=== PATIENT | female | born 1995 | race Caucasian/White ===

== ENCOUNTER 2023-08-12 00:57 | Observation (INO) | payer MEDICAID, SELFPAY ==
--- NOTE | 2023-08-12 01:08 | PC.NURSE ---
Pt arrives to [facility] with c/o leaking of fluid. Pt given gown and urine specimen cup.
[2023-08-12 01:16] VITALS: BP 105/55; PULSE 62
[2023-08-12 01:37] LABS: Bilirubin Urine NEGATIVE (NEGATIVE); Blood Urine NEGATIVE (NEGATIVE); Clarity Urine CLEAR (CLEAR); Color Urine LT. YELLOW (YELLOW); Glucose Urine UA NEGATIVE (NEGATIVE); Ketones Urine NEGATIVE (NEGATIVE); Leukocyte Esterase Urine NEGATIVE (NEGATIVE); Nitrite Urine NEGATIVE (NEGATIVE); Protein Urine NEGATIVE (NEG/TRACE); Specific Gravity Urine >=1.030 (1.005-1.025); Urobilinogen Urine 0.2 EU/dL (0.2-1.0)
[2023-08-12 01:39] LABS: Urine Microscopic Indicated NO
[2023-08-12 01:46] LABS: Amnisure NEGATIVE (NEGATIVE)
--- NOTE | 2023-08-12 02:28 | PC.NURSE ---
0108- Pt returns from restroom at this time. Pt begins to state her chief complaint at this time. Pt states she received an US at [facility] in [place] 08/11/23 in the AM and was told her placenta and umbilical cord of fetus was hanging . Pt denies being told if she had a placenta previa, short cervix, or low lying placenta. Pt states she had to go to [facility] due to not having any insurance and living in domestic retirement since the 30 of July. Pt states she had some care in [place]. Pt states she had a sneak peak US done to verify due to no insurance and knew fetus HR and gender. Pt states her past pregnancies were all with and has not been able to see him because of insurance purposes at this time but plans to call his office when insurance is established next week. The pt states she has felt leaking of fluid since 9pm 08/11/2023; pt states it is clear and mucous like with no urine smell. Pt reports recurrent UTI in past. Pt denies sexual intercourse. Pt denies labor/delivery with other pregnancies. Pt denies complications with this and past pregnancies. All past pregnancies pt delivered vaginally. Pt denies vaginal bleeding. Pt denies cramping or cxt's. Pt states she hasn't felt the baby move since this morning. [id number] attempting to obtain heart tones at this time.
== END 2023-08-12 03:30 | disposition home or self-care (01) ==
PROVIDERS: Admitting Provider Obstetrics & Gynecology; Visit Provider Obstetrics & Gynecology
DX: Z03.71 Encounter for suspected problem with amniotic cavity and membrane ruled out (principal); Z3A.00 Weeks of gestation of pregnancy not specified
CPT/HCPCS: 81003; 84112; G0378; G0379

== ENCOUNTER 2023-10-19 00:07 | Observation (INO) | payer MEDICAID, SELFPAY ==
--- OUTSIDE RECORDS SUMMARY | 2023-10-19 00:17 | XMS_ITS | CCD ---
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 By: #### U DUSTIN SANABRIACG #### [facility] [address] [place] [address] Hotel [employer]obby Concierge: Travis Eduardo DO #### UAX #### [address] [address] Hotel [employer]obby Concierge: Philip Schulte MD PH,Ur 5.0 Normal 5.0-8.0 [facility] Comment on above: Performed By: #### U EARLINE SANABRIAG #### [facility] [place] [address] Hotel Lobby Concierge: Travis Eduardo DO #### UAX #### [address] [address] Hotel Lobby Concierge: Philip Schulte MD Protein Ql (U) TRACE Abnormal NEG [facility] Comment on above: Performed By: #### U KAYLAO UHCG #### [facility] [address] [place] [address] Hotel Lobby Concierge: Travis Eduardo DO #### UAX #### [address] [address] Hotel Lobby Concierge: Philip Schulte MD Spec. [place],Ur 1.022 Normal 1.000-1.030 [facility] Comment on above: Performed By: #### U DUSTIN SANABRIACG #### [facility] [address] [place] [address] Hotel Lobby Concierge: Travis Eduardo DO #### UAX #### [address] [address] Hotel [employer]obby Concierge: Philip Schulte MD Urobilinogen,Ur Normal Normal NORM [facility] Comment on above: Performed By: #### EARLINE MCMANUSG #### [facility] [address] [place] [address] Hotel [employer]obby Concierge: Travis Eduardo DO #### UAX #### [address] [address] Hotel Lobby Concierge: Philip Schulte MD Urinalysis,Microon 3 Bacteria None Normal NONE [facility] Comment on above: Performed By: #### MIKEL MCMANUS #### [facility] [address] [place] [address] Hotel [employer]obby Concierge: Travis Eduardo DO #### UAX #### [address] [address] Hotel [employer]obby Concierge: Philip Schulte MD Casts 0 TO 2 Normal [facility] Comment on above: Performed By: #### MIKEL MCMANUS #### [facility] [address] [place] [address] Hotel [employer]obby Concierge: Travis Eduardo DO #### UAX #### [address] [address] Hotel Lobby Concierge: Philip Schulte MD Epithelial cells LM Ql (Urine sed) 0 TO 2 Normal [facility] Comment on above: Performed By: #### MIKEL MCMANUS #### [facility] [address] [place] [address] Hotel [employer]obby Concierge: Travis Eduardo DO #### UAX #### [address] [place] [address] Hotel Lobby Concierge: Philip Schulte MD Urine RBC's 21 TO 50 Normal [facility] Comment on above: Performed By: #### U MICAO UHCG #### [facility] [address] [place] [address] Hotel [employer]obby Concierge: Travis Eduardo DO #### UAX #### [address] [address] Hotel Lobby Concierge: Philip Schulte MD Urine WBC's 6 TO 9 Normal [facility] Comment on above: Performed By: #### U MICAO UHCG #### [facility] [address] [place] [address] Hotel [employer]obby Concierge: Travis Eduardo DO #### UAX #### [address] [address] Hotel Lobby Concierge: Philip Schulte MD Vaginitis DNA Probeon 2022 Renetta Negative Normal NEG [facility] Comment on above: Result Comment: for Renetta sp. Method of testing is a DNA probe intended for detection and identification of Renetta species, Gardnerella vaginalis, and Trichomonas vaginalis nucleic acid in vaginal fluid specimens from patients with symptoms of vaginitis/vaginosis. Performed By: #### V AGP #### [facility] [address] [place] [address] Hotel [employer]obby Concierge: Travis Eduardo DO Gardnerella Negative Normal NEG [facility] Comment on above: Result Comment: for Gardnerella vaginalis Performed By: #### V AGP #### [facility] [address] [facility] [place] [address] Hotel Lobby Concierge: Travis Eduardo DO Trichomonas Negative Normal NEG [facility] Comment on above: Result Comment: for Trichomonas Vaginalis Performed By: #### V AGP #### [facility] [address] [place] [address] Hotel [employer]obby Concierge: Travis Eduardo DO Source .VAGINAL SWAB Normal [facility] Comment on above: Performed By: #### V AGP #### [facility] [address] [place] [address] Hotel Lobby Concierge: Travis Eduardo DO Pap IG,rfx Aptima HPV all pt hon 02-03-2022 . . Normal [facility] Comment on above: Performed By: #### P [id number] #### [facility] [address] [address] [address] Mack Marcial DIAGNOSIS: Comment Abnormal [facility] Comment on above: Result Comment: EPIT HELIAL CELL ABNORMALITY. LOW GRADE SQUAMOUS INTRAEPITHELIAL LESION (LSIL). PREDOMINANCE OF COCCOBACILLI CONSISTENT WITH SHIFT IN VAGINAL DAHLIA IS PRESENT. Performed By: #### P APH11A #### [facility] [address] [address] [address] Mack Marcial Electronically signed by: Comment Normal [facility] Comment on above: Result Comment: Terrell Mendoza MD, Pathologist Performed By: #### P APH11A #### [facility] [address] [address] [address] Mack Marcial HPV Aptima Positive Abnormal Negative [facility] Comment on above: Result Comment: This nucleic acid amplification test detects fourteen high-risk HPV types (16,18,31,33,35,39,45,51,52,56,58,59,66,68) without differentiation. Performed By: #### P APH11A #### [facility] [address] [address] [address] Mack Marcail Methodology: Comment Normal [facility] Comment on above: Result Comment: This liquid based ThinPrep(R) pap test was screened with the use of an image guided system. Performed By: #### P APH11A #### [facility] [address] [place] [address] Dr. Mack Marcial Note: Comment Normal [facility] Comment on above: Result Comment: The Pap smear is a screening test designed to aid in the detection of premalignant and malignant conditions of the uterine cervix. It is not a diagnostic procedure and should not be used as the sole means of detecting cervical cancer. Both false-positive and false-negative reports do occur. . Performed By: #### P APH11A #### [facility] [address] [address] [address] Mack Marcial Pathologist Provided ICD10 Comment Normal [facility] Comment on above: Result Comment: R87. [id number], R87.5 Performed By: #### P APH11A #### [facility] [address] [place] [address] Dr. Mack Marcial Performed by: Comment Normal [facility] Comment on above: Result Comment: Juhi Albrecht [employer] Harvest Worker (ASCP) Performed By: #### P APH11A #### [facility] [address] [place] [address] Dr. Mack Marcial Reflex Criteria: Comment Normal [facility] Comment on above: Result Comment: See below for HPV testing results. . Performed By: #### P APH11A #### [facility] [address] [place] [address] Dr. Mack Marcial Specimen adequacy: Comment Normal [facility] Comment on above: Result Comment: Sati sfactory for evaluation. Endocervical and/or squamous metaplastic cells (endocervical component) are present. Performed By: #### P APH11A #### [facility] [address] [place] [address] Dr. Mack Marcial CBC AUTO DIFFon 09-06-2021 BASO # 0.0 103/ul Normal 0.0-0.1 [facility] Comment on above: Performed By: #### H IV12 #### [facility] [address] [place] [address] Dr. Mack Marcial Basophils/100 WBC (Bld) 0.2 % Normal 0.2-2.0 [facility] Comment on above: Performed By: #### H IV12 #### [facility] [address] [address] [address] Mack Marcial EO # 0.1 103/ul Normal 0.0-0.7 [facility] Comment on above: Performed By: #### H IV12 #### [facility] [address] [place] [address] Dr. Mack Marcial Eosinophils/100 WBC (Bld) 0.5 % Critically low 0.9-7.0 [facility] Comment on above: Performed By: #### H IV12 #### [facility] [address] [place] [address] Dr. Mack Marcial Erythrocyte distribution width (RBC) [Ratio] 16.2 % Critically high 11.0-15.0 [facility] Comment on above: Performed By: #### H IV12 #### [facility] [address] [place] [address] Dr. Mack Marcial Hematocrit (Bld) [Volume fraction] 25.6 % Critically low 36.0-48.0 [facility] Comment on above: Performed By: #### H IV12 #### [facility] [address] [place] [address] Dr. Mack Marcial Hemoglobin (Bld) [Mass/Vol] 7.9 g/dL Critically low 12.0-16.0 [facility] Comment on above: Result Comment: post Performed By: #### H IV12 #### [facility] [address] [place] [address] Dr. Mack Marcial IG # 0.07 10e3/ul Critically high 0.00-0.03 [facility] Comment on above: Performed By: #### H IV12 #### [facility] [address] [place] [address] Dr. Mack Marcial IG % 0.5 % Normal 0.0-0.5 [facility] Comment on above: Performed By: #### H IV12 #### [facility] [address] [place] [address] Dr. Mack Marcial LYMPH # 2.2 103/ul Normal 1.2-3.8 [facility] Comment on above: Performed By: #### H IV12 #### [facility] [address] [address] [address] Mack Marcial Lymphocytes/100 WBC (Bld) 16.9 % Critically low 20.5-60.0 [facility] Comment on above: Performed By: #### H IV12 #### [facility] [address] [address] [address] Mack Marcial MANUAL DIFF REQ NO Normal [facility] Comment on above: Performed By: #### H IV12 #### [facility] [address] [place] [address] Dr. Mack Marcial MCH (RBC) [Entitic mass] 24.8 pg Critically low 26.7-34.0 [facility] Comment on above: Performed By: #### H IV12 #### [facility] [address] [place] [address] Dr. Mack Marcial MCHC (RBC) [Mass/Vol] 30.9 g/dL Normal 29.9-35.2 [facility] Comment on above: Performed By: #### H IV12 #### [facility] [address] [place] [address] Dr. Mack Marcial MCV (RBC) [Entitic vol] 80.5 fL Critically low 81.0-99.0 [facility] Comment on above: Performed By: #### H IV12 #### [facility] [address] [place] [address] Dr. Mack Marcial MONO # 1.2 103/ul Critically high 0.3-0.8 [facility] Comment on above: Performed By: #### H IV12 #### [facility] [address] [place] [address] Dr. Mack Marcial Monocytes/100 WBC (Bld) 9.2 % Normal 1.7-12.0 [facility] Comment on above: Performed By: #### H IV12 #### [facility] [address] [place] [address] Dr. Mack Marcial NEUT # 9.4 103/ul Critically high 1.4-6.5 [facility] Comment on above: Performed By: #### H IV12 #### [facility] [address] [place] [address] Dr. Mack Marcial Neutrophils/100 WBC (Bld) 72.7 % Normal 43.0-75.0 [facility] Comment on above: Performed By: #### H IV12 #### [facility] [address] [place] [address] Dr. Mack Marcial Platelet mean volume (Bld) [Entitic vol] 10.1 fL Normal 9.5-13.5 [facility] Comment on above: Performed By: #### H IV12 #### [facility] [address] [place] [address] Dr. Mack Marcial PLT 159 103/ul Normal 150-450 [facility] Comment on above: Performed By: #### H IV12 #### [facility] [address] [place] [address] Dr. Mack Marcial RBC 3.18 106/ul Critically low 4.20-5.40 [facility] Comment on above: Performed By: #### H IV12 #### [facility] [address] [place] [address] Dr. Mack Marcial WBC 13.0 103/ul Critically high 4.0-11.0 [facility] Comment on above: Performed By: #### H IV12 #### [facility] [address] [place] [address] Dr. Mack Marcial CBC AUTO DIFFon 09-05-2021 BASO # 0.0 103/ul Normal 0.0-0.1 [facility] Comment on above: Performed By: #### 4 [id number] #### [facility] [address] [place] [address] Dr. Mack Marcial Basophils/100 WBC (Bld) 0.3 % Normal 0.2-2.0 [facility] Comment on above: Performed By: #### [id number] #### [facility] [address] [place] [address] Dr. Mack Marcial EO # 0.1 103/ul Normal 0.0-0.7 [facility] Comment on above: Performed By: #### 4 [id number] #### [facility] [address] [place] [address] Dr. Mack Marcial Eosinophils/100 WBC (Bld) 1.0 % Normal 0.9-7.0 [facility] Comment on above: Performed By: #### 4 [id number] #### [facility] [address] [place] [address] Dr. Mack Marcial Erythrocyte distribution width (RBC) [Ratio] 16.4 % Critically high 11.0-15.0 [facility] Comment on above: Performed By: #### 4 [id number] #### [facility] [address] [place] [address] Dr. Mack Marcial Hematocrit (Bld) [Volume fraction] 33.4 % Critically low 36.0-48.0 [facility] Comment on above: Performed By: #### 4 [id number] #### [facility] [address] [place] [address] Dr. Mack Marcial Hemoglobin (Bld) [Mass/Vol] 10.4 g/dL Critically low 12.0-16.0 [facility] Comment on above: Performed By: #### 4 [id number] #### [facility] [address] [place] [address] Dr. Mack Marcial IG # 0.06 10e3/ul Critically high 0.00-0.03 [facility] Comment on above: Performed By: #### 4 [id number] #### [facility] [address] [place] [address] Dr. Mack Marcial IG % 0.6 % Critically high 0.0-0.5 [facility] Comment on above: Performed By: #### 4 [id number] #### [facility] [address] [place] [address] Dr. Mack Marcial LYMPH # 2.4 103/ul Normal 1.2-3.8 [facility] Comment on above: Performed By: #### 4 [id number] #### [facility] [address] [place] [address] Dr. Mack Marcial Lymphocytes/100 WBC (Bld) 25.2 % Normal 20.5-60.0 [facility] Comment on above: Performed By: #### 4 [id number] #### [facility] [address] [place] [address] Dr. Mack Marcial MANUAL DIFF REQ NO Normal [facility] Comment on above: Performed By: #### 4 [id number] #### [facility] [address] [place] [address] Dr. Mack Marcial MCH (RBC) [Entitic mass] 24.4 pg Critically low 26.7-34.0 [facility] Comment on above: Performed By: #### 4 [id number] #### [facility] [address] [place] [address] Dr. Mack Marcial MCHC (RBC) [Mass/Vol] 31.1 g/dL Normal 29.9-35.2 [facility] Comment on above: Performed By: #### 4 [id number] #### [facility] [address] [place] [address] Dr. Mack Marcial MCV (RBC) [Entitic vol] 78.2 fL Critically low 81.0-99.0 [facility] Comment on above: Performed By: #### 4 [id number] #### [facility] [address] [place] [address] Dr. Mack Marcial MONO # 0.8 103/ul Normal 0.3-0.8 [facility] Comment on above: Performed By: #### 4 [id number] #### [facility] [address] [place] [address] Dr. Mack Marcial Monocytes/100 WBC (Bld) 8.8 % Normal 1.7-12.0 [facility] Comment on above: Performed By: #### 4 [id number] #### [facility] [address] [place] [address] Dr. Mack Marcial NEUT # 6.1 103/ul Normal 1.4-6.5 [facility] Comment on above: Performed By: #### 4 [id number] #### [facility] [address] [place] [address] Dr. Mack Marcial Neutrophils/100 WBC (Bld) 64.1 % Normal 43.0-75.0 [facility] Comment on above: Performed By: #### 4 [id number] #### [facility] [address] [place] [address] Dr. Mack Marcial Platelet mean volume (Bld) [Entitic vol] 10.4 fL Normal 9.5-13.5 [facility] Comment on above: Performed By: #### 4 [id number] #### [facility] [address] [place] [address] Dr. Mack Marcial PLT 191 103/ul Normal 150-450 [facility] Comment on above: Performed By: #### 4 [id number] #### [facility] [address] [place] [address] Dr. Mack Marcial RBC 4.27 106/ul Normal 4.20-5.40 [facility] Comment on above: Performed By: #### 4 [id number] #### [facility] [address] [place] [address] Dr. Mack Marcial WBC 9.6 103/ul Normal 4.0-11.0 [facility] Comment on above: Performed By: #### 4 [id number] #### [facility] [address] [place] [address] Dr. Mack Marcial Covid-19 PCR ([facility])on 08-25 SARS-CoV-2 (COVID-19) RNA CHUCK+probe Ql (Unsp spec) Not detected Normal NOT DETECTED [facility] Comment on above: Result Comment: When diagnostic testing is negative, the possibility of a false negative should be considered in the context of a patient's recent exposures and the presence of clinical signs and symptoms consistent with SARS-CoV-2. This test is not yet approved or cleared by the [place] FDA. When there are no FDA-approved or cleared tests available, and other criteria are met, FDA can make tests available under an emergency access mechanism called an Emergency Use Authorization (EUA). The EUA for this test is supported by the Le[employer] Driver of Health and Human Service's declaration that circumstances exist to justify the emergency use of in vitro diagnostics for the detection and/or diagnosis of the virus that causes COVID-19. This EUA will remain in effect for the duration of the COVID-19 declaration justifying emergency of IVDs, unless it is terminated or revoked by the FDA (after which the test may no longer be used). Performed By: #### 4 [id number] #### [facility] [address] [place] [address] Dr. Mack Marcial DRUG SCREEN RAPID (URINE)on 09-05-2021 AMP Negative Normal NEGATIVE [facility] Comment on above: Performed By: #### H IV12 #### [facility] [address] [place] [address] Dr. Mack Marcial BAR Negative Normal NEGATIVE [facility] Comment on above: Performed By: #### H IV12 #### [facility] [address] [place] [address] Dr. Mack Marcial BUP Negative Normal NEGATIVE [facility] Comment on above: Performed By: #### H IV12 #### [facility] [address] [place] [address] Dr. Mack Marcial BZO Negative Normal NEGATIVE [facility] Comment on above: Performed By: #### H IV12 #### [facility] [address] [place] [address] Dr. Mack Marcial ANDREA Negative Normal NEGATIVE [facility] Comment on above: Performed By: #### H IV12 #### [facility] [address] [place] [address] Dr. Mack Marcial CUT-OFFS SEE BELOW Normal [facility] Comment on above: Result Comment: AMP (Amphetamine): 500ng/mL, BAR (Barbituates): 200 ng/mL, BZO (Benzodiazepines): 150 ng/mL, BUP (Buprenorphine): 10 ng/mL, ANRDEA (Cocaine): 150 ng/mL, mAMP (Methamphetamine): 500 ng/mL, MTD (Methadone): 200 ng/mL, OPI (Opiates): 100 ng/mL, OXY (Oxycodone): 100 ng/mL, PCP (Phencyclidine): 25 ng/mL, PPX (Propoxyphene): 300 ng/mL, THC (Cannabinoids): 50 ng/mL, TCA (Trycyclic Antidepressants): 300 ng/mL Performed By: #### H IV12 #### [facility] [address] [place] [address] Dr. Mack Marcial DRUG CUT HEADER DRUG CLASS TEST SYSTEM CUT-OFF CONCENTRATIONS ARE FOLLOWS: Normal [facility] Comment on above: Performed By: #### H IV12 #### [facility] [address] [place] [address] Dr. Mack Marcial mAMP Negative Normal NEGATIVE [facility] Comment on above: Performed By: #### H IV12 #### [facility] [address] [place] [address] Dr. Mack Marcial MTD Negative Normal NEGATIVE [facility] Comment on above: Performed By: #### H IV12 #### [facility] [address] [place] [address] Dr. Mack Marcial OPI Negative Normal NEGATIVE [facility] Comment on above: Performed By: #### H IV12 #### [facility] [address] [place] [address] Dr. Mack Marcial OXY Negative Normal NEGATIVE [facility] Comment on above: Performed By: #### H IV12 #### [facility] [address] [place] [address] Dr. Mack Marcial PCP Negative Normal NEGATIVE [facility] Comment on above: Performed By: #### H IV12 #### [facility] [address] [place] [address] Dr. Mack Marcial PPX Negative Normal NEGATIVE [facility] Comment on above: Performed By: #### H IV12 #### [facility] [address] [place] [address] Dr. Mack Marcial TCA Negative Normal NEGATIVE [facility] Comment on above: Performed By: #### H IV12 #### [facility] [address] [place] [address] Dr. Mack Marcial THC Negative Normal NEGATIVE [facility] Comment on above: Performed By: #### H IV12 #### [facility] [address] [place] [address] Dr. Mack Marcial TYPE AND SCREENon 09-05-2021 TYPE AND SCREEN Negative Normal [facility] Comment on above: Performed By: #### H IV12 #### [facility] [address] [address] [address] Mack Marcial US PREG GROWTHon 08-27-2021 US PREG GROWTH EXAMINATION: US PREG GROWTH HISTORY: Large for gestation age fetus COMPARISON: No relevant comparison available. FINDINGS: Heart Rate: 155 Amniotic Fluid Volume: 8.4 cm Number: 1.0 Maximum Vertical Pocket: 2.0 cm cm 2.3 cm cm 4.1 cm cm BIOMETRY: BPD: 9.2 cm cm; 37 weeks 1 days; HC: 32.8 cmcm; 37 weeks 2 days AC: 36.4 cm cm; 40 weeks 2 days FL: 7.5 cm cm; 38 weeks 0 days; EFW: 8 lbs. 2 oz., 3680 g. 84% by ultrasound, 88% by expected EDC FL/AC: 0.254854 FL/BPD: 0.850780 HC/AC: 0.823691, slightly low normal 0.9-1.05 GESTATIONAL AGE: Age by EDC: 37 weeks 6 days JORI by EDC: 09/11/2021 Age by US: 38 weeks 1 day JORI by US: 09/09/2021 IMPRESSION: Slightly low head circumference to abdominal circumference ratio Otherwise normal interval growth with estimated weight 88% by expected EDC Electronically authenticated by: FADUMO AMARAL Date: 2021-08-27 17:10 Normal [facility] GROUP B STREP CULTUREon 07-28 S. agalactiae Ag Ql (Unsp spec) Culture Observations: NEGATIVE FOR GROUP B STREPTOCOCCUS. Normal [facility] Comment on above: Performed By: #### G BSCX #### [facility] [address] [address] [address] Mack Marcial HEP B SURFACE ANTIGEN SCREEN on 07-08-2021 HBsAg Screen Negative Normal Negative [facility] Comment on above: Performed By: #### H BSANS #### [facility] [address] [place] [address] Dr. Mack Marcial HEPATITIS C VIRUS AB W/ REFL EX QUANTon 07-08-2021 HCV AB <0.1 Normal 0.0-0.9 [facility] Comment on above: Performed By: #### H IV12 #### [facility] [address] [place] [address] Dr. Mack Marcial Interpretation: Comment Normal [facility] Comment on above: Result Comment: Nega tive Not infected with HCV, unless recent infection is suspected or other evidence exists to indicate HCV infection. Performed By: #### H IV12 #### [facility] [address] [place] [address] Dr. Mack Marcial HIV 1 AND 2 WITH REFLEXon HIV Screen 4th Generation wRfx Non-Reactive Normal Non Reactive [facility] Comment on above: Result Comment: HIV Negative HIV-1/HIV-2 antibodies and HIV-1 p24 antigen were NOT detected. There is no laboratory evidence of HIV infection. Performed By: #### H IV12 #### [facility] [address] [place] [address] Dr. Mack Marcial RPR QUANTon 07-08-2021 Rapid Plasma Reagin, Quant Non-Reactive Normal NonRea<1:1 [facility] Comment on above: Performed By: #### R PRQ #### [facility] [address] [place] [address] Dr. Mack Marcial RUBELLA AB IGGon 07-08-2021 Rubella Antibodies, IgG 1.38 index Normal Immune >0.99 [facility] Comment on above: Result Comment: Non- immune <0.90 Equivocal 0.90 - 0.99 Immune >0.99 Performed By: #### R UBIGG #### [facility] [address] [place] [address] Dr. Mack Marcial VARICELLA IGG ABon Varicella Zoster IgG 1197 index Normal Immune >165 [facility] Comment on above: Result Comment: Nega tive <135 Equivocal 135 - 165 Positive >165 A positive result generally indicates exposure to the pathogen or administration of specific immunoglobulins, but it is not indication of active infection or stage of disease. Performed By: #### [id number] #### [facility] [address] [place] [address] Dr. Mack Marcial CBC AUTO DIFFon 07-07-2021 BASO # 0.0 103/ul Normal 0.0-0.1 [facility] Comment on above: Performed By: #### H IV12 #### [facility] [address] [address] [address] Mack Marcial Basophils/100 WBC (Bld) 0.3 % Normal 0.2-2.0 [facility] Comment on above: Performed By: #### H IV12 #### [facility] [address] [address] [address] Mack Marcial EO # 0.1 103/ul Normal 0.0-0.7 [facility] Comment on above: Performed By: #### H IV12 #### [facility] [address] [address] [address] Mack Marcial Eosinophils/100 WBC (Bld) 1.1 % Normal 0.9-7.0 [facility] Comment on above: Performed By: #### H IV12 #### [facility] [address] [address] [address] Mack Marcial Erythrocyte distribution width (RBC) [Ratio] 14.0 % Normal 11.0-15.0 [facility] Comment on above: Performed By: #### H IV12 #### [facility] [address] [address] [address] Mack Marcial Hematocrit (Bld) [Volume fraction] 31.9 % Critically low 36.0-48.0 [facility] Comment on above: Performed By: #### H IV12 #### [facility] [address] [address] [address] Mack Marcial Hemoglobin (Bld) [Mass/Vol] 10.3 g/dL Critically low 12.0-16.0 [facility] Comment on above: Performed By: #### H IV12 #### [facility] [address] [address] [address] Mack Marcial IG # 0.05 10e3/ul Critically high 0.00-0.03 [facility] Comment on above: Performed By: #### H IV12 #### [facility] [address] [place] [address] Dr. Mack Marcial IG % 0.6 % Critically high 0.0-0.5 [facility] Comment on above: Performed By: #### H IV12 #### [facility] [address] [address] [address] Mack Marcial LYMPH # 1.7 103/ul Normal 1.2-3.8 [facility] Comment on above: Performed By: #### H IV12 #### [facility] [address] [place] [address] Dr. Mack Marcial Lymphocytes/100 WBC (Bld) 21.4 % Normal 20.5-60.0 [facility] Comment on above: Performed By: #### H IV12 #### [facility] [address] [place] [address] Dr. Mack Marcial MANUAL DIFF REQ NO Normal [facility] Comment on above: Performed By: #### H IV12 #### [facility] [address] [place] [address] Dr. Mack Marcial MCH (RBC) [Entitic mass] 27.0 pg Normal 26.7-34.0 [facility] Comment on above: Performed By: #### H IV12 #### [facility] [address] [place] [address] Dr. Mack Marcial MCHC (RBC) [Mass/Vol] 32.3 g/dL Normal 29.9-35.2 [facility] Comment on above: Performed By: #### H IV12 #### [facility] [address] [place] [address] Dr. Mack Marcial MCV (RBC) [Entitic vol] 83.5 fL Normal 81.0-99.0 [facility] Comment on above: Performed By: #### H IV12 #### [facility] [address] [place] [address] Dr. Mack Marcial MONO # 0.5 103/ul Normal 0.3-0.8 [facility] Comment on above: Performed By: #### H IV12 #### [facility] [address] [address] [address] Mack Marcial Monocytes/100 WBC (Bld) 6.2 % Normal 1.7-12.0 [facility] Comment on above: Performed By: #### H IV12 #### [facility] [address] [address] [address] Mack Marcial NEUT # 5.5 103/ul Normal 1.4-6.5 [facility] Comment on above: Performed By: #### H IV12 #### [facility] [address] [place] [address] Dr. Mack Marcial Neutrophils/100 WBC (Bld) 70.4 % Normal 43.0-75.0 [facility] Comment on above: Performed By: #### H IV12 #### [facility] [address]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 pressure 103 mm[Hg] Aria Chowdary MD Work Phone: [facility] [employer] 01-20-2021 22:05-0400 Body height 160 cm Henry Heller MD [facility] Work Phone: 01-20-2021 22:05-0400 Body mass index (BMI) [Ratio] 30.11 kg/m2 Henry Heller MD [facility] Work Phone: 01-20-2021 22:05-0400 Body temperature 98.1 [degF] Henry Heller MD [facility] Work Phone: 01-20-2021 22:05-0400 Body weight 77.11 kg Henry Heller MD [facility] Work Phone: 01-20-2021 22:05-0400 Diastolic blood pressure 82 mm[Hg] Henry Heller MD [facility] Work Phone: 01-20-2021 22:05-0400 Heart rate 98 /min Henry Heller MD [employer] Phone: 01-20-2021 22:05-0400 Respiratory rate 16 /min Henry Heller MD [employer] Phone: 01-20-2021 22:05-0400 SaO2% (BldA) [Mass fraction] 100 % Henry Helelr MD [employer] Phone: 01-20-2021 22:05-0400 Systolic blood pressure 138 mm[Hg] Henry Heller MD [employer] Phone: 08-19-2019 13:39-0500 BMI (Body Mass Index) 26.57 kg/m2 [facility], [place] 08-19-2019 13:39-0500 Body Temperature 98.1 [degF] [facility], [place] 08-19-2019 13:39-0500 Body weight 68.04 kg [facility] 08-19-2019 13:39-0500 BP Diastolic 76 mm[Hg] [facility] 08-19-2019 13:39-0500 BP Systolic 123 mm[Hg] [facility] 08-19-2019 13:39-0500 Height 160 cm [facility] 08-19-2019 13:39-0500 Pulse (Heart Rate) 87 /min [facility], [place] 08-19-2019 13:39-0500 Pulse Oximetry 98 % [facility], [place] 08-19-2019 13:39-0500 Respiratory Rate 16 /min [facility], [place] 08-05-2019 14:22-0500 BMI (Body Mass Index) 26.57 kg/m2 Vini Ritchie [facility] Phone: 08-05-2019 14:22-0500 Body Temperature 98.71 [degF] [employer] Phone: 08-05-2019 14:22-0500 Body weight 68.04 kg [employer] Phone: 08-05-2019 14:22-0500 BP Diastolic 62 mm[Hg] [employer] Phone: 08-05-2019 14:22-0500 BP Systolic 117 mm[Hg] [employer] Phone: 08-05-2019 14:22-0500 Height 160 cm [employer] Phone: 08-05-2019 14:22-0500 Pulse (Heart Rate) 59 /min [employer] Phone: 08-05-2019 14:22-0500 Pulse Oximetry 99 % [employer] Phone: 08-05-2019 14:22-0500 Respiratory Rate 16 /min [employer] Phone: 2019 10:44-0500 Body height 160 cm [employer]ini [employer] Phone: [employer] Phone: 2019 10:44-0500 Body mass index (BMI) [Ratio] 26.57 kg/m2 [employer] Phone: [employer] Phone: 2019 10:44-0500 Body temperature 98.29 [degF] [employer] Work Phone: [employer] Phone: 2019 10:44-0500 Body weight 68.04 kg [employer] Work Phone: [employer] Phone: 2019 10:44-0500 Diastolic blood pressure 58 mm[Hg] Vini [employer] Work Phone: [employer] Work Phone: 2019 10:44-0500 Heart rate 70 /min Vini [employer] Work Phone: [employer] Work Phone: 2019 10:44-0500 Respiratory rate 15 /min [employer] Work Phone: [employer] Work Phone: 2019 10:44-0500 SaO2% (BldA) [Mass fraction] 99 % [employer] Work Phone: [employer] Work Phone: 2019 10:44-0500 Systolic blood pressure 106 mm[Hg] [employer] Work Phone: [employer] Work Phone: 07-07-2019 14:30-0500 Body height 160 cm Marshall Rodriguez MD Work Phone: [employer] Work Phone: 07-07-2019 14:30-0500 Body mass index (BMI) [Ratio] 26.57 kg/m2 Marshall Rodriguez MD Work Phone: [employer] Work Phone: 07-07-2019 14:30-0500 Body temperature 98.2 [degF] Marshall Rodriguez MD Work Phone: [employer] Work Phone: 07-07-2019 14:30-0500 Body weight 68.04 kg Marshall Rodriguez MD Work Phone: [employer] Work Phone: 07-07-2019 14:30-0500 Diastolic blood pressure 78 mm[Hg] Marshall Rodriguez MD Work Phone: [employer] Work Phone: 07-07-2019 14:30-0500 Heart rate 99 /min Marshall Rodriguez MD Work Phone: [employer] Work Phone: 07-07-2019 14:30-0500 Respiratory rate 18 /min Marshall Rodriguez MD Work Phone: [facility] Work Phone: 07-07-2019 14:30-0500 SaO2% (BldA) [Mass fraction] 100 % Marshall Rodriguez MD Work Phone: [employer] Work Phone: 07-07-2019 14:30-0500 Systolic blood pressure 128 mm[Hg] Marshall Rodriguez MD Work Phone: [employer] Work Phone: 04-03-2019 17:20-0400 BMI (Body Mass Index) 27.28 kg/m2 [facility], [place] 04-03-2019 17:20-0400 Body Temperature 98.4 [degF] [facility] 04-03-2019 17:20-0400 Body weight 69.85 kg [facility], [place] 04-03-2019 17:20-0400 BP Diastolic 46 mm[Hg] [facility], [place] 04-03-2019 17:20-0400 BP Systolic 120 mm[Hg] [facility] 04-03-2019 17:20-0400 Height 160 cm [facility] 04-03-2019 17:20-0400 Pulse (Heart Rate) 69 /min [facility], [place] 04-03-2019 17:20-0400 Pulse Oximetry 98 % [facility], [place] 04-03-2019 17:20-0400 Respiratory Rate 18 /min [facility], [place] 03-15-2019 17:35-0400 BMI (Body Mass Index) 27.28 kg/m2 Drake Corcoran [facility], [place] 03-15-2019 17:35-0400 Body Temperature 98.4 [degF] Drake Leahy [facility], [place] 03-15-2019 17:35-0400 Body weight 69.85 kg Drake Corcoran [facility] , [place] 03-15-2019 17:35-0400 BP Diastolic 57 mm[Hg] Drake Corcoran [facility] , [place] 03-15-2019 17:35-0400 BP Systolic 114 mm[Hg] Drake Corcoran [facility] , [place] 03-15-2019 17:35-0400 Height 160 cm Drake Corcoran [facility] , [place] 03-15-2019 17:35-0400 Pulse (Heart Rate) 66 /min Drake Corcoran [facility], [place] 03-15-2019 17:35-0400 Pulse Oximetry 99 % Drake Corcoran [facility] , [place] 03-15-2019 17:35-0400 Respiratory Rate 16 /min Drake Corcoran [facility], [place] 02-15-2019 11:22-0400 BMI (Body Mass Index) 28.34 kg/m2 Елена Olivera [facility], [place] 02-15-2019 11:22-0400 Body Temperature 98.01 [degF] Елена Olivera [facility], [place] 02-15-2019 11:22-0400 Body weight 72.58 kg Елена Olivera [facility] , [place] 02-15-2019 11:22-0400 BP Diastolic 67 mm[Hg] [facility] [place] 02-15-2019 11:22-0400 BP Systolic 111 mm[Hg] Елена [facility] , [place] 02-15-2019 11:22-0400 Height 160 cm Елена [facility] , [place] 02-15-2019 11:22-0400 Pulse (Heart Rate) 69 /min Елена Olivera [facility], [place] 02-15-2019 11:22-0400 Pulse Oximetry 98 % [facility] [place] 02-15-2019 11:22-0400 Respiratory Rate 14 /min [facility] [place] Encounters Encounter Date Encounter Type Care Provider Facility Start: 08-04-2023 End: 08-05-2023 ambulatory [facility] Start: 08-04-2023 End: 08-04-2023 Subsequent hospital visit by physician Leonel Delgado CNP Work Phone: [facility] [place] [facility] Draw Comment on above: High-risk in second trimester Start: 07-30-2023 End: 07-31-2023 ambulatory [facility] Start: 07-30-2023 End: 07-31-2023 Subsequent hospital visit by physician Aria Chowdary MD Work Phone: [id number] Labor & Delivery Start: 07-30-2023 End: 07-30-2023 Emergency department patient visit [facility] Start: 12-31-2022 End: 12-31-2022 Emergency department patient visit [facility] Start: 01-31-2022 Encounter for cervic al smear to confirm findings of recent normal smear following initial abnormal smear DR KARINE ARZATE [facility] Start: 01-28-2022 End: 01-28-[address] KARINE ARZATE Facility:[facility] Start: 01-28-2022 End: 01-28-2022 Encounter for cervical smear to confirm findings of recent normal smear following initial abnormal smear DR KARINE ARZATE Facility:[facility] Start: 12-02-[address] ZARA CONNELL Facsilverio lity:[facility] Start: 09-05-2021 End: 09-07-2021 Evaluation and management of inpatient DR ZARA CONNELL Facility:[facility] Start: 08-27-2021 End: 08-28-[address] ZARA CONNELL Facility:[facility] Start: 08-11-2021 End: 08-11-[address] ZARA CONNELL Facility:[facility] Start: 07-07-2021 End: 07-08-[address] ZARA CONNELL Facility:[facility] Start: 07-07-2021 End: 07-08-[address] ZARA CONNELL Facility:H1 Start: 03-31-2021 End: 03-31-2021 ambulatory LOBO TIWARI Facility:H1 Start: 02-16-2021 End: 02-17-2021 ambulatory LOBO TIWARI Facility:H1 Start: 01-20-2021 End: 01-21-2021 Emergency department patient visit Henry Heller MD [facility] ED Comment on above: Urinary tract infect ion in mother during first trimester of (Primary Dx); Non-intractable vomiting with nausea, unspecified vomiting type Start: 08-19-2019 End: 08-19-2019 Emergency department patient visit Calvin Kent Work Phone: [facility] ED Comment on above: BV (bacterial vagino sis) (Primary Dx); Rash Start: 08-05-2019 End: 08-05-2019 Emergency department patient visit Vini Ritchie Work Phone: [facility] ED Comment on above: Acute cystitis witho ut hematuria (Primary Dx) Start: 2019 End: 2019 Emergency department patient visit Vini Ritchie DO Work Phone: [facility] ED Comment on above: Visit for suture rem oval (Primary Dx) Start: 07-07-2019 End: 07-07-2019 Emergency department patient visit Marshall Rodriguez MD Work Phone: [facility] ED Comment on above: Facial laceration, i nitial encounter (Primary Dx); Injury of head, initial encounter Start: 04-03-2019 End: 04-03-2019 Emergency department patient visit Jean Claude Fisher Work Phone: [facility] ED Comment on above: Acute cystitis with hematuria (Primary Dx) Start: 03-15-2019 End: 03-15-2019 Emergency department patient visit Drake Corcoran [facility] ED Comment on above: Urinary tract infect ion without hematuria, site unspecified (Primary Dx) Start: 02-15-2019 End: 02-15-2019 Emergency department patient visit Елена Olivera Work Phone: [facility] ED Comment on above: Dysuria (Primary Dx) ; Vaginal discharge Procedures Date Procedure Procedure Detail Performing Clinician Start: 08-04-2023 Iadna renetta specie s direct probe tq Karis R Juan A POWELL Work Phone: Start: 07-30-2023 Urnls dip stick/tabl et rgnt auto w/o microscopy 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 MD Work Phone: Start: 07-30-2023 End: 07-30-2023 Blood typing serologic abo Quincy rodriguez MD Work Phone: Start: 09-05-2021 Delivery of Products of Conception, External Approach DR ZARA CONNELL Start: 09-05-2021 Drainage of Amniotic Fluid, Therapeutic from Products of Conception, Via Natural or Artificial Opening DR ZARA CONNELL Start: 09-05-2021 Introduction of Othe r Hormone into Peripheral Vein, Percutaneous Approach DR ZARA CONNELL Start: 01-21-2021 Urnls dip stick/tabl et reagent auto microscopy Henry Heller MD Start: 08-19-2019 Iadna renetta specie s direct probe tq Ranjana Del Rosario Work Phone: Start: 08-19-2019 Urinalysis microscop ic only Ranjana Adam Lowhnana Work Phone: Start: 08-19-2019 Urine test visual color cmprsn meths Ranjana Adam Carin Work Phone: Start: 08-19-2019 Urnls dip stick/tabl et rgnt auto w/o microscopy Ranjana Del Rosario Work Phone: Start: 08-05-2019 End: 08-05-2019 Urine test visual color cmprsn meths Ludmila Heller Carmen Work Phone: Start: 08-05-2019 Urinalysis microscop ic only Ludmila Heller [employer] Work Phone: Start: 08-05-2019 Urnls dip stick/tabl et rgnt auto w/o microscopy Ludmila Heller [employer] Work Phone: Start: 07-07-2019 Ct head/brain w/o co ntrast material Marshall Rodriguez MD Work Phone: Start: 04-03-2019 Urine test visual color cmprsn meths Ranjana Del Rosario Work Phone: Start: 04-03-2019 Urnls dip stick/tabl et rgnt auto w/o microscopy Ranjana Del Rosario Work Phone: Start: 03-15-2019 Urinalysis microscop ic only Drake R Nilo Start: 03-15-2019 Urine test visual color cmprsn meths Drake R Nilo Start: 03-15-2019 Urnls dip stick/tabl et rgnt auto w/o microscopy Drake R Nilo Start: 02-15-2019 Iadna renetta specie s direct probe tq Ranjana Del Rosario Work Phone: Start: 02-15-2019 Urinalysis microscop ic only Ranjana Del Rosario Work Phone: Start: 02-15-2019 Urine test visual color cmprsn meths Ranjana Del Rosario Work Phone: Start: 02-15-2019 Urnls dip stick/tabl et rgnt auto w/o microscopy Ranjana Del Rosario Work Phone: Plan of Treatment Date Care Activity Detail Author Start: 2047 Shingles Vaccine (1 of 2) Shingles Vaccine (1 of 2) [employer] Phone: Start: 07-07-2029 DTaP/Tdap/Td vaccine (5 - Td or Tdap) DTaP/Tdap/Td vaccine (5 - Td or Tdap) [facility] [email or web address] Start: 07-07-2029 DTaP/Tdap/Td vaccine (9 - Td or Tdap) DTaP/Tdap/Td vaccine (9 - Td or Tdap) [facility] Start: 07-07-2029 DTaP/Tdap/Td vaccine (9 - Td) DTaP/Tdap/Td vaccine (9 - Td) [employer] Phone: Start: 09-02-2023 End: 09-02-2023 Patient encounter procedure 09/02/2023 8:15 AM EST Routine [facility] [employer] [place] [address] [place] [id number] Sharla Barvo MD [facility] [employer], [address] [facility] [address] [place], [place] [id number] GAYATRI [facility] [employer] [place] Comment on above: GAYATRI Start: 08-11-2023 End: 08-11-2023 Patient encounter procedure 08/11/2023 9:00 AM EST Routine [facility] [address] [place] [address] [address] [facility] Comment on above: ANATOMY Start: 08-04-2023 End: 08-04-2023 Patient encounter procedure 08/04/2023 1:00 PM EST Office Visit [facility] [employer] [place] [address] [facility] [address] [place] [id number] Karis Palma DO [address] [place], [place] [id number] Pt will come at 1430 [facility] [employer] [place] Comment on above: Pt will come at 1430 Start: 01-25-2023 Influenza vaccination Flu vaccine (# 1) [facility] [employer] Start: 02-25-2021 Influenza vaccination Flu vaccine (# 1) [facility] Start: 08-19-2020 Screening for Chlamy toy trachomatis [facility]lamydia screen [facility] Phone: Start: 02-16-2020 Chlamydia screen Chlamydia screen [facility] Medical Referral Source Phone: Start: 02-25-2019 Influenza vaccination Flu vaccine (# 1) [facility] [place] Start: 2018 Cervical cancer screen Cervical canc er screen [facility] Phone: Start: 2018 Screening for malign ant neoplasm of cervix [facility] [employer] Start: 2012 HIV screen HIV screen Tosin thornton Work Phone: Start: 2012 HIV screening HIV screen Tosin Neil lt Work Phone: Start: 2009 COVID-19 Vaccine (1) COVID-19 Vaccin e (1) [facility] Work Phone: Start: 2009 Depression Screen Depression Screen [facility] [employer] Start: 01-18-1998 COVID-19 Vaccine (#1) COVID-19 Vacci ne (#1) [facility] [employer] Start: 1997 Hepatitis B vaccine (2 of 3 - 3-dose series) Hepatitis B vaccine (2 of 3 - 3-dose series) [facility] [employer] Start: 1997 Hepatitis C screening Hepatitis C sc reen [facility] Work Phone: End: 08-19-2019 C.trachomatis N.gonorrhoeae DNA C.trachomatis N.gonorrhoeae DNA Microbiology Routine One Time for 1 Occurrences starting 08/19/2019 until 08/19/2019 [place], [place] Comment on above: One Time for 1 Occur rences starting 08/19/2019 until 08/19/2019 C.trachomatis N.gonorrhoeae DNA [place] End: 02-15-2019 C.trachomatis N.gonorrhoeae DNA C.trachomatis N.gonorrhoeae DNA Microbiology Routine One Time for 1 Occurrences starting 02/15/2019 until 02/15/2019 [place] Comment on above: One Time for 1 Occur rences starting 02/15/2019 until 02/15/2019 C.trachomatis N.gonorrhoeae DNA C.trachomatis N.gonorrhoeae DNA Microbiology Routine High-risk in second trimester 08/04/2023 7:20 AM EST [facility] [employer] End: 08-19-2019 Culture, HSV Culture, HSV Microbiology Routine Once for 1 Occurrences starting 08/19/2019 until 08/19/2019 [place] Comment on above: Once for 1 Occurrenc es starting 08/19/2019 until 08/19/2019 Culture, HSV Culture, HSV Microbiology Routine 08/19/2019 2:20 PM EST [place] End: 08-19-2019 Culture, Urine Culture, Urine Microbiology Routine Once for 1 Occurrences starting 08/19/2019 until 08/19/2019 [place] Comment on above: Once for 1 Occurrenc es starting 08/19/2019 until 08/19/2019 Culture, Urine [place] End: 01-20-2021 Culture, Urine Culture, Urine Microbiology STAT One Time for 1 Occurrences starting 01/20/2021 until 01/20/2021 [employer] Work Phone: Comment on above: One Time for 1 Occur rences starting 01/20/2021 until 01/20/2021 End: 07-30-2023 Culture, Urine [facility] [employer] Comment on above: One Time for 1 Occur rences starting 07/30/2023 until 07/30/2023 End: 08-19-2019 Culture, Wound Culture, Wound Microbiology Routine One Time for 1 Occurrences starting 08/19/2019 until 08/19/2019 [place] Comment on above: One Time for 1 Occur rences starting 08/19/2019 until 08/19/2019 End: 08-04-2023 GENERAL MANAGER Cytology GENERAL MANAGER Cytology Lab Routine Once for 1 Occurrences starting 08/04/2023 until 08/04/2023 [facility] [employer] Comment on above: Once for 1 Occurrenc es starting 08/04/2023 until 08/04/2023 End: 04-03-2019 Microscopic urinalysis Microscopic Urinalysis Lab Routine Once for 1 Occurrences starting 04/03/2019 until 04/03/2019 [place] Comment on above: Once for 1 Occurrenc es starting 04/03/2019 until 04/03/2019 Microscopic urinalysis Microscop ic Urinalysis Lab Routine 04/03/2019 5:28 PM EDT [place], [place] Nonrebreather mask oxygen Nonrebreather mask oxygen Respiratory Care Routine As Needed until discontinued starting 07/30/2023 [facility] [employer] Comment on above: As Needed until disc ontinued starting 07/30/2023 End: 02-15-2019 Urine culture clean catch Urine culture clean catch Microbiology Routine Once for 1 Occurrences starting 02/15/2019 until 02/15/2019 [place] Comment on above: Once for 1 Occurrenc es starting 02/15/2019 until 02/15/2019 Urine culture clean catch [facility] [place] End: 08-05-2019 Urine culture clean catch Urine culture clean catch Microbiology Routine Once for 1 Occurrences starting 08/05/2019 until 08/05/2019 [employer] Work Phone: Comment on above: Once for 1 Occurrenc es starting 08/05/2019 until 08/05/2019 End: 03-15-2019 Urine culture clean catch Urine culture clean catch Microbiology Routine Once for 1 Occurrences starting 03/15/2019 until 03/15/2019 [facility] Comment on above: Once for 1 Occurrenc es starting 03/15/2019 until 03/15/2019 Immunizations Immunization Date Immunization Notes Care Provider Fa [facility] 07-07-2019 diphtheria, tetanus toxoids and acellular pertussis vaccine, unspecified formulation Marshall Rodriguez MD Work Phone: [employer] Work Phone: 07-07-2019 tetanus toxoid, redu pat diphtheria toxoid, and acellular pertussis vaccine, adsorbed Marshall Rodriguez MD Work Phone: [facility] [employer] 03-05-2019 tetanus toxoid, redu pat diphtheria toxoid, and acellular pertussis vaccine, adsorbed Aria Chowadry MD Work Phone: [facility] [employer] 04-22-2015 influenza virus vacc ine, unspecified formulation Aria Chowdary MD Work Phone: [facility] [employer] 04-11-2014 influenza virus vacc ine, unspecified formulation Aria Chowdary MD Work Phone: [facility] [employer] 10-15-2013 hepatitis A vaccine, pediatric/adolescent dosage, 2 dose schedule Aria Chowdary MD Work Phone: [facility] [employer] 10-15-2013 meningococcal polysaccharide (groups A, C, Y and W-135) diphtheria toxoid conjugate vaccine (MCV4P) Aria Chowdary MD Work Phone: [facility] [employer] 04-25-2013 influenza, injectabl e, quadrivalent, preservative free Aria Chowdary MD Work Phone: [facility] 05-11-2012 influenza virus vacc ine, unspecified formulation Aria Chowdary MD Work Phone: [facility] 03-22-2011 influenza virus vacc ine, unspecified formulation Aria Chowdary MD Work Phone: [facility] 04-20-2010 influenza virus vacc ine, unspecified formulation Aria Chowdary MD Work Phone: [facility] 06-03-2009 influenza virus vacc ine, unspecified formulation Aria Chowdary MD Work Phone: [facility] 01-23-2009 human papilloma viru s vaccine, quadrivalent Aria Chowdary MD Work Phone: [facility] 09-20-2008 hepatitis A vaccine, pediatric/adolescent dosage, 2 dose schedule Aria Chowdary MD Work Phone: [facility] 09-20-2008 human papilloma viru s vaccine, quadrivalent Aria Chowdary MD Work Phone: [facility] 07-26-2008 human papilloma viru s vaccine, quadrivalent Aria Chowdary MD Work Phone: [facility] 07-26-2008 meningococcal polysaccharide (groups A, C, Y and W-135) diphtheria toxoid conjugate vaccine (MCV4P) Aria Chowdary MD Work Phone: [facility] 07-26-2008 tetanus toxoid, redu pat diphtheria toxoid, and acellular pertussis vaccine, adsorbed Aria Chowdary MD Work Phone: [facility] 07-26-2008 varicella virus vaccine Gilma Chowdary MD Work Phone: [facility] 04-26-2008 influenza virus vacc ine, unspecified formulation Aria Chowdary MD Work Phone: [facility] 04-18-2007 influenza virus vacc ine, unspecified formulation Aria Chowdary MD Work Phone: [facility] 10-01-2002 diphtheria, tetanus toxoids and acellular pertussis vaccine, unspecified formulation Aria Chowdary MD Work Phone: [facility] 07-28-2001 measles, mumps and rubella virus vaccine Aria Chowdary MD Work Phone: [facility] 07-28-2001 poliovirus vaccine, inactivated Aria Chowdary MD Work Phone: [facility] 10-22-1998 varicella virus vaccine Gilma Chowdary MD Work Phone: [facility] 08-01-1998 diphtheria, tetanus toxoids and acellular pertussis vaccine, unspecified formulation Aria Chowdary MD Work Phone: [facility] 08-01-1998 haemophilus influenz ae type b vaccine, conjugate unspecified formulation Aria Chowdary MD Work Phone: [facility] 08-01-1998 measles, mumps and rubella virus vaccine Aria Chowdary MD Work Phone: [facility] 01-29-1998 diphtheria, tetanus toxoids and acellular pertussis vaccine, unspecified formulation Aria Chowdary MD Work Phone: [facility] 01-29-1998 haemophilus influenz ae type b vaccine, conjugate unspecified formulation Aria Chowdary MD Work Phone: [facility] 01-29-1998 hepatitis B vaccine, pediatric or pediatric/adolescent dosage Aira Chowdary MD Work Phone: [facility] 01-29-1998 poliovirus vaccine, unspecified formulation Aria Chowdary MD Work Phone: [facility] 1997 diphtheria, tetanus toxoids and acellular pertussis vaccine, unspecified formulation Aria Chowdary MD Work Phone: [facility] 1997 haemophilus influenz ae type b vaccine, conjugate unspecified formulation Aria Chowdary MD Work Phone: [facility] 1997 poliovirus vaccine, unspecified formulation Aria Chowdary MD Work Phone: [facility] 1997 diphtheria, tetanus toxoids and acellular pertussis vaccine, unspecified formulation Aria Chowdary MD Work Phone: [facility] 1997 haemophilus influenz ae type b vaccine, conjugate unspecified formulation Aria Chowdary MD Work Phone: [facility] 1997 poliovirus vaccine, unspecified formulation Aria Chowdary MD Work Phone: [facility] 1997 hepatitis B vaccine, pediatric or pediatric/adolescent dosage Aria Chowdary MD Work Phone: [facility] 1997 hepatitis B vaccine, pediatric or pediatric/adolescent dosage Aria Chowdary MD Work Phone: [facility] Payers Date Payer Category Payer Unknown [facility] xxxxxxxxxxxx 2017-Present [phone] [address] [place] [address] xxxxxxxxxxxx [id number] 2014 Medicaid [id number] 1997 Unknown [id number] 1997 Unknown [id number] 1997 Unknown [id number] 1997 Unknown [id number] 1997 Unknown [id number] 1997 Unknown [id number] 1997 Unknown [id number] 1997 Unknown [id number] 1997 Unknown [id number] 1997 Unknown [id number] 1997 Unknown [id number] 1997 Unknown [id number] 1959 Unknown [id number] Social History Date Type Detail Facility Start: 04-03-2019 End: 08-04-2023 Tobacco smoking status [facility] Never smoker [employer] Start: 04-03-2019 End: 08-04-2023 Alcohol intake No [employer] Start: 1995 Sex Assigned At Not on file [place], [place] Start: 08-19-2019 End: 08-04-2023 Alcohol intake Current non-drinker of alcohol (finding) [employer] Work Phone: Start: 01-20-2021 End: 08-04-2023 Tobacco use and exposure Never used [employer] Start: 07-30-2023 End: 08-04-2023 History of Social function [employer] How often to you hav e a drink containing alcohol? Never [employer] How many standard dr inks containing alcohol do you have on a typical day? Patient does not drink [facility] Start: 03-11-2023 [facility] Discharge instructions 07-31-2023 Discharge Instructions Note Date & Type Note Facility 07-31-2023 Hospital Discharg e instructions Ericka Vogt RN - 07/31/2023 10:37 AM EST Notify physician if you experience: Dizziness or severe headache Spots before eyes or blurred vision Chills and or fever Vaginal pressure Epigastric pain Uterine contractions are regular and 5 minutes apart if 1st baby or 10 minutes apart if not 1st baby Bag or kirkpatrick leaking or gush of fluid from vagina Any vaginal bleeding that is heavier than a menstrual period Intermittent low backache Vomiting or diarrhea for several hours Decrease or absence of baby movement movement card instructions given Right sided abdominal pain Increase or change in vaginal discharge Abdominal or menstrual like cramping that is constant or heavier, comes and goes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
[2023-10-19 00:29] VITALS: TEMP 35.8
[2023-10-19 00:31] VITALS: BP 111/56; PULSE 83
[2023-10-19 00:50] LABS: Bilirubin Urine NEGATIVE (NEGATIVE); Blood Urine NEGATIVE (NEGATIVE); Clarity Urine CLEAR (CLEAR); Color Urine LT. YELLOW (YELLOW); Glucose Urine UA NEGATIVE (NEGATIVE); Ketones Urine NEGATIVE (NEGATIVE); Leukocyte Esterase Urine TRACE (NEGATIVE); Nitrite Urine NEGATIVE (NEGATIVE); Protein Urine NEGATIVE (NEG/TRACE); Specific Gravity Urine >=1.030 (1.005-1.025); Urobilinogen Urine 0.2 EU/dL (0.2-1.0)
[2023-10-19 00:55] LABS: Urine Microscopic Indicated YES
[2023-10-19 00:57] LABS: Bacteria Urine SMALL #/HPF (NONE SEEN); RBC Urine NONE SEEN #/HPF (0-2)
[2023-10-19 00:58] LABS: Amorphous Sediment Urine RARE; Cast Seen? NONE SEEN #/LPF (NONE SEEN); Crystals Seen? None Seen #/HPF (None Seen); Mucus Urine TRACE (NONE SEEN); Squamous Epithelial Cell Urine MANY #/LPF (NONE/RARE); Urine Culture Indicated YES
--- NOTE | 2023-10-19 01:10 | US_ITS ---
[address] [address] Patient Name: JESSICA SMALLS MRN: [id number] date: 1995 Sex: F Assigned Patient Location: [facility] Current Patient Location: [facility] Accession/Order Number: [id number] Exam Date: 10/19/2023 01:59 Report Date: 10/19/2023 04:13 At the request of: RICHAR MARAVILLA Procedure: US OB placenta EXAM: US OB growth, US OB cervical length, US OB placenta, US OB BPP w non-stress HISTORY: , abdominal and back pain x5 days. COMPARISON: Ultrasound 08/27/2021. TECHNIQUE: Transabdominal sonographic images of the pelvis included grayscale and M-mode Doppler evaluation. FINDINGS: There is a single intrauterine gestation in the cephalic presentation, longitudinal lie. M-mode Doppler demonstrates a heart rate of 129 bpm. Placenta is located anteriorly with the tip of the placenta 10.4 cm from the internal os. Multiple small hypoechoic areas within the placenta, grade 2. Cervical length: 4.3 cm. Os is closed. JUVENTINO: 13.9 cm, between the 5th and 95th percentile. anatomy scan was not performed on this emergent study. measurements: Biparietal diameter: 8.3 cm, 33 week 4 day (53rd percentile) Head circumference: 31.2 cm, 34 week 6 day (54th percentile) Abdominal circumference: 28.7 cm, 32 week 5 day (35th percentile) Femur length: 6.2 cm, 32 week 1 day (13 percentile) Estimated weight: 2063 g +/- 3 109 g (29th percentile) HC/AC: 1.08 (0.96-1.11) Biophysical profile: Movement: 2/2. Tone: 2/2. Breathin/2. Fluid: 2/2. Total score: 02/01. US/US OB placenta IMPRESSION: 1. Single living intrauterine gestation in the cephalic presentation. 2. Estimated gestational age: 33 week 2 day, estimated date of delivery 12/05/2023. This is concordant with dating by last menstrual period. 3. Biophysical profile: 02/01. 4. Cervical length: 4.3 cm. 5. Placenta is anteriorly located without signs of placenta previa. Electronically authenticated by: FRAN LEUNG Date: 10/19/2023 04:13
--- NOTE | 2023-10-19 01:10 | US_ITS ---
[address] [address] Patient Name: JESSICA SMALLS MRN: [id number] date: 1995 Sex: F Assigned Patient Location: [facility] Current Patient Location: [facility] Accession/Order Number: [id number] Exam Date: 10/19/2023 01:59 Report Date: 10/19/2023 04:13 At the request of: RICHAR MARAVILLA Procedure: US OB cervical length EXAM: US OB growth, US OB cervical length, US OB placenta, US OB BPP w non-stress HISTORY: , abdominal and back pain x5 days. COMPARISON: Ultrasound 08/27/2021. TECHNIQUE: Transabdominal sonographic images of the pelvis included grayscale and M-mode Doppler evaluation. FINDINGS: There is a single intrauterine gestation in the cephalic presentation, longitudinal lie. M-mode Doppler demonstrates a heart rate of 129 bpm. Placenta is located anteriorly with the tip of the placenta 10.4 cm from the internal os. Multiple small hypoechoic areas within the placenta, grade 2. Cervical length: 4.3 cm. Os is closed. JUVENTINO: 13.9 cm, between the 5th and 95th percentile. anatomy scan was not performed on this emergent study. measurements: Biparietal diameter: 8.3 cm, 33 week 4 day (53rd percentile) Head circumference: 31.2 cm, 34 week 6 day (54th percentile) Abdominal circumference: 28.7 cm, 32 week 5 day (35th percentile) Femur length: 6.2 cm, 32 week 1 day (13 percentile) Estimated weight: 2063 g +/- 3 109 g (29th percentile) HC/AC: 1.08 (0.96-1.11) Biophysical profile: Movement: 2/2. Tone: 2/2. Breathin/2. Fluid: 2/2. Total score: 02/01. US/US OB cervical length IMPRESSION: 1. Single living intrauterine gestation in the cephalic presentation. 2. Estimated gestational age: 33 week 2 day, estimated date of delivery 12/05/2023. This is concordant with dating by last menstrual period. 3. Biophysical profile: 02/01. 4. Cervical length: 4.3 cm. 5. Placenta is anteriorly located without signs of placenta previa. Electronically authenticated by: FRAN LEUNG Date: 10/19/2023 04:13
--- NOTE | 2023-10-19 01:16 | US_ITS ---
[address] [address] Patient Name: JESSICA SMALLS MRN: [id number] date: 1995 Sex: F Assigned Patient Location: [facility] Current Patient Location: [facility] Accession/Order Number: [id number] Exam Date: 10/19/2023 01:59 Report Date: 10/19/2023 04:13 At the request of: RICHAR MARAVILLA Procedure: US OB growth EXAM: US OB growth, US OB cervical length, US OB placenta, US OB BPP w non-stress HISTORY: , abdominal and back pain x5 days. COMPARISON: Ultrasound 08/27/2021. TECHNIQUE: Transabdominal sonographic images of the pelvis included grayscale and M-mode Doppler evaluation. FINDINGS: There is a single intrauterine gestation in the cephalic presentation, longitudinal lie. M-mode Doppler demonstrates a heart rate of 129 bpm. Placenta is located anteriorly with the tip of the placenta 10.4 cm from the internal os. Multiple small hypoechoic areas within the placenta, grade 2. Cervical length: 4.3 cm. Os is closed. JUVENTINO: 13.9 cm, between the 5th and 95th percentile. anatomy scan was not performed on this emergent study. measurements: Biparietal diameter: 8.3 cm, 33 week 4 day (53rd percentile) Head circumference: 31.2 cm, 34 week 6 day (54th percentile) Abdominal circumference: 28.7 cm, 32 week 5 day (35th percentile) Femur length: 6.2 cm, 32 week 1 day (13 percentile) Estimated weight: 2063 g +/- 3 109 g (29th percentile) HC/AC: 1.08 (0.96-1.11) Biophysical profile: Movement: 2/2. Tone: 2/2. Breathin/2. Fluid: 2/2. Total score: 02/01. US/US OB growth IMPRESSION: 1. Single living intrauterine gestation in the cephalic presentation. 2. Estimated gestational age: 33 week 2 day, estimated date of delivery 12/05/2023. This is concordant with dating by last menstrual period. 3. Biophysical profile: 02/01. 4. Cervical length: 4.3 cm. 5. Placenta is anteriorly located without signs of placenta previa. Electronically authenticated by: FRAN LEUNG Date: 10/19/2023 04:13
--- NOTE | 2023-10-19 01:21 | US_ITS ---
[address] [address] Patient Name: JESSICA SMALLS MRN: [id number] date: 1995 Sex: F Assigned Patient Location: [facility] Current Patient Location: [facility] Accession/Order Number: [id number] Exam Date: 10/19/2023 01:59 Report Date: 10/19/2023 04:13 At the request of: RICHAR MARAVILLA Procedure: US OB BPP w non-stress EXAM: US OB growth, US OB cervical length, US OB placenta, US OB BPP w non-stress HISTORY: , abdominal and back pain x5 days. COMPARISON: Ultrasound 08/27/2021. TECHNIQUE: Transabdominal sonographic images of the pelvis included grayscale and M-mode Doppler evaluation. FINDINGS: There is a single intrauterine gestation in the cephalic presentation, longitudinal lie. M-mode Doppler demonstrates a heart rate of 129 bpm. Placenta is located anteriorly with the tip of the placenta 10.4 cm from the internal os. Multiple small hypoechoic areas within the placenta, grade 2. Cervical length: 4.3 cm. Os is closed. JUVENTINO: 13.9 cm, between the 5th and 95th percentile. anatomy scan was not performed on this emergent study. measurements: Biparietal diameter: 8.3 cm, 33 week 4 day (53rd percentile) Head circumference: 31.2 cm, 34 week 6 day (54th percentile) Abdominal circumference: 28.7 cm, 32 week 5 day (35th percentile) Femur length: 6.2 cm, 32 week 1 day (13 percentile) Estimated weight: 2063 g +/- 3 109 g (29th percentile) HC/AC: 1.08 (0.96-1.11) Biophysical profile: Movement: 2/2. Tone: 2/2. Breathin/2. Fluid: 2/2. Total score: 02/01. US/US OB BPP w non-stress IMPRESSION: 1. Single living intrauterine gestation in the cephalic presentation. 2. Estimated gestational age: 33 week 2 day, estimated date of delivery 12/05/2023. This is concordant with dating by last menstrual period. 3. Biophysical profile: 02/01. 4. Cervical length: 4.3 cm. 5. Placenta is anteriorly located without signs of placenta previa. Electronically authenticated by: FRAN LEUNG Date: 10/19/2023 04:13
--- NOTE | 2023-10-19 01:32 | PC.NURSE ---
pt updated on plan of care, verbalized understanding. denies any questions or concerns, pt getting labs drawn per lab.
[2023-10-19 01:41] LABS: Basophils Percent Auto 0.3 % (0.2-2.0); Eosinophils Absolute Auto 0.1 10^3/uL (0.0-0.7); Eosinophils Percent Auto 1.6 % (0.9-7.0); Hematocrit 33.1 % (36.0-48.0); Hemoglobin 10.8 g/dL (12.0-16.0); Immature Granulocytes Abs Auto 0.04 10^3/uL (0.00-0.03); Immature Granulocytes Pct Auto 0.5 % (0.0-0.5); Lymphocytes Absolute Auto 1.8 10^3/uL (1.2-3.8); Lymphocytes Percent Auto 22.9 % (20.5-60.0); Mean Corpuscular HGB Conc 32.6 g/dL (29.9-35.2); Mean Corpuscular Volume 88.7 fL (81.0-99.0); Monocytes Absolute Auto 0.6 10^3/uL (0.3-0.8); Monocytes Percent Auto 7.7 % (1.7-12.0); Neutrophils Absolute Auto 5.3 10^3/uL (1.4-6.5); Platelet Count 191 10^3/uL (150-450); Red Blood Count 3.73 10^6/uL (4.20-5.40); Red Cell Distribution Width 13.3 % (11.0-15.0); White Blood Count 7.9 10^3/uL (4.0-11.0)
[2023-10-19 01:52] LABS: Amphetamine Screen Urine NEGATIVE (NEGATIVE); Barbiturates Screen Urine NEGATIVE (NEGATIVE); Benzodiazepines Screen Urine NEGATIVE (NEGATIVE); Buprenorphine Screen Urine NEGATIVE (NEGATIVE); Cannabinoid Screen Urine NEGATIVE (NEGATIVE); Cocaine Screen Urine NEGATIVE (NEGATIVE); Methadone Screen Urine NEGATIVE (NEGATIVE); Methamphetamines Screen Urine NEGATIVE (NEGATIVE); Opiate Screen Urine NEGATIVE (NEGATIVE); Oxycodone Screen Urine NEGATIVE (NEGATIVE); Phencyclidine Screen Urine NEGATIVE (NEGATIVE); Tricyclic Antidepressant Urine NEGATIVE (NEGATIVE)
[2023-10-19 01:54] LABS: Estimated Average Glucose 94 mg/dL; Glycohemoglobin A1C 4.9 % (4.5-6.2)
[2023-10-19] MEDS: ACETAMINOPHEN 500 MG TABLET 1000 MG PO (01:59)
[2023-10-19 02:05] LABS: Thyroid Stimulating Hormone 1.026 uIU/mL (0.358-3.740)
--- NOTE | 2023-10-19 04:52 | PC.NURSE ---
pt updated on plan of care, verbalizes understanding.
--- NOTE | 2023-10-19 08:03 | P.OBPN_ITS ---
OB - PN: Subj Subjective Narrative: 28 y/o at 33 2/7wks abdominal tightening, denies lof,vb, states think m aybe cris, poor care, poor historian denies urinary symptoms Exam Constitutional Vital Signs, click to edit/add: Last Vital Signs Temp 96.4 F L 10/19/23 00:29 Pulse 83 10/19/23 00:31 BP 111/56 10/19/23 00:31 Documenting provider has reviewed patient's vital signs: yes Common normals: no apparent distress Respiratory Common normals: clear to auscultation bilaterally Cardio Common normals: regular rate and regular rhythm GI Common normals: Normal to inspection, nondistended, normoactive bowel sounds present Extremity Common normals: no clubbing, cyanosis or edema and no calf tenderness Results Labs Labs: Short CBC 10/19/23 Range/Units 01:33 WBC 7.9 (4.0-11.0) 10^3/uL Hgb 10.8 L (12.0-16.0) g/dL Hct 33.1 L (36.0-48.0) % Plt Count 191 (150-450) 10^3/uL Urine 10/19/23 Range/Units 00:20 Urine Color Lt. yellow (YELLOW) Urine Clarity Clear (CLEAR) Urine pH 6.0 (5.0-9.0) Ur Specific [place] >=1.030 A (1.005-1.025) Urine Protein Negative (NEG/TRACE) mg/dL Urine Glucose (UA) Negative (NEGATIVE) mg/dL OB - PN: A/P Assessment and Plan (1) Intrauterine : Plan states greatly improved, would like to go home, states would like to fu with me in the office, will schedule appt, precautions given Time Spent with Patient Time: Total time spent is greater than 50% in coordination of care (as documented) at patient's floor/unit and/or counseling patient: Total time spent with greater than 50% in coordination of care (as documented) at patient's floor/unit and/or counseling patient: less than 15 minutes
[2023-10-20 06:09] LABS: HBsAg Screen Negative (Negative); HCV Ab Non Reactive (Non Reactive); HIV Ab/p24 Ag Screen Non Reactive (Non Reactive)
[2023-10-20 12:09] LABS: Rapid Plasma Reagin, Quant Non Reactive titer (NonRea<1:1); Rubella Antibodies, IgG 0.96 index (Immune >0.99)
== END 2023-10-19 08:17 | disposition home or self-care (01) ==
PROVIDERS: Midwife; Admitting Provider Obstetrics & Gynecology; Visit Provider Obstetrics & Gynecology
DX: O26.893 Other specified pregnancy related conditions, third trimester (principal); R10.9 Unspecified abdominal pain; M54.50 Low back pain, unspecified; Z3A.33 33 weeks gestation of pregnancy; O09.33 Supervision of pregnancy with insufficient antenatal care, third trimester
CPT/HCPCS: 36415; 59025; 76815; 76816; 76817; 76818; 80307; 81001; 83036; 84443; 85025; 86592; 86762; 86803; 86850; 86900; 86901; 87086; 87340; 87389; G0378; G0379

== ENCOUNTER 2023-10-21 11:48 | Outpatient (OUT) | payer MEDICAID, SELFPAY ==
--- NOTE | 2023-10-21 11:53 | US_ITS ---
[address] [address] Patient Name: JESSICA SMALLS MRN: [id number] date: 1995 Sex: F Assigned Patient Location: US Current Patient Location: US Accession/Order Number: [id number] Exam Date: 10/21/2023 12:00 Report Date: 10/21/2023 12:54 At the request of: KARINE ARZATE Procedure: US OB anatomy EXAMINATION: US OB cervical length, US OB anatomy HISTORY: screening, , for anatomic survey Z36.89 COMPARISON: 10/19/2023 TECHNIQUE: Transabdominal sonographic examination was performed for obstetrical and evaluation. FINDINGS: Number: 1 Heart Rate: 140.8 bpm H.B. /min Amniotic Fluid Volume: Subjectively normal position: Cephalic presentation, longitudinal lie Placental Location: Anterior fundal, grade 2. Placental edge is 12.1 cm from the internal os Cervix Length: 4.5 cm , closed Normal anatomy: Lateral ventricles, cerebellum, posterior fossa, nose, lips, orbits, four-chamber heart, RVOT, LVOT, diaphragm, stomach, kidneys, bladder, umbilical arteries, three-vessel cord, spine, extremities Nonvisualization: Abdominal cord insertion BIOMETRY: BPD: 8.0 cm 32 weeks 1 days , 9% HC: 30.4 cm 33 weeks 5 days, 16% AC: 29.9 cm 33 weeks 6 days, 59% FL: 6.4 cm 32 weeks 6 days , 20% EFW:2194.7 grams; 4 lbs. 13 oz., 34% FL/AC: 21.3 FL/BPD: 79.7 HC/AC: 1.0 GESTATIONAL AGE: Age by EDC: 33 weeks 5 days Age by current US: 33 weeks 1 days JORI by current US: 12/08/2023 JORI by EDC: 12/04/2023 US/US OB anatomy IMPRESSION: Nonvisualization of the abdominal cord insertion, otherwise normal anatomy scan Closed cervix measuring 4.5 cm in length. *Reference: [facility] Practice Guideline for the performance of Obstetric Ultrasound Examinations, March 27, 2007. Electronically authenticated by: FADUMO AMARAL Date: 10/21/2023 12:54
--- NOTE | 2023-10-21 11:54 | US_ITS ---
[address] [address] Patient Name: JESSICA SMALLS MRN: [id number] date: 1995 Sex: F Assigned Patient Location: US Current Patient Location: US Accession/Order Number: [id number] Exam Date: 10/21/2023 12:00 Report Date: 10/21/2023 12:54 At the request of: KARINE ARZATE Procedure: US OB cervical length EXAMINATION: US OB cervical length, US OB anatomy HISTORY: screening, , for anatomic survey Z36.89 COMPARISON: 10/19/2023 TECHNIQUE: Transabdominal sonographic examination was performed for obstetrical and evaluation. FINDINGS: Number: 1 Heart Rate: 140.8 bpm H.B. /min Amniotic Fluid Volume: Subjectively normal position: Cephalic presentation, longitudinal lie Placental Location: Anterior fundal, grade 2. Placental edge is 12.1 cm from the internal os Cervix Length: 4.5 cm , closed Normal anatomy: Lateral ventricles, cerebellum, posterior fossa, nose, lips, orbits, four-chamber heart, RVOT, LVOT, diaphragm, stomach, kidneys, bladder, umbilical arteries, three-vessel cord, spine, extremities Nonvisualization: Abdominal cord insertion BIOMETRY: BPD: 8.0 cm 32 weeks 1 days , 9% HC: 30.4 cm 33 weeks 5 days, 16% AC: 29.9 cm 33 weeks 6 days, 59% FL: 6.4 cm 32 weeks 6 days , 20% EFW:2194.7 grams; 4 lbs. 13 oz., 34% FL/AC: 21.3 FL/BPD: 79.7 HC/AC: 1.0 GESTATIONAL AGE: Age by EDC: 33 weeks 5 days Age by current US: 33 weeks 1 days JORI by current US: 12/08/2023 JORI by EDC: 12/04/2023 US/US OB cervical length IMPRESSION: Nonvisualization of the abdominal cord insertion, otherwise normal anatomy scan Closed cervix measuring 4.5 cm in length. *Reference: [facility] Practice Guideline for the performance of Obstetric Ultrasound Examinations, March 27, 2007. Electronically authenticated by: FADUMO AMARAL Date: 10/21/2023 12:54
== END 2023-10-21 11:49 | disposition home or self-care (01) ==
LOC: US 11:49
PROVIDERS: Visit Provider Obstetrics & Gynecology
DX: Z36.89 Encounter for other specified antenatal screening (principal); Z3A.33 33 weeks gestation of pregnancy
CPT/HCPCS: 76805; 76817

== ENCOUNTER 2023-11-07 13:15 | Outpatient (OUT) | payer OTHER, SELFPAY ==
--- NOTE | 2023-11-07 13:25 | US_ITS ---
[address] [address] Patient Name: JESSICA SMALLS MRN: [id number] date: 1995 Sex: F Assigned Patient Location: [facility] Current Patient Location: [facility] Accession/Order Number: [id number] Exam Date: 11/07/2023 13:25 Report Date: 11/07/2023 13:56 At the request of: KARINE ARZATE Procedure: US OB incomplete anatomy EXAM: US OB incomplete anatomy HISTORY: INCOMPLETE ANATOMY COMPARISON: 10/21/2023 TECHNIQUE: Transabdominal images FINDINGS: position: Cephalic presentation, longitudinal lie Heart rate: 1 40 bpm Anatomy: Abdominal cord insertion is grossly normal, limited secondary to acoustic shadowing from the femur US/US OB incomplete anatomy IMPRESSION: Grossly normal abdominal cord insertion Electronically authenticated by: FADUMO AMARAL Date: 11/07/2023 13:56
== END 2023-11-07 13:16 | disposition home or self-care (01) ==
LOC: NOMS 13:23
PROVIDERS: Visit Provider Obstetrics & Gynecology
DX: Z36.2 Encounter for other antenatal screening follow-up (principal)
CPT/HCPCS: 76815

== ENCOUNTER 2023-11-07 19:41 | Outpatient (REF) | payer OTHER, SELFPAY | END 2023-11-07 19:42 | disposition home or self-care (01) | LOC: LAB 19:41 | PROVIDERS: Visit Provider Obstetrics & Gynecology | DX: Z34.93 Encounter for supervision of normal pregnancy, unspecified, third trimester (principal) | CPT/HCPCS: 87081 ==

== ENCOUNTER 2023-11-07 23:20 | Observation (INO) | payer OTHER, SELFPAY ==
--- OUTSIDE RECORDS SUMMARY | 2023-11-07 23:27 | XMS_ITS | CCD ---
Author Organization [facility] Care Team Providers Care Electrical Appliance Repairer Name Role Phone Unavailable Primary Care Provider Unavailabl e Angie, Leonel Primary Care Provider Anglim ONCOLOGY PHARMACIST - REINSURANCE ACCOUNTANT, Leonel Primary Care Provider Unavailable Primary Care [...] Attending Unavailable TE, LOBO Primary Care Unavailable PREMIUM, DR FADUMO Jiang Consulting Unavailable LOBO TIWARI [...] Attending Unavailable REQUEST, NONE LISTED [facility] Primary Care Unavailable FAUSTINO DOWD Attending Unavailable [facility] ONCOLOGY PHARMACIST - Leonel ARGUELLO Primary Care Provider [facility], LEONEL Primary Care Unavailable ARIA CHOWDARY Admitting Unavailable ARIA CHOWDARY Attending Unavailable VAN FARRIS Consulting Unavailable [facility] LEONEL Primary Care Unavailable ZARA PEREZ Attending Unavailable [facility], LEONEL Primary Care Unavailable KARIS PALMA Referring Unavailable KARINE ARZATE Attending Unavailable Medications Current Medications Medication Drug Class(es) [...] Local Anesthetic Start: 07-30-2023 lidocaine 4 % parts manager al patch 1 patch Start: 07-07-2019 End: [...] Chlamydia/GC,DNA Ampon 08-08 Chlamydia Probe Negative Normal [facility] Comment on above: Result Comment: CHLA MYDIA [...] target. Performed By: #### C DP #### [facility] [address] [place] [address] [id number] Body Painter: Philip Schulte MD Gonorrhea Probe Negative Normal [facility] Comment on above: Result Comment: NEIS [...] target. Performed By: #### C DP #### [facility] [address] [id number] Body Painter: Philip Schulte MD Vaginitis DNA Probeon 2023 Renetta Negative Normal [facility] Comment on above: Result Comment: for Renetta sp. Method of testing is a DNA probe intended for detection and identification of Renetta species, Gardnerella vaginalis, and Trichomonas vaginalis nucleic acid in vaginal fluid specimens from patients with symptoms of vaginitis/vaginosis. Performed By: #### C DP #### [facility] [address] [id number] Body Painter: Philip Schulte MD Gardnerella Negative Normal [facility] Comment on above: Result Comment: for Gardnerella vaginalis Performed By: #### C DP #### [facility] [place], [place] [id number] Body Painter: Philip Schulte MD Trichomonas Negative Normal NEG [facility] Comment on above: Result Comment: for Trichomonas Vaginalis Performed By: #### C DP #### [address] [id number] Body Painter: Philip Schulte MD Renetta species Negative NEGATIVE [facility] Comment on above: for Renetta sp. Method of testing is a DNA probe intended for detection and identification of Renetta species, Gardnerella vaginalis, and Trichomonas vaginalis nucleic acid in vaginal fluid specimens from patients with symptoms of vaginitis/vaginosis. GARDNERELLA VAGINALIS Negative NEGATIVE [facility] Comment on above: for Gardnerella vagi nalis Source .VAGINAL SWAB [facility] Trichomonas Negative NEGATIVE [facility] Comment on above: for Trichomonas Vagi nalis [facility] Source .VAGINAL SWAB Normal [facility] Comment on above: Performed By: #### C DP #### [address] [phone] Body Painter: Philip Schulte MD Cytology Reporton 08-04-2023 Cytology report Cyto stain.thin prep Doc (Cvx/Vag) (NOTE) Path Number: [id number] DIAGNOSIS Imaged ThinPrep Pap - Cervical (1 monolayer slide): Specimen Adequacy: Satisfactory for evaluation. - Endocervical/transfo rmation zone component present. Descriptive Diagnosis: Negative for intraepithelial lesion or malignancy. Comments: Specimen was screened at [facility], [address] [place] [id number] [employer] Screener: CS Electronically Signed Out GUSTAVO Mendoza(ASCP) cs/08/14/2023 Source of Specimen: A: Imaged ThinPrep Pap - Cervical (1 monolayer slide) HPV Reflex?............. .........HPV if ASCUS Clinical History Z12.4 Encounter for screening for malignant neoplasm of cervix LMP: 02/28/2023 Processing Lab: [address] [id number] Interpretation performed at [facility], [address] [place] [address] This Pap Test has been evaluated with [...] GYNECOLOGIC CYTOLOGY REPORT Patient Name: JESSICA GASTELUM [facility] Rec: [id number] [facility] ANATOMIC [facility]OLOG[facility] [address] [place], [place] [address] Normal [facility] Cult,Urineon 07-31-2023 Cult,Urine Specimen Description .CLEAN CATCH URINE Culture NO SIGNIFICANT GROWTH Report Status FINAL 07/31/2023 Normal [facility] Comment on above: Performed By: #### U RC #### [address] [id number] Body Painter: Philip Schulte MD CBC with Diffon 07-30-2023 Abs. Basophil 0.03 k/uL Normal 0.00-0.20 [facility] Comment on above: Performed By: #### C DP #### [address] [id number] Body Painter: Philip Schulte MD Abs.Imm.Granulocyte 0.04 k/uL Normal 0.00-0.30 [facility] Comment on above: Performed By: #### C DP #### [address] [phone] Body Painter: Philip Schulte MD Abs.Neutrophil (Seg) 7.38 k/uL Normal 1.50-8.10 [facility] Comment on above: Performed By: #### C DP #### [address] [address] Body Painter: Philip Schulte MD Basophils/100 WBC (Bld) 0 % Normal 0-2 [facility] Comment on above: Performed By: #### C DP #### [address] [address] Body Painter: Philip Schulte MD Eosinophils (Bld) [#/Vol] 0.05 10*3/uL Normal 0.00-0.44 [facility] Comment on above: Performed By: #### C DP #### [address] [address] Body Painter: Philip Schulte MD Eosinophils/100 WBC (Bld) 1 % Normal 1-4 [facility] Comment on above: Performed By: #### C DP #### [address] [address] Body Painter: Philip Schulte MD Erythrocyte distribution width (RBC) [Ratio] 13.3 % Normal 11.8-14.4 [facility] Comment on above: Performed By: #### C DP #### [address] [address] Body Painter: Philip Schulte MD Hematocrit (Bld) [Volume fraction] 39.3 % Normal 36.3-47.1 [facility] Comment on above: Performed By: #### C DP #### [address] [address] Body Painter: Philip Schulte MD Hemoglobin (Bld) [Mass/Vol] 13.3 g/dL Normal 11.9-15.1 [facility] Comment on above: Performed By: #### C DP #### [address] [address] Body Painter: Philip Schulte MD Immature granulocytes/100 WBC (Bld) 0 % Normal 0 [facility] Comment on above: Performed By: #### C DP #### [place] [address] Body Painter: Philip Schulte MD Lymphocytes (Bld) [#/Vol] 1.57 10*3/uL Normal 1.10-3.70 [facility] Comment on above: Performed By: #### C DP #### [place] [address] Body Painter: Philip Schulte MD Lymphocytes/100 WBC (Bld) 16 % Low 24-43 [facility] Comment on above: Performed By: #### C DP #### [place] [address] Body Painter: Philip Schulte MD MCH (RBC) [Entitic mass] 31.3 pg Normal 25.2-33.5 [facility] Comment on above: Performed By: #### C DP #### [place] [address] Body Painter: Philip Schulte MD MCHC (RBC) [Mass/Vol] 33.8 g/dL Normal 28.4-34.8 [facility] Comment on above: Performed By: #### C DP #### [place] [address] Body Painter: Philip Schulte MD MCV (RBC) [Entitic vol] 92.5 fL Normal 82.6-102.9 [facility] Comment on above: Performed By: #### C DP #### [place] [address] Body Painter: Philip Schulte MD Monocytes (Bld) [#/Vol] 0.69 10*3/uL Normal 0.10-1.20 [facility] Comment on above: Performed By: #### C DP #### [address] [address] Body Painter: Philip Schulte MD Monocytes/100 WBC (Bld) 7 % Normal 3-12 [facility] Comment on above: Performed By: #### C DP #### [address] [address] Body Painter: Philip Schulte MD Neutrophil (Seg) 76 % High 36-65 [facility] Comment on above: Performed By: #### C DP #### [address] [address] Body Painter: Philip Schulte MD NRBC Automated 0.0 per 100 WBC Normal 0.0 [facility] Comment on above: Performed By: #### C DP #### [address] [address] Body Painter: Philip Schulte MD Platelet mean volume (Bld) [Entitic vol] 10.7 fL Normal 8.1-13.5 [facility] Comment on above: Performed By: #### C DP #### [address] [address] Body Painter: Philip Schulte MD Platelets (Bld) [#/Vol] 194 10*3/uL Normal 138-453 [facility] Comment on above: Performed By: #### C DP #### [address] [address] Body Painter: Philip Schulte MD RBC (Bld) [#/Vol] 4.25 10*6/uL Normal 3.95-5.11 [facility] Comment on above: Performed By: #### C DP #### [address] [address] Body Painter: Philip Schulte MD WBC (Bld) [#/Vol] 9.8 10*3/uL Normal 3.5-11.3 [facility] Comment on above: Performed By: #### C DP #### [place] [address] [place] [address] Body Painter: Philip Schulte MD CT CERVICAL SPINE WO [...] Fadumo Vergara MD 07/30/23 Final result Normal [facility] CT HEAD WO CONTRASTon 2023 CT [...] Fadumo Vergara MD 07/30/23 Final result Normal [facility] CTA HEAD NECK W CONTRASTon 0 [...] Phillip Belcher MD 07/30/23 Final result Normal [facility] -Maternal Hemoron 07-30 -Maternal Hemor Bleed Volume UP TO 15 % Bleed NO CELLS SEEN Doses of Rhogam PATIENT IS RH POSITIVE Normal [facility] Comment on above: Performed By: #### C DP #### [facility] [address] [place] [address] [phone] Body Painter: Philip Schulte MD HIV Ag/Abon 07-30-2023 HIV Ag/Ab Non-Reactive Normal NR [facility] Comment on above: Result Comment: No l aboratory evidence of HIV infection. If acute HIV infection is suspected, consider testing for HIV-1 RNA. Performed By: #### H IVCRUBEN GEORGECV, PRENAT #### [facility] [address] [place] [address] [phone] Body Painter: Philip Schulte MD HIV Screenon 07-30-2023 HIV 1+2 Ab+HIV1 p24 Ag IA Ql Non-Reactive NONREACTIVE [facility] Comment on above: No laboratory eviden ce of HIV infection. If acute HIV infection is suspected, consider testing for HIV-1 RNA. Hep C Abon 07-30-2023 Hep C Ab Non-Reactive Normal NR [facility] Comment on above: Result Comment: The [...] By: #### H IVCMB, AHCV, PRENAT #### [facility] [address] [place] [address] [phone] Body Painter: Philip Schulte MD Hepatitis C Antibodyon 07-30 HCV Ab IA Ql Non-Reactive NONREACTIVE [facility] Comment on above: The hepatitis C procedure [...] recommended by ordering HCV RNA by PCR. [facility] No Panel Informationon 07-30 [facility] PROFILE Ion 024 Basophils (Bld) [#/Vol] [facility] Basophils/100 WBC (Bld) 0 % 0 - 2 % [facility] Eosinophils (Bld) [#/Vol] 0.13 10*3/uL [facility] Eosinophils/100 WBC (Bld) 2 % 1 - 4 % [facility] Erythrocyte distribution width (RBC) [Ratio] 13.5 % 11.8 - 14.4 % [facility] HBV surface Ag IA Ql Non-Reactive NONREACTIVE B ON [facility] Hematocrit (Bld) [Volume fraction] 36.4 % 36.3 - 47.1 % [facility] Hemoglobin (Bld) [Mass/Vol] 11.9 g/dL 11.9 - 15.1 g/dL [facility] Immature granulocytes (Bld) [#/Vol] [facility] Immature granulocytes/100 WBC (Bld) 0 % 0 [facility] Interpretation and review of laboratory results Abnormal [facility] Lymphocytes/100 WBC (Bld) 23 % Low 24 - 43 % [facility] Lymphocytes/100 WBC (Bld) 1.74 % [facility] MCH (RBC) [Entitic mass] 31.2 pg 25.2 - 33.5 pg [facility] MCHC (RBC) [Mass/Vol] 32.7 g/dL 28.4 - 34.8 g/dL [facility] MCV (RBC) [Entitic vol] 95.5 fL 82.6 - 102.9 fL [facility] Monocytes/100 WBC (Bld) 7 % 3 - 12 % [facility] Monocytes/100 WBC (Bld) 0.54 % [facility] Neutrophils/100 WBC (Bld) 68 % High 36 - 65 % [facility] Nucleated RBC/100 WBC (Bld) [Ratio] 0.0 % 0.0 per 100 WBC [facility] Platelet mean volume (Bld) [Entitic vol] 10.2 fL 8.1 - 13.5 fL [facility] Platelets (Bld) [#/Vol] 155 10*3/uL [facility] RBC (Bld) [#/Vol] 3.81 10*6/uL Low 3.95 - 5.1 1 m/uL [facility] Rubella virus IgG IA Ql 118.2 IU/mL [facility] Comment on above: REFERENCE RANGE: <5.0 NON-REACTIVE (non-immune) 5.0 TO 9.9 EQUIVOCAL >=10.0 REACTIVE (immune) Segmented neutrophils/100 WBC (Bld) 5.11 % [facility] T. pallidum Ab IA Ql (S) Non-Reactive NONREACTIVE [facility] Comment on above: T. pallidum antibodies are not detected. There is no serological evidence of infection with T. pallidum (early primary syphilis cannot be excluded). Retest in 2-4 weeks if syphilis is clinically suspect. WBC other (Bld) [#/Vol] 7.6 [facility] Profileon 4 T.pallidum Ab Screen Non-Reactive Normal NR [facility] Comment on above: Result Comment: T. pallidum antibodies are not detected. There is no serological evidence of infection with T. pallidum (early primary syphilis cannot be excluded). Retest in 2-4 weeks if syphilis is clinically suspect. Performed By: #### H IVCMB, AHCV, PRENAT #### [place] [address] [id number] Body Painter: Philip Schulte MD Hep B Surf Ag Non-Reactive Normal NR [facility] Comment on above: Performed By: #### H IVCMB, AHCV, PRENAT #### [place] [address] [place], [place] [phone] Body Painter: Philip Schulte MD Rubella Ab, IgG 118.2 IU/mL Normal [facility] Comment on above: Result Comment: REFERENCE RANGE: <5.0 NON-REACTIVE (non-immune) 5.0 TO 9.9 EQUIVOCAL >=10.0 REACTIVE (immune) Performed By: #### H IVCMB, AHCV, PRENAT #### [place] [address] Body Painter: Philip Schulte MD Abs. Basophil <0.03 Normal 0.00-0.20 [facility] Comment on above: Performed By: #### H IVCMB, AHCV, PRENAT #### [facility] [address] [place] [address] Body Painter: Philip Schulte MD Abs.Imm.Granulocyte <0.03 Normal 0.00-0.30 [facility] Comment on above: Performed By: #### H IVCMB, AHCV, PRENAT #### [place] [address] Body Painter: Philip Schulte MD Abs.Neutrophil (Seg) 5.11 k/uL Normal 1.50-8.10 [facility] Comment on above: Performed By: #### H IVCMB, AHCV, PRENAT #### [place] [address] Body Painter: Philip Schulte MD Basophils/100 WBC (Bld) 0 % Normal 0-2 [facility] Comment on above: Performed By: #### H IVCMB, AHCV, PRENAT #### [facility] [address] [place] [address] Body Painter: Philip Schulte MD Eosinophils (Bld) [#/Vol] 0.13 10*3/uL Normal 0.00-0.44 [facility] Comment on above: Performed By: #### H IVCMB, AHCV, PRENAT #### [place] [address] Body Painter: Philip Schulte MD Eosinophils/100 WBC (Bld) 2 % Normal 1-4 [facility] Comment on above: Performed By: #### H IVCMB, AHCV, PRENAT #### [facility] [address] [place] [address] Body Painter: Philip Schulte MD Erythrocyte distribution width (RBC) [Ratio] 13.5 % Normal 11.8-14.4 [facility] Comment on above: Performed By: #### H IVCMB, AHCV, PRENAT #### [facility] [address] [place] [address] Body Painter: Philip Schulte MD Hematocrit (Bld) [Volume fraction] 36.4 % Normal 36.3-47.1 [facility] Comment on above: Performed By: #### H IVCMB, AHCV, PRENAT #### [facility] [address] [place] [address] Body Painter: Philip Schulte MD Hemoglobin (Bld) [Mass/Vol] 11.9 g/dL Normal 11.9-15.1 [facility] Comment on above: Performed By: #### H IVCMB, AHCV, PRENAT #### [facility] [address] [place] [address] Body Painter: Philip Schulte MD Immature granulocytes/100 WBC (Bld) 0 % Normal 0 [facility] Comment on above: Performed By: #### H IVCMB, AHCV, PRENAT #### [facility] [address] [place] [address] Body Painter: Philip Schulte MD Lymphocytes (Bld) [#/Vol] 1.74 10*3/uL Normal 1.10-3.70 [facility] Comment on above: Performed By: #### H IVCMB, AHCV, PRENAT #### [facility] [address] [place] [address] Body Painter: Philip Schulte MD Lymphocytes/100 WBC (Bld) 23 % Low 24-43 [facility] Comment on above: Performed By: #### H IVCMB, AHCV, PRENAT #### [facility] [address] [place] [address] Body Painter: Philip Schulte MD MCH (RBC) [Entitic mass] 31.2 pg Normal 25.2-33.5 [facility] Comment on above: Performed By: #### H IVCMB, AHCV, PRENAT #### [facility] [address] [place] [address] Body Painter: Philip Schulte MD MCHC (RBC) [Mass/Vol] 32.7 g/dL Normal 28.4-34.8 [facility] Comment on above: Performed By: #### H IVCMB, AHCV, PRENAT #### [address] [address] Body Painter: Philip Schulte MD MCV (RBC) [Entitic vol] 95.5 fL Normal 82.6-102.9 [facility] Comment on above: Performed By: #### H IVCMB, AHCV, PRENAT #### [facility] [address] [place] [address] Body Painter: Philip Schulte MD Monocytes (Bld) [#/Vol] 0.54 10*3/uL Normal 0.10-1.20 [facility] Comment on above: Performed By: #### H IVCMB, AHCV, PRENAT #### [facility] [address] [place] [address] Body Painter: Philip Schulte MD Monocytes/100 WBC (Bld) 7 % Normal 3-12 [facility] Comment on above: Performed By: #### H IVCMB, AHCV, PRENAT #### [facility] [address] [place] [address] Body Painter: Philip Schulte MD Neutrophil (Seg) 68 % High 36-65 [facility] Comment on above: Performed By: #### H IVCMB, AHCV, PRENAT #### [facility] [address] [place] [address] Body Painter: Philip Schulte MD NRBC Automated 0.0 per 100 WBC Normal 0.0 [facility] Comment on above: Performed By: #### H IVCMB, AHCV, PRENAT #### [facility] [address] [place] [address] Body Painter: Philip Schulte MD Platelet mean volume (Bld) [Entitic vol] 10.2 fL Normal 8.1-13.5 [facility] Comment on above: Performed By: #### H IVCMB, AHCV, PRENAT #### [facility] [address] [place] [address] Body Painter: Philip Schulte MD Platelets (Bld) [#/Vol] 155 10*3/uL Normal 138-453 [facility] Comment on above: Performed By: #### H IVCMB, AHCV, PRENAT #### [facility] [address] [place] [address] Body Painter: Philip Schulte MD RBC (Bld) [#/Vol] 3.81 10*6/uL Low 3.95-5.11 [facility] Comment on above: Performed By: #### H IVCMB, AHCV, PRENAT #### [facility] [address] [place] [address] Body Painter: Philip Schulte MD WBC (Bld) [#/Vol] 7.6 10*3/uL Normal 3.5-11.3 [facility] Comment on above: Performed By: #### H IVCMB, AHCV, PRENAT #### [facility] [address] [place] [address] Body Painter: Philip Schulte MD TYPE AND SCREENon 02-03-2024 ABO and Rh group Nom (Bld) Blood group A Rh(D) positive [facility] Arm Band Number BE [id number] [facility] Blood Bank Sample Expiration 08/02/2023,2359 [facility] Blood group antibodies identified Nom Negative [facility] Type + Screenon 07-30-2023 Type + Screen Sample Expiration 08/02/2023,2359 Arm Band Number BE [id number] ABO/Rh(D) A POSITIVE Antibody Screen NEGATIVE Normal [facility] Comment on above: Performed By: #### T YS #### [address] [address] Body Painter: Philip Schulte MD Type + Screen Sample Expiration 07/29/2023,2359 Arm Band Number BE [id number] ABO/Rh(D) A POSITIVE Antibody Screen NEGATIVE Blood Bank Comment Band removed Normal [facility] Comment on above: Performed By: #### T YS #### [address] [address] Body Painter: Philip Schulte MD UA w/Reflex Cultureon 2023 Bilirubin, SemiQt,Ur Negative Normal NEG [facility] Comment on above: Performed By: #### U AX #### [address] [address] Body Painter: Philip Schulte MD Blood, Urine Negative Normal NEG [facility] Comment on above: Performed By: #### U AX #### [address] [address] Body Painter: Philip Schulte MD Clarity (U) Clear Normal CLEAR [facility] Comment on above: Performed By: #### U AX #### [address] [address] Body Painter: Philip Schulte MD Color (U) Dark Yellow Abnormal YEL [facility] Comment on above: Performed By: #### U AX #### [address] [address] Body Painter: Philip Schulte MD Comment Microscopic exam not performed based on chemical results unless requested in Normal [facility] Comment on above: Result Comment: orig inal order. Performed By: #### U AX #### [address] [address] Body Painter: Philip Schulte MD Glucose Ql (U) Negative Normal NEG [facility] Comment on above: Performed By: #### U AX #### [address] [address] Body Painter: Philip Schulte MD Ketones Ql (U) Negative Normal NEG [facility] Comment on above: Performed By: #### U AX #### [address] [address] Body Painter: Philip Schulte MD Leukocyte esterase Test strip Ql (U) Negative Normal NEG [facility] Comment on above: Performed By: #### U AX #### [address] [address] Body Painter: Philip Schulte MD Nitrite,Ur Negative Normal NEG [facility] Comment on above: Performed By: #### U AX #### [address] [address] Body Painter: Philip Schulte MD PH,Ur 5.5 Normal 5.0-8.0 [facility] Comment on above: Performed By: #### U AX #### [address] [address] Body Painter: Philip Schulte MD Protein Ql (U) Negative Normal NEG [facility] Comment on above: Performed By: #### U AX #### [address] [place] [address] Body Painter: Philip Schulte MD Spec. [place],Ur 1.037 High 1.005-1.030 [facility] Comment on above: Performed By: #### U AX #### [facility] [address] [place] [address] Body Painter: Philip Schulte MD Urobilinogen,Ur Normal Normal 0.0-1.0 [facility] Comment on above: Performed By: #### U AX #### [facility] [address] [place] [address] Body Painter: Philip Schulte MD US OB 14 PLUS [...] Fadumo Vergara MD 07/30/23 Final result Normal [facility] Urinalysis with Reflex to Cu ltureon 07-30-2023 Bilirubin Ql (U) Negative NEGATIVE [facility] Clarity (U) Clear Clear [facility] Color (U) Dark Yellow Abnormal Yellow [facility] Comment Microscopic exam not performed based on chemical results unless requested in original order. [facility] Glucose Test strip (U) [Mass/Vol] Negative NEGATIVE mg/dL [facility] Hemoglobin Auto test strip Ql (U) Negative NEGATIVE [facility] Interpretation and review of laboratory results Abnormal [facility] Ketones (U) [Mass/Vol] Negative NEGATIVE mg/d L [facility] Leukocyte esterase Test strip Ql (U) Negative NEGATIVE [facility] Nitrite Ql (U) Negative NEGATIVE [facility] pH (U) 5.5 [pH] 5.0 - 8.0 [facility] Protein (U) [Mass/Vol] Negative NEGATIVE mg/d L [facility] Specific gravity (U) [Rel density] 1.037 High 1.005 - 1.030 [facility] Urobilinogen Qn (U) Normal 0.0 - 1.0 EU/dL [facility] XR SHOULDER LEFT (MIN 2 VIEW [...] Fadumo Vergara MD 07/30/23 Final result Normal [facility] Chlamydia/GC,DNA Ampon 01-03 Chlamydia Probe POSITIVE: CHLAMYDIA TRACHOMATIS DNA detected by nucleic acid amplification. Abnormal NEG [facility] Comment on above: Result Comment: This test [...] Department Performed By: #### S WCGP #### [address] [id number] Body Painter: Philip Schulte MD Gonorrhea Probe Negative [facility] Comment on above: Result Comment: NEIS [...] target. Performed By: #### S WCGP #### [address] [address] Body Painter: Philip Schulte MD Cult,Urineon 01-01-2023 Cult,Urine Specimen Description .CLEAN CATCH URINE Culture NO SIGNIFICANT GROWTH Report Status FINAL 01/01/2023 [facility] Comment on above: Performed By: #### U #### [facility] [address] [place], [place] [id number] Body Painter: Travis Eduardo DO [facility] [address] [place], [place] [id number] Body Painter: Philip Schulte MD HCG, ,Urineon 12-31 Beta HCG ( test) Ql (U) Negative Normal [facility] Comment on above: Result Comment: Spec imens with hCG levels near the threshold of the test (25 mIU/mL) may give a negative or indeterminate result. In such cases, another test should be performed with a new specimen in 48-72 hours. If early is suspected clinically in this setting, correlation with quantitative serum b-hCG level is suggested. Performed By: #### EARLINE MCMANUSG #### [facility] [place] [address] Body Painter: Travis Eduardo DO #### UAX #### [address] [address] Body Painter: Philip Schulte MD Hgb/Hcton 4819 Hematocrit (Bld) [Volume fraction] 40.9 % Normal 36-46 [facility] Comment on above: Performed By: #### H H #### [facility] [address] [place] [address] Body Painter: Travis Eduardo DO Hemoglobin (Bld) [Mass/Vol] 14.1 g/dL Normal 12.0-16.0 [facility] Comment on above: Performed By: #### H H #### [facility] [address] [place] [address] Body Painter: Travis Eduardo DO UA w/Reflex Cultureon 9 Bilirubin, SemiQt,Ur Negative Normal NEG [facility] Comment on above: Performed By: #### MIKEL MCMANUS #### [facility] [address] [place] [address] Body Painter: Travis Eduardo DO #### UAX #### [address] [address] Body Painter: Philip Schulte MD Blood, Urine LARGE Abnormal NEG [facility] Comment on above: Performed By: #### DUSTIN MCMANUSCG #### [facility] [place] [address] Body Painter: Travis Eduardo DO #### UAX #### [facility] [address] [place] [address] Body Painter: Philip Schulte MD Clarity (U) Clear Normal CLEAR [facility] Comment on above: Performed By: #### U DUSTIN SANABRIACG #### [facility] [address] [place] [address] Body Painter: Travis Eduardo DO #### UAX #### [address] [address] Body Painter: Philip Schulte MD Color (U) Yellow Normal YEL [facility] Comment on above: Performed By: #### U EARLINE SANABRIAG #### [facility] [address] [place] [address] Body Painter: Travis Eduardo DO #### UAX #### [address] [address] Body Painter: Philip Schulte MD Glucose Ql (U) Negative Normal NEG [facility] Comment on above: Performed By: #### MIKEL MCMANUS #### [facility] [address] [place] [address] Body Painter: Travis Eduardo DO #### UAX #### [address] [address] Body Painter: Philip Schulte MD Ketones Ql (U) Negative Normal NEG [facility] Comment on above: Performed By: #### U EARLINE SANABRIAG #### [facility] [address] [place] [address] Body Painter: Travis Eduardo DO #### UAX #### [address] [address] Body Painter: Philip Schulte MD Leukocyte esterase Test strip Ql (U) TRACE Abnormal NEG [facility] Comment on above: Performed By: #### U DUSTIN SANABRIACG #### [facility] [address] [place] [address] Body Painter: Travis Eduardo DO #### UAX #### [address] [address] Body Painter: Philip Schulte MD Nitrite,Ur Negative Normal NEG [facility] Comment on above: Performed By: #### U DUSTIN SANABRIACG #### [facility] [place] [address] Body Painter: Travis Eduardo DO #### UAX #### [address] [address] Body Painter: Philip Schulte MD PH,Ur 5.0 Normal 5.0-8.0 [facility] Comment on above: Performed By: #### U DANIELE CG #### [facility] [address] [place] [address] Body Painter: Travis Eduardo DO #### UAX #### [address] [address] Body Painter: Philip Schulte MD Protein Ql (U) TRACE Abnormal NEG [facility] Comment on above: Performed By: #### U DANIELE UHCG #### [facility] [address] [place] [address] Body Painter: Travis Eduardo DO #### UAX #### [address] [address] Body Painter: Philip Schulte MD Spec. Paradise,Ur 1.022 Normal 1.000-1.030 [facility] Comment on above: Performed By: #### U MICAO, UHCG #### [facility] [address] [place] [address] Body Painter: Travis Eduardo DO #### UAX #### [address] [address] Body Painter: Philip Schulte MD Urobilinogen,Ur Normal Normal NORM [facility] Comment on above: Performed By: #### EARLINE MCMANUSG #### [facility] [address] [place] [address] Body Painter: Travis Eduardo DO #### UAX #### [address] [address] Body Painter: Philip Schulte MD Urinalysis,Microon 3 Bacteria None Normal NONE [facility] Comment on above: Performed By: #### MIKEL MCMANUS #### [facility] [place] [address] Body Painter: Travis Eduardo DO #### UAX #### [address] [address] Body Painter: Philip Schulte MD Casts 0 TO 2 Normal [facility] Comment on above: Performed By: #### MIKEL MCMANUS #### [facility] [place] [address] Body Painter: Travis Eduardo DO #### UAX #### [address] [address] Body Painter: Philip Schulte MD Epithelial cells LM Ql (Urine sed) 0 TO 2 Normal [facility] Comment on above: Performed By: #### MIKEL MCMANUS #### [facility] [address] [place] [address] Body Painter: Travis Eduardo DO #### UAX #### [address] [address] Body Painter: Philip Schulte MD Urine RBC's 21 TO 50 Normal [facility] Comment on above: Performed By: #### U DUSTIN SANABRIACG #### [facility] [address] [place] [address] Body Painter: Travis Eduardo DO #### UAX #### [address] [address] Body Painter: Philip Schulte MD Urine WBC's 6 TO 9 Normal [facility] Comment on above: Performed By: #### DUSTIN MCMANUSCG #### [facility] [address] [place] [address] Body Painter: Travis Eduardo DO #### UAX #### [address] [address] Body Painter: Phiilp Schulte MD Vaginitis DNA Probeon 2022 Renetta Negative Normal NEG [facility] Comment on above: Result Comment: for Renetta sp. Method of testing is a DNA probe intended for detection and identification of Renetta species, Gardnerella vaginalis, and Trichomonas vaginalis nucleic acid in vaginal fluid specimens from patients with symptoms of vaginitis/vaginosis. Performed By: #### V AGP #### [facility] [place] [address] Body Painter: Travis Eduardo DO Gardnerella Negative Normal NEG [facility] Comment on above: Result Comment: for Gardnerella vaginalis Performed By: #### V AGP #### [facility] [place] [address] Body Painter: Travis Eduardo DO Trichomonas Negative Normal NEG [facility] Comment on above: Result Comment: for Trichomonas Vaginalis Performed By: #### V AGP #### [facility] [address] [place] [address] Body Painter: Travis Eduardo DO Source .VAGINAL SWAB Normal [facility] Comment on above: Performed By: #### V AGP #### [facility] [address] [facility] [place] [address] Body Painter: Travis Eduardo DO Pap IG,rfx Aptima HPV all pt hon 02-03-2022 . . Normal [facility] Comment on above: Performed By: #### P [id number] #### [facility] [address] [place] [address] Dr. Mack Marcial DIAGNOSIS: Comment Abnormal [facility] Comment on above: Result Comment: EPIT HELIAL CELL ABNORMALITY. LOW GRADE SQUAMOUS INTRAEPITHELIAL LESION (LSIL). PREDOMINANCE OF COCCOBACILLI CONSISTENT WITH SHIFT IN VAGINAL DAHLIA IS PRESENT. Performed By: #### P APH11A #### [facility] [address] [address] [address] Mack Marcial Electronically signed by: Comment Normal [facility] Comment on above: Result Comment: Terrell Mendoza MD, Pathologist Performed By: #### P APH11A #### [facility] [address] [address] [address] Mack Marcial HPV Aptima Positive Abnormal Negative [facility] Comment on above: Result Comment: This nucleic acid amplification test detects fourteen high-risk HPV types (16,18,31,33,35,39,45,51,52,56,58,59,66,68) without differentiation. Performed By: #### P APH11A #### [facility] [address] [place] [address] Dr. Mack Marcial Methodology: Comment Normal [facility] Comment on above: Result Comment: This liquid based ThinPrep(R) pap test was screened with the use of an image guided system. Performed By: #### P APH11A #### [facility] [address] [place] [address] Dr. Mack Marcial Note: Comment Normal [facility] Comment on above: Result Comment: The Pap smear is a screening test designed to aid in the detection of premalignant and malignant conditions of the uterine cervix. It is not a diagnostic procedure and should not be used as the sole means of detecting cervical cancer. Both false-positive and false-negative reports do occur. . Performed By: #### P APH11A #### [facility] [address] [place] [address] Dr. Mack Marcial Pathologist Provided ICD10 Comment Normal [facility] Comment on above: Result Comment: R87. 612, R87.5 Performed By: #### P APH11A #### [facility] [address] [place] [address] Dr. Mack Marcial Performed by: Comment Normal [facility] Comment on above: Result Comment: Juhi Albrecht Recreational Assistant (ASCP) Performed By: #### P APH11A #### [facility] [address] [place] [address] Dr. Mack Marcial Reflex Criteria: Comment Normal [facility] Comment on above: Result Comment: See below for HPV testing results. . Performed By: #### P APH11A #### [facility] [address] [place] [address] Dr. Mack Marcial Specimen adequacy: Comment Normal [facility] Comment on above: Result Comment: Sati sfactory for evaluation. Endocervical and/or squamous metaplastic cells (endocervical component) are present. Performed By: #### P APH11A #### [facility] [address] [place] [address] Dr. Mack Marcial CBC AUTO DIFFon 09-06-2021 BASO # 0.0 103/ul Normal 0.0-0.1 [facility] Comment on above: Performed By: #### H IV12 #### [facility] [address] [place] [address] Dr. Mack Marcial Basophils/100 WBC (Bld) 0.2 % Normal 0.2-2.0 [facility] Comment on above: Performed By: #### H IV12 #### [facility] [address] [place] [address] Dr. Mack Marcial EO # 0.1 103/ul Normal 0.0-0.7 [facility] Comment on above: Performed By: #### H IV12 #### [facility] [address] [place] [address] Dr. Mack Marcial Eosinophils/100 WBC (Bld) 0.5 % Critically low 0.9-7.0 [facility] Comment on above: Performed By: #### H IV12 #### [facility] [address] [place] [address] Dr. Mack Marcial Erythrocyte distribution width (RBC) [Ratio] 16.2 % Critically high 11.0-15.0 [facility] Comment on above: Performed By: #### H IV12 #### [facility] [address] [place] [address] Dr. Mack Marcial Hematocrit (Bld) [Volume fraction] 25.6 % Critically low 36.0-48.0 [facility] Comment on above: Performed By: #### H IV12 #### [facility] [address] [place] [address] Dr. Mack Marcial Hemoglobin (Bld) [Mass/Vol] 7.9 g/dL Critically low 12.0-16.0 [facility] Comment on above: Result Comment: post Performed By: #### H IV12 #### [facility] [address] [place] [address] Dr. Mack Marcial IG # 0.07 10e3/ul Critically high 0.00-0.03 [facility] Comment on above: Performed By: #### H IV12 #### [facility] [address] [place] [address] Dr. Mack Marcial IG % 0.5 % Normal 0.0-0.5 [facility] Comment on above: Performed By: #### H IV12 #### [facility] [address] [place] [address] Dr. Mack Marcial LYMPH # 2.2 103/ul Normal 1.2-3.8 [facility] Comment on above: Performed By: #### H IV12 #### [facility] [address] [place] [address] Dr. Mack Marcial Lymphocytes/100 WBC (Bld) 16.9 % Critically low 20.5-60.0 [facility] Comment on above: Performed By: #### H IV12 #### [facility] [address] [place] [address] Dr. Mack Marcial MANUAL DIFF REQ NO Normal [facility] Comment on above: Performed By: #### H IV12 #### [facility] [address] [place] [address] Dr. Mack Marcial MCH (RBC) [Entitic mass] 24.8 pg Critically low 26.7-34.0 [facility] Comment on above: Performed By: #### H IV12 #### [facility] [address] [place] [address] Dr. Mack Marcial MCHC (RBC) [Mass/Vol] 30.9 g/dL Normal 29.9-35.2 [facility] Comment on above: Performed By: #### H IV12 #### [facility] [address] [place] [address] Dr. Mack Marcial MCV (RBC) [Entitic vol] 80.5 fL Critically low 81.0-99.0 [facility] Comment on above: Performed By: #### H IV12 #### [facility] [address] [place] [address] Dr. Mack Marcial MONO # 1.2 103/ul Critically high 0.3-0.8 [facility] Comment on above: Performed By: #### H IV12 #### [facility] [address] [place] [address] Dr. Mack Marcial Monocytes/100 WBC (Bld) 9.2 % Normal 1.7-12.0 [facility] Comment on above: Performed By: #### H IV12 #### [facility] [address] [place] [address] Dr. Mack Marcial NEUT # 9.4 103/ul Critically high 1.4-6.5 [facility] Comment on above: Performed By: #### H IV12 #### [facility] [address] [place] [address] Dr. Mack Marcial Neutrophils/100 WBC (Bld) 72.7 % Normal 43.0-75.0 [facility] Comment on above: Performed By: #### H IV12 #### [facility] [address] [place] [address] Dr. Mack Marcial Platelet mean volume (Bld) [Entitic vol] 10.1 fL Normal 9.5-13.5 [facility] Comment on above: Performed By: #### H IV12 #### [facility] [address] [place] [address] Dr. Mack Marcial PLT 159 103/ul Normal 150-450 [facility] Comment on above: Performed By: #### H IV12 #### [facility] [address] [place] [address] Dr. Mack Marcial RBC 3.18 106/ul Critically low 4.20-5.40 [facility] Comment on above: Performed By: #### H IV12 #### [facility] [address] [place] [address] Dr. Mack Marcial WBC 13.0 103/ul Critically high 4.0-11.0 [facility] Comment on above: Performed By: #### H IV12 #### [facility] [address] [place] [address] Dr. Mack Marcial CBC AUTO DIFFon 09-05-2021 BASO # 0.0 103/ul Normal 0.0-0.1 [facility] Comment on above: Performed By: #### [id number] #### [facility] [address] [place] [address] Dr. Mack Marcial Basophils/100 WBC (Bld) 0.3 % Normal 0.2-2.0 [facility] Comment on above: Performed By: #### 4 [id number] #### [facility] [address] [place] [address] Dr. Mack Marcial EO # 0.1 103/ul Normal 0.0-0.7 [facility] Comment on above: Performed By: #### 4 [id number] #### [facility] [address] [place] [address] Dr. Mack Marcial Eosinophils/100 WBC (Bld) 1.0 % Normal 0.9-7.0 [facility] Comment on above: Performed By: #### 4 [id number] #### [facility] [address] [place] [address] Dr. Mack Marcial Erythrocyte distribution width (RBC) [Ratio] 16.4 % Critically high 11.0-15.0 [facility] Comment on above: Performed By: #### 4 [id number] #### [facility] [address] [place] [address] Dr. Mack Marcial Hematocrit (Bld) [Volume fraction] 33.4 % Critically low 36.0-48.0 [facility] Comment on above: Performed By: #### 4 [id number] #### [facility] [address] [place] [address] Dr. Mack Marcial Hemoglobin (Bld) [Mass/Vol] 10.4 g/dL Critically low 12.0-16.0 [facility] Comment on above: Performed By: #### 4 [id number] #### [facility] [address] [place] [address] Dr. Mack Marcial IG # 0.06 10e3/ul Critically high 0.00-0.03 [facility] Comment on above: Performed By: #### 4 [id number] #### [facility] [address] [place] [address] Dr. Mack Marcial IG % 0.6 % Critically high 0.0-0.5 [facility] Comment on above: Performed By: #### 4 [id number] #### [facility] [address] [place] [address] Dr. Mack Marcial LYMPH # 2.4 103/ul Normal 1.2-3.8 [facility] Comment on above: Performed By: #### 4 [id number] #### [facility] [address] [place] [address] Dr. Mack Marcial Lymphocytes/100 WBC (Bld) 25.2 % Normal 20.5-60.0 [facility] Comment on above: Performed By: #### 4 [id number] #### [facility] [address] [place] [address] Dr. Mack Marcial MANUAL DIFF REQ NO Normal [facility] Comment on above: Performed By: #### 4 [id number] #### [facility] [address] [place] [address] Dr. Mack Marcial MCH (RBC) [Entitic mass] 24.4 pg Critically low 26.7-34.0 [facility] Comment on above: Performed By: #### 4 [id number] #### [facility] [address] [place] [address] Dr. Mack Marcial MCHC (RBC) [Mass/Vol] 31.1 g/dL Normal 29.9-35.2 [facility] Comment on above: Performed By: #### 4 [id number] #### [facility] [address] [place] [address] Dr. Mack Marcial MCV (RBC) [Entitic vol] 78.2 fL Critically low 81.0-99.0 [facility] Comment on above: Performed By: #### 4 [id number] #### [facility] [address] [place] [address] Dr. Mack Marcial MONO # 0.8 103/ul Normal 0.3-0.8 [facility] Comment on above: Performed By: #### 4 [id number] #### [facility] [address] [place] [address] Dr. Mack Marcial Monocytes/100 WBC (Bld) 8.8 % Normal 1.7-12.0 [facility] Comment on above: Performed By: #### 4 [id number] #### [facility] [address] [place] [address] Dr. Mack Marcial NEUT # 6.1 103/ul Normal 1.4-6.5 [facility] Comment on above: Performed By: #### 4 [id number] #### [facility] [address] [place] [address] Dr. Mack Marcial Neutrophils/100 WBC (Bld) 64.1 % Normal 43.0-75.0 [facility] Comment on above: Performed By: #### 4 [id number] #### [facility] [address] [place] [address] Dr. Mack Marcial Platelet mean volume (Bld) [Entitic vol] 10.4 fL Normal 9.5-13.5 [facility] Comment on above: Performed By: #### 4 [id number] #### [facility] [address] [place] [address] Dr. Mack Marcial PLT 191 103/ul Normal 150-450 [facility] Comment on above: Performed By: #### 4 [id number] #### [facility] [address] [place] [address] Dr. Mack Marcial RBC 4.27 106/ul Normal 4.20-5.40 [facility] Comment on above: Performed By: #### 4 [id number] #### [facility] [address] [place] [address] Dr. Mack Marcial WBC 9.6 103/ul Normal 4.0-11.0 [facility] Comment on above: Performed By: #### 4 [id number] #### [facility] [address] [place] [address] Dr. Mack Marcial [facility] SARS-CoV-2 (COVID-19) RNA CHUCK+probe Ql (Unsp spec) Not detected Normal NOT DETECTED [facility] Comment on above: Result Comment: When [...] for this test is supported by the Bag Making Machine Operator of Health and Human Service's declaration that [...] longer be used). Performed By: #### 4 [id number] #### [facility] [address] [place] [address] Dr. Mack Marcial DRUG SCREEN RAPID (URINE)on 09-05-2021 AMP Negative Normal NEGATIVE [facility] Comment on above: Performed By: #### H IV12 #### [facility] [address] [place] [address] Dr. Mack Marcial BAR Negative Normal NEGATIVE [facility] Comment on above: Performed By: #### H IV12 #### [facility] [address] [place] [address] Dr. Mack Marcial BUP Negative Normal NEGATIVE [facility] Comment on above: Performed By: #### H IV12 #### [facility] [address] [place] [address] Dr. Mack Marcial BZO Negative Normal NEGATIVE [facility] Comment on above: Performed By: #### H IV12 #### [facility] [address] [place] [address] Dr. Mack Marcial ANDREA Negative Normal NEGATIVE [facility] Comment on above: Performed By: #### H IV12 #### [facility] [address] [place] [address] Dr. Mack Marcial CUT-OFFS SEE BELOW Normal [facility] Comment on above: Result Comment: AMP (Amphetamine): 500ng/mL, BAR (Barbituates): 200 ng/mL, BZO (Benzodiazepines): 150 ng/mL, BUP (Buprenorphine): 10 ng/mL, ANDREA (Cocaine): 150 ng/mL, mAMP (Methamphetamine): 500 ng/mL, MTD (Methadone): 200 ng/mL, OPI (Opiates): 100 ng/mL, OXY (Oxycodone): 100 ng/mL, PCP (Phencyclidine): 25 ng/mL, PPX (Propoxyphene): 300 ng/mL, THC (Cannabinoids): 50 ng/mL, TCA (Trycyclic Antidepressants): 300 ng/mL Performed By: #### H IV12 #### [facility] [address] [place] [address] Dr. Mack Marcial DRUG CUT HEADER DRUG CLASS TEST SYSTEM CUT-OFF CONCENTRATIONS ARE FOLLOWS: Normal [facility] Comment on above: Performed By: #### H IV12 #### [facility] [address] [address] [address] Mack Marcial mAMP Negative Normal NEGATIVE [facility] Comment on above: Performed By: #### H IV12 #### [facility] [address] [place] [address] Dr. Mack Marcial MTD Negative Normal NEGATIVE [facility] Comment on above: Performed By: #### H IV12 #### [facility] [address] [place] [address] Dr. Mack Marcial OPI Negative Normal NEGATIVE [facility] Comment on above: Performed By: #### H IV12 #### [facility] [address] [place] [address] Dr. Mack Marcial OXY Negative Normal NEGATIVE [facility] Comment on above: Performed By: #### H IV12 #### [facility] [address] [place] [address] Dr. Mack Marcial PCP Negative Normal NEGATIVE [facility] Comment on above: Performed By: #### H IV12 #### [facility] [address] [place] [address] Dr. Mack Marcial PPX Negative Normal NEGATIVE [facility] Comment on above: Performed By: #### H IV12 #### [facility] [address] [place] [address] Dr. Mack Marcial TCA Negative Normal NEGATIVE [facility] Comment on above: Performed By: #### H IV12 #### [facility] [address] [place] [address] Dr. Mack Marcial THC Negative Normal NEGATIVE [facility] Comment on above: Performed By: #### H IV12 #### [facility] [address] [place] [address] Dr. Mack Marcial TYPE AND SCREENon 09-05-2021 TYPE AND SCREEN Negative Normal [facility] Comment on above: Performed By: #### H IV12 #### [facility] [address] [place] [address] Dr. Mack Marcial US PREG GROWTHon 08-27-2021 [...] by ultrasound, 88% by expected EDC FL/AC: 0.327912 FL/BPD: 0.235813 HC/AC: 0.160530, slightly low normal 0.9-1.05 GESTATIONAL AGE: Age by EDC: 37 weeks 6 days JORI by EDC: 09/11/2021 Age by US: 38 weeks 1 day JORI by US: 09/09/2021 IMPRESSION: Slightly low head circumference to abdominal circumference ratio Otherwise normal interval growth with estimated weight 88% by expected EDC Electronically authenticated by: FADUMO AMARAL Date: 2021-08-27 17:10 Normal [facility] GROUP B STREP CULTUREon 07-28 S. agalactiae Ag Ql (Unsp spec) Culture Observations: NEGATIVE FOR GROUP B STREPTOCOCCUS. Normal [facility] Comment on above: Performed By: #### G BSCX #### [facility] [address] [place] [address] Dr. Mack Marcial HEP B SURFACE ANTIGEN SCREEN on 07-08-2021 HBsAg Screen Negative Normal Negative [facility] Comment on above: Performed By: #### H BSANS #### [facility] [address] [place] [address] Dr. Mack Marcial HEPATITIS C VIRUS AB W/ REFL EX QUANTon 07-08-2021 HCV AB <0.1 Normal 0.0-0.9 [facility] Comment on above: Performed By: #### H IV12 #### [facility] [address] [place] [address] Dr. Mack Marcial Interpretation: Comment Normal [facility] Comment on above: Result Comment: Nega tive Not infected with HCV, unless recent infection is suspected or other evidence exists to indicate HCV infection. Performed By: #### H IV12 #### [facility] [address] [place] [address] Dr. Mack Marcial HIV 1 AND 2 WITH REFLEXon HIV Screen 4th Generation wRfx Non-Reactive Normal Non Reactive [facility] Comment on above: Result Comment: HIV Negative HIV-1/HIV-2 antibodies and HIV-1 p24 antigen were NOT detected. There is no laboratory evidence of HIV infection. Performed By: #### H IV12 #### [facility] [address] [place] [address] Dr. Mack Marcial RPR QUANTon 07-08-2021 Rapid Plasma Reagin, Quant Non-Reactive Normal NonRea<1:1 [facility] Comment on above: Performed By: #### R PRQ #### [facility] [address] [place] [address] Dr. Mack Marcial RUBELLA AB IGGon 07-08-2021 Rubella Antibodies, IgG 1.38 index Normal Immune >0.99 [facility] Comment on above: Result Comment: Non- immune <0.90 Equivocal 0.90 - 0.99 Immune >0.99 Performed By: #### R UBIGG #### [facility] [address] [place] [address] Dr. Mack Marcial VARICELLA IGG ABon Varicella Zoster IgG 1197 index Normal Immune >165 [facility] Comment on above: Result Comment: Nega tive <135 Equivocal 135 - 165 Positive >165 A positive result generally indicates exposure to the pathogen or administration of specific immunoglobulins, but it is not indication of active infection or stage of disease. Performed By: #### [id number] #### [facility] [address] [address] [address] Mack Marcial CBC AUTO DIFFon 07-07-2021 BASO # 0.0 103/ul Normal 0.0-0.1 [facility] Comment on above: Performed By: #### H IV12 #### [facility] [address] [address] [address] Mack Marcial Basophils/100 WBC (Bld) 0.3 % Normal 0.2-2.0 [facility] Comment on above: Performed By: #### H IV12 #### [facility] [address] [place] [address] Dr. Mack Marcial EO # 0.1 103/ul Normal 0.0-0.7 [facility] Comment on above: Performed By: #### H IV12 #### [facility] [address] [place] [address] Dr. Mack Marcial Eosinophils/100 WBC (Bld) 1.1 % Normal 0.9-7.0 [facility] Comment on above: Performed By: #### H IV12 #### [facility] [address] [place] [address] Dr. Mack Marcial Erythrocyte distribution width (RBC) [Ratio] 14.0 % Normal 11.0-15.0 [facility] Comment on above: Performed By: #### H IV12 #### [facility] [address] [place] [address] Dr. Mack Marcial Hematocrit (Bld) [Volume fraction] 31.9 % Critically low 36.0-48.0 [facility] Comment on above: Performed By: #### H IV12 #### [facility] [address] [place] [address] Dr. Mack Marcial Hemoglobin (Bld) [Mass/Vol] 10.3 g/dL Critically low 12.0-16.0 [facility] Comment on above: Performed By: #### H IV12 #### [facility] [address] [place] [address] Dr. Mack Marcial IG # 0.05 10e3/ul Critically high 0.00-0.03 [facility] Comment on above: Performed By: #### H IV12 #### [facility] [address] [address] [address] Mack Marcial IG % 0.6 % Critically high 0.0-0.5 [facility] Comment on above: Performed By: #### H IV12 #### [facility] [address] [address] [address] Mack Marcial LYMPH # 1.7 103/ul Normal 1.2-3.8 [facility] Comment on above: Performed By: #### H IV12 #### [facility] [address] [place] [address] Dr. Mack Marcial Lymphocytes/100 WBC (Bld) 21.4 % Normal 20.5-60.0 [facility] Comment on above: Performed By: #### H IV12 #### [facility] [address] [place] [address] Dr. Mack Marcial MANUAL DIFF REQ NO Normal [facility] Comment on above: Performed By: #### H IV12 #### [facility] [address] [place] [address] Dr. Mack Marcial MCH (RBC) [Entitic mass] 27.0 pg Normal 26.7-34.0 [facility] Comment on above: Performed By: #### H IV12 #### [facility] [address] [place] [address] Dr. Mack Marcial MCHC (RBC) [Mass/Vol] 32.3 g/dL Normal 29.9-35.2 [facility] Comment on above: Performed By: #### H IV12 #### [facility] [address] [place] [address] Dr. Mack Marcial MCV (RBC) [Entitic vol] 83.5 fL Normal 81.0-99.0 [facility] Comment on above: Performed By: #### H IV12 #### [facility] [address] [place] [address] Dr. Mack Marcial MONO # 0.5 103/ul Normal 0.3-0.8 [facility] Comment on above: Performed By: #### H IV12 #### [facility] [address] [address] [address] Mack Marcial Monocytes/100 WBC (Bld) 6.2 % Normal 1.7-12.0 [facility] Comment on above: Performed By: #### H IV12 #### [facility] [address] [address] [address] Mack Marcial NEUT # 5.5 103/ul Normal 1.4-6.5 [facility] Comment on above: Performed By: #### H IV12 #### [facility] [address] [address] [address] Mack Marcial Neutrophils/100 WBC (Bld) 70.4 % Normal 43.0-75.0 [facility] Comment on above: Performed By: #### H IV12 #### [facility] [address] [place] [address] Dr. Mack Marcial Platelet mean volume (Bld) [Entitic vol] 10.4 fL Normal 9.5-13.5 [facility] Comment on above: Performed By: #### H IV12 #### [facility] [address] [place] [address] Dr. Mack Marcial PLT 185 103/ul Normal 150-450 [facility] Comment on above: Performed By: #### H IV12 #### [facility] [address] [place] [address] Dr. Mack Marcial RBC 3.82 106/ul Critically low 4.20-5.40 [facility] Comment on above: Performed By: #### H IV12 #### [facility] [address] [place] [address] Dr. Mack Marcial WBC 7.9 103/ul Normal 4.0-11.0 [facility] Comment on above: Performed By: #### H IV12 #### [facility] [address] [place] [address] Dr. Mack Marcial GLUCOSE - 1HRon 07-07-2021 Glucose [Mass/Vol] 121 mg/dL Critically high 74-[address] [facility] Comment on above: Performed By: #### G LU1HR #### [facility] [address] [address] [address] Mack Marcial GLYCOHEMOGLOBIN A1Con 2021 ADA RECOMMENDATION ADA THERAPEUTIC TARGET 6.0 - 7.0 ACTION SUGGESTED > 7.0 Normal [facility] Comment on above: Performed By: #### A 1C #### [facility] [address] [address] [address] Mack Marcial Glucose [Mass/Vol] 105 mg/dL Normal [facility] Comment on above: Performed By: #### A 1C #### [facility] [address] [address] [address] Mack Marcial HbA1c (Bld) [Mass fraction] 5.3 % Normal <=6.0 [facility] Comment on above: Performed By: #### A 1C #### [facility] [address] [address] [address] Mack Marcial TYPE AND SCREENon 07-07-2021 TYPE AND SCREEN Negative Normal [facility] Comment on above: Performed By: #### T NS #### [facility] [address] [address] [address] Mack Marcial US PREG ANATOMY SINGLEon [...] by: LUDMILA EGAN Date: 2021-07-07 16:55 Normal [facility] PAP ACOG PANEL 3: 21 to 29on 04-02-2021 . . Normal [facility] Comment on above: Result Comment: Perf ormed at: WB Performed By: #### [id number] #### [facility] [address] [address] [address] Mack Marcial Age Gdln ACOG Testing Normal [facility] Comment on above: Performed By: #### [id number] #### [facility] [address] [address] [address] Mack Marcial Chlamydia, Nuc. Acid Amp Negative Normal Negative [facility] Comment on above: Result Comment: Perf ormed at: =G Performed By: #### [id number] #### [facility] [address] [address] [address] Mack Marcial DIAGNOSIS: Comment Abnormal [facility] Comment on above: Result Comment: EPIT HELIAL CELL ABNORMALITY. LOW GRADE SQUAMOUS INTRAEPITHELIAL LESION (LSIL). Performed at: WB Performed By: #### [id number] #### [facility] [address] [address] [address] Mack Marcial Electronically signed by: Comment Normal [facility] Comment on above: Result Comment: Terrell Mendoza MD, Pathologist Performed at: WB Performed By: #### [id number] #### [facility] [address] [address] [address] Mack Marcial Gonococcus, Nuc. Acid Amp Negative Normal Negative [facility] Comment on above: Result Comment: Perf ormed at: =G Performed By: #### [id number] #### [facility] [address] [place] [address] Dr. Mack Marcial Methodology: Comment Normal [facility] Comment on above: Result Comment: This liquid based ThinPrep(R) pap test was screened with the use of an image guided system. Performed at: WB Performed By: #### [id number] #### [facility] [address] [place] [address] Dr. Mack Marcial Note: Comment Normal [facility] Comment on above: Result Comment: The Pap smear is a screening test designed to aid in the detection of premalignant and malignant conditions of the uterine cervix. It is not a diagnostic procedure and should not be used as the sole means of detecting cervical cancer. Both false-positive and false-negative reports do occur. . Performed at: WB Performed By: #### [id number] #### [facility] [address] [place] [address] Dr. Mack Marcial Pathologist Provided ICD10 Comment Normal [facility] Comment on above: Result Comment: [id number]. [id number] Performed at: WB Performed By: #### [id number] #### [facility] [address] [place] [address] Dr. Mack Marcial Performed by: Comment Normal [facility] Comment on above: Result Comment: Eyal Winslow Recreational Assistant (ASCP) Performed at: WB Performed By: #### [id number] #### [facility] [address] [place] [address] Dr. Mack Marcial Reflex Criteria: Comment Normal [facility] Comment on above: Result Comment: The HPV DNA reflex criteria were not met with this specimen result therefore, no HPV testing was performed. . Performed at: WB Performed By: #### [id number] #### [facility] [address] [place] [address] Dr. Mack Marcial Specimen adequacy: Comment Normal [facility] Comment on above: Result Comment: Sati sfactory for evaluation. No endocervical component is identified. Performed at: WB Performed By: #### [id number] #### [facility] [address] [place] [address] Dr. Mack Marcial CULTURE URINEon 03-30-2021 CULTURE URINE Culture Observations: HEAVY GROWTH OF MIXED GENITAL DAHLIA. NO POTENTIAL PATHOGENS SEEN. Normal [facility] Comment on above: Performed By: #### H IV12 #### [facility] [address] [place] [address] Dr. Mack Marcial UA RANDOM W/MICROSCOPICon BACTERIA MODERATE Abnormal NONE SEEN [facility] Comment on above: Performed By: #### H IV12 #### [facility] [address] [place] [address] Dr. Mack Marcial Bilirubin Ql (U) Negative Normal NEGATIVE [facility] Comment on above: Performed By: #### H IV12 #### [facility] [address] [place] [address] Dr. Mack Marcial CAST NONE SEEN Normal NONE SEEN [facility] Comment on above: Performed By: #### H IV12 #### [facility] [address] [place] [address] Dr. Mack Marcial Clarity (U) SL CLOUDY Abnormal CLEAR [facility] Comment on above: Performed By: #### H IV12 #### [facility] [address] [place] [address] Dr. Mack Marcial Color (U) LT. YELLOW Normal YELLOW [facility] Comment on above: Performed By: #### H IV12 #### [facility] [address] [place] [address] Dr. Mack Marcial Crystals LM Nom (Urine sed) NONE SEEN Normal NONE SEEN [facility] Comment on above: Performed By: #### H IV12 #### [facility] [address] [place] [address] Dr. Mack Marcial Epithelial cells LM Ql (Urine sed) MODERATE Abnormal NONE SEEN /RARE [facility] Comment on above: Performed By: #### H IV12 #### [facility] [address] [place] [address] Dr. Mack Marcial Glucose Ql (U) Negative Normal NEGATIVE [facility] Comment on above: Performed By: #### H IV12 #### [facility] [address] [address] [address] Mack Marcial Hemoglobin Ql (U) TRACE-INTACT Abnormal NEGATIVE [facility] Comment on above: Performed By: #### H IV12 #### [facility] [address] [address] [address] Mack Marcial Ketones Ql (U) Negative Normal NEGATIVE [facility] Comment on above: Performed By: #### H IV12 #### [facility] [address] [address] [address] Mack Marcial LEUKOCYTES MODERATE Abnormal NEGATIVE [facility] Comment on above: Performed By: #### H IV12 #### [facility] [address] [place] [address] Dr. Mack Marcial MUCOUS NONE SEEN Normal NONE SEEN [facility] Comment on above: Performed By: #### H IV12 #### [facility] [address] [address] [address] Mack Marcial Nitrite Ql (U) Negative Normal NEGATIVE [facility] Comment on above: Performed By: #### H IV12 #### [facility] [address] [place] [address] Dr. Mack Marcial pH (U) 5.5 [pH] Normal 5-9 [facility] Comment on above: Performed By: #### H IV12 #### [facility] [address] [place] [address] Dr. Mack Marcial RBC 2-5 Abnormal 0-2 [facility] Comment on above: Performed By: #### H IV12 #### [facility] [address] [place] [address] Dr. Mack Marcial SPEC GRAVITY >=1.030 Abnormal 1.005-<=1.025 [facility] Comment on above: Performed By: #### H IV12 #### [facility] [address] [place] [address] Dr. Mack Marcial UA PROTEIN Negative Normal NEGATIVE/ TRACE [facility] Comment on above: Performed By: #### H IV12 #### [facility] [address] [address] [address] Mack Marcial Urobilinogen Qn (U) 0.2 {Saul'U}/dL Normal 0.2 - 1. 0 [facility] Comment on above: Performed By: #### H IV12 #### [facility] [address] [address] [address] Mack Marcial WBC 75-100 Abnormal NONE SEEN [facility] Comment on above: Performed By: #### H IV12 #### [facility] [address] [address] [address] Mack Marcial US PREG TVon 02-17-2021 [...] measuring 10 weeks 3 days Normal [facility] URINALYSIS WITH MICROSCOPICO rdered By: Henry Heller on 01-21-2021 - [employer] Work Phone: Amorphous, UA NOT REPORTED None [employer] Work Phone: Bacteria, UA FEW Abnormal None [employer] Phone: Bilirubin Urine Negative NEGATIVE [employer] Work Phone: Casts UA 5 TO 10 HYALINE Reference range defined for non-centrifuged specimen. [employer] Work Phone: Color, UA DARK YELLOW Abnormal YELLOW [facility] Work Phone: Crystals, UA NOT REPORTED None /HPF [facility] [employer] Work Phone: Epithelial Cells UA 5 TO 10 [facility] Work Phone: Glucose, Ur Negative NEGATIVE [facility] Work Phone: Interpretation and review of laboratory results Abnormal [facility] Work Phone: Ketones Ql (U) Negative NEGATIVE [facility] [employer] Work Phone: Leukocyte esterase Test strip Ql (U) Negative NEGATIVE [facility] Work Phone: Mucus, UA NOT REPORTED None [facility] [employer] Phone: Nitrite, Urine Negative NEGATIVE [facility] [employer] Work Phone: Other Observations UA NOT REPORTED NOT REQ. M [facility] [employer] Work Phone: pH, UA 5.0 [facility] Work Phone: Protein, UA Negative NEGATIVE [facility] [employer] Phone: RBC, UA 5 TO 10 [facility] Work Phone: Comment on above: Reference range defi sofía for non-centrifuged specimen. Renal Epithelial, UA NOT REPORTED 0 /HPF [facility] Work Phone: Specific [place], UA 1.037 [facility] Work Phone: Trichomonas, UA NOT REPORTED None [facility] Work Phone: Turbidity UA CLEAR CLEAR [facility] Work Phone: Urine Hgb Negative NEGATIVE [facility] [employer] Phone: Urobilinogen, Urine Normal Normal [facility] Work Phone: WBC, UA 5 TO 10 [facility] Work Phone: Yeast, UA NOT REPORTED None [facility] Work Phone: [facility] Work Phone: HCG, ,Urineon 08-19 Beta HCG ( test) Ql (U) Negative NEGATIVE [place] Comment on above: Specimens with hCG l evels near the threshold of the test (25 mIU/mL) may give a negative or indeterminate result. In such cases, another test should be performed with a new specimen in 48-72 hours. If early is suspected clinically in this setting, correlation with quantitative serum b-hCG level is suggested. Microscopic Urinalysison Amorphous, UA NOT REPORTED None [place] Bacteria, UA FEW Abnormal None [place] Casts UA NOT REPORTED /LPF [place] Crystals UA NOT REPORTED None /HPF [place] Epithelial Cells UA 5 TO 10 /HPF [place] Interpretation and review of laboratory results Abnormal [place] Mucus, UA NOT REPORTED None [place] Other Observations UA NOT REPORTED NOT REQ. M [place] RBC (U) [#/Vol] 0 TO 2 /HPF [place] Renal Epithelial, Urine NOT REPORTED 0 /HPF [place] Trichomonas, UA NOT REPORTED None [place] WBC, UA 2 TO 5 /HPF [place] Yeast, UA NOT REPORTED None [place] Otheron 08-19-2019 Direct Exam Negative [place] Urinalysis Reflex to Culture on 08-19-2019 Bilirubin Urine Negative NEGATIVE [place] Color, UA YELLOW YELLOW [place] Glucose, Ur Negative NEGATIVE [place] Interpretation and review of laboratory results Abnormal [place] Ketones Ql (U) Negative NEGATIVE [place] Leukocyte esterase Test strip Ql (U) MOD Abnormal NEGATIVE [place] Nitrite, Urine Negative NEGATIVE [place] pH, UA 5.0 [place] Protein (U) [Mass/Vol] Negative NEGATIVE [place] Specific [place], UA 1.027 [place] Turbidity UA CLOUDY Abnormal CLEAR [place] Urinalysis Comments NOT REPORTED [place] Urine Hgb Negative NEGATIVE [place] Urobilinogen, Urine Normal Normal [place] Vaginitis DNA Probeon 2019 Direct Exam Positive Abnormal [place] Direct Exam Method of testing is a DNA probe intended for detection and identification of Renetta species, Gardnerella vaginalis, and Trichomonas vaginalis nucleic acid in vaginal fluid specimens from patients with symptoms of vaginitis/vaginosis. [place] Interpretation and review of laboratory results Abnormal [place] Special Requests NOT REPORTED [place] Specimen Description .VAGINA [place] Microscopic Urinalysison Amorphous, UA 1+ Abnormal None [employer] Work Phone: Bacteria, UA FEW Abnormal None [facility] Work Phone: Casts UA NOT REPORTED /LPF [facility] Work Phone: Crystals UA NOT REPORTED None /HPF [facility] Work Phone: Epithelial Cells UA 2 TO 5 /HPF [facility] Work Phone: Interpretation and review of laboratory results Abnormal [facility] [employer] Phone: Mucus, UA NOT REPORTED None [facility] Work Phone: Other Observations UA NOT REPORTED NOT REQ. M [facility] Work Phone: RBC (U) [#/Vol] 2 TO 5 /HPF [facility] [facility] Work Phone: Renal Epithelial, Urine NOT REPORTED 0 /HPF [facility] Work Phone: Trichomonas, UA NOT REPORTED None [facility] Work Phone: WBC, UA 5 TO 10 /HPF [facility] Work Phone: Yeast, UA NOT REPORTED None [facility] Work Phone: - [facility] Work Phone: POCT HCG, Prenancy, Uron Beta HCG ( test) Ql (U) Negative NEGATIVE [facility] Phone: Comment on above: HCG screen is sensitive to 25 mIU/mL. However this test may steel pickler lower levels of HCG. If further evaluation is needed please request quantitative HCG. - NOT REPORTED [facility] Work Phone: POCT urine pregnancyon 08-05 Interpretation and review of laboratory results Normal [facility] Work Phone: Preg Test, Ur Negative [facility] Work Phone: QC OK? yes [facility] Work Phone: Urinalysis Reflex to Culture on 08-05-2019 Bilirubin Urine Negative NEGATIVE [facility] Work Phone: Color, UA YELLOW YELLOW [facility] Work Phone: Glucose, Ur Negative NEGATIVE [facility] Work Phone: Interpretation and review of laboratory results Abnormal [facility] Phone: Ketones Ql (U) Negative NEGATIVE [facility] Work Phone: Leukocyte esterase Test strip Ql (U) MOD Abnormal NEGATIVE [facility] Phone: Nitrite, Urine Negative NEGATIVE [facility] Work Phone: pH, UA 6.0 [facility] Work Phone: Protein (U) [Mass/Vol] Negative NEGATIVE [facility] Work Phone: Specific [place], UA 1.025 [facility] Work Phone: Turbidity UA CLOUDY Abnormal CLEAR [facility] Phone: Urinalysis Comments NOT REPORTED [facility] Work Phone: Urine Hgb Negative NEGATIVE [facility] Work Phone: Urobilinogen, Urine Normal Normal [facility] Phone: CT Head WO ContrastOrdered B y: Marshall Rodriguez on 07-07-2019 No acute intracranial abnormality. [facility] Phone: EXAMINATION: CT OF THE HEAD WITHOUT [...] of the visualized skull or soft tissues. [facility] Phone: Moisés, pn Incoming Radiant Results From [employer] - 07/07/2019 3:30 PM EST EXAMINATION: CT [...] soft tissues. IMPRESSION: No acute intracranial abnormality. [facility] Work Phone: HCG, ,Urineon 04-03 Beta HCG ( test) Ql (U) Negative NEGATIVE [place] Comment on above: Specimens with hCG [...] Culture on 04-03-2019 Bilirubin Urine Negative NEGATIVE [place] Color, UA YELLOW YELLOW [place] Glucose, Ur Negative NEGATIVE [place] Interpretation and review of laboratory results Abnormal [place] Ketones Ql (U) Negative NEGATIVE [place] Leukocyte esterase Test strip Ql (U) LARGE Abnormal NEGATIVE [place] Nitrite, Urine Negative NEGATIVE [place] pH, UA 7.5 [place] Protein (U) [Mass/Vol] 1+ Abnormal NEGATIVE [place] Specific [place], UA 1.014 [place] Turbidity UA CLOUDY Abnormal CLEAR [place] Urinalysis Comments NOT REPORTED [place] Urine Hgb LARGE Abnormal NEGATIVE [place] Urobilinogen, Urine Normal Normal [place] HCG, ,Urineon 03-15 Beta HCG ( test) Ql (U) Negative NEGATIVE [place] Comment on above: Specimens with hCG l evels near the threshold of the test (25 mIU/mL) may give a negative or indeterminate result. In such cases, another test should be performed with a new specimen in 48-72 hours. If early is suspected clinically in this setting, correlation with quantitative serum b-hCG level is suggested. Microscopic Urinalysison Amorphous, UA NOT REPORTED None [place] Bacteria, UA MODERATE Abnormal None [place] Casts UA NOT REPORTED /LPF [place] Crystals UA NOT REPORTED None /HPF [place] Epithelial Cells UA 0 TO 2 /HPF [place] Interpretation and review of laboratory results Abnormal [place] Mucus, UA 2+ Abnormal None [place] Other Observations UA NOT REPORTED NOT REQ. [place] RBC (U) [#/Vol] 0 TO 2 /HPF [place] Renal Epithelial, Urine NOT REPORTED 0 /HPF [place] Trichomonas, UA NOT REPORTED None [place] WBC, UA 20 TO 50 /HPF [place] Yeast, UA NOT REPORTED None [place] Urinalysis Reflex to Culture on 03-15-2019 Bilirubin Urine Negative NEGATIVE [place] Color, UA YELLOW YELLOW [place] Glucose, Ur Negative NEGATIVE [place] Interpretation and review of laboratory results Abnormal [place] Ketones Ql (U) Negative NEGATIVE [place] Leukocyte esterase Test strip Ql (U) MOD Abnormal NEGATIVE [place] Nitrite, Urine Negative NEGATIVE [place] pH, UA 7.5 [place] Protein (U) [Mass/Vol] 1+ Abnormal NEGATIVE [place] Specific [place], UA 1.019 [place] Turbidity UA TURBID Abnormal CLEAR [place] Urinalysis Comments NOT REPORTED [place] Urine Hgb TRACE Abnormal NEGATIVE [place] Urobilinogen, Urine Normal Normal [place] HCG, ,Urineon 02-15 Beta HCG ( test) Ql (U) Negative NEGATIVE [place] Comment on above: Specimens with hCG l evels near the threshold of the test (25 mIU/mL) may give a negative or indeterminate result. In such cases, another test should be performed with a new specimen in 48-72 hours. If early is suspected clinically in this setting, correlation with quantitative serum b-hCG level is suggested. Microscopic Urinalysison Amorphous, UA NOT REPORTED None [place] Bacteria, UA FEW Abnormal None [place] Casts UA NOT REPORTED /LPF [place] Crystals UA NOT REPORTED None /HPF [place] Epithelial Cells UA 10 TO 20 /HPF [place] Interpretation and review of laboratory results Abnormal [place] Mucus, UA 1+ Abnormal None [place] Other Observations UA NOT REPORTED NOT REQ. [place] RBC (U) [#/Vol] 0 TO 2 /HPF [place] Renal Epithelial, Urine NOT REPORTED 0 /HPF [place] Trichomonas, UA NOT REPORTED None [place] WBC, UA 5 TO 10 /HPF [place] Yeast, UA NOT REPORTED None [place] Otheron 02-15-2019 Direct Exam Negative [place] Urinalysis Reflex to Culture on 02-15-2019 Bilirubin Urine Presumptive positive. Unable to confirm due to unavailability of reagent. Abnormal NEGATIVE [place] Color, UA DARK YELLOW Abnormal YELLOW [place] Glucose, Ur Negative NEGATIVE [place] Interpretation and review of laboratory results Abnormal [place] Ketones Ql (U) Negative NEGATIVE [place] Leukocyte esterase Test strip Ql (U) SMALL Abnormal NEGATIVE [place] Nitrite, Urine Negative NEGATIVE [place] pH, UA 5.0 [place] Protein (U) [Mass/Vol] TRACE Abnormal NEGATIVE [place] Specific [place], UA 1.036 [place] Turbidity UA CLOUDY Abnormal CLEAR [place] Urinalysis Comments NOT [place]PORTED [place] Urine Hgb Negative NEGATIVE [place] Urobilinogen, Urine Normal Normal [place] Vaginitis DNA Probeon 2018 Direct Exam Method of testing is a DNA probe intended for detection and identification of Renetta species, Gardnerella vaginalis, and Trichomonas vaginalis nucleic acid in vaginal fluid specimens from patients with symptoms of vaginitis/vaginosis. [place] Special Requests NOT REPORTED [place] Specimen Description .VAGINA [facility], [place] Vital Signs Date Time Vital Sign Value Performing Clinician Faci lity 07-31-2023 08:49-0500 Body temperature 98.29 [degF] Aria Chowdary MD Work Phone: [facility] [place] 07-31-2023 08:49-0500 Diastolic blood pressure 42 mm[Hg] Aria Chowdary MD Work Phone: [facility] [place] 07-31-2023 08:49-0500 Heart rate 66 /min Aria Chowdary MD Work Phone: [facility] [place] 07-31-2023 08:49-0500 Respiratory rate 18 /min Aria Chowdary MD Work Phone: [facility] [place] 07-31-2023 08:49-0500 SaO2% (BldA) [Mass fraction] 99 % Aria Chowdary MD Work Phone: [facility] [place] 07-31-2023 08:49-0500 Systolic blood pressure 103 mm[Hg] Aria Chowdary MD Work Phone: [facility] [place] 01-20-2021 22:05-0400 Body height 160 cm [facility] Work Phone: 01-20-2021 22:05-0400 Body mass index (BMI) [Ratio] 30.11 kg/m2 Henry [facility] Work Phone: 01-20-2021 22:05-0400 Body temperature 98.1 [degF] Henry Heller MD [employer] Work Phone: 01-20-2021 22:05-0400 Body weight 77.11 kg Henry [facility] MD [facility] Work Phone: 01-20-2021 22:05-0400 Diastolic blood pressure 82 mm[Hg] Henry [facility] MD [facility] Work Phone: 01-20-2021 22:05-0400 Heart rate 98 /min Henry Heller MD [facility] Phone: 01-20-2021 22:05-0400 Respiratory rate 16 /min Henry Heller MD [facility] Phone: 01-20-2021 22:05-0400 SaO2% (BldA) [Mass fraction] 100 % Henry Heller MD [facility] Phone: 01-20-2021 22:05-0400 Systolic blood pressure 138 mm[Hg] Henry Heller MD [facility] Phone: 08-19-2019 13:39-0500 BMI (Body Mass Index) 26.57 kg/m2 [facility] 08-19-2019 13:39-0500 Body Temperature 98.1 [degF] [facility] 08-19-2019 13:39-0500 Body weight 68.[address] [facility] 08-19-2019 13:39-0500 BP Diastolic 76 mm[Hg] [facility] 08-19-2019 13:39-0500 BP Systolic 123 mm[Hg] [facility] 08-19-2019 13:39-[address] [facility] 08-19-2019 13:39-0500 Pulse (Heart Rate) 87 /min [facility], [place] 08-19-2019 13:39-0500 Pulse Oximetry 98 % [facility] 08-19-2019 13:39-0500 Respiratory Rate 16 /min [facility] 08-05-2019 14:22-0500 BMI (Body Mass Index) 26.57 kg/m2 Vini Ritchie [facility] Phone: 08-05-2019 14:22-0500 Body Temperature 98.71 [degF] [employer] Phone: 08-05-2019 14:22-0500 Body weight 68.04 kg Vini [employer] Phone: 08-05-2019 14:22-0500 BP Diastolic 62 mm[Hg] [employer] Phone: 08-05-2019 14:22-0500 BP Systolic 117 mm[Hg] [employer] Phone: 08-05-2019 14:22-0500 Height 160 cm [employer] Phone: 08-05-2019 14:22-0500 Pulse (Heart Rate) 59 /min [employer] Phone: 08-05-2019 14:22-0500 Pulse Oximetry 99 % [employer] Phone: 08-05-2019 14:22-0500 Respiratory Rate 16 /min [employer] Phone: 2019 10:44-0500 Body height 160 cm Viin [employer] Phone: [facility] Phone: 2019 10:44-0500 Body mass index (BMI) [Ratio] 26.57 kg/m2 Vini [employer] Phone: [facility] Phone: 2019 10:44-0500 Body temperature 98.29 [degF] Vini [employer] Phone: [facility] Phone: 2019 10:44-0500 Body weight 68.04 kg Vini [employer] Phone: [facility] Phone: 2019 10:44-0500 Diastolic blood pressure 58 mm[Hg] Vini [employer] Work Phone: [employer] Work Phone: 2019 10:44-0500 Heart rate 70 /min [employer]ini [employer] Work Phone: [employer] Work Phone: 2019 10:44-0500 Respiratory rate 15 /min [employer] Work Phone: [employer] Work Phone: 2019 10:44-0500 SaO2% (BldA) [Mass fraction] 99 % Vini [employer] Work Phone: [employer] Work Phone: 2019 10:44-0500 Systolic blood pressure 106 mm[Hg] Vini [employer] Work Phone: [employer] Work Phone: 07-07-2019 14:30-0500 Body height 160 cm Marshall Rodriguez MD Work Phone: [employer] Work Phone: 07-07-2019 14:30-0500 Body mass index (BMI) [Ratio] 26.57 kg/m2 Marshall Rodriguez MD Work Phone: [employer] Work Phone: 07-07-2019 14:30-0500 Body temperature 98.2 [degF] Marshall Rodriguez MD Work Phone: [employer] Work Phone: 07-07-2019 14:30-0500 Body weight 68.04 kg Marshall Rodriguez MD Work Phone: [employer] Work Phone: 07-07-2019 14:30-0500 Diastolic blood pressure 78 mm[Hg] Marshall Rodriguez MD Work Phone: [employer] Work Phone: 07-07-2019 14:30-0500 Heart rate 99 /min Marshall Rodriguez MD Work Phone: [employer] Work Phone: 07-07-2019 14:30-0500 Respiratory rate 18 /min Marshall Rodriguez MD Work Phone: [employer] Work Phone: 07-07-2019 14:30-0500 SaO2% (BldA) [Mass fraction] 100 % Marshall Rodriguez MD Work Phone: [employer] Work Phone: 07-07-2019 14:30-0500 Systolic blood pressure 128 mm[Hg] Marshall Rodriguez MD Work Phone: [employer] Work Phone: 04-03-2019 17:20-0400 BMI (Body Mass Index) 27.28 kg/m2 [facility], [place] 04-03-2019 17:20-0400 Body Temperature 98.4 [degF] [facility] 04-03-2019 17:20-0400 Body weight 69.85 kg [place] 04-03-2019 17:20-0400 BP Diastolic 46 mm[Hg] [facility] 04-03-2019 17:20-0400 BP Systolic 120 mm[Hg] [facility] 04-03-2019 17:20-0400 Height 160 cm [place] 04-03-2019 17:20-0400 Pulse (Heart Rate) 69 /min [facility], [place] 04-03-2019 17:20-0400 Pulse Oximetry 98 % [place] 04-03-2019 17:20-0400 Respiratory Rate 18 /min [place] 03-15-2019 17:35-0400 BMI (Body Mass Index) 27.28 kg/m2 Drake Corcor[address] [facility], [place] 03-15-2019 17:35-0400 Body Temperature 98.4 [degF] Drake Corcoran [facility], [place] 03-15-2019 17:35-0400 Body weight 69.[address] [facility] , [place] 03-15-2019 17:35-0400 BP Diastolic 57 mm[Hg] Drake Corcor[address] [facility] , [place] 03-15-2019 17:35-0400 BP Systolic 114 mm[Hg] Drake Corcor[facility] [place] 03-15-2019 17:35-0400 Height [address] [facility] , [place] 03-15-2019 17:35-0400 Pulse (Heart Rate) 66 /min [facility]cor[facility] 03-15-2019 17:35-0400 Pulse Oximetry 99 % Drake Corcor[facility] , [place] 03-15-2019 17:35-0400 Respiratory Rate 16 /min Drake Corcoran [facility], [place] 02-15-2019 11:22-0400 BMI (Body Mass Index) 28.34 kg/m2 Елена Olivera [facility], [place] 02-15-2019 11:22-0400 Body Temperature 98.01 [degF] [facility] [place] 02-15-2019 11:22-0400 Body weight 72.58 kg [facility] [place] 02-15-2019 11:22-0400 BP Diastolic 67 mm[facility]Hg] [facility] [place] 02-15-2019 11:22-0400 BP Systolic 111 mm[Hg] [facility] [place] 02-15-2019 11:22-0400 Height 160 cm Елена [facility] , [place] 02-15-2019 11:22-0400 Pulse (Heart Rate) 69 /min [facility] [place] 02-15-2019 11:22-0400 Pulse Oximetry 98 % Елена [facility] , [place] 02-15-2019 11:22-0400 Respiratory Rate 14 /min Елена [facility] [place] Encounters Encounter Date Encounter Type Care Provider Facility Start: 10-24-2023 End: 10-24-2023 ambulatory KARINE ARZATE Not Available Start: 08-04-2023 End: 08-05-2023 ambulatory [facility] Start: 08-04-2023 End: 08-04-2023 Subsequent hospital visit by physician Leonel Delgado CNP Work Phone: [facility] [place] [facility] Care Lab Draw Comment on above: High-risk in second trimester Start: 07-30-2023 End: 07-31-2023 ambulatory [facility] Start: 07-30-2023 End: 07-31-2023 Subsequent hospital visit by physician Aria Chowdary MD Work Phone: [facility] Labor & Delivery Start: 07-30-2023 End: 07-30-2023 Emergency department patient visit VAN Lord [facility] Start: 12-31-2022 End: 12-31-2022 Emergency department patient visit [facility] Start: 01-31-2022 Encounter for cervic al smear to confirm findings of recent normal smear following initial abnormal smear DR KARINE ARZATE [facility] Start: 01-28-2022 End: 01-28-[address] [...] Facility:H1 Start: 03-31-2021 End: 03-31-2021 ambulatory LOBO TE Facility:H1 Start: 02-16-2021 End: 02-17-2021 ambulatory LOBO TIWARI Facility:H1 Start: 01-20-2021 End: 01-21-2021 Emergency department patient visit Henry Heller MD [facility] ED Comment on above: Urinary tract infect ion in mother during first trimester of (Primary Dx); Non-intractable vomiting with nausea, unspecified vomiting type Start: 08-19-2019 End: 08-19-2019 Emergency department patient visit Calvin Kent Work Phone: [facility] ED Comment on above: BV (bacterial vagino sis) (Primary Dx); Rash Start: 08-05-2019 End: 08-05-2019 Emergency department patient visit Vini Ritchie Work Phone: [facility] ED Comment on above: Acute cystitis witho ut hematuria (Primary Dx) Start: 2019 End: 2019 Emergency department patient visit Vini Ritchie DO Work Phone: [facility] ED Comment on above: Visit for suture rem oval (Primary Dx) Start: 07-07-2019 End: 07-07-2019 Emergency department patient visit Marshall Rodriguez MD Work Phone: [facility] ED Comment on above: Facial laceration, i nitial encounter (Primary Dx); Injury of head, initial encounter Start: 04-03-2019 End: 04-03-2019 Emergency department patient visit Jean Claude Fisher Work Phone: [facility] ED Comment on above: Acute cystitis with hematuria (Primary Dx) Start: 03-15-2019 End: 03-15-2019 Emergency department patient visit Drake Corcoran [facility] ED Comment on above: Urinary tract infect ion without hematuria, site unspecified (Primary Dx) Start: 02-15-2019 End: 02-15-2019 Emergency department patient visit Елена Olivera Work Phone: [facility] Comment on above: Dysuria (Primary Dx) ; Vaginal discharge Procedures Date Procedure Procedure Detail Performing Clinician Start: 08-04-2023 Iadna renetta specie s direct probe tq Karis Den Palma DO Work Phone: Start: 07-30-2023 Urnls dip stick/tabl [...] Start: 08-19-2019 Urinalysis microscop ic only Ranjana Del Rosario Work Phone: Start: 08-19-2019 Urine test visual color cmprsn meths Ranjana Del Rosario Work Phone: Start: 08-19-2019 Urnls dip stick/tabl et rgnt auto w/o microscopy Ranjana Del Rosario Work Phone: Start: 08-05-2019 End: 08-05-2019 Urine test visual color cmprsn meths Ludmila Heller [employer] Work Phone: Start: 08-05-2019 Urinalysis microscop ic only Ludmila Heller [employer] Work Phone: Start: 08-05-2019 Urnls dip stick/tabl et rgnt auto w/o microscopy Ludmila Heller [employer] Work Phone: Start: 07-07-2019 Ct head/brain w/o [...] of 2) Shingles Vaccine (1 of 2) [employer] Work Phone: Start: 07-07-2029 DTaP/Tdap/Td vaccine (5 - Td or Tdap) DTaP/Tdap/Td vaccine (5 - Td or Tdap) [facility] [employer] Start: 07-07-2029 DTaP/Tdap/Td vaccine (9 - Td or Tdap) DTaP/Tdap/Td vaccine (9 - Td or Tdap) [facility] Start: 07-07-2029 DTaP/Tdap/Td vaccine (9 - Td) DTaP/Tdap/Td vaccine (9 - Td) [employer] Work Phone: Start: 09-02-2023 End: 09-02-2023 Patient encounter procedure 09/02/2023 8:15 AM EST Routine [facility] [employer] [place] [address] [place] [id number] Sharla Bravo MD [facility] [employer], [address] [place], [place] [id number] GAYATRI [facility] [employer] [address] Comment on above: GAYATRI Start: 08-11-2023 End: 08-11-2023 Patient encounter procedure 08/11/2023 9:00 AM EST Routine [facility] [address] [place] [id number] [facility] Comment on above: ANATOMY Start: 08-04-2023 End: 08-04-2023 Patient encounter procedure 08/04/2023 1:00 PM EST Office Visit [facility] [address] [place] [phone] Karis Palma, [address] [facility] [place], [place] [id number] Pt will come at 1430 [facility] [address] Comment on above: Pt will come at 1430 Start: 01-25-2023 Influenza vaccination Flu vaccine (# 1) [facility] Start: 02-25-2021 Influenza vaccination Flu vaccine (# 1) [facility] Phone: Start: 08-19-2020 Screening for Chlamy toy trachomatis Chlamydia screen [facility] Phone: Start: 02-16-2020 Chlamydia screen Chlamydia screen [facility] [employer] Phone: Start: 02-25-2019 Influenza vaccination Flu vaccine (# 1) [facility] [place] Start: 2018 Cervical cancer screen Cervical canc er screen [facility] Phone: Start: 2018 Screening for malign ant neoplasm of cervix [facility] [employer] Start: 2012 HIV screen HIV screen Tosin Fuentes Work Phone: Start: 2012 HIV screening HIV screen Tosin Neil [facility] Work Phone: Start: 2009 COVID-19 Vaccine (1) COVID-19 Vaccin e (1) [facility] Work Phone: Start: 2009 Depression Screen Depression Screen [facility] [employer] Start: 01-18-1998 COVID-19 Vaccine (#1) COVID-19 Vacci ne (#1) [facility] Start: 1997 Hepatitis B vaccine (2 of 3 - 3-dose series) Hepatitis B vaccine (2 of 3 - 3-dose series) [facility] Start: 1997 Hepatitis C screening Hepatitis C sc reen [facility] Work Phone: End: 08-19-2019 C.trachomatis N.gonorrhoeae DNA C.trachomatis N.gonorrhoeae DNA Microbiology Routine One Time for 1 Occurrences starting 08/19/2019 until 08/19/2019 [place] Comment on above: One Time for 1 Occur rences starting 08/19/2019 until 08/19/2019 C.trachomatis N.gonorrhoeae DNA [place] End: 02-15-2019 C.trachomatis N.gonorrhoeae DNA C.trachomatis N.gonorrhoeae DNA Microbiology Routine One Time for 1 Occurrences starting 02/15/2019 until 02/15/2019 [place] Comment on above: One Time for 1 Occur rences starting 02/15/2019 until 02/15/2019 C.trachomatis N.gonorrhoeae DNA C.trachomatis N.gonorrhoeae DNA Microbiology Routine High-risk in second trimester 08/04/2023 7:20 AM EST [facility] End: 08-19-2019 Culture, HSV Culture, HSV Microbiology Routine Once for 1 Occurrences starting 08/19/2019 until 08/19/2019 [place] Comment on above: Once for 1 Occurrenc es starting 08/19/2019 until 08/19/2019 Culture, HSV Culture, HSV Microbiology Routine 08/19/2019 2:20 PM EST [place] End: 08-19-2019 Culture, Urine Culture, Urine Microbiology Routine Once for 1 Occurrences starting 08/19/2019 until 08/19/2019 [place] Comment on above: Once for 1 Occurrenc es starting 08/19/2019 until 08/19/2019 Culture, Urine [place] End: 01-20-2021 Culture, Urine Culture, Urine Microbiology STAT One Time for 1 Occurrences starting 01/20/2021 until 01/20/2021 [employer] Work Phone: Comment on above: One Time for 1 Occur rences starting 01/20/2021 until 01/20/2021 End: 07-30-2023 Culture, Urine [facility] [place] Comment on above: One Time for 1 Occur rences starting 07/30/2023 until 07/30/2023 End: 08-19-2019 Culture, Wound Culture, Wound Microbiology Routine One Time for 1 Occurrences starting 08/19/2019 until 08/19/2019 [place] Comment on above: One Time for 1 Occur rences starting 08/19/2019 until 08/19/2019 End: 08-04-2023 [facility] Cytology [facility] Cytology Lab Routine Once for 1 Occurrences starting 08/04/2023 until 08/04/2023 [facility] [place] Comment on above: Once for 1 Occurrenc es starting 08/04/2023 until 08/04/2023 End: 04-03-2019 Microscopic urinalysis Microscopic Urinalysis Lab Routine Once for 1 Occurrences starting 04/03/2019 until 04/03/2019 [place] Comment on above: Once for 1 Occurrenc es starting 04/03/2019 until 04/03/2019 Microscopic urinalysis Microscop ic Urinalysis Lab Routine 04/03/2019 5:28 PM EDT [place], [place] Nonrebreather mask oxygen Nonrebreather mask oxygen Respiratory Care Routine As Needed until discontinued starting 07/30/2023 [facility] [place] Comment on above: As Needed until disc ontinued starting 07/30/2023 End: 02-15-2019 Urine culture clean catch Urine culture clean catch Microbiology Routine Once for 1 Occurrences starting 02/15/2019 until 02/15/2019 [place], [place] Comment on above: Once for 1 Occurrenc es starting 02/15/2019 until 02/15/2019 Urine culture clean catch [place], [place] End: 08-05-2019 Urine culture clean catch Urine culture clean catch Microbiology Routine Once for 1 Occurrences starting 08/05/2019 until 08/05/2019 [facility] Work Phone: Comment on above: Once for 1 Occurrenc es starting 08/05/2019 until 08/05/2019 End: 03-15-2019 Urine culture clean catch Urine culture clean catch Microbiology Routine Once for 1 Occurrences starting 03/15/2019 until 03/15/2019 [place], [place] Comment on above: Once for 1 Occurrenc es starting 03/15/2019 until 03/15/2019 Immunizations Immunization Date Immunization Notes Care Provider [facility] 07-07-2019 diphtheria, tetanus toxoids and acellular pertussis vaccine, unspecified formulation Marshall Rodriguez MD Work Phone: [facility] Work Phone: 07-07-2019 tetanus toxoid, redu pat diphtheria toxoid, and acellular pertussis vaccine, adsorbed Marshall Rodriguez MD Work Phone: [facility] 03-05-2019 tetanus toxoid, redu pat diphtheria toxoid, and acellular pertussis vaccine, adsorbed Aria Chowdary MD Work Phone: [facility] 04-22-2015 influenza virus vacc ine, unspecified formulation Aria Chowdary MD Work Phone: [facility] 04-11-2014 influenza virus vacc ine, unspecified formulation Aria Chowdary MD Work Phone: [facility] 10-15-2013 hepatitis A vaccine, pediatric/adolescent dosage, 2 dose schedule Aria Chowdary MD Work Phone: [facility] 10-15-2013 meningococcal polysaccharide (groups A, C, Y and W-135) diphtheria toxoid conjugate vaccine (MCV4P) Aria Chowdary MD Work Phone: [facility] 04-25-2013 influenza, injectabl e, quadrivalent, preservative free Aria Chowdary MD Work Phone: [facility] 05-11-2012 influenza virus vacc ine, unspecified formulation Aria Chowdary MD Work Phone: [facility] 03-22-2011 influenza virus vacc ine, unspecified formulation Aria Chowdary MD Work Phone: [facility] 04-20-2010 influenza virus vacc ine, unspecified formulation Aria Chowdary MD Work Phone: [facility] 06-03-2009 influenza virus vacc ine, unspecified formulation Aria Chowdary MD Work Phone: [facility] 01-23-2009 human papilloma viru s vaccine, quadrivalent Aria Chowdary MD Work Phone: [facility] 09-20-2008 hepatitis A vaccine, pediatric/adolescent dosage, 2 dose schedule Aria Chowdary MD Work Phone: [facility] 09-20-2008 human papilloma viru s vaccine, quadrivalent Aria Chowdary MD Work Phone: [facility] 07-26-2008 human papilloma viru s vaccine, quadrivalent Aria Chowdary MD Work Phone: [facility] 07-26-2008 meningococcal polysaccharide (groups A, C, Y and W-135) diphtheria toxoid conjugate vaccine (MCV4P) Aria Chowdary MD Work Phone: [facility] 07-26-2008 tetanus toxoid, redu pat diphtheria toxoid, and acellular pertussis vaccine, adsorbed Aria Chowdary MD Work Phone: [facility] 07-26-2008 varicella virus vaccine Gilma Chowdary MD Work Phone: [facility] 04-26-2008 influenza virus vacc ine, unspecified formulation Aria Chowdary MD Work Phone: [facility] 04-18-2007 influenza virus vacc ine, unspecified formulation Aria Chowdary MD Work Phone: [facility] 10-01-2002 diphtheria, tetanus toxoids and acellular pertussis vaccine, unspecified formulation Aria Chowdary MD Work Phone: [facility] 07-28-2001 measles, mumps and rubella virus vaccine Aria Chowdary MD Work Phone: [facility] 07-28-2001 poliovirus vaccine, inactivated Aria Chowdary MD Work Phone: [facility] 10-22-1998 varicella virus vaccine Gilma Chowdary MD Work Phone: [facility] 08-01-1998 diphtheria, tetanus toxoids and acellular pertussis vaccine, unspecified formulation Aria Chowdary MD Work Phone: [facility] 08-01-1998 haemophilus influenz ae type b vaccine, conjugate unspecified formulation Aria Chowdary MD Work Phone: [facility] 08-01-1998 measles, mumps and rubella virus vaccine Aria Chowdary MD Work Phone: [facility] 01-29-1998 diphtheria, tetanus toxoids and acellular pertussis vaccine, unspecified formulation Aria Chowdary MD Work Phone: [facility] 01-29-1998 haemophilus influenz ae type b vaccine, conjugate unspecified formulation Aria Chowdary MD Work Phone: [facility] 01-29-1998 hepatitis B vaccine, pediatric or pediatric/adolescent dosage Aria Chowdary MD Work Phone: [facility] 01-29-1998 poliovirus vaccine, unspecified formulation Aria Chowdary MD Work Phone: [facility] 1997 diphtheria, tetanus toxoids and acellular pertussis vaccine, unspecified formulation Aria Chowdary MD Work Phone: [facility] 1997 haemophilus influenz ae type b vaccine, conjugate unspecified formulation Aria Chowdary MD Work Phone: [facility] 1997 poliovirus vaccine, unspecified formulation Aria Chowdary MD Work Phone: [facility] 1997 diphtheria, tetanus toxoids and acellular pertussis vaccine, unspecified formulation Aria Chowdary MD Work Phone: [facility] 1997 haemophilus influenz ae type b vaccine, conjugate unspecified formulation Aria Chowdary MD Work Phone: [facility] 1997 poliovirus vaccine, unspecified formulation Aria Chowdary MD Work Phone: [facility] 1997 hepatitis B vaccine, pediatric or pediatric/adolescent dosage Aria Chowdary MD Work Phone: [facility] 1997 hepatitis B vaccine, pediatric or pediatric/adolescent dosage Aria Chowdary MD Work Phone: [facility] Payers Date Payer Category Payer Unknown [facility] xxxxxxxxxxxx 2017-Present [phone] [place] [id number] xxxxxxxxxxxx [id number] 2014 Medicaid [id number] 1997 Unknown [id number] 1997 Unknown [id number] 1997 Unknown [id number] 1997 Unknown [id number] 1997 Unknown [id number] 1997 Unknown [id number] 1997 Unknown [id number] 1997 Unknown [id number] 1997 Unknown [id number] [id number] 1997 Unknown [id number] 1997 Unknown [id number] 1997 Unknown [id number] [id number] 1997 Unknown [id number] 9 1959 Unknown [id number] Social History Date Type Detail Facility Start: 04-03-2019 End: 08-04-2023 Tobacco smoking status [facility] Never smoker [facility] [place] Start: 04-03-2019 End: 08-04-2023 Alcohol intake No [facility] [place] Start: 1995 Sex Assigned At Not on file [place], [place] Start: 08-19-2019 End: 08-04-2023 Alcohol intake Current non-drinker of alcohol (finding) [employer] Work Phone: Start: 01-20-2021 End: 08-04-2023 Tobacco use and exposure Never used [employer] Start: 07-30-2023 End: 08-04-2023 History of Social function [facility] How often to you hav e a drink containing alcohol? Never [facility] How many standard dr inks containing alcohol do you have on a typical day? Patient does not drink [facility] Start: 03-11-2023 [facility] Discharge instructions 07-31-2023 Discharge Instructions [...] on left side. documented in this encounter [facility] History of Present illness Narrative 07-31-2023 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 MD - 07/31/2023 6:43 AM EST Note Date & Type Note Facility 07-31-2023 History of Present illness Narrative [employer]ULT [employer]OL [employer] PROGRESS NOTE Jessica Gastelum is a 28 [...] admission and completed - Message sent to [facility] to coordinate care and schedule initial appointment Patient Active Problem List Diagnosis Date Noted 21 weeks gestation of 07/30/[address] Farris. 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 07/31/2023, 6:43 AM documented in this encounter [facility] Evaluation note Note Date & Type Note Facility Evaluation note Diagnosis Urinary tract infection in mother during first trimester of - Primary Non-intractable vomiting with nausea, unspecified vomiting type documented in this encounter [employer] Phone: Evaluation note Note Date & Type Note Facility Evaluation note Diagnosis Facial laceration, initial encounter- Primary Injury of head, initial encounter documented in this encounter [facility] Phone: Evaluation note Note Date & Type Note Facility Evaluation note Diagnosis Visit for suture removal- Primary Encounter for removal of sutures documented in this encounter [employer] Phone: Evaluation note Note Date & Type Note Facility Evaluation note Diagnosis 21 weeks gestation of - Primary state, incidental Abdominal trauma in Other injury of abdomen 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 THANK YOU!!! From [facility] Emergency Department On behalf of the Emergency Department staff at [facility]'s Emergency Department, I would like to thank you for giving [facility] the opportunity to address your health care needs and concerns. We hope that during your visit, our service was delivered in a professional and caring manner. Please keep [facility] in mind as we walk with you [...] or chest pain. documented in this encounter [facility] Phone: Hospital Discharge instructions Attachments Note Date & Type Note Facility Hospital Discharge instructions The following attachments cannot be sent through Care Everywhere.Head Injury: Closed: General Info (U[place]ayan)Facial Laceration: Stitches (Uruguayan)documented in this encounter [facility] Phone: Hospital Discharge instructions Attachments Note Date & Type Note Facility Hospital Discharge instructions The following attachments cannot be sent through Care Everywhere.Stitches and Oakes Removal: General Info (Uruguayan)documented in this encounter [facility] Phone: Discharge Instructions * Attachments The following attachments cannot be sent through Care Everywhere. * UTI (Urinary Tract Infection): Female ([place]) documented in this encounter* Attachments The following attachments cannot be sent through Care Everywhere. * Rash ([place]ruguayan) * Bacterial Vaginosis ([place]ayan) documented in this encounter* Instructions* Ranjana Del Rosario PA-C - 02/15/[address] Pediatric Primary Care/ Adult Primary Care / OB//[facility]ER [facility]/Specialty Clinics Mon Fri 8a 4:30p [facility] [address] Assistance with applying for chronic custodial meds (high BP, Diabetes, etc), offered thru programsmade available by various pharmaceutical companies Mon Tue Call to make appointment [facility] [address] [facility] Mon Fri 9a 7p [facility] [address] Adult Medicine, Pediatrics, ADULT HIGH SCHOOL INSTRUCTOR Mon Fri 8:30a 5p D.O. Surgery [address] [phone] Wed AM each week [address] [address] Adult Internal Medicine Tue, , , Tue 8a 4p Wed 1p 4P ADULT [employer]CHOOL IN[employer]CTOR Clinic Tue, , , Tue 10a 4p Wed 1p 4p (closed from 12p noon 1p Pediatrics Clinic Tue, , , Tue 8:30 a 4:15p Wed 12:30p 4:15p Podiatry Clinic Mon, Tue, Fri 1:00p to 5:00p [facility] [address] Pediatric Primary Care Mon Wed & Fri Adult Primary Care Mon Fri 8a 12p noon OB/ Th 8a 4:45p [facility] [address] Mon Fri 8:30a 5p ADULT [employer]IGH [employer]CHOOL INSTRUCTOR Adult Internal Med Pediatrics Neuro/Headache [facility] [address] [place] [address] [facility] Mon Fri 9a 5p [facility] [address] Adult Medicine, Eye Clinic, Dental Patient must be certified homeless Days and hours vary Call for appointment [facility] [address] [facility] OB Mon, Tues, Wed, Fri 9a 5p Thurs 9a 6p Wed (OB only) [facility] [address] [place] [facility] Mon, Tues, Th, Fri 9a 5p (closed 12p 1p) Wed 1p 5 [facility] Specialty Clinics Burn/Plastic, ENT, GI, Orthopedics, (Orthopedics D.O.), Surgical, TRAUMA, Urology, Vascular Call for appointment [facility] [address] Various Clinics 8a 5:30 [facility] [address] [place], [place] [id number] OB/ Tues 8a 4:45p [facility] Mon Wed & Fri 8a 4:45p [facility] [address] [facility] Mon Tue 8a 4:30p [facility] [address] [place], [place] Mon Fri 8a 4:30p [address] [place] [address] Mon Fri 8a-4:30p Thurs 8a 8p OutPatient Clinics [facility] [address] Mon Fri 9a 5P Diabetic Education Services Call for appointment Heart Failure Clinic [facility] [address] Mon Fri 8:30a 4p Dental Services [facility] and [address] Accepts medicaid, medicaid HMOs, and most private insurances. Uninsured children are seen for $25.00 while uninsured adults are seen at a reduced fixed rate or visit [email or web address] [address] * Pt must have source of income & must * Pt must be homeless; call for eligibility guidelines bring 2 recent check stubs to appt * Under age 18 not accepted * By appointment only * Doors open at 8:30a day of week varies * Attachments The following attachments cannot be sent through Care Everywhere. * Dysuria (Uruguayan) * STI (Uruguayan) documented in this encounter* Attachments The following attachments cannot be sent through Care Everywhere. * UTI (Urinary Tract Infection): Female ([place]ayan) documented in this encounter* Instructions* Jone Hair, - 03/15/2019 You were seen today for [...] Everywhere. * UTI (Urinary Tract Infection): Female ([place]ayan) documented in this encounter Assessments Diagnosis Acute [...] FoundDocuments on File Type Date Recorded Patient Gold Beater Expl anation Advance Directives and Living Will Power of Rn Cardiac Rehab Latest Code Status on File Code Status Date Activated Date Inactivated Comments Full Code 07/29/2016 12:51 AM 07/29/2016 4:38 AM Documents on File Type Date Recorded Patient Gold Beater Expl anation ACP-Advance Directive ACP-Power of Rn Cardiac Rehab Latest Code Status on File Code Status [...] 1 dose 2340 (Given - Provider: Steven Tracey, RN) Scheduled Medication Order 07/29/2023 07/30/2023 07/31/2023 lidocaine 4 % external patch 1 patch 1 patch, TransDERmal, Administer over 12 Hours, DAILY, First dose on 07/30/23 at 1230, Apply patch to affected area. Patch may remain in place for up to 12 hours in any 24 hour period. 1338 (Patch Applied - Provider: Arminda Andrea RN) 0142 (Patch Removed - Provider: Laura Garner, JAYDEN)0902 (Patch Applied - Provider: Ericka Vogt, RN)210 (Due: Patch Removed - Provider: Ericka Vogt, JAYDEN) vitamin plus iron 29-1 MG tablet 1 tablet 1 tablet (1 each), Oral, DAILY, First dose on 07/30/23 at 1130, Until Discontinued 1338 (Given - Provider: Arminda Andrea RN) 0902 (Given - Provider: Ericka Vogt, [...] IntraVENous, EVERY 6 HOURS PRN, Starting on Sat 24 at 1049, Until Discontinued, Nausea, Vomiting, Administer if oral route cannot be used. ondansetron (ZOFRAN-ODT) disintegrating tablet 4 mg(Linked Group 1) 4 mg, Oral, EVERY 8 HOURS PRN, Starting on Sat 24 at 1049, Until Discontinued, Nausea, Vomiting Linked Groups Order Group 1: ondansetron (ZOFRAN-ODT) disintegrating tablet 4 mgJump to med 4 mg, Oral, EVERY 8 HOURS PRN, Starting on Sat 24 at 1049, Until Discontinued, Nausea, Vomiting Or ondansetron (ZOFRAN) injection 4 mgJump to med 4 mg, IntraVENous, EVERY 6 HOURS PRN, Starting on 07/30/23 at 1049, Until Discontinued, Nausea, Vomiting
Administer if oral route cannot be used.
INFORMATION SOURCE (unrecogn ized section and content) DATE CREATED AUTHOR 02/03/2022 [facility] DATE CREATED AUTHOR AUTHOR'S ORGANIZ ATION 01/03/2023 [facility] DATE CREATED AUTHOR AUTHOR'S ORGANIZ ATION 09/24/2023 [facility] DATE CREATED AUTHOR AUTHOR'S ORGANIZ ATION 10/25/[address] [facility] dical Specialists EPIC Care Teams (unrecognized sec tion and content) Electrical Appliance Repairer Relationship Specialty Start Date End Date Leonel Adams APRN - REINSURANCE ACCOUNTANT [address] [place] [address] PCP - General Certified Nurse Practitioner 08/05/19 Electrical Appliance Repairer Relationship Specialty Start Date End Date Leonel Adams APRN - REINSURANCE ACCOUNTANT [address] [place] [address] PCP - General Certified Nurse Practitioner 08/05/19 [...] BE BASED ON THE PRIMARY CLINICAL RECORDS. [employer] provides no warranty or guarantee of the accuracy or completeness of information in this document.
[2023-11-07 23:39] VITALS: BP 122/66; PULSE 86
== END 2023-11-08 02:37 | disposition home or self-care (01) ==
PROVIDERS: Admitting Provider Obstetrics & Gynecology; Visit Provider Obstetrics & Gynecology
DX: Z34.93 Encounter for supervision of normal pregnancy, unspecified, third trimester (principal); O26.899 Other specified pregnancy related conditions, unspecified trimester; M54.9 Dorsalgia, unspecified; Z36.2 Encounter for other antenatal screening follow-up
CPT/HCPCS: 59025; 76815; 87081

== ENCOUNTER 2023-11-23 16:15 | Outpatient (REF) | payer OTHER, SELFPAY | END 2023-11-23 16:16 | disposition home or self-care (01) | LOC: LAB 16:15 | PROVIDERS: Visit Provider Obstetrics & Gynecology | DX: L91.8 Other hypertrophic disorders of the skin (principal) | CPT/HCPCS: 88305 ==

== ENCOUNTER 2023-11-27 05:43 | Inpatient (IN) | payer OTHER, SELFPAY ==
[2023-11-27] VITALS (23 sets, daily range): BP systolic 84–132; BP diastolic 40–81; PULSE 71–88; TEMP 35.8–36.4
--- OUTSIDE RECORDS SUMMARY | 2023-11-27 05:47 | XMS_ITS | CCD ---
Author Organization [facility] Care Team Providers Care Supervisor Edging Name Role Phone Unavailable Primary Care Provider Unavailabl Leonel Morrison Primary Care Provider Angmaximilian ORAL AND MAXILLOFACIAL SURGEON - RUBBER GRINDERLeonel Primary Care Provider Unavailable Primary Care Provider Unavailtrevon CONNELL, DR ZUÑIGA Admitting Unavailable KARASIK, DR ZUÑIGA Attending Unavailable LOBO TIWARI Primary Care Unavailable KARASIK, DR ZUÑIGA Consulting Unavailable KARASIK, DR ZUÑIGA Admitting Unavailable KARASIK, DR ZUÑIGA Attending Unavailable TE LOBO Primary Care Unavailable KARASIK, DR ZUÑIGA Consulting Unavailable WEST, DR FADUMO Jiang Consulting Unavailable CARITO, DR MILTON Admitting Unavailable CARITO, DR MILTON Attending Unavailable REQUEST, DR LORENZO LISTED Primary Care Unavaila ble CARITO, DR MILTON Consulting Unavailable KARASIK, DR ZUÑIGA Admitting Unavailable KARASIK, DR ZUÑIGA Attending Unavailable TE LOBO Primary Care Unavailable KARASIK, DR ZUÑIGA Consulting Unavailable AGUBOSIMDAVID Consulting Unavailable KARASIK, DR ZUÑIGA Procedure Practitioner Unava ilLOBO Dotson Admitting Unavailable LOBO TIWARI Attending Unavailable LOBO TIWARI Primary Care Unavailable CRISTIN, DR FADUMO Jiang Consulting Unavailable LOBO TIWARI Consulting Unavailable LOBO TIWARI Admitting Unavailable LOBO TIWARI Attending Unavailable LOBO TIWARI Primary Care Unavailable LOBO TIWARI Consulting Unavailable KARASIK, DR ZUÑIGA Admitting Unavailable KARASIK, DR ZUÑIGA Attending Unavailable LOBO TIWARI Primary Care Unavailable KARASIK, DR ZUÑIGA Admitting Unavailable KARASIK, DR ZUÑIGA Attending Unavailable TE LOBO Primary Care Unavailable KARASIK, DR ZUÑIGA Consulting Unavailable ZIEBER, DR LUDMILA Crenshaw Consulting Unavailable KARASIK, DR ZUÑIGA Admitting Unavailable KARASIK, DR ZUÑIGA Attending Unavailable REQUEST, DR NONE LISTED [facility]ONEL Primary Care Unavailable FAUSTINO DOWD Attending Unavailable [facility] Leonel WADE CNP Primary Care Provider [facility]ON[facility] Primary Care Unavailable ARIA CHOWDARY Admitting Unavailable ARIA CHOWDARY Attending Unavailable VAN FARRIS Consulting Unavailable [facility], LEONEL Primary Care Unavailable ZARA PEREZ Attending Unavailable [facility] LEONEL Primary Care Unavailable KARIS PALMA Referring Unavailable KARINE ARZATE Attending Unavailable KARINE ARZATE Attending Unavailable KARINE ARZATE Attending Unavailable KARINE ARZATE Attending Unavailable KARINE ARZATE Attending Unavailable Medications Current [...] Local Anesthetic Start: 07-30-2023 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 Performed By: #### C DP #### [place] [id number] [place]: Philip Schulte MD Gonorrhea Probe Negative Normal NEG [facility] Comment on above: Result Comment: NEIS [...] target. Performed By: #### C DP #### [email or web address] [address] [place] [address] [phone] [place]: Philip Schulte MD Vaginitis DNA Probeon 2023 Renetta Negative Normal NEG [facility] Comment on above: Result Comment: for Renetta sp. Method of testing is a DNA probe intended for detection and identification of Renetta species, Gardnerella vaginalis, and Trichomonas vaginalis nucleic acid in vaginal fluid specimens from patients with symptoms of vaginitis/vaginosis. Performed By: #### C DP #### [email or web address] [address] [place] [address] [phone] [place]: Philip Schulte MD Gardnerella Negative Normal NEG [facility] Comment on above: Result Comment: for Gardnerella vaginalis Performed By: #### C DP #### [place] [address] [place] [address] [place]: Philip Schulte MD Trichomonas Negative Normal NEG [facility] Comment on above: Result Comment: for Trichomonas Vaginalis Performed By: #### C DP #### [place] [address] [place], [place] [phone] [place]: Philip Schulte MD Renetta species Negative NEGATIVE [facility] Comment on above: for Renetta sp. Method of testing is a DNA probe intended for detection and identification of Renetta species, Gardnerella vaginalis, and Trichomonas vaginalis nucleic acid in vaginal fluid specimens from patients with symptoms of vaginitis/vaginosis. GARDNERELLA VAGINALIS Negative NEGATIVE [facility] Comment on above: for Gardnerella vagi nalis Source .VAGINAL SWAB [facility] Trichomonas Negative NEGATIVE [facility] Comment on above: for Trichomonas Vagi nalis [facility] Source .VAGINAL SWAB Normal [facility] Comment on above: Performed By: #### C DP #### [address] [address] [place]: Philip Schulte MD Cytology Reporton 08-04-2023 Cytology report Cyto stain.thin prep Doc (Cvx/Vag) (NOTE) Path Number: [id number] DIAGNOSIS Imaged ThinPrep Pap - Cervical (1 monolayer slide): Specimen Adequacy: Satisfactory for evaluation. - Endocervical/transfo rmation zone component present. Descriptive Diagnosis: Negative for intraepithelial lesion or malignancy. Comments: Specimen was screened at [facility], [address] [place] [id number] [employer] Screener: CS Electronically Signed Out GUSTAVO Mendoza(ASCP) dawn/08/14/2023 Source of Specimen: A: Imaged ThinPrep Pap - Cervical (1 monolayer slide) HPV Reflex?............. .........HPV if ASCUS Clinical History Z12.4 Encounter for screening for malignant neoplasm of cervix LMP: 02/28/2023 Processing Lab: [address] [phone] Interpretation performed at [facility], [facility] [place] [address] This Pap Test has been evaluated with the assistance of the [employer] Pap Test Imaging System. The Pap smear is a screening test primarily for squamous epithelial lesions, which is subject to both false negative and false positive results. Your patient should be reminded to consult you immediately if she experiences any suspicious signs or symptoms, regardless of her Pap smear result. GYNECOLOGIC CYTOLOGY REPORT Patient Name: JESSICA GASTELUM [facility] Rec: [id number] [facility] ANATOMIC PATHOLOGY [address] [place] [address]. [place], [place] [address] Normal [facility] Cult,Urineon 07-31-2023 Cult,Urine Specimen Description .CLEAN CATCH URINE Culture NO SIGNIFICANT GROWTH Report Status FINAL 07/31/2023 Normal [facility] Comment on above: Performed By: #### U RC #### [address] [id number] [place]: Philip Schulte MD CBC with Diffon 07-30-2023 Abs. Basophil 0.03 k/uL Normal 0.00-0.20 [facility] Comment on above: Performed By: #### C DP #### [address] [phone] [place]: Philip Schulte MD Abs.Imm.Granulocyte 0.04 k/uL Normal 0.00-0.30 [facility] Comment on above: Performed By: #### C DP #### [address] [phone] [place]: Philip Schulte MD Abs.Neutrophil (Seg) 7.38 k/uL Normal 1.50-8.10 [facility] Comment on above: Performed By: #### C DP #### [address] [address] [place]: Philip Schulte MD Basophils/100 WBC (Bld) 0 % Normal 0-2 [facility] Comment on above: Performed By: #### C DP #### [place] [address] [place]: Philip Schulte MD Eosinophils (Bld) [#/Vol] 0.05 10*3/uL Normal 0.00-0.44 [facility] Comment on above: Performed By: #### C DP #### [place] [address] [place]: Philip Schulte MD Eosinophils/100 WBC (Bld) 1 % Normal 1-4 [facility] Comment on above: Performed By: #### C DP #### [address] [address] [place]: Philip Schulte MD Erythrocyte distribution width (RBC) [Ratio] 13.3 % Normal 11.8-14.4 [facility] Comment on above: Performed By: #### C DP #### [place] [address] [place]: Philip Schulte MD Hematocrit (Bld) [Volume fraction] 39.3 % Normal 36.3-47.1 [facility] Comment on above: Performed By: #### C DP #### [place] [address] [place]: Philip Schulte MD Hemoglobin (Bld) [Mass/Vol] 13.3 g/dL Normal 11.9-15.1 [facility] Comment on above: Performed By: #### C DP #### [address] [address] [place]: Philip Schulte MD Immature granulocytes/100 WBC (Bld) 0 % Normal 0 [facility] Comment on above: Performed By: #### C DP #### [address] [address] [place]: Philip cShulte MD Lymphocytes (Bld) [#/Vol] 1.57 10*3/uL Normal 1.10-3.70 [facility] Comment on above: Performed By: #### C DP #### [address] [address] [place]: Philip Schulte MD Lymphocytes/100 WBC (Bld) 16 % Low 24-43 [facility] Comment on above: Performed By: #### C DP #### [address] [address] [place]: Philip Schulte MD MCH (RBC) [Entitic mass] 31.3 pg Normal 25.2-33.5 [facility] Comment on above: Performed By: #### C DP #### [address] [address] [place]: Philip Schulte MD MCHC (RBC) [Mass/Vol] 33.8 g/dL Normal 28.4-34.8 [facility] Comment on above: Performed By: #### C DP #### [address] [address] [place]: Philip Schulte MD MCV (RBC) [Entitic vol] 92.5 fL Normal 82.6-102.9 [facility] Comment on above: Performed By: #### C DP #### [address] [address] [place]: Philip Schulte MD Monocytes (Bld) [#/Vol] 0.69 10*3/uL Normal 0.10-1.20 [facility] Comment on above: Performed By: #### C DP #### [address] [address] [place]: Philip Schulte MD Monocytes/100 WBC (Bld) 7 % Normal 3-12 [facility] Comment on above: Performed By: #### C DP #### [address] [address] [place]: Philip Schulte MD Neutrophil (Seg) 76 % High 36-65 [facility] Comment on above: Performed By: #### C DP #### [address] [address] [place]: Philip Schulte MD NRBC Automated 0.0 per 100 WBC Normal 0.0 [facility] Comment on above: Performed By: #### C DP #### [address] [address] [place]: Philip Schulte MD Platelet mean volume (Bld) [Entitic vol] 10.7 fL Normal 8.1-13.5 [facility] Comment on above: Performed By: #### C DP #### [address] [address] [place]: Philip Schulte MD Platelets (Bld) [#/Vol] 194 10*3/uL Normal 138-453 [facility] Comment on above: Performed By: #### C DP #### [address] [address] [place]: Philip Schulte MD RBC (Bld) [#/Vol] 4.25 10*6/uL Normal 3.95-5.11 [facility] Comment on above: Performed By: #### C DP #### [address] [place] [address] [place]: Philip Schulte MD WBC (Bld) [#/Vol] 9.8 10*3/uL Normal 3.5-11.3 [facility] Comment on above: Performed By: #### C DP #### [facility] My 1% [address] [place] [address] [place]: Philip Schulte MD CT CERVICAL SPINE WO [...] Fadumo Vergara MD 07/30/23 Final result Normal [facility] CT HEAD WO CONTRASTon 2023 CT [...] Fadumo Vergara MD 07/30/23 Final result Normal [facility] CTA HEAD NECK W CONTRASTon 0 [...] Phillip Belcher MD 07/30/23 Final result Normal [facility] -Maternal Hemoron 07-30 -Maternal Hemor Bleed Volume UP TO 15 % Bleed NO CELLS SEEN Doses of Rhogam PATIENT IS RH POSITIVE Normal [facility] Comment on above: Performed By: #### C DP #### [email or web address] [address] [place] [address] [phone] [place]: Philip Schulte MD HIV Ag/Abon 07-30-2023 HIV Ag/Ab Non-Reactive Normal NR [facility] Comment on above: Result Comment: No l aboratory evidence of HIV infection. If acute HIV infection is suspected, consider testing for HIV-1 RNA. Performed By: #### H HARITHA RAGLAND, PRENAT #### [facility] [address] [place] [address] [phone] [place]: Philip Schulte MD HIV Screenon 07-30-2023 HIV 1+2 Ab+HIV1 p24 Ag IA Ql Non-Reactive NONREACTIVE [facility] Comment on above: No laboratory eviden ce of HIV infection. If acute HIV infection is suspected, consider testing for HIV-1 RNA. Hep C Abon 07-30-2023 Hep C Ab Non-Reactive Normal NR [facility] Comment on above: Result Comment: The [...] RNA by PCR. Performed By: #### H ELLYN AHCV, PRENAT #### [email or web address] [address] [place], [place] [phone] [place]: Philip Schulte MD Hepatitis C Antibodyon 07-30 HCV Ab IA Ql Non-Reactive NONREACTIVE [facility] [employer] [facility] Comment on above: The hepatitis C procedure [...] recommended by ordering HCV RNA by PCR. [facility] No Panel Informationon 07-30 [facility] PROFILE Ion 024 Basophils (Bld) [#/Vol] [facility] Basophils/100 WBC (Bld) 0 % 0 - 2 % [facility] Eosinophils (Bld) [#/Vol] 0.13 10*3/uL [facility] Eosinophils/100 WBC (Bld) 2 % 1 - 4 % [facility] Erythrocyte distribution width (RBC) [Ratio] 13.5 % 11.8 - 14.4 % [facility] HBV surface Ag IA Ql Non-Reactive NONREACTIVE [facility] Hematocrit (Bld) [Volume fraction] 36.4 % 36.3 - 47.1 % [facility] Hemoglobin (Bld) [Mass/Vol] 11.9 g/dL 11.9 - 15.1 g/dL [facility] Immature granulocytes (Bld) [#/Vol] [facility] Immature granulocytes/100 WBC (Bld) 0 % 0 [facility] Interpretation and review of laboratory results Abnormal [facility] Lymphocytes/100 WBC (Bld) 23 % Low 24 - 43 % [facility] Lymphocytes/100 WBC (Bld) 1.74 % [facility] MCH (RBC) [Entitic mass] 31.2 pg 25.2 - 33.5 pg [facility] MCHC (RBC) [Mass/Vol] 32.7 g/dL 28.4 - 34.8 g/dL [facility] MCV (RBC) [Entitic vol] 95.5 fL 82.6 - 102.9 fL [facility] Monocytes/100 WBC (Bld) 7 % 3 - 12 % [facility] Monocytes/100 WBC (Bld) 0.54 % [facility] Neutrophils/100 WBC (Bld) 68 % High 36 - 65 % [facility] Nucleated RBC/100 WBC (Bld) [Ratio] 0.0 % 0.0 per 100 WBC [facility] Platelet mean volume (Bld) [Entitic vol] 10.2 fL 8.1 - 13.5 fL [facility] Platelets (Bld) [#/Vol] 155 10*3/uL [facility] RBC (Bld) [#/Vol] 3.81 10*6/uL Low 3.95 - 5.1 1 m/uL [facility] Rubella virus IgG IA Ql 118.2 IU/mL [facility] Comment on above: REFERENCE RANGE: <5.0 NON-REACTIVE (non-immune) 5.0 TO 9.9 EQUIVOCAL >=10.0 REACTIVE (immune) Segmented neutrophils/100 WBC (Bld) 5.11 % [facility] T. pallidum Ab IA Ql (S) Non-Reactive NONREACTIVE [facility] Comment on above: T. pallidum antibodies are not detected. There is no serological evidence of infection with T. pallidum (early primary syphilis cannot be excluded). Retest in 2-4 weeks if syphilis is clinically suspect. WBC other (Bld) [#/Vol] 7.6 [facility] Profileon 4 T.pallidum Ab Screen Non-Reactive Normal NR [facility] Comment on above: Result Comment: T. pallidum antibodies are not detected. There is no serological evidence of infection with T. pallidum (early primary syphilis cannot be excluded). Retest in 2-4 weeks if syphilis is clinically suspect. Performed By: #### H IVCMB, AHCV, PRENAT #### [email or web address] [address] [place] [address] [place]: Philip Schulte MD Hep B Surf Ag Non-Reactive Normal NR [facility] Comment on above: Performed By: #### H IVCMB, AHCV, PRENAT #### [email or web address] [address] [place] [address] [place]: Philip Schulte MD Rubella Ab, IgG 118.2 IU/mL Normal [facility] Comment on above: Result Comment: REFERENCE RANGE: <5.0 NON-REACTIVE (non-immune) 5.0 TO 9.9 EQUIVOCAL >=10.0 REACTIVE (immune) Performed By: #### H IVCMB, AHCV, PRENAT #### [facility] [address] [place] [address] [place]: Philip Schulte MD Abs. Basophil <0.03 Normal 0.00-0.20 [facility] Comment on above: Performed By: #### H IVCMB, AHCV, PRENAT #### [facility] My 1% [address] [place] [address] [place]: Philip Schulte MD Abs.Imm.Granulocyte <0.03 Normal 0.00-0.30 [facility] Comment on above: Performed By: #### H IVCMB, AHCV, PRENAT #### [facility] [address] [place] [address] [place]: Philip Schulte MD Abs.Neutrophil (Seg) 5.11 k/uL Normal 1.50-8.10 [facility] Comment on above: Performed By: #### H IVCMB, AHCV, PRENAT #### [facility] My [facility]% [address] [place] [address] [place]: Philip Schulte MD Basophils/100 WBC (Bld) 0 % Normal 0-2 [facility] Comment on above: Performed By: #### H IVCMB, AHCV, PRENAT #### [facility]% [address] [place] [address] [place]: Philip Schulte MD Eosinophils (Bld) [#/Vol] 0.13 10*3/uL Normal 0.00-0.44 [facility] Comment on above: Performed By: #### H IVCMB, AHCV, PRENAT #### [facility] [address] [place] [address] [place]: Philip Schulte MD Eosinophils/100 WBC (Bld) 2 % Normal 1-4 [facility] Comment on above: Performed By: #### H IVCMB, AHCV, PRENAT #### [facility] My 1% [address] [place] [address] [place]: Philip Schulte MD Erythrocyte distribution width (RBC) [Ratio] 13.5 % Normal 11.8-14.4 [facility] Comment on above: Performed By: #### H IVCMB, AHCV, PRENAT #### [facility] My 1% [address] [place] [address] [place]: Philip Schulte MD Hematocrit (Bld) [Volume fraction] 36.4 % Normal 36.3-47.1 [facility] Comment on above: Performed By: #### H IVCMB, AHCV, PRENAT #### [facility] 1% [address] [place] [address] [place]: Philip Schulte MD Hemoglobin (Bld) [Mass/Vol] 11.9 g/dL Normal 11.9-15.1 [facility] Comment on above: Performed By: #### H IVCMB, AHCV, PRENAT #### [facility] 1% [address] [place] [address] [place]: Philip Schulte MD Immature granulocytes/100 WBC (Bld) 0 % Normal 0 [facility] Comment on above: Performed By: #### H IVCMB, AHCV, PRENAT #### [facility] My 1% [address] [place] [address] [place]: Philip Schulte MD Lymphocytes (Bld) [#/Vol] 1.74 10*3/uL Normal 1.10-3.70 [facility] Comment on above: Performed By: #### H IVCMB, AHCV, PRENAT #### [facility] [address] [place] [address] [place]: Philip Schulte MD Lymphocytes/100 WBC (Bld) 23 % Low 24-43 [facility] Comment on above: Performed By: #### H IVCMB, AHCV, PRENAT #### [address] [address] [place]: Philip Schulte MD MCH (RBC) [Entitic mass] 31.2 pg Normal 25.2-33.5 [facility] Comment on above: Performed By: #### H IVCMB, AHCV, PRENAT #### [address] [address] [place]: Philip Schulte MD MCHC (RBC) [Mass/Vol] 32.7 g/dL Normal 28.4-34.8 [facility] Comment on above: Performed By: #### H IVCMB, AHCV, PRENAT #### [address] [address] [place]: Philip Schulte MD MCV (RBC) [Entitic vol] 95.5 fL Normal 82.6-102.9 [facility] Comment on above: Performed By: #### H IVCMB, AHCV, PRENAT #### [address] [address] [place]: Philip Schulte MD Monocytes (Bld) [#/Vol] 0.54 10*3/uL Normal 0.10-1.20 [facility] Comment on above: Performed By: #### H IVCMB, AHCV, PRENAT #### [address] [address] [place]: Philip Schulte MD Monocytes/100 WBC (Bld) 7 % Normal 3-12 [facility] Comment on above: Performed By: #### H IVCMB, AHCV, PRENAT #### [address] [address] [place]: Philip Schulte MD Neutrophil (Seg) 68 % High 36-65 [facility] Comment on above: Performed By: #### H IVCMB, AHCV, PRENAT #### [facility] My 1% [address] [place] [address] [place]: Philip Schulte MD NRBC Automated 0.0 per 100 WBC Normal 0.0 [facility] Comment on above: Performed By: #### H IVCMB, AHCV, PRENAT #### [facility] My 1% [address] [place] [address] [place]: Philip Schulte MD Platelet mean volume (Bld) [Entitic vol] 10.2 fL Normal 8.1-13.5 [facility] Comment on above: Performed By: #### H IVCMB, AHCV, PRENAT #### [facility] My 1% [address] [place] [address] [place]: Philip Schulte MD Platelets (Bld) [#/Vol] 155 10*3/uL Normal 138-453 [facility] Comment on above: Performed By: #### H IVCMB, AHCV, PRENAT #### [facility] My 1% [address] [place] [address] [place]: Philip Schulte MD RBC (Bld) [#/Vol] 3.81 10*6/uL Low 3.95-5.11 [facility] Comment on above: Performed By: #### H IVCMB, AHCV, PRENAT #### [facility] My 1% [address] [place] [address] [place]: Philip Schulte MD WBC (Bld) [#/Vol] 7.6 10*3/uL Normal 3.5-11.3 [facility] Comment on above: Performed By: #### H IVCMB, AHCV, PRENAT #### [facility] My 1% [address] [place] [address] [place]: Philip Schulte MD TYPE AND SCREENon 07-30-2023 ABO and Rh group Nom (Bld) Blood group A Rh(D) positive [facility] Arm Band Number BE [id number] [facility] Blood Bank Sample Expiration 08/02/2023,2359 [facility] Blood group antibodies identified Nom Negative [facility] Type + Screenon 07-30-2023 Type + Screen Sample Expiration 08/02/2023,2359 Arm Band Number BE [id number] ABO/Rh(D) A POSITIVE Antibody Screen NEGATIVE Normal [facility] Comment on above: Performed By: #### T YS #### [address] [address] [place]: Philip Schulte MD Type + Screen Sample Expiration 07/29/2023,2359 Arm Band Number BE [id number] ABO/Rh(D) A POSITIVE Antibody Screen NEGATIVE Blood Bank Comment Band removed Normal [facility] Comment on above: Performed By: #### T YS #### [address] [address] [place]: Philip Schulte MD UA w/Reflex Cultureon 2023 Bilirubin, SemiQt,Ur Negative Normal NEG [facility] Comment on above: Performed By: #### U AX #### [facility] My 1% [address] [place] [address] [place]: Philip Schulte MD Blood, Urine Negative Normal NEG [facility] Comment on above: Performed By: #### U AX #### [facility] My 1% [address] [place] [address] [place]: Philip Schulte MD Clarity (U) Clear Normal CLEAR [facility] Comment on above: Performed By: #### U AX #### [address] [address] [place]: Philip Schulte MD Color (U) Dark Yellow Abnormal YEL [facility] Comment on above: Performed By: #### U AX #### [address] [address] [place]: Philip Schulte MD Comment Microscopic exam not performed based on chemical results unless requested in Normal [facility] Comment on above: Result Comment: orig inal order. Performed By: #### U AX #### [address] [address] [place]: Philip Schulte MD Glucose Ql (U) Negative Normal NEG [facility] Comment on above: Performed By: #### U AX #### [address] [address] [place]: Philip Schulte MD Ketones Ql (U) Negative Normal NEG [facility] Comment on above: Performed By: #### U AX #### [address] [address] [place]: Philip Schulte MD Leukocyte esterase Test strip Ql (U) Negative Normal NEG [facility] Comment on above: Performed By: #### U AX #### [address] [address] [place]: Philip Schulte MD Nitrite,Ur Negative Normal NEG [facility] Comment on above: Performed By: #### U AX #### [address] [address] [place]: Philip Schulte MD PH,Ur 5.5 Normal 5.0-8.0 [facility] Comment on above: Performed By: #### U AX #### [address] [address] [place]: Philip Schulte MD Protein Ql (U) Negative Normal NEG [facility] Comment on above: Performed By: #### U AX #### [address] [place] [address] [place]: Philip Schulte MD Spec. [place],Ur 1.037 High 1.005-1.030 [facility] Comment on above: Performed By: #### U AX #### [facility] My 1% [address] [place] [address] [place]: Philip Schulte MD Urobilinogen,Ur Normal Normal 0.0-1.0 [facility] Comment on above: Performed By: #### U AX #### [address] [address] [place]: Philip Schulte MD US OB 14 PLUS [...] Fadumo Vergara MD 07/30/23 Final result Normal [facility] Urinalysis with Reflex to Cu ltureon 07-30-2023 Bilirubin Ql (U) Negative NEGATIVE [facility] Clarity (U) Clear Clear [facility] Color (U) Dark Yellow Abnormal Yellow [facility] Comment Microscopic exam not performed based on chemical results unless requested in original order. [facility] Glucose Test strip (U) [Mass/Vol] Negative NEGATIVE mg/dL [facility] Hemoglobin Auto test strip Ql (U) Negative NEGATIVE [facility] Interpretation and review of laboratory results Abnormal [facility] Ketones (U) [Mass/Vol] Negative NEGATIVE mg/d L [facility] Leukocyte esterase Test strip Ql (U) Negative NEGATIVE [facility] Nitrite Ql (U) Negative NEGATIVE [facility] pH (U) 5.5 [pH] 5.0 - 8.0 [facility] Protein (U) [Mass/Vol] Negative NEGATIVE mg/d L [facility] Specific gravity (U) [Rel density] 1.037 High 1.005 - 1.030 [facility] Urobilinogen Qn (U) Normal 0.0 - 1.0 EU/dL [facility] XR SHOULDER LEFT (MIN 2 VIEW S)on [...] Fadumo Vergara MD 07/30/23 Final result Normal [facility] Chlamydia/GC,DNA Ampon 01-03 Chlamydia Probe POSITIVE: CHLAMYDIA TRACHOMATIS DNA detected by nucleic acid amplification. Abnormal NEG [facility] Comment on above: Result Comment: This [...] Department Performed By: #### S WCGP #### [address] [id number] [place]: Philip Schulte MD Gonorrhea Probe Negative Normal [facility] Comment on above: Result Comment: NEIS [...] target. Performed By: #### S WCGP #### [address] [id number] [place]: Philip Schulte MD Cult,Urineon 01-01-2023 Cult,Urine Specimen Description .CLEAN CATCH URINE Culture NO SIGNIFICANT GROWTH Report Status FINAL 01/01/2023 Normal [facility] Comment on above: Performed By: #### U RC #### [facility] [address] [place], [place] [id number] [place]: Travis Eduardo DO [address] [phone] [place]: Philip Schulte MD HCG, ,Urineon 12-31 Beta HCG ( test) Ql (U) Negative Normal NEG [facility] Comment on above: Result Comment: Spec imens with hCG levels near the threshold of the test (25 mIU/mL) may give a negative or indeterminate result. In such cases, another test should be performed with a new specimen in 48-72 hours. If early is suspected clinically in this setting, correlation with quantitative serum b-hCG level is suggested. Performed By: #### MIKEL MCMANUS #### [facility] [place] [place] [address] [place]: Travis Eduardo DO #### UAX #### [address] [address] [place]: Philip Schulte MD Hgb/Hcton 4661 Hematocrit (Bld) [Volume fraction] 40.9 % Normal 36-46 [facility] Comment on above: Performed By: #### H H #### [facility] [address] [place] [address] [place]: Travis Eduardo DO Hemoglobin (Bld) [Mass/Vol] 14.1 g/dL Normal 12.0-16.0 [facility] Comment on above: Performed By: #### H H #### [facility] [address] [place] [address] [place]: Travis Eduardo DO UA w/Reflex Cultureon 2 Bilirubin, SemiQt,Ur Negative Normal NEG [facility] Comment on above: Performed By: #### MIKEL MCMANUS #### [facility] [place] [place] [address] [place]: Travis Eduardo DO #### UAX #### [address] [address] [place]: Philip Schulte MD Blood, Urine LARGE Abnormal NEG [facility] Comment on above: Performed By: #### MIKEL MCMANUS #### [facility] [address] [place] [address] [place]: Travis Eduardo DO #### UAX #### [address] [address] [place]: Philip Schulte MD Clarity (U) Clear Normal CLEAR [facility] Comment on above: Performed By: #### U DUSTIN SANABRIACG #### [facility] [place] [place] [address] [place]: Travis Eduardo DO #### UAX #### [address] [address] [place]: Philip Schulte MD Color (U) Yellow Normal YEL [facility] Comment on above: Performed By: #### U DUSTIN SANABRIACG #### [facility] [address] [place] [address] [place]: Travis Eduardo DO #### UAX #### [address] [address] [place]: Philip Schulte MD Glucose Ql (U) Negative Normal NEG [facility] Comment on above: Performed By: #### U DUSTIN SANABRIACG #### [facility] [address] [place] [address] [place]: Travis Eduardo DO #### UAX #### [address] [address] [place]: Philip Schulte MD Ketones Ql (U) Negative Normal NEG [facility] Comment on above: Performed By: #### U MICAODUSTINCG #### [facility] [address] [place] [address] [place]: Travis Eduardo DO #### UAX #### [address] [address] [place]: Philip Schulte MD Leukocyte esterase Test strip Ql (U) TRACE Abnormal NEG [facility] Comment on above: Performed By: #### U EARLINE SANABRIAG #### [facility] [address] [place] [address] [place]: Travis Eduardo DO #### UAX #### [address] [address] [place]: Philip Schulte MD Nitrite,Ur Negative Normal NEG [facility] Comment on above: Performed By: #### MIKEL MCMANUS #### [facility] [address] [place] [address] [place]: Travis Eduardo DO #### UAX #### [address] [address] [place]: Philip Schulte MD PH,Ur 5.0 Normal 5.0-8.0 [facility] Comment on above: Performed By: #### MIKEL MCMANUS #### [facility] [place] [place] [address] [place]: Travis Eduardo DO #### UAX #### [address] [address] [place]: Philip Schulte MD Protein Ql (U) TRACE Abnormal NEG [facility] Comment on above: Performed By: #### EARLINE MCMANUSG #### [facility] [address] [place] [address] [place]: Travis Eduardo DO #### UAX #### [address] [address] [place]: Philip Schulte MD Spec. [place],Ur 1.022 Normal 1.000-1.030 [facility] Comment on above: Performed By: #### EARLINE MCMANUSG #### [facility] [address] [place] [address] [place]: Travis Eduardo DO #### UAX #### [address] [address] [place]: Philip Schulte MD Urobilinogen,Ur Normal Normal NORM [facility] Comment on above: Performed By: #### MIKEL MCMANUS #### [facility] [address] [place] [address] [place]: Travis Eduardo DO #### UAX #### [address] [address] [place]: Philip Schulte MD Urinalysis,Microon 3 Bacteria None Normal NONE [facility] Comment on above: Performed By: #### MIKEL MCMANUS #### [facility] [address] [place] [address] [place]: Travis Eduardo DO #### UAX #### [address] [address] [place]: Philip Schulte MD Casts 0 TO 2 Normal [facility] Comment on above: Performed By: #### MIKEL MCMANUS #### [facility] [address] [place] [address] [place]: Travis Eduardo DO #### UAX #### [address] [address] [place]: Philip Schulte MD Epithelial cells LM Ql (Urine sed) 0 TO 2 Normal [facility] Comment on above: Performed By: #### U MICAO, UHCG #### [facility] [address] [place] [address] [place]: Travis Eduardo DO #### UAX #### [address] [address] [place]: Philip Schulte MD Urine RBC's 21 TO 50 Normal [facility] Comment on above: Performed By: #### U MICAO, UHCG #### [facility] [address] [place] [address] [place]: Travis Eduardo DO #### UAX #### [address] [address] [place]: Philip Schulte MD Urine WBC's 6 TO 9 Normal [facility] Comment on above: Performed By: #### U MICAO, UHCG #### [facility] [address] [place] [address] [place]: Travis Eduardo DO #### UAX #### [address] [address] [place]: Philip Schulte MD Vaginitis DNA Probeon 2022 Renetta Negative Normal NEG [facility] Comment on above: Result Comment: for Renetta sp. Method of testing is a DNA probe intended for detection and identification of Renetta species, Gardnerella vaginalis, and Trichomonas vaginalis nucleic acid in vaginal fluid specimens from patients with symptoms of vaginitis/vaginosis. Performed By: #### V AGP #### [facility] [address] [place] [address] [place]: Travis Eduardo DO Gardnerella Negative Normal NEG [facility] Comment on above: Result Comment: for Gardnerella vaginalis Performed By: #### V AGP #### [facility] [address] [facility] [place] [address] [place]: Travis Eduardo DO Trichomonas Negative Normal NEG [facility] Comment on above: Result Comment: for Trichomonas Vaginalis Performed By: #### V AGP #### [facility] [address] [facility] [place] [address] [place]: Travis Eduardo DO Source .VAGINAL SWAB Normal [facility] Comment on above: Performed By: #### V AGP #### [facility] [address] [facility] [place] [address] [place]: Travis Eduardo DO Pap IG,rfx Aptima HPV all pt hon 02-03-2022 . . Normal [facility] Comment on above: Performed By: #### P APH11A #### [facility] [address] [address] [address] Mack Marcial DIAGNOSIS: Comment Abnormal [facility] Comment on above: Result Comment: EPIT HELIAL CELL ABNORMALITY. LOW GRADE SQUAMOUS INTRAEPITHELIAL LESION (LSIL). PREDOMINANCE OF COCCOBACILLI CONSISTENT WITH SHIFT IN VAGINAL DAHLIA IS PRESENT. Performed By: #### P APH11A #### [facility] [address] [address] [address] Mack Marcial Electronically signed by: Comment Normal [facility] Comment on above: Result Comment: Terrell Mendoza MD, Pathologist Performed By: #### P APH11A #### [facility] [address] [address] [address] Mack Marcial HPV Aptima Positive Abnormal Negative [facility] Comment on above: Result Comment: This nucleic acid amplification test detects fourteen high-risk HPV types (16,18,31,33,35,39,45,51,52,56,58,59,66,68) without differentiation. Performed By: #### P APH11A #### [facility] [address] [address] [address] Mack Marcial Methodology: Comment Normal [facility] Comment on above: Result Comment: This liquid based ThinPrep(R) pap test was screened with the use of an image guided system. Performed By: #### P APH11A #### [facility] [address] [place] [address] Dr. Mack Marcial Note: Comment Normal [facility] Comment on above: Result Comment: The Pap smear is a screening test designed to aid in the detection of premalignant and malignant conditions of the uterine cervix. It is not a diagnostic procedure and should not be used as the sole means of detecting cervical cancer. Both false-positive and false-negative reports do occur. . Performed By: #### P APH11A #### [facility] [address] [place] [address] Dr. Mack Marcial Pathologist Provided ICD10 Comment Normal [facility] Comment on above: Result Comment: R87. 612, R87.5 Performed By: #### P APH11A #### [facility] [address] [place] [address] Dr. Mack Marcial Performed by: Comment Normal [facility] Comment on above: Result Comment: Juhi Albrecht Torch Cutter (ASCP) Performed By: #### P APH11A #### [facility] [address] [place] [address] Dr. Mack Marcial Reflex Criteria: Comment Normal [facility] Comment on above: Result Comment: See below for HPV testing results. . Performed By: #### P APH11A #### [facility] [address] [place] [address] Dr. Mack Marcial Specimen adequacy: Comment Normal [facility] Comment on above: Result Comment: Sati sfactory for evaluation. Endocervical and/or squamous metaplastic cells (endocervical component) are present. Performed By: #### P APH11A #### [facility] [address] [place] [address] Dr. Mack Marcial CBC AUTO DIFFon 09-06-2021 BASO # 0.0 103/ul Normal 0.0-0.1 [facility] Comment on above: Performed By: #### H IV12 #### [facility] [address] [place] [address] Dr. Mack aMrcial Basophils/100 WBC (Bld) 0.2 % Normal 0.2-2.0 [facility] Comment on above: Performed By: #### H IV12 #### [facility] [address] [place] [address] Dr. Mack Marcial EO # 0.1 103/ul Normal 0.0-0.7 [facility] Comment on above: Performed By: #### H IV12 #### [facility] [address] [place] [address] Dr. Mack Marcial Eosinophils/100 WBC (Bld) 0.5 % Critically low 0.9-7.0 [facility] Comment on above: Performed By: #### H IV12 #### [facility] [address] [place] [address] Dr. Mack Marcial Erythrocyte distribution width (RBC) [Ratio] 16.2 % Critically high 11.0-15.0 [facility] Comment on above: Performed By: #### H IV12 #### [facility] [address] [place] [address] Dr. Mack Marcial Hematocrit (Bld) [Volume fraction] 25.6 % Critically low 36.0-48.0 [facility] Comment on above: Performed By: #### H IV12 #### [facility] [address] [place] [address] Dr. Mack Marcial Hemoglobin (Bld) [Mass/Vol] 7.9 g/dL Critically low 12.0-16.0 [facility] Comment on above: Result Comment: post Performed By: #### H IV12 #### [facility] [address] [place] [address] Dr. Mack Marcial IG # 0.07 10e3/ul Critically high 0.00-0.03 [facility] Comment on above: Performed By: #### H IV12 #### [facility] [address] [place] [address] Dr. Mack Marcial IG % 0.5 % Normal 0.0-0.5 [facility] Comment on above: Performed By: #### H IV12 #### [facility] [address] [address] [address] Mack Marcial LYMPH # 2.2 103/ul Normal 1.2-3.8 [facility] Comment on above: Performed By: #### H IV12 #### [facility] [address] [address] [address] Mack Marcial Lymphocytes/100 WBC (Bld) 16.9 % Critically low 20.5-60.0 [facility] Comment on above: Performed By: #### H IV12 #### [facility] [address] [address] [address] Mack Marcial MANUAL DIFF REQ NO Normal [facility] Comment on above: Performed By: #### H IV12 #### [facility] [address] [place] [address] Dr. Mack Marcial MCH (RBC) [Entitic mass] 24.8 pg Critically low 26.7-34.0 [facility] Comment on above: Performed By: #### H IV12 #### [facility] [address] [address] [address] Mack Marcial MCHC (RBC) [Mass/Vol] 30.9 g/dL Normal 29.9-35.2 [facility] Comment on above: Performed By: #### H IV12 #### [facility] [address] [address] [address] Mack Marcial MCV (RBC) [Entitic vol] 80.5 fL Critically low 81.0-99.0 [facility] Comment on above: Performed By: #### H IV12 #### [facility] [address] [address] [address] Mack Marcial MONO # 1.2 103/ul Critically high 0.3-0.8 [facility] Comment on above: Performed By: #### H IV12 #### [facility] [address] [address] [address] Mack Marcial Monocytes/100 WBC (Bld) 9.2 % Normal 1.7-12.0 [facility] Comment on above: Performed By: #### H IV12 #### [facility] [address] [address] [address] Mack Marcial NEUT # 9.4 103/ul Critically high 1.4-6.5 [facility] Comment on above: Performed By: #### H IV12 #### [facility] [address] [address] [address] Mack Marcial Neutrophils/100 WBC (Bld) 72.7 % Normal 43.0-75.0 [facility] Comment on above: Performed By: #### H IV12 #### [facility] [address] [address] [address] Mack Marcial Platelet mean volume (Bld) [Entitic vol] 10.1 fL Normal 9.5-13.5 [facility] Comment on above: Performed By: #### H IV12 #### [facility] [address] [address] [address] Mack Marcial PLT 159 103/ul Normal 150-[address] [facility] Comment on above: Performed By: #### H IV12 #### [facility] [address] [address] [address] Mack Marcial RBC 3.18 106/ul Critically low 4.20-5.40 [facility] Comment on above: Performed By: #### H IV12 #### [facility] [address] [address] [address] Mack Marcial WBC 13.0 103/ul Critically high 4.0-11.0 [facility] Comment on above: Performed By: #### H IV12 #### [facility] [address] [address] [address] Mack Marcial CBC AUTO DIFFon 09-05-2021 BASO # 0.0 103/ul Normal 0.0-0.1 [facility] Comment on above: Performed By: #### 4 [id number] #### [facility] [address] [address] [address] Mack Marcial Basophils/100 WBC (Bld) 0.3 % Normal 0.2-2.0 [facility] Comment on above: Performed By: #### 4 [id number] #### [facility] [address] [place] [address] Dr. Mack Marcial EO # 0.1 103/ul Normal 0.0-0.7 [facility] Comment on above: Performed By: #### 4 [id number] #### [facility] [address] [place] [address] Dr. Mack Marcial Eosinophils/100 WBC (Bld) 1.0 % Normal 0.9-7.0 [facility] Comment on above: Performed By: #### 4 [id number] #### [facility] [address] [place] [address] Dr. Mack Marcial Erythrocyte distribution width (RBC) [Ratio] 16.4 % Critically high 11.0-15.0 [facility] Comment on above: Performed By: #### 4 [id number] #### [facility] [address] [place] [address] Dr. Mack Marcial Hematocrit (Bld) [Volume fraction] 33.4 % Critically low 36.0-48.0 [facility] Comment on above: Performed By: #### 4 [id number] #### [facility] [address] [place] [address] Dr. Mack Marcial Hemoglobin (Bld) [Mass/Vol] 10.4 g/dL Critically low 12.0-16.0 [facility] Comment on above: Performed By: #### 4 [id number] #### [facility] [address] [place] [address] Dr. Mack Marcial IG # 0.06 10e3/ul Critically high 0.00-0.03 [facility] Comment on above: Performed By: #### 4 [id number] #### [facility] [address] [place] [address] Dr. Mack Marcial IG % 0.6 % Critically high 0.0-0.5 [facility] Comment on above: Performed By: #### 4 [id number] #### [facility] [address] [place] [address] Dr. Mack Marcial LYMPH # 2.4 103/ul Normal 1.2-3.8 [facility] Comment on above: Performed By: #### 4 [id number] #### [facility] [address] [place] [address] Dr. Mack Marcial Lymphocytes/100 WBC (Bld) 25.2 % Normal 20.5-60.0 [facility] Comment on above: Performed By: #### 4 [id number] #### [facility] [address] [place] [address] Dr. Mack Marcial MANUAL DIFF REQ NO Normal [facility] Comment on above: Performed By: #### 4 [id number] #### [facility] [address] [place] [address] Dr. Mack Marcial MCH (RBC) [Entitic mass] 24.4 pg Critically low 26.7-34.0 [facility] Comment on above: Performed By: #### 4 [id number] #### [facility] [address] [place] [address] Dr. Mack Marcial MCHC (RBC) [Mass/Vol] 31.1 g/dL Normal 29.9-35.2 [facility] Comment on above: Performed By: #### 4 [id number] #### [facility] [address] [place] [address] Dr. Mack Marcial MCV (RBC) [Entitic vol] 78.2 fL Critically low 81.0-99.0 [facility] Comment on above: Performed By: #### 4 [id number] #### [facility] [address] [place] [address] Dr. Mack Marcial MONO # 0.8 103/ul Normal 0.3-0.8 [facility] Comment on above: Performed By: #### 4 [id number] #### [facility] [address] [place] [address] Dr. Mack Marcial Monocytes/100 WBC (Bld) 8.8 % Normal 1.7-12.0 [facility] Comment on above: Performed By: #### 4 [id number] #### [facility] [address] [place] [address] Dr. Mack Marcial NEUT # 6.1 103/ul Normal 1.4-6.5 [facility] Comment on above: Performed By: #### 4 [id number] #### [facility] [address] [place] [address] Dr. Mack Marcial Neutrophils/100 WBC (Bld) 64.1 % Normal 43.0-75.0 [facility] Comment on above: Performed By: #### 4 [id number] #### [facility] [address] [place] [address] Dr. Mack Marcial Platelet mean volume (Bld) [Entitic vol] 10.4 fL Normal 9.5-13.5 [facility] Comment on above: Performed By: #### 4 [id number] #### [facility] [address] [place] [address] Dr. Mack Marcial PLT 191 103/ul Normal 150-450 [facility] Comment on above: Performed By: #### 4 [id number] #### [facility] [address] [place] [address] Dr. Mack Marcial RBC 4.27 106/ul Normal 4.20-5.[address] [facility] Comment on above: Performed By: #### 4 [id number] #### [facility] [address] [place] [address] Dr. Mack Marcial WBC 9.6 103/ul Normal 4.0-11.0 [facility] Comment on above: Performed By: #### [id number] #### [facility] [address] [place] [address] Dr. Mack Marcial Covid-19 PCR ([facility])on 08-25 SARS-CoV-2 (COVID-19) RNA CHUCK+probe Ql (Unsp spec) Not detected Normal NOT DETECTED [facility] Comment on above: Result Comment: When [...] for this test is supported by the [place] of Health and Human Service's declaration that [...] longer be used). Performed By: #### [id number] #### [facility] [address] [place] [address] Dr. Mack Marcial DRUG SCREEN RAPID (URINE)on 09-05-2021 AMP Negative Normal NEGATIVE [facility] Comment on above: Performed By: #### H IV12 #### [facility] [address] [place] [address] Dr. Mack Marcial BAR Negative Normal NEGATIVE [facility] Comment on above: Performed By: #### H IV12 #### [facility] [address] [place] [address] Dr. Mack Marcial BUP Negative Normal NEGATIVE [facility] Comment on above: Performed By: #### H IV12 #### [facility] [address] [place] [address] Dr. Mack Marcial BZO Negative Normal NEGATIVE [facility] Comment on above: Performed By: #### H IV12 #### [facility] [address] [place] [address] Dr. Mack Marcial ANDREA Negative Normal NEGATIVE [facility] Comment on above: Performed By: #### H IV12 #### [facility] [address] [place] [address] Dr. Mack Marcial CUT-OFFS SEE BELOW Normal [facility] Comment on above: Result Comment: AMP (Amphetamine): 500ng/mL, BAR (Barbituates): 200 ng/mL, BZO (Benzodiazepines): 150 ng/mL, BUP (Buprenorphine): 10 ng/mL, ANDREA (Cocaine): 150 ng/mL, mAMP (Methamphetamine): 500 ng/mL, MTD (Methadone): 200 ng/mL, OPI (Opiates): 100 ng/mL, OXY (Oxycodone): 100 ng/mL, PCP (Phencyclidine): 25 ng/mL, PPX (Propoxyphene): 300 ng/mL, THC (Cannabinoids): 50 ng/mL, TCA (Trycyclic Antidepressants): 300 ng/mL Performed By: #### H IV12 #### [facility] [address] [place] [address] Dr. Mack Marcial DRUG CUT HEADER DRUG CLASS TEST SYSTEM CUT-OFF CONCENTRATIONS ARE FOLLOWS: Normal [facility] Comment on above: Performed By: #### H IV12 #### [facility] [address] [place] [address] Dr. Mack Marcial mAMP Negative Normal NEGATIVE [facility] Comment on above: Performed By: #### H IV12 #### [facility] [address] [place] [address] Dr. Mack Marcial MTD Negative Normal NEGATIVE [facility] Comment on above: Performed By: #### H IV12 #### [facility] [address] [place] [address] Dr. Mack Marcial OPI Negative Normal NEGATIVE [facility] Comment on above: Performed By: #### H IV12 #### [facility] [address] [place] [address] Dr. Mack Marcial OXY Negative Normal NEGATIVE [facility] Comment on above: Performed By: #### H IV12 #### [facility] [address] [place] [address] Dr. Mack Marcial PCP Negative Normal NEGATIVE [facility] Comment on above: Performed By: #### H IV12 #### [facility] [address] [place] [address] Dr. Mack Marcial PPX Negative Normal NEGATIVE [facility] Comment on above: Performed By: #### H IV12 #### [facility] [address] [place] [address] Dr. Mack Marcial TCA Negative Normal NEGATIVE [facility] Comment on above: Performed By: #### H IV12 #### [facility] [address] [place] [address] Dr. Mack Marcial THC Negative Normal NEGATIVE [facility] Comment on above: Performed By: #### H IV12 #### [facility] [address] [place] [address] Dr. Mack Marcial TYPE AND SCREENon 09-05-2021 TYPE AND SCREEN Negative Normal [facility] Comment on above: Performed By: #### H IV12 #### [facility] [address] [place] [address] Dr. Mack Marcial US PREG GROWTHon 08-27-2021 [...] by ultrasound, 88% by expected EDC FL/AC: 0.227333 FL/BPD: 0.031654 HC/AC: 0.897794, slightly low normal 0.9-1.05 GESTATIONAL AGE: Age by EDC: 37 weeks 6 days JORI by EDC: 09/11/2021 Age by US: 38 weeks 1 day JORI by US: 09/09/2021 IMPRESSION: Slightly low head circumference to abdominal circumference ratio Otherwise normal interval growth with estimated weight 88% by expected EDC Electronically authenticated by: FADUMO AMARAL Date: 2021-08-27 17:[address] [facility] GROUP B STREP CULTUREon 07-28 S. agalactiae Ag Ql (Unsp spec) Culture Observations: NEGATIVE FOR GROUP B STREPTOCOCCUS. Normal [facility] Comment on above: Performed By: #### G BSCX #### [facility] [address] [place] [address] Dr. Mack Marcial HEP B SURFACE ANTIGEN SCREEN on 07-08-2021 HBsAg Screen Negative Normal Negative [facility] Comment on above: Performed By: #### H BSANS #### [facility] [address] [place] [address] Dr. Mack Marcial HEPATITIS C VIRUS AB W/ REFL EX QUANTon 07-08-2021 HCV AB <0.1 Normal 0.0-0.9 [facility] Comment on above: Performed By: #### H IV12 #### [facility] [address] [place] [address] Dr. Mack Marcial Interpretation: Comment Normal [facility] Comment on above: Result Comment: Nega tive Not infected with HCV, unless recent infection is suspected or other evidence exists to indicate HCV infection. Performed By: #### H IV12 #### [facility] [address] [place] [address] Dr. Mack Marcial HIV 1 AND 2 WITH REFLEXon HIV Screen 4th Generation wRfx Non-Reactive Normal Non Reactive [facility] Comment on above: Result Comment: HIV Negative HIV-1/HIV-2 antibodies and HIV-1 p24 antigen were NOT detected. There is no laboratory evidence of HIV infection. Performed By: #### H IV12 #### [facility] [address] [place] [address] Dr. Mack Marcial RPR QUANTon 07-08-2021 Rapid Plasma Reagin, Quant Non-Reactive Normal NonRea<1:1 [facility] Comment on above: Performed By: #### R PRQ #### [facility] [address] [place] [address] Dr. Mack Marcial RUBELLA AB IGGon 07-08-2021 Rubella Antibodies, IgG 1.38 index Normal Immune >0.99 [facility] Comment on above: Result Comment: Non- immune <0.90 Equivocal 0.90 - 0.99 Immune >0.99 Performed By: #### R UBIGG #### [facility] [address] [place] [address] Dr. Mack Marcial VARICELLA IGG ABon Varicella Zoster IgG 1197 index Normal Immune >165 [facility] Comment on above: Result Comment: Nega tive <135 Equivocal 135 - 165 Positive >165 A positive result generally indicates exposure to the pathogen or administration of specific immunoglobulins, but it is not indication of active infection or stage of disease. Performed By: #### [id number] #### [facility] [address] [place] [address] Dr. Mack Marcial CBC AUTO DIFFon 07-07-2021 BASO # 0.0 103/ul Normal 0.0-0.1 [facility] Comment on above: Performed By: #### H IV12 #### [facility] [address] [place] [address] Dr. Mack Marcial Basophils/100 WBC (Bld) 0.3 % Normal 0.2-2.0 [facility] Comment on above: Performed By: #### H IV12 #### [facility] [address] [place] [address] Dr. Mack Marcial EO # 0.1 103/ul Normal 0.0-0.7 [facility] Comment on above: Performed By: #### H IV12 #### [facility] [address] [place] [address] Dr. Mack Marcial Eosinophils/100 WBC (Bld) 1.1 % Normal 0.9-7.0 [facility] Comment on above: Performed By: #### H IV12 #### [facility] [address] [place] [address] Dr. Mack Marcial Erythrocyte distribution width (RBC) [Ratio] 14.0 % Normal 11.0-15.0 [facility] Comment on above: Performed By: #### H IV12 #### [facility] [address] [place] [address] Dr. Mack Marcial Hematocrit (Bld) [Volume fraction] 31.9 % Critically low 36.0-48.0 [facility] Comment on above: Performed By: #### H IV12 #### [facility] [address] [place] [address] Dr. Mack Marcial Hemoglobin (Bld) [Mass/Vol] 10.3 g/dL Critically low 12.0-16.0 [facility] Comment on above: Performed By: #### H IV12 #### [facility] [address] [address] [address] Mack Marcial IG # 0.05 10e3/ul Critically high 0.00-0.03 [facility] Comment on above: Performed By: #### H IV12 #### [facility] [address] [place] [address] Dr. Mack Marcial IG % 0.6 % Critically high 0.0-0.5 [facility] Comment on above: Performed By: #### H IV12 #### [facility] [address] [place] [address] Dr. Mack Marcial LYMPH # 1.7 103/ul Normal 1.2-3.8 [facility] Comment on above: Performed By: #### H IV12 #### [facility] [address] [place] [address] Dr. Mack Marcial Lymphocytes/100 WBC (Bld) 21.4 % Normal 20.5-60.0 [facility] Comment on above: Performed By: #### H IV12 #### [facility] [address] [place] [address] Dr. Mack Marcial MANUAL DIFF REQ NO Normal [facility] Comment on above: Performed By: #### H IV12 #### [facility] [address] [place] [address] Dr. Mack Marcial MCH (RBC) [Entitic mass] 27.0 pg Normal 26.7-34.0 [facility] Comment on above: Performed By: #### H IV12 #### [facility] [address] [place] [address] Dr. Mack Marcial MCHC (RBC) [Mass/Vol] 32.3 g/dL Normal 29.9-35.[address] [facility] Comment on above: Performed By: #### H IV12 #### [facility] [address] [place] [address] Dr. Mack Marcial MCV (RBC) [Entitic vol] 83.5 fL Normal 81.0-99.0 [facility] Comment on above: Performed By: #### H IV12 #### [facility] [address] [place] [address] Dr. Mack Marcial MONO # 0.5 103/ul Normal 0.3-0.8 [facility] Comment on above: Performed By: #### H IV12 #### [facility] [address] [address] [address] Mack Marcial Monocytes/100 WBC (Bld) 6.2 % Normal 1.7-12.0 [facility] Comment on above: Performed By: #### H IV12 #### [facility] [address] [address] [address] Mack Marcial NEUT # 5.5 103/ul Normal 1.4-6.5 [facility] Comment on above: Performed By: #### H IV12 #### [facility] [address] [place] [address] Dr. Mack Marcial Neutrophils/100 WBC (Bld) 70.4 % Normal 43.0-75.0 [facility] Comment on above: Performed By: #### H IV12 #### [facility] [address] [place] [address] Dr. Mack Marcial Platelet mean volume (Bld) [Entitic vol] 10.4 fL Normal 9.5-13.[address] [facility] Comment on above: Performed By: #### H IV12 #### [facility] [address] [place] [address] Dr. Mack Marcial PLT 185 103/ul Normal 150-[address] [facility] Comment on above: Performed By: #### H IV12 #### [facility] [address] [address] [address] Mack Marcial RBC 3.82 106/ul Critically low 4.20-5.40 [facility] Comment on above: Performed By: #### H IV12 #### [facility] [address] [place] [address] Dr. Mack Marcial WBC 7.9 103/ul Normal 4.0-11.[address] [facility] Comment on above: Performed By: #### H IV12 #### [facility] [address] [place] [address] Dr. Mack Marcial GLUCOSE - 1HRon 01-11-2022 Glucose [Mass/Vol] 121 mg/dL Critically high 74-[address] [facility] Comment on above: Performed By: #### G LU1HR #### [facility] [address] [address] [address] Mack Marcial GLYCOHEMOGLOBIN A1Con 2021 ADA RECOMMENDATION ADA THERAPEUTIC TARGET 6.0 - 7.0 ACTION SUGGESTED > 7.0 Normal [facility] Comment on above: Performed By: #### A 1C #### [facility] [address] [address] [address] Mack Marcial Glucose [Mass/Vol] 105 mg/dL Normal [facility] Comment on above: Performed By: #### A 1C #### [facility] [address] [address] [address] Mack Marcial HbA1c (Bld) [Mass fraction] 5.3 % Normal <=6.0 [facility] Comment on above: Performed By: #### A 1C #### [facility] [address] [address] [address] Mack Marcial TYPE AND SCREENon 07-07-2021 TYPE AND SCREEN Negative Normal [facility] Comment on above: Performed By: #### T NS #### [facility] [address] [place] [address] Dr. Mack Marcial US PREG ANATOMY SINGLEon [...] by: LUDMILA EGAN Date: 2021-07-07 16:55 Normal [facility] PAP ACOG PANEL 3: 21 to 29on 04-02-2021 . . Normal [facility] Comment on above: Result Comment: Perf ormed at: WB Performed By: #### [id number] #### [facility] [address] [address] [address] Mack Marcial Age Gdln ACOG Testing Normal [facility] Comment on above: Performed By: #### [id number] #### [facility] [address] [address] [address] Mack Marcial Chlamydia, Nuc. Acid Amp Negative Normal Negative [facility] Comment on above: Result Comment: Perf ormed at: =G Performed By: #### [id number] #### [facility] [address] [address] [address] Mack Marcial DIAGNOSIS: Comment Abnormal [facility] Comment on above: Result Comment: EPIT HELIAL CELL ABNORMALITY. LOW GRADE SQUAMOUS INTRAEPITHELIAL LESION (LSIL). Performed at: WB Performed By: #### [id number] #### [facility] [address] [address] [address] Mack Marcial Electronically signed by: Comment Normal [facility] Comment on above: Result Comment: Terrell Mendoza MD, Pathologist Performed at: WB Performed By: #### [id number] #### [facility] [address] [place] [address] Dr. Mack Marcial Gonococcus, Nuc. Acid Amp Negative Normal Negative [facility] Comment on above: Result Comment: Perf ormed at: =G Performed By: #### [id number] #### [facility] [address] [place] [address] Dr. Mack Marcial Methodology: Comment Normal [facility] Comment on above: Result Comment: This liquid based ThinPrep(R) pap test was screened with the use of an image guided system. Performed at: WB Performed By: #### [id number] #### [facility] [address] [place] [address] Dr. Mack Marcial Note: Comment Normal [facility] Comment on above: Result Comment: The Pap smear is a screening test designed to aid in the detection of premalignant and malignant conditions of the uterine cervix. It is not a diagnostic procedure and should not be used as the sole means of detecting cervical cancer. Both false-positive and false-negative reports do occur. . Performed at: WB Performed By: #### [id number] #### [facility] [address] [place] [address] Dr. Mack Marcial Pathologist Provided ICD10 Comment Normal [facility] Comment on above: Result Comment: [id number] Performed at: WB Performed By: #### [id number] #### [facility] [address] [place] [address] Dr. Mack Marcial Performed by: Comment Normal [facility] Comment on above: Result Comment: Eyal Winslow Torch Cutter (ASCP) Performed at: WB Performed By: #### [id number] #### [facility] [address] [place] [address] Dr. Mack Marcial Reflex Criteria: Comment Normal [facility] Comment on above: Result Comment: The HPV DNA reflex criteria were not met with this specimen result therefore, no HPV testing was performed. . Performed at: WB Performed By: #### [id number] #### [facility] [address] [place] [address] Dr. Mack Marcial Specimen adequacy: Comment Normal [facility] Comment on above: Result Comment: Sati sfactory for evaluation. No endocervical component is identified. Performed at: WB Performed By: #### [id number] #### [facility] [address] [place] [address] Dr. Mack Marcial CULTURE URINEon 03-30-2021 CULTURE URINE Culture Observations: HEAVY GROWTH OF MIXED GENITAL DAHLIA. NO POTENTIAL PATHOGENS SEEN. Normal [facility] Comment on above: Performed By: #### H IV12 #### [facility] [address] [place] [address] Dr. Mack Marcial UA RANDOM W/MICROSCOPICon BACTERIA MODERATE Abnormal NONE SEEN [facility] Comment on above: Performed By: #### H IV12 #### [facility] [address] [place] [address] Dr. Mack Marcial Bilirubin Ql (U) Negative Normal NEGATIVE [facility] Comment on above: Performed By: #### H IV12 #### [facility] [address] [place] [address] Dr. Mack Marcial CAST NONE SEEN Normal NONE SEEN [facility] Comment on above: Performed By: #### H IV12 #### [facility] [address] [place] [address] Dr. Mack Marcial Clarity (U) SL CLOUDY Abnormal CLEAR [facility] Comment on above: Performed By: #### H IV12 #### [facility] [address] [place] [address] Dr. Mack Marcial Color (U) LT. YELLOW Normal YELLOW [facility] Comment on above: Performed By: #### H IV12 #### [facility] [address] [place] [address] Dr. Mack Marcial Crystals LM Nom (Urine sed) NONE SEEN Normal NONE SEEN [facility] Comment on above: Performed By: #### H IV12 #### [facility] [address] [place] [address] Dr. Mack Marcial Epithelial cells LM Ql (Urine sed) MODERATE Abnormal NONE SEEN /RARE [facility] Comment on above: Performed By: #### H IV12 #### [facility] [address] [address] [address] Mack Marcial Glucose Ql (U) Negative Normal NEGATIVE [facility] Comment on above: Performed By: #### H IV12 #### [facility] [address] [place] [address] Dr. Mack Marcial Hemoglobin Ql (U) TRACE-INTACT Abnormal NEGATIVE [facility] Comment on above: Performed By: #### H IV12 #### [facility] [address] [place] [address] Dr. Mack Marcial Ketones Ql (U) Negative Normal NEGATIVE [facility] Comment on above: Performed By: #### H IV12 #### [facility] [address] [place] [address] Dr. Mack Marcial LEUKOCYTES MODERATE Abnormal NEGATIVE [facility] Comment on above: Performed By: #### H IV12 #### [facility] [address] [place] [address] Dr. Mack Marcial MUCOUS NONE SEEN Normal NONE SEEN [facility] Comment on above: Performed By: #### H IV12 #### [facility] [address] [place] [address] Dr. Mcak Marcial Nitrite Ql (U) Negative Normal NEGATIVE [facility] Comment on above: Performed By: #### H IV12 #### [facility] [address] [place] [address] Dr. Mack Marcial pH (U) 5.5 [pH] Normal 5-9 [facility] Comment on above: Performed By: #### H IV12 #### [facility] [address] [place] [address] Dr. Mack Marcial RBC 2-5 Abnormal 0-2 [facility] Comment on above: Performed By: #### H IV12 #### [facility] [address] [place] [address] Dr. Mack Marcial SPEC GRAVITY >=1.030 Abnormal 1.005-<=1.025 [facility] Comment on above: Performed By: #### H IV12 #### [facility] [address] [address] [address] Mack Marcial UA PROTEIN Negative Normal NEGATIVE/ TRACE [facility] Comment on above: Performed By: #### H IV12 #### [facility] [address] [address] [address] Mack Marcial Urobilinogen Qn (U) 0.2 {Saul'U}/dL Normal 0.2 - 1. [address] [facility] Comment on above: Performed By: #### H IV12 #### [facility] [address] [address] [address] Mack Marcial WBC 75-100 Abnormal NONE SEEN [facility] Comment on above: Performed By: #### H IV12 #### [facility] [address] [address] [address] Mack Marcial US PREG TVon 02-17-2021 [...] measuring 10 weeks [address] [facility] URINALYSIS WITH MICROSCOPICO rdered By: Henry Heller on 01-21-2021 - [email or web address] Work Phone: Amorphous, UA NOT REPORTED None [employer] Work Phone: Bacteria, UA FEW Abnormal None [employer] Phone: Bilirubin Urine Negative NEGATIVE [employer] Work Phone: Casts UA 5 TO 10 HYALINE Reference range defined for non-centrifuged specimen. [facility] [employer] Work Phone: Color, UA DARK YELLOW Abnormal YELLOW [facility] [address] Phone: Crystals, UA NOT REPORTED None /HPF [facility] Work Phone: Epithelial Cells UA 5 TO 10 [facility] Work Phone: Glucose, Ur Negative NEGATIVE [facility] Work Phone: Interpretation and review of laboratory results Abnormal [facility] Work Phone: Ketones Ql (U) Negative NEGATIVE [facility] Work Phone: Leukocyte esterase Test strip Ql (U) Negative NEGATIVE [facility] [address] Phone: Mucus, UA NOT REPORTED None [facility] [employer] Work Phone: Nitrite, Urine Negative NEGATIVE [facility] Work Phone: Other Observations UA NOT REPORTED NOT REQ. [facility] [employer] Work Phone: pH, UA 5.0 [facility] [employer] Phone: Protein, UA Negative NEGATIVE [facility] [employer] Phone: RBC, UA 5 TO 10 [facility] Work Phone: Comment on above: Reference range defi sofía for non-centrifuged specimen. Renal Epithelial, UA NOT REPORTED 0 /HPF [facility] [employer] Work Phone: Specific [place], UA 1.037 High [facility] [employer] Work Phone: Trichomonas, UA NOT REPORTED None [facility] [employer] Work Phone: Turbidity UA CLEAR CLEAR [facility] [employer] Phone: Urine Hgb Negative NEGATIVE [facility] [employer] Phone: Urobilinogen, Urine Normal Normal [facility] [employer] Work Phone: WBC, UA 5 TO 10 [facility] [employer] Work Phone: Yeast, UA NOT REPORTED None [facility] [employer] Work Phone: [employer] Work Phone: HCG, ,Urineon 08-19 Beta HCG ( test) Ql (U) Negative NEGATIVE [place] Comment on above: Specimens with hCG l evels near the threshold of the test (25 mIU/mL) may give a negative or indeterminate result. In such cases, another test should be performed with a new specimen in 48-72 hours. If early is suspected clinically in this setting, correlation with quantitative serum b-hCG level is suggested. Microscopic Urinalysison Amorphous, UA NOT REPORTED None [place] Bacteria, UA FEW Abnormal None [place] Casts UA NOT REPORTED /LPF [place] Crystals UA NOT REPORTED None /HPF [place] Epithelial Cells UA 5 TO 10 /HPF [place] Interpretation and review of laboratory results Abnormal [place] Mucus, UA NOT REPORTED None [place] Other Observations UA NOT REPORTED NOT REQ. [place] RBC (U) [#/Vol] 0 TO 2 /HPF [place] Renal Epithelial, Urine NOT REPORTED 0 /HPF [place] Trichomonas, UA NOT REPORTED None [place] WBC, UA 2 TO 5 /HPF [place] Yeast, UA NOT REPORTED None [place] Otheron 08-19-2019 Direct Exam Negative [place] Urinalysis Reflex to Culture on 08-19-2019 Bilirubin Urine Negative NEGATIVE [place] Color, UA YELLOW YELLOW [place] Glucose, Ur Negative NEGATIVE [place] Interpretation and review of laboratory results Abnormal [place] Ketones Ql (U) Negative NEGATIVE [place] Leukocyte esterase Test strip Ql (U) MOD Abnormal NEGAT[place] Nitrite, Urine Negative NEGATIVE [place] pH, UA 5.0 [place] Protein (U) [Mass/Vol] Negative NEGATIVE [place] Specific [place], UA 1.027 [place] Turbidity UA CLOUDY Abnormal CLEAR [place] Urinalysis Comments NOT REPORTED [place] Urine Hgb Negative NEGATIVE [place] Urobilinogen, Urine Normal Normal [place] Vaginitis DNA Probeon 2019 Direct Exam Positive Abnormal [place] Direct Exam Method of testing is a DNA probe intended for detection and identification of Renetta species, Gardnerella vaginalis, and Trichomonas vaginalis nucleic acid in vaginal fluid specimens from patients with symptoms of vaginitis/vaginosis. [place] Interpretation and review of laboratory results Abnormal [place] Special Requests NOT REPORTED [place] Specimen Description .VAG[place] Microscopic Urinalysison Amorphous, UA 1+ Abnormal None [facility] Work Phone: Bacteria, UA FEW Abnormal None [facility] Work Phone: Casts UA NOT REPORTED /LPF [facility] Work Phone: Crystals UA NOT REPORTED None /HPF [facility] Work Phone: Epithelial Cells UA 2 TO 5 /HPF [facility] Work Phone: Interpretation and review of laboratory results Abnormal [facility] Work Phone: Mucus, UA NOT REPORTED None [facility] Work Phone: Other Observations UA NOT REPORTED NOT REQ. [facility] [employer] Work Phone: RBC (U) [#/Vol] 2 TO 5 /HPF [facility] Work Phone: Renal Epithelial, Urine NOT REPORTED 0 /HPF [facility] Work Phone: Trichomonas, UA NOT REPORTED None [facility] [employer] Work Phone: WBC, UA 5 TO 10 /HPF [facility] Phone: Yeast, UA NOT REPORTED None [facility] Phone: - [employer] Phone: POCT HCG, Prenancy, Uron Beta HCG ( test) Ql (U) Negative NEGATIVE [facility] [employer] Phone: Comment on above: HCG screen is sensitive to 25 mIU/mL. 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 If further evaluation is needed please request quantitative HCG. - NOT REPORTED [facility] Phone: POCT urine pregnancyon 08-05 Interpretation and review of laboratory results Normal [facility] Phone: Preg Test, Ur Negative [facility] Work Phone: QC OK? yes [facility] Phone: Urinalysis Reflex to Culture on 08-05-2019 Bilirubin Urine Negative NEGATIVE [employer] [facility] Work Phone: Color, UA YELLOW YELLOW [facility] [employer] Phone: Glucose, Ur Negative NEGATIVE [facility] [employer] Phone: Interpretation and review of laboratory results Abnormal [facility] Phone: Ketones Ql (U) Negative NEGATIVE [facility] [employer] Work Phone: Leukocyte esterase Test strip Ql (U) MOD Abnormal NEGATIVE [facility] [employer] Work Phone: Nitrite, Urine Negative NEGATIVE [facility] [employer] Work Phone: pH, UA 6.0 [facility] [employer] Work Phone: Protein (U) [Mass/Vol] Negative NEGATIVE [facility] [employer] Work Phone: Specific [place], UA 1.025 [facility] [employer] Work Phone: Turbidity UA CLOUDY Abnormal CLEAR [facility] [employer] Work Phone: Urinalysis Comments NOT REPORTED [facility] [employer] Phone: Urine Hgb Negative NEGATIVE [facility] Phone: Urobilinogen, Urine Normal Normal [facility] Phone: CT Head WO ContrastOrdered B y: Marshall Rodriguez on 07-07-2019 No acute intracranial abnormality. [employer] Phone: EXAMINATION: CT OF THE HEAD WITHOUT [...] of the visualized skull or soft tissues. [employer] Phone: Moisés, pn Incoming Radiant Results From [employer] - 07/07/2019 3:30 PM EST EXAMINATION: CT [...] soft tissues. IMPRESSION: No acute intracranial abnormality. [facility] [employer] Work Phone: HCG, ,Urineon 04-03 Beta HCG ( test) Ql (U) Negative NEGATIVE [place] Comment on above: Specimens with hCG [...] Culture on 04-03-2019 Bilirubin Urine Negative NEGATIVE [place] Color, UA YELLOW YELLOW [place] Glucose, Ur Negative NEGATIVE [place] Interpretation and review of laboratory results Abnormal [place] Ketones Ql (U) Negative NEGATIVE [place] Leukocyte esterase Test strip Ql (U) LARGE Abnormal NEGATIVE [place] Nitrite, Urine Negative NEGATIVE [place] pH, UA 7.5 [place] Protein (U) [Mass/Vol] 1+ Abnormal NEGATIVE [place] Specific [place], UA 1.014 [place] Turbidity UA CLOUDY Abnormal CLEAR [place] Urinalysis Comments NOT REPORTED [place] Urine Hgb LARGE Abnormal NEGATIVE [place] Urobilinogen, Urine Normal Normal [place] HCG, ,Urineon 03-15 Beta HCG ( test) Ql (U) Negative NEGATIVE [place] Comment on above: Specimens with hCG l evels near the threshold of the test (25 mIU/mL) may give a negative or indeterminate result. In such cases, another test should be performed with a new specimen in 48-72 hours. If early is suspected clinically in this setting, correlation with quantitative serum b-hCG level is suggested. Microscopic Urinalysison Amorphous, UA NOT REPORTED None [place] Bacteria, UA MODERATE Abnormal None [place] Casts UA NOT REPORTED /LPF [place] Crystals UA NOT REPORTED None /HPF [place] Epithelial Cells UA 0 TO 2 /HPF [place] Interpretation and review of laboratory results Abnormal [place] Mucus, UA 2+ Abnormal None [place] Other Observations UA NOT REPORTED NOT REQ. [place] RBC (U) [#/Vol] 0 TO 2 /HPF [place] Renal Epithelial, Urine NOT REPORTED 0 /HPF [place] Trichomonas, UA NOT REPORTED None [place] WBC, UA 20 TO 50 /HPF [place] Yeast, UA NOT REPORTED None [place] Urinalysis Reflex to Culture on 03-15-2019 Bilirubin Urine Negative NEGATIVE [place] Color, UA YELLOW YELLOW [place] Glucose, Ur Negative NEGATIVE [place] Interpretation and review of laboratory results Abnormal [place] Ketones Ql (U) Negative NEGATIVE [place] Leukocyte esterase Test strip Ql (U) MOD Abnormal NEGATIVE [place] Nitrite, Urine Negative NEGATIVE [place] pH, UA 7.5 [place] Protein (U) [Mass/Vol] 1+ Abnormal NEGATIVE [place] Specific [place], UA 1.019 [place] Turbidity UA TURBID Abnormal [place] Urinalysis Comments NOT REPORTED [place] Urine Hgb TRACE Abnormal NEGATIVE [place] Urobilinogen, Urine Normal Normal [place] HCG, ,Urineon 02-15 Beta HCG ( test) Ql (U) Negative NEGATIVE [place] Comment on above: Specimens with hCG l evels near the threshold of the test (25 mIU/mL) may give a negative or indeterminate result. In such cases, another test should be performed with a new specimen in 48-72 hours. If early is suspected clinically in this setting, correlation with quantitative serum b-hCG level is suggested. Microscopic Urinalysison Amorphous, UA NOT REPORTED None [place] Bacteria, UA FEW Abnormal None [place] Casts UA NOT REPORTED /LPF [place] Crystals UA NOT REPORTED None /HPF [place] Epithelial Cells UA 10 TO 20 /HPF [place] Interpretation and review of laboratory results Abnormal [place] Mucus, UA 1+ Abnormal None [place] Other Observations UA NOT REPORTED NOT REQ. [place] RBC (U) [#/Vol] 0 TO 2 /HPF [place] Renal Epithelial, Urine NOT REPORTED 0 /HPF [place] Trichomonas, UA NOT REPORTED None [place] WBC, UA 5 TO 10 /HPF [place] Yeast, UA NOT REPORTED None [place] Otheron 02-15-2019 Direct Exam Negative [place] Urinalysis Reflex to Culture on 02-15-2019 Bilirubin Urine Presumptive positive. Unable to confirm due to unavailability of reagent. Abnormal NEGATIVE [place] Color, UA DARK YELLOW Abnormal YELLOW [place] Glucose, Ur Negative NEGATIVE [place] Interpretation and review of laboratory results Abnormal [place] Ketones Ql (U) Negative NEGATIVE [place] Leukocyte esterase Test strip Ql (U) SMALL Abnormal NEGATIVE [place] Nitrite, Urine Negative NEGATIVE [place] pH, UA 5.0 [place] Protein (U) [Mass/Vol] TRACE Abnormal NEGAT[place] Specific [place], UA 1.036 [place] Turbidity UA CLOUDY Abnormal [place] Urinalysis Comments NOT REPORTED [place] Urine Hgb Negative NEGATIVE [place] Urobilinogen, Urine Normal Normal [place] Vaginitis DNA Probeon 2018 Direct Exam Method of testing is a DNA probe intended for detection and identification of Renetta species, Gardnerella vaginalis, and Trichomonas vaginalis nucleic acid in vaginal fluid specimens from patients with symptoms of vaginitis/vaginosis. [place] Special Requests NOT REPORTED [place] Specimen Description .VAGINA [place] Vital Signs Date Time Vital Sign Value Performing Clinician Faci lity 07-31-2023 08:49-0500 Body temperature 98.29 [degF] Aria Chowdary MD Work Phone: [facility] [facility] [employer] 07-31-2023 08:49-0500 Diastolic blood pressure 42 mm[Hg] Aria Chowdary MD Work Phone: [facility] [facility] [employer] 07-31-2023 08:49-0500 Heart rate 66 /min Aria Chowdary MD Work Phone: [facility] [facility] [employer] 07-31-2023 08:49-0500 Respiratory rate 18 /min Aria Chowdary MD Work Phone: [facility] [facility] [employer] 07-31-2023 08:49-0500 SaO2% (BldA) [Mass fraction] 99 % Aria Chowdary MD Work Phone: [facility] [facility] [employer] 07-31-2023 08:49-0500 Systolic blood pressure 103 mm[Hg] Aria Chowdary MD Work Phone: [facility] [employer] 01-20-2021 22:05-0400 Body height 160 cm Henry Heller MD [facility] [employer] Work Phone: 01-20-2021 22:05-0400 Body mass index (BMI) [Ratio] 30.11 kg/m2 Henry Heller MD [facility] [employer] Work Phone: 01-20-2021 22:05-0400 Body temperature 98.1 [degF] Henry Heller MD [facility] [employer] Work Phone: 01-20-2021 22:05-0400 Body weight 77.11 kg Henry Heller MD [facility] [employer] Work Phone: 01-20-2021 22:05-0400 Diastolic blood pressure 82 mm[Hg] Henry Heller MD [employer] Phone: 01-20-2021 22:05-0400 Heart rate 98 /min Henry Heller MD [employer] Phone: 01-20-2021 22:05-0400 Respiratory rate 16 /min Henry Heller MD [employer] Phone: 01-20-2021 22:05-0400 SaO2% (BldA) [Mass fraction] 100 % Henry Heller MD [employer] Phone: 01-20-2021 22:05-0400 Systolic blood pressure 138 mm[Hg] Henry Heller MD [employer] Phone: 08-19-2019 13:39-0500 BMI (Body Mass Index) 26.57 kg/m2 [facility] 08-19-2019 13:39-0500 Body Temperature 98.1 [degF] [facility] 08-19-2019 13:39-0500 Body weight 68.04 kg [facility] 08-19-2019 13:39-0500 BP Diastolic 76 mm[Hg] [facility] 08-19-2019 13:39-0500 BP Systolic 123 mm[Hg] [facility] 08-19-2019 13:39-0500 Height 160 cm [facility] 08-19-2019 13:39-0500 Pulse (Heart Rate) 87 /min , [place] 08-19-2019 13:39-0500 Pulse Oximetry 98 % [facility] 08-19-2019 13:39-0500 Respiratory Rate 16 /min [facility] 08-05-2019 14:22-0500 BMI (Body Mass Index) 26.57 kg/m2 [employer] Phone: 08-05-2019 14:22-0500 Body Temperature 98.71 [degF] [employer] Phone: 08-05-2019 14:22-0500 Body weight 68.04 kg [employer] Phone: 08-05-2019 14:22-0500 BP Diastolic 62 mm[Hg] [employer] Phone: 08-05-2019 14:22-0500 BP Systolic 117 mm[Hg] [employer] Phone: 08-05-2019 14:22-0500 Height 160 cm [employer] Phone: 08-05-2019 14:22-0500 Pulse (Heart Rate) 59 /min [employer] Phone: 08-05-2019 14:22-0500 Pulse Oximetry 99 % [employer] Phone: 08-05-2019 14:22-0500 Respiratory Rate 16 /min [employer] Phone: 2019 10:44-0500 Body height 160 cm [employer] Work Phone: [employer] Phone: 2019 10:44-0500 Body mass index (BMI) [Ratio] 26.57 kg/m2 [employer] Work Phone: [employer] Phone: 2019 10:44-0500 Body temperature 98.29 [degF] [employer] Work Phone: [employer] Phone: 2019 10:44-0500 Body weight 68.04 kg [employer] Work Phone: [employer] Work Phone: 2019 10:44-0500 Diastolic blood pressure 58 mm[Hg] [employer]ini [employer] Work Phone: [employer] Work Phone: 2019 10:44-0500 Heart rate 70 /min [employer] Work Phone: [employer] Work Phone: 2019 10:44-0500 Respiratory rate 15 /min [employer] Work Phone: [employer] Work Phone: 2019 10:44-0500 SaO2% (BldA) [Mass fraction] 99 % [employer] Work Phone: [employer] Work Phone: 2019 10:44-0500 Systolic blood pressure 106 mm[Hg] [employer] Work Phone: [employer] Work Phone: 07-07-2019 14:30-0500 Body height 160 cm Marshall Rodriguez MD Work Phone: [employer] Work Phone: 07-07-2019 14:30-0500 Body mass index (BMI) [Ratio] 26.57 kg/m2 Marshall Rodriguez MD Work Phone: [employer] Work Phone: 07-07-2019 14:30-0500 Body temperature 98.2 [degF] Marshall Rodriguez MD Work Phone: [employer] Phone: 07-07-2019 14:30-0500 Body weight 68.04 kg Marshall Rodriguez MD Work Phone: [employer] Work Phone: 07-07-2019 14:30-0500 Diastolic blood pressure 78 mm[Hg] Marshall Rodriguez MD Work Phone: [employer] Work Phone: 07-07-2019 14:30-0500 Heart rate 99 /min Marshall Rodriguez MD Work Phone: [employer] Work Phone: 07-07-2019 14:30-0500 Respiratory rate 18 /min Marshall Rodriguez MD Work Phone: [employer] Work Phone: 07-07-2019 14:30-0500 SaO2% (BldA) [Mass fraction] 100 % Marshall Rodriguez MD Work Phone: [employer] Work Phone: 07-07-2019 14:30-0500 Systolic blood pressure 128 mm[Hg] Marshall Rodriguez MD Work Phone: [employer] Work Phone: 04-03-2019 17:20-0400 BMI (Body Mass Index) 27.28 kg/m2 [facility] 04-03-2019 17:20-0400 Body Temperature 98.4 [degF] [facility] 04-03-2019 17:20-0400 Body weight 69.85 kg [facility] 04-03-2019 17:20-0400 BP Diastolic 46 mm[Hg] [facility] 04-03-2019 17:20-0400 BP Systolic 120 mm[Hg] [facility] 04-03-2019 17:20-0400 Height 160 cm [facility], [place] 04-03-2019 17:20-0400 Pulse (Heart Rate) 69 /min [facility], [place] 04-03-2019 17:20-0400 Pulse Oximetry 98 % [facility] [place] 04-03-2019 17:20-0400 Respiratory Rate 18 /min Jean Claude Fisher [facility], [place] 03-15-2019 17:35-0400 BMI (Body Mass Index) 27.28 kg/m2 Drake Corcoran [facility], [place] 03-15-2019 17:35-0400 Body Temperature 98.4 [degF] Drake Corcoran [facility], [place] 03-15-2019 17:35-0400 Body weight 69.85 kg Drake Corcoran [facility] , [place] 03-15-2019 17:35-0400 BP Diastolic 57 mm[Hg[facility] [place] 03-15-2019 17:35-0400 BP Systolic 114 mm[Hg] Drake [facility] , [place] 03-15-2019 17:35-0400 Height 160 cm Drake [facility] , [place] 03-15-2019 17:35-0400 Pulse (Heart Rate) 66 /min Drake Corcoran [facility], [place] 03-15-2019 17:35-0400 Pulse Oximetry 99 % Drake Corcoran [facility] , [place] 03-15-2019 17:35-0400 Respiratory Rate 16 /min Drake Corcoran [facility], [place] 02-15-2019 11:22-0400 BMI (Body Mass Index) 28.34 kg/m2 Елена [facility], [place] 02-15-2019 11:22-0400 Body Temperature 98.01 [degF] Елена [facility], [place] 02-15-2019 11:22-0400 Body weight 72.58 kg Елена [facility] , [place] 02-15-2019 11:22-0400 BP Diastolic 67 mm[Hg] [facility] [place] 02-15-2019 11:22-0400 BP Systolic 111 mm[Hg] Елена [facility] , [place] 02-15-2019 11:22-0400 Height 160 cm Елена [facility] , [place] 02-15-2019 11:22-0400 Pulse (Heart Rate) 69 /min [facility], [place] 02-15-2019 11:0400 Pulse Oximetry 98 % Елена Olivera [facility] , [place] 02-15-2019 11:22-0400 Respiratory Rate 14 /min Елена Leahy [facility] H, [place] Encounters Encounter Date Encounter Type Care Provider Facility Start: 11-23-2023 End: 11-23-2023 ambulatory KARINE CARITO Not Available Start: 11-22-2023 End: 11-22-2023 ambulatory KARINE CARITO Not Available Start: 11-14-2023 End: 11-14-2023 ambulatory KARINE CARITO Not Available Start: 11-07-2023 End: 11-07-2023 ambulatory KARINE CARITO Not Available Start: 10-24-2023 End: 10-24-2023 ambulatory KARINE CARITO Not Available Start: 08-04-2023 End: 08-05-2023 ambulatory [facility] Start: 08-04-2023 End: 08-04-2023 Subsequent hospital visit by physician Leonel Delgado CNP Work Phone: [facility] [place] [facility] Care Lab Draw Comment on above: High-risk in second trimester Start: 07-30-2023 End: 07-31-2023 ambulatory [facility] Start: 07-30-2023 End: 07-31-2023 Subsequent hospital visit by physician Aria Chowdary MD Work Phone: [facility] Labor & Delivery Start: 07-30-2023 End: 07-30-2023 Emergency department patient visit VAN Lord BRENTON [facility] Start: 12-31-2022 End: 12-31-2022 Emergency department patient visit [facility] Start: 01-31-2022 Encounter for cervic al smear to confirm findings of recent normal smear following initial abnormal smear DR KARINE ARZATE [facility] Start: 01-28-2022 End: 01-28-[address] KARINE ARZATE Facility: Start: 01-28-2022 End: 01-28-2022 Encounter for cervical smear to confirm findings of recent normal smear following initial abnormal smear DR KARINE ARZATE Facility:H1 Start: 12-02-[address] ZARA CONNELL Faci lity:H1 Start: 09-05-2021 End: 09-07-2021 Evaluation and [...] Emergency department patient visit Henry Heller MD [facility] ED Comment on above: Urinary tract infect ion in mother during first trimester of (Primary Dx); Non-intractable vomiting with nausea, unspecified vomiting type Start: 08-19-2019 End: 08-19-2019 Emergency department patient visit Calvin Kent Work Phone: [facility] ED Comment on above: BV (bacterial vagino sis) (Primary Dx); Rash Start: 08-05-2019 End: 08-05-2019 Emergency department patient visit Vini Ritchie Work Phone: [facility] ED Comment on above: Acute cystitis witho ut hematuria (Primary Dx) Start: 2019 End: 2019 Emergency department patient visit Vini Ritchie DO Work Phone: [facility] ED Comment on above: Visit for suture rem oval (Primary Dx) Start: 07-07-2019 End: 07-07-2019 Emergency department patient visit Marshall Rodriguez MD Work Phone: [facility] ED Comment on above: Facial laceration, i nitial encounter (Primary Dx); Injury of head, initial encounter Start: 04-03-2019 End: 04-03-2019 Emergency department patient visit Jean Claude Fisher Work Phone: [facility] ED Comment on above: Acute cystitis with hematuria (Primary Dx) Start: 03-15-2019 End: 03-15-2019 Emergency department patient visit Drake Corcoran [facility] ED Comment on above: Urinary tract infect ion without hematuria, site unspecified (Primary Dx) Start: 02-15-2019 End: 02-15-2019 Emergency department patient visit Елена Olivera Work Phone: [facility] ED Comment on above: Dysuria (Primary [...] 08-05-2019 Urinalysis microscop ic only Ludmila Heller Carmen Work Phone: Start: 08-05-2019 Urnls dip stick/tabl et rgnt auto w/o microscopy Ludmila Heller Carmen Work Phone: Start: 07-07-2019 Ct head/brain w/o [...] of 2) Shingles Vaccine (1 of 2) [employer] Work Phone: Start: 07-07-2029 DTaP/Tdap/Td vaccine (5 - Td or Tdap) DTaP/Tdap/Td vaccine (5 - Td or Tdap) [facility] Start: 07-07-2029 DTaP/Tdap/Td vaccine (9 - Td or Tdap) DTaP/Tdap/Td vaccine (9 - Td or Tdap) [facility] Start: 07-07-2029 DTaP/Tdap/Td vaccine (9 - Td) DTaP/Tdap/Td vaccine (9 - Td) [facility] Work Phone: Start: 09-02-2023 End: 09-02-2023 Patient encounter procedure 09/02/2023 8:15 AM EST Routine [facility] [place] [address] [place] [address] Sharla Bravo MD [facility] [employer], [facility][note 3]3 [place] [address] GAYATRI [facility] [place] Comment on above: GAYATRI Start: 08-11-2023 End: 08-11-2023 Patient encounter procedure 08/11/2023 9:00 AM EST Routine [facility] [address] [id number] ANATOMY [facility] Comment on above: ANATOMY Start: 08-04-2023 End: 08-04-2023 Patient encounter procedure 08/04/2023 1:00 PM EST Office Visit [facility] [place] [address] [facility] [address] [place] [address] Karis Palma DO [address] [place] [address] Pt will come at 1430 [facility] [place] Comment on above: Pt will come at 1430 Start: 01-25-2023 Influenza vaccination Flu vaccine (# 1) [facility] Start: 02-25-2021 Influenza vaccination Flu vaccine (# 1) [facility] [address] Phone: Start: 08-19-2020 Screening for Chlamy toy trachomatis Chlamydia screen [facility] Work Phone: Start: 02-16-2020 Chlamydia screen Chlamydia screen [facility] Work Phone: Start: 02-25-2019 Influenza vaccination Flu vaccine (# 1) [place] Start: 2018 Cervical cancer screen Cervical canc er screen [facility] Work Phone: Start: 2018 Screening for malign ant neoplasm of cervix [facility] [employer] Start: 2012 HIV screen HIV screen [facility] Work Phone: Start: 2012 HIV screening HIV screen [facility] Work Phone: Start: 2009 COVID-19 Vaccine (1) COVID-19 Vaccin e (1) [facility] Work Phone: Start: 2009 Depression Screen Depression Screen [facility] [employer] Start: 01-18-1998 COVID-19 Vaccine (#1) COVID-19 Vacci ne (#1) [facility] Start: 1997 Hepatitis B vaccine (2 of 3 - 3-dose series) Hepatitis B vaccine (2 of 3 - 3-dose series) [facility] Start: 1997 Hepatitis C screening Hepatitis C sc reen [facility] Work Phone: End: 08-19-2019 C.trachomatis N.gonorrhoeae DNA C.trachomatis N.gonorrhoeae DNA Microbiology Routine One Time for 1 Occurrences starting 08/19/2019 until 08/19/2019 [place] Comment on above: One Time for 1 Occur rences starting 08/19/2019 until 08/19/2019 C.trachomatis N.gonorrhoeae DNA [place] End: 02-15-2019 C.trachomatis N.gonorrhoeae DNA C.trachomatis N.gonorrhoeae DNA Microbiology Routine One Time for 1 Occurrences starting 02/15/2019 until 02/15/2019 [facility] [place] Comment on above: One Time for 1 Occur rences starting 02/15/2019 until 02/15/2019 C.trachomatis N.gonorrhoeae DNA C.trachomatis N.gonorrhoeae DNA Microbiology Routine High-risk in second trimester 08/04/2023 7:20 AM EST [employer] End: 08-19-2019 Culture, HSV Culture, HSV Microbiology Routine Once for 1 Occurrences starting 08/19/2019 until 08/19/2019 [facility] [place] Comment on above: Once for 1 Occurrenc es starting 08/19/2019 until 08/19/2019 Culture, HSV Culture, HSV Microbiology Routine 08/19/2019 2:20 PM EST [place] [facility] End: 08-19-2019 Culture, Urine Culture, Urine Microbiology Routine Once for 1 Occurrences starting 08/19/2019 until 08/19/2019 [facility] Comment on above: Once for 1 Occurrenc es starting 08/19/2019 until 08/19/2019 Culture, Urine [facility] [place] End: 01-20-2021 Culture, Urine Culture, Urine Microbiology STAT One Time for 1 Occurrences starting 01/20/2021 until 01/20/2021 [employer] Work Phone: Comment on above: One Time for 1 Occur rences starting 01/20/2021 until 01/20/2021 End: 07-30-2023 Culture, Urine [facility] [employer] Comment on above: One Time for 1 Occur rences starting 07/30/2023 until 07/30/2023 End: 08-19-2019 Culture, Wound Culture, Wound Microbiology Routine One Time for 1 Occurrences starting 08/19/2019 until 08/19/2019 [facility] [place] Comment on above: One Time for 1 Occur rences starting 08/19/2019 until 08/19/2019 End: 08-04-2023 PRINCIPAL INVESTIGATOR Cytology PRINCIPAL INVESTIGATOR Cytology Lab Routine Once for 1 Occurrences starting 08/04/2023 until 08/04/2023 [facility] [employer] Comment on above: Once for 1 Occurrenc es starting 08/04/2023 until 08/04/2023 End: 04-03-2019 Microscopic urinalysis Microscopic Urinalysis Lab Routine Once for 1 Occurrences starting 04/03/2019 until 04/03/2019 [place], [place] Comment on above: Once for 1 Occurrenc es starting 04/03/2019 until 04/03/2019 Microscopic urinalysis Microscop ic Urinalysis Lab Routine 04/03/2019 5:28 PM EDT [place], [place] Nonrebreather mask oxygen Nonrebreather mask oxygen Respiratory Care Routine As Needed until discontinued starting 07/30/2023 [facility] Comment on above: As Needed until disc ontinued starting 07/30/2023 End: 02-15-2019 Urine culture clean catch Urine culture clean catch Microbiology Routine Once for 1 Occurrences starting 02/15/2019 until 02/15/2019 [place], [place] Comment on above: Once for 1 Occurrenc es starting 02/15/2019 until 02/15/2019 Urine culture clean catch [place], [place] End: 08-05-2019 Urine culture clean catch Urine culture clean catch Microbiology Routine Once for 1 Occurrences starting 08/05/2019 until 08/05/2019 [facility] Work Phone: Comment on above: Once for 1 Occurrenc es starting 08/05/2019 until 08/05/2019 End: 03-15-2019 Urine culture clean catch Urine culture clean catch Microbiology Routine Once for 1 Occurrences starting 03/15/2019 until 03/15/2019 [place], [place] Comment on above: Once for 1 Occurrenc es starting 03/15/2019 until 03/15/2019 Immunizations Immunization Date Immunization Notes Care Provider [facility] 07-07-2019 diphtheria, tetanus toxoids and acellular pertussis vaccine, unspecified formulation Marshall Rodriguez MD Work Phone: [facility] Work Phone: 07-07-2019 tetanus toxoid, redu pat diphtheria toxoid, and acellular pertussis vaccine, adsorbed Marshall Rodriguez MD Work Phone: [facility] 03-05-2019 tetanus toxoid, redu pat diphtheria toxoid, and acellular pertussis vaccine, adsorbed Aria Chowdary MD Work Phone: [facility] 04-22-2015 influenza virus vacc ine, unspecified formulation Aria Chowdary MD Work Phone: [facility] 04-11-2014 influenza virus vacc ine, unspecified formulation Aria Chowdary MD Work Phone: [facility] 10-15-2013 hepatitis A vaccine, pediatric/adolescent dosage, 2 dose schedule Aria Chowdary MD Work Phone: [facility] 10-15-2013 meningococcal polysaccharide (groups A, C, Y and W-135) diphtheria toxoid conjugate vaccine (MCV4P) Aria Chowdary MD Work Phone: [facility] 04-25-2013 influenza, injectabl e, quadrivalent, preservative free Aria Chowdary MD Work Phone: [facility] 05-11-2012 influenza virus vacc ine, unspecified formulation Aria Chowdary MD Work Phone: [facility] 03-22-2011 influenza virus vacc ine, unspecified formulation Aria Chowdary MD Work Phone: [facility] 04-20-2010 influenza virus vacc ine, unspecified formulation Aria Chowdary MD Work Phone: [facility] 06-03-2009 influenza virus vacc ine, unspecified formulation Aria Chowdary MD Work Phone: [facility] 01-23-2009 human papilloma viru s vaccine, quadrivalent Aria Chowdary MD Work Phone: [facility] 09-20-2008 hepatitis A vaccine, pediatric/adolescent dosage, 2 dose schedule Aria Chowdary MD Work Phone: [facility] 09-20-2008 human papilloma viru s vaccine, quadrivalent Aria Chowdary MD Work Phone: [facility] 07-26-2008 human papilloma viru s vaccine, quadrivalent Aria Chowdary MD Work Phone: [facility] 07-26-2008 meningococcal polysaccharide (groups A, C, Y and W-135) diphtheria toxoid conjugate vaccine (MCV4P) Aria Chowdary MD Work Phone: [facility] 07-26-2008 tetanus toxoid, redu pat diphtheria toxoid, and acellular pertussis vaccine, adsorbed Aria Chowdary MD Work Phone: [facility] 07-26-2008 varicella virus vaccine Gilma Chowdary MD Work Phone: [facility] 04-26-2008 influenza virus vacc ine, unspecified formulation Aria Chowdary MD Work Phone: [facility] 04-18-2007 influenza virus vacc ine, unspecified formulation Aria Chowdary MD Work Phone: [facility] 10-01-2002 diphtheria, tetanus toxoids and acellular pertussis vaccine, unspecified formulation Aria Chowdary MD Work Phone: [facility] 07-28-2001 measles, mumps and rubella virus vaccine Aria Chowdary MD Work Phone: [facility] 07-28-2001 poliovirus vaccine, inactivated Aria Chowdary MD Work Phone: [facility] 10-22-1998 varicella virus vaccine Gilma Chowdary MD Work Phone: [facility] 08-01-1998 diphtheria, tetanus toxoids and acellular pertussis vaccine, unspecified formulation Aria Chowdary MD Work Phone: [facility] 08-01-1998 haemophilus influenz ae type b vaccine, conjugate unspecified formulation Aria Chowdary MD Work Phone: [facility] 08-01-1998 measles, mumps and rubella virus vaccine Aria Chowdary MD Work Phone: [facility] 01-29-1998 diphtheria, tetanus toxoids and acellular pertussis vaccine, unspecified formulation Aria Chowdary MD Work Phone: [facility] 01-29-1998 haemophilus influenz ae type b vaccine, conjugate unspecified formulation Aria Chowdary MD Work Phone: [facility] 01-29-1998 hepatitis B vaccine, pediatric or pediatric/adolescent dosage Aria Chowdary MD Work Phone: [facility] 01-29-1998 poliovirus vaccine, unspecified formulation Aria Chowdary MD Work Phone: [facility] 1997 diphtheria, tetanus toxoids and acellular pertussis vaccine, unspecified formulation Aria Chowdary MD Work Phone: [facility] 1997 haemophilus influenz ae type b vaccine, conjugate unspecified formulation Aria Chowdary MD Work Phone: [facility] 1997 poliovirus vaccine, unspecified formulation Aria Chowdary MD Work Phone: [facility] 1997 diphtheria, tetanus toxoids and acellular pertussis vaccine, unspecified formulation Aria Chowdary MD Work Phone: [facility] 1997 haemophilus influenz ae type b vaccine, conjugate unspecified formulation Aria Chowdary MD Work Phone: [facility] 1997 poliovirus vaccine, unspecified formulation Aria Chowdary MD Work Phone: [facility] 1997 hepatitis B vaccine, pediatric or pediatric/adolescent dosage Aria Chowdary MD Work Phone: [facility] 1997 hepatitis B vaccine, pediatric or pediatric/adolescent dosage Aria Chowdary MD Work Phone: [facility] Payers Date Payer Category Payer Unknown [facility] xxxxxxxxxxxx 2017-Present [phone] [place] [id number] xxxxxxxxxxxx [id number] 2014 Medicaid [id number] 1997 Unknown [id number] 1997 Unknown [id number] 1997 Unknown [id number] 1997 Unknown [id number] 1997 Unknown [id number] [id number] 1997 Unknown [id number] [id number] 1997 Unknown [id number] [id number] 1997 Unknown [id number] [id number] 1997 Unknown [id number] [id number] 1997 Unknown [id number] [id number] 1997 Unknown [id number] [id number] 1997 Unknown [id number] [id number] 1997 Unknown [id number] 2.16.840.1.478314.3.579.2.125 9 1997 Unknown [id number] 2.16.840.1.596891.3.579.2.125 9 1997 Unknown [id number] 2.16.840.1.587978.3.579.2.125 9 1997 Unknown [id number] 2.16.840.1.284922.3.579.2.125 9 1997 Unknown [id number] [id number] 9 1959 Unknown [id number] Social History Date Type Detail Facility Start: 04-03-2019 End: 08-04-2023 Tobacco smoking status MTIS Never smoker [facility] Start: 04-03-2019 End: 08-04-2023 Alcohol intake No [facility] Start: 1995 Sex Assigned At Not on file [place], [place] Start: 08-19-2019 End: 08-04-2023 Alcohol intake Current non-drinker of alcohol (finding) [facility] Work Phone: Start: 01-20-2021 End: 08-04-2023 Tobacco use and exposure Never used [facility] Start: 07-30-2023 End: 08-04-2023 History of Social function [facility] How often to you hav e a drink containing alcohol? Never [facility] How many standard dr inks containing alcohol do you have on a typical day? Patient does not drink [facility] Start: 03-11-2023 [facility] Discharge instructions 07-31-2023 Discharge Instructions Note Date [...] on left side. 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 Farris. 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 MD Biological Engineer Resident 07/31/2023, 6:43 AM [facility] in this [facility] Evaluation note Note Date & Type Note Facility Evaluation note Diagnosis Urinary tract infection in mother during first trimester of - Primary Non-intractable vomiting with nausea, unspecified vomiting type documented in this encounter [employer] Phone: Evaluation note Note Date & Type Note Facility Evaluation note Diagnosis Facial laceration, initial encounter- Primary Injury of head, initial encounter documented in this encounter [employer] Phone: Evaluation note Note Date & Type Note Facility Evaluation note Diagnosis Visit for suture removal- Primary Encounter for removal of sutures documented in this encounter [employer] Phone: Evaluation note Note Date & Type Note Facility Evaluation note Diagnosis 21 weeks gestation of - Primary state, incidental Abdominal trauma in Other injury of abdomen 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 THANK YOU!!! From [facility] Emergency Department On behalf of the Emergency Department staff at [facility]'s Emergency Department, I would like to thank you for giving [facility] the opportunity to address your health care needs and concerns. We hope that during your visit, our service was delivered in a professional and caring manner. Please keep [facility] in mind as we walk with [...] or chest pain. documented in this encounter [facility] Phone: Hospital Discharge instructions Attachments Note Date & Type Note Facility Hospital Discharge instructions The following attachments cannot be sent through Care Everywhere.Head Injury: Closed: General Info ([place])Facial Laceration: Stitches ([place])documented in this encounter [facility] Phone: Hospital Discharge instructions Attachments Note Date & Type Note Facility Hospital Discharge instructions The following attachments cannot be sent through Care Everywhere.Stitches and Kavitha Removal: General Info ([place])documented in this encounter [employer] Phone: Discharge Instructions * Attachments The following attachments cannot be sent through Care Everywhere. * UTI (Urinary Tract Infection): Female ([place]) documented in this encounter* Attachments The following attachments cannot be sent through Care Everywhere. * Rash ([place]) * Bacterial Vaginosis ([place]) documented in this encounter* Instructions* Ranjana Del Rosario PA-C - 02/15/[address] [facility] [address] [place] [address] Pediatric Primary Care/ Adult Primary Care / OB//PRINCIPAL INVESTIGATOR/Specialty Clinics Mon Fri 8a 4:30p [address] Assistance with applying for chronic termite renewal inspector meds (high BP, Diabetes, etc), offered thru programsmade available by various [employer] companies Mon Fri Call to make appointment [place] [address] [address] [place] [facility] Mon Fri 9a 7p [address] Adult Medicine, Pediatrics, REAL ESTATE VALUER Mon Fri 8:30a 5p [facility] [address] [place], [place] [phone] Wed AM each week [facility] [address] [place], [place] [address] Adult Internal Medicine Tue, , , Tue 8a 4p Wed 1p 4P REAL ESTATE VALUER Clinic Tue, , , Tue 10a 4p Wed 1p 4p (closed from 12p noon 1p Pediatrics Clinic Tue, , , Tue 8:30 a 4:15p Wed 12:30p 4:15p Podiatry Clinic Mon, Tue, Fri 1:00p to 5:00p [place] [address] [address] [facility] Pediatric Primary [facility] Mon Wed & Fri Adult Primary Care Mon Fri 8a 12p noon OB/ Thurs 8a 4:45p [facility] [address] Mon Fri 8:30a 5p REAL ESTATE VALUER Adult Internal Med Pediatrics Neuro/Headache [facility] [address] [facility] Mon Fri 9a 5p [facility] [address] Adult Medicine, Eye Clinic, Dental Patient must be certified homeless Days and hours vary Call for appointment [facility] [address] [facility] OB Tue, , Tue, Fri 9a 5p Thurs 9a 6p Wed (OB only) [facility] [address] [place] [facility] Mon, , , Fri 9a 5p (closed 12p 1p) Wed [address]p [address] [facility] Specialty Clinics Burn/Plastic, ENT, GI, Orthopedics, (Orthopedics D.O.), Surgical, TRAUMA, Urology, Vascular Call for appointment [facility] [address] [place] Various Clinics 8a 5:[address] [address] OB/ Tues 8a 4:45p Family Practice Mon Wed & Fri 8a 4:45p [facility] [address] [facility] Family Practice Mon Fri 8a 4:30p [facility] Psychiatric [address] [place], [place] Mon Fri 8a 4:30p [address] [place], [place] [id number] Mon Fri 8a-4:30p Thurs 8a 8p OutPatient Clinics [facility] [address] Mon Fri 9a 5P Diabetic Education Services Call for appointment Heart Failure Clinic [facility] [address] Mon Fri 8:30a 4p Dental Services [facility] and [address] Accepts medicaid, medicaid HMOs, and most private insurances. Uninsured children are seen for $25.00 while uninsured adults are seen at a reduced fixed rate or visit [email or web address] [facility] [address] * Pt must have source of income & must * Pt must be homeless; call for eligibility guidelines bring 2 recent check stubs to appt * Under age 18 not accepted * By appointment only * Doors open at 8:30a day of week varies * Attachments The following attachments cannot be sent through Care Everywhere. * Dysuria ([place]) * STI ([place]) documented in this encounter* Attachments The following attachments cannot be sent through Care Everywhere. * UTI (Urinary Tract Infection): Female ([place]) documented in this encounter* Instructions* Jone Hair, [...] Everywhere. * UTI (Urinary Tract Infection): Female ([place]) documented in this encounter Assessments Diagnosis Acute [...] FoundDocuments on File Type Date Recorded Patient Food And Beverage Attendant Expl anation Advance Directives and Living Will Power of Educational Interpreter Latest Code Status on File Code Status Date Activated Date Inactivated Comments Full Code 07/29/2016 12:51 AM 07/29/2016 4:38 AM Documents on File Type Date Recorded Patient Food And Beverage Attendant Expl anation ACP-Advance Directive ACP-Power of Educational Interpreter Latest Code Status on File Code Status [...] dose 0213 (Given - Provid er: Steven Tracey RN) ondansetron (ZOFRAN-ODT) disintegrating tablet 4 mg [...] RN) 0142 (Patch Removed - Provider: Laura Garner RN)0902 (Patch Applied - Provider: Ericka Vogt RN)2101 (Due: Patch Removed - Provider: Ericka Vogt RN) vitamin plus iron 29-1 MG tablet 1 tablet 1 tablet (1 each), Oral, DAILY, First dose on Sat 224 at 1130, Until Discontinued 1338 (Given - Provider: Arminda Andrea RN) 0902 (Given - Provider: Ericka Vogt RN) PRN Medication Order 07/29/2023 07/30/2023 07/31/2023 [...] Muscle spasms 2000 (Given - Provider: Iris Garner RN) ondansetron (ZOFRAN) injection 4 mg(Linked Group 1) 4 mg, IntraVENous, EVERY 6 HOURS PRN, Starting on Sat 224 at 1049, Until Discontinued, Nausea, Vomiting, Administer if oral route cannot be used. ondansetron (ZOFRAN-ODT) disintegrating tablet 4 mg(Linked Group 1) 4 mg, Oral, EVERY 8 HOURS PRN, Starting on Sat 2/24 at 1049, Until Discontinued, Nausea, Vomiting Linked Groups Order Group 1: ondansetron (ZOFRAN-ODT) disintegrating tablet 4 mgJump to med 4 mg, Oral, EVERY 8 HOURS PRN, Starting on 2/3/24 at 1049, Until Discontinued, Nausea, Vomiting Or ondansetron (ZOFRAN) injection 4 mgJump to med 4 mg, IntraVENous, EVERY 6 HOURS PRN, Starting on Sat 2/324 at 1049, Until Discontinued, Nausea, Vomiting
Administer if oral route cannot be used.
INFORMATION SOURCE (unrecogn ized section and content) DATE CREATED AUTHOR 02/03/2022 [facility] DATE CREATED AUTHOR AUTHOR'S ORGANIZ ATION 01/03/2023 [facility] DATE CREATED AUTHOR AUTHOR'S ORGANIZ ATION 09/24/2023 [facility] DATE CREATED AUTHOR AUTHOR'S ORGANIZ ATION 11/24/2023 [facility] dical Specialists [facility] Care Teams (unrecognized sec tion and content) Supervisor Edging Relationship Specialty Start Date End Date Leonel Adams APRN - JOS [address] [address] PCP - General Certified Nurse Practitioner 08/05/19 Supervisor Edging Relationship Specialty Start Date End Date Leonel Adams APRN - CNP [address] [place] [address] PCP - General Certified Nurse Practitioner 08/05/19 [...] BE BASED ON THE PRIMARY CLINICAL RECORDS. [facility] [employer] [facility]. provides no warranty or guarantee of the accuracy or completeness of information in this document.
[2023-11-27 06:25] LABS: Hematocrit 33.9 % (36.0-48.0); Hemoglobin 10.6 g/dL (12.0-16.0); Mean Corpuscular HGB Conc 31.3 g/dL (29.9-35.2); Mean Corpuscular Volume 86.3 fL (81.0-99.0); Mean Platelet Volume 11.1 fL (9.5-13.5); Platelet Count 197 10^3/uL (150-450); Red Blood Count 3.93 10^6/uL (4.20-5.40); Red Cell Distribution Width 14.1 % (11.0-15.0); White Blood Count 8.8 10^3/uL (4.0-11.0)
[2023-11-27] MEDS: 0.9 % SODIUM CHLORIDE 1,000 ML 125 ML IV ×2 (06:30→12:54)
[2023-11-27] MEDS: OXYTOCIN/0.9 % SODIUM CHLORIDE 10 UNITS/500 ML PLAST..BAG 6 UNIT IV (06:34)
[2023-11-27 06:40] LABS: Amphetamine Screen Urine NEGATIVE (NEGATIVE); Barbiturates Screen Urine NEGATIVE (NEGATIVE); Benzodiazepines Screen Urine NEGATIVE (NEGATIVE); Buprenorphine Screen Urine NEGATIVE (NEGATIVE); Cannabinoid Screen Urine NEGATIVE (NEGATIVE); Cocaine Screen Urine NEGATIVE (NEGATIVE); Methadone Screen Urine NEGATIVE (NEGATIVE); Methamphetamines Screen Urine NEGATIVE (NEGATIVE); Opiate Screen Urine NEGATIVE (NEGATIVE); Oxycodone Screen Urine NEGATIVE (NEGATIVE); Phencyclidine Screen Urine NEGATIVE (NEGATIVE); Tricyclic Antidepressant Urine NEGATIVE (NEGATIVE)
[2023-11-27] MEDS: 0.9 % SODIUM CHLORIDE 1,000 ML 1000 ML IV (08:47)
[2023-11-27] MEDS: FENTANYL CITRATE/PF 100 MCG/2 ML VIAL EPIDURAL (08:59)
[2023-11-27] MEDS: ROPIVACAINE HCL/PF 400 MG/200 ML PREMIX 6 MG EPIDURAL (08:59)
[2023-11-27] MEDS: OXYTOCIN/0.9 % SODIUM CHLORIDE 20 UNITS/1,000 ML PLAST..BAG 125 UNIT IV (13:41)
--- NOTE | 2023-11-27 13:47 | PM.OBPRCVD ---
Procedure Intrapartal events: None Induction method: per pitocin protocol Delivery augmentation: rupture of membranes and pitocin Delivery monitor: external FHT and external uterine Route of delivery: Episiotomy Description: none L&D Laceration Description: none Estimated blood loss (mL): 300 Anesthesia type: Epidural Disposition: floor Delivery date: 11/27/23 Gender: male presentation: vertex Placental delivery description: Spontaneous cord description: 3 Vessels
[2023-11-27] MEDS: IBUPROFEN 600 MG TABLET PO ×2 (15:49→23:09)
[2023-11-27] MEDS: BENZOCAINE/MENTHOL 85 GRAM SPRAY BOTTLE 1 APPLIC TOPICAL (16:58)
[2023-11-28 06:21] LABS: Basophils Percent Auto 0.3 % (0.2-2.0); Eosinophils Absolute Auto 0.2 10^3/uL (0.0-0.7); Eosinophils Percent Auto 1.7 % (0.9-7.0); Hematocrit 29.9 % (36.0-48.0); Hemoglobin 9.5 g/dL (12.0-16.0); Immature Granulocytes Abs Auto 0.06 10^3/uL (0.00-0.03); Immature Granulocytes Pct Auto 0.6 % (0.0-0.5); Lymphocytes Absolute Auto 2.4 10^3/uL (1.2-3.8); Lymphocytes Percent Auto 25.8 % (20.5-60.0); Mean Corpuscular HGB Conc 31.8 g/dL (29.9-35.2); Mean Corpuscular Hemoglobin 27.4 pg (26.7-34.0); Mean Corpuscular Volume 86.2 fL (81.0-99.0); Mean Platelet Volume 10.8 fL (9.5-13.5); Monocytes Absolute Auto 0.8 10^3/uL (0.3-0.8); Monocytes Percent Auto 9.1 % (1.7-12.0); Neutrophils Absolute Auto 5.8 10^3/uL (1.4-6.5); Neutrophils Percent Auto 62.5 % (43.0-75.0); Platelet Count 151 10^3/uL (150-450); Red Blood Count 3.47 10^6/uL (4.20-5.40); Red Cell Distribution Width 14.3 % (11.0-15.0); White Blood Count 9.3 10^3/uL (4.0-11.0)
--- NOTE | 2023-11-28 07:53 | PM.OBPN ---
OB - PN: Subj Subjective Patient comments: no complaints and pain well controlled [place] status: doing well Exam Constitutional Vital Signs, click to edit/add: Last Vital Signs Temp 97.3 F L 11/27/23 23:10 Pulse 74 11/27/23 23:11 Resp 16 11/27/23 23:11 BP 95/50 11/27/23 23:11 O2 Del Method Room Air 11/27/23 23:12 Documenting provider has reviewed patient's vital signs: yes Common normals: no apparent distress Respiratory Common normals: normal respiratory effort and clear to auscultation bilaterally Cardio Common normals: regular rate and regular rhythm GI Common normals: Normal to inspection, nondistended, normoactive bowel sounds present Extremity Common normals: no clubbing, cyanosis or edema and no calf tenderness Results Labs Labs: Short CBC 11/28/23 Range/Units 06:05 WBC 9.3 (4.0-11.0) 10^3/uL Hgb 9.5 L (12.0-16.0) g/dL Hct 29.9 L (36.0-48.0) % Plt Count 151 (150-450) 10^3/uL OB - PN: A/P Plan - Vaginal Delivery day: 1 Plan: routine care and discharge home Time Spent with Patient Time: Total time spent is greater than 50% in coordination of care (as documented) at patient's floor/unit and/or counseling patient: Total time spent with greater than 50% in coordination of care (as documented) at patient's floor/unit and/or counseling patient: less than 15 minutes
[2023-11-28 08:33] VITALS: BP 96/57; PULSE 75; TEMP 36.2
[2023-11-28] MEDS: DOCUSATE SODIUM 100 MG CAPSULE PO ×2 (08:40→22:06)
[2023-11-28] MEDS: IBUPROFEN 600 MG TABLET PO ×2 (08:40→18:10)
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
[2023-11-28 18:06] VITALS: BP 105/59; PULSE 73; PULSE 85; TEMP 36.7
[2023-11-29 00:59] VITALS: BP 106/66; PULSE 67; TEMP 37.2
[2023-11-29] MEDS: IBUPROFEN 600 MG TABLET PO ×2 (01:01→09:30)
--- NOTE | 2023-11-29 06:54 | PM.OBPN ---
OB - PN: Subj Subjective Patient comments: no complaints and pain well controlled [place] status: doing well Exam Constitutional Vital Signs, click to edit/add: Last Vital Signs Temp 99.0 F 11/29/23 00:59 Pulse 67 11/29/23 00:59 Resp 18 11/28/23 18:06 BP 106/66 11/29/23 00:59 O2 Del Method Room Air 11/29/23 00:59 Documenting provider has reviewed patient's vital signs: yes Common normals: no apparent distress Respiratory Common normals: normal respiratory effort and clear to auscultation bilaterally Cardio Common normals: regular rate and regular rhythm GI Common normals: Normal to inspection, nondistended, normoactive bowel sounds present Extremity Common normals: no clubbing, cyanosis or edema and no calf tenderness OB - PN: A/P Plan - Vaginal Delivery day: 2 Plan: routine care, discharge home and follow up 6 weeks Time Spent with Patient Time: Total time spent is greater than 50% in coordination of care (as documented) at patient's floor/unit and/or counseling patient: Total time spent with greater than 50% in coordination of care (as documented) at patient's floor/unit and/or counseling patient: less than 15 minutes
[2023-11-29 09:30] VITALS: BP 93/48; PULSE 66; TEMP 37
[2023-11-29] MEDS: DOCUSATE SODIUM 100 MG CAPSULE PO (09:30)
[2023-11-29 09:35] VITALS: BP 93/48; PULSE 66
[2023-11-29] MEDS: MEASLES,MUMPS,RUBELLA VACC/PF 0.5 ML VIAL SQ (14:57)
== END 2023-11-29 15:05 | disposition home or self-care (01) | DRG 560 ==
PROVIDERS: Admitting Provider Obstetrics & Gynecology; Visit Provider Obstetrics & Gynecology
DX: O98.52 Other viral diseases complicating childbirth (principal); B00.9 Herpesviral infection, unspecified; Z3A.39 39 weeks gestation of pregnancy; Z37.0 Single live birth; Z63.9 Problem related to primary support group, unspecified
CPT/HCPCS: 36415; 51702; 59050; 59410; 80307; 85025; 85027; 86850; 86900; 86901; 90471; 90707; 96365; 96366; 96376

== ENCOUNTER 2024-07-04 19:19 | Outpatient (REF) | payer OTHER, SELFPAY ==
[2024-07-09 12:07] LABS: Age Gdln ACOG Testing Note (.); IGP, rfx Aptima HPV ASCU Note (.)
== END 2024-07-04 19:20 | disposition home or self-care (01) ==
LOC: LAB 19:19
PROVIDERS: Visit Provider Physician Assistant
DX: Z01.419 Encounter for gynecological examination (general) (routine) without abnormal findings (principal)
CPT/HCPCS: 88175

== ENCOUNTER 2025-02-28 09:33 | Emergency (ER) | payer OTHER, SELFPAY ==
--- OUTSIDE RECORDS SUMMARY | 2024-07-19 05:15 | XMS_ITS ---
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 * Medical History: Objective: * Vitals: Assessment: Plan: * Treatment: * Billing Information: * Visit Code: * Procedure Codes: * Electronic signature of Pallavi Silverio MD on 02/28/2025 at 09:42 AM EDT Sign off status: Pending * Provider: Jake Silverio MD Date: 0 07/19/2024 Generated for Debbyi ng/Faxing/eTransmitting on: 0 02/28/2025 09:42 AM EDT
--- OUTSIDE RECORDS SUMMARY | 2024-07-23 05:15 | XMS_ITS ---
Author Organization [facility] Address [address] [facility] [place] [id number] Care Team Providers Care X Ray Operator Name Role Phone Rohini Gorman Primary Care Provider Kathy Silverio Unavailable [phone] REASON FOR VISIT Wellness Social History Sex Assigned At : Social History Observation Description Sex Assigned At Female Encounters Encounter Location Date Provider Diagnosis [address] [address] 07/23/2024 Kathy Silverio Plan Of Treatment No Information Progress Notes * ORIANA Vicki SDOB:[birth year] (29 yo F)Acc No.[id number]:07/23/2024 Progress Notes Patient: Vicki NUNEZ Provider: Jake Silverio MD :1995 A ge:29 Y S ex:Female Date:07/23/2024 Address:[address] [place] [address] damian [facility] Pcp:Rohini Gorman Subjective: * Chief Complaints: * 1 . Wellness. * Medical History: Objective: * Vitals: Assessment: Plan: * Treatment: Care Plan: * Problems: * Billing Information: * Visit Code: * Procedure Codes: * Electronic signature of Pallavi Silverio MD on 02/28/2025 at 09:42 AM EDT Sign off status: Pending * Provider: Jake Silverio MD Date: 0 07/23/2024 Generated for Debbyi ng/Faxing/eTransmitting on: 0 02/28/2025 09:42 AM EDT
[2025-02-28 09:38] VITALS: BP 123/69; PULSE 78; TEMP 37.1; O2SAT 98; BMI 31.7
--- OUTSIDE RECORDS SUMMARY | 2025-02-28 09:42 | XMS_ITS | Encounter Summary ---
Author Organization [facility] Address [address] [place] [address] Care Team Providers Care Route Service Representative Name Role Phone Unavailable Primary Care Provider Unavailabl e Encounter Details Date Type Department Care Team (Late st Contact Info) Description 10/21/2023 Clinisync Result Encounter [facility] External Department Unsolicited Karine Torres DO [address] [place], [place] [id number] Social History Tobacco Use Types Packs/Day Years Used Date Smoking Tobacco: Never Assessed Comments Unknown Sex and Gender Information Value Date Recorded Sex Assigned at Not on file Legal Sex Female 11:47 PM EDT Gender Identity Not on file Sexual Orientation Not on file documented as of this encounter Miscellaneous Notes * Result Encounter Note - Juju Connolly LPN - 10/21/2023 12:59 PM EDT Detailed voicemail left for pt. Pt actually comes in today for appointment. documented in this encounter Plan of Treatment Upcoming Encounters Date Type Department Care Team (Late st Contact Info) Description 04/10/2025 1:30 PM EDT Office Visit [facility] [address] [place] [address] Olivia Blackwell PA [address] [place], [place] [id number] 07/09/2025 2:00 PM EST Office Visit [facility] [address] [place] [address] Karine Torres, DO [address] [facility] [place] [address] documented as of this encounter Procedures Procedure Name Priority Date/Time Associated Diagnosis Comments US OB ANATOMY 10/21/2023 12:54 PM EDT documented in this encounter Results * US OB ANATOMY (10/21/2023 12:54 PM EDT) Anatomical Region Laterality Modality Other 10/21/2023 12:5 4 PM EDT Narrative 10/21/2023 12:57 PM EDT [address] [address] Ultrasound Report Signed Patient: JESSICA GASTELUM MR#: [id number] : 1995 Acct:[id number] Age/Sex: 28 / F ADM Date: 10/21/23 Loc: US Attending Dr: Karine Torres D.O. Ordering Physician: Karine Torres D.O. Date of Service: 10/21/23 Procedure(s): US OB anatomy Accession Number(s): [id number] cc: Karine Torres D.O.; Physician,Non-Staff M.DKuldeep The [address] [address] Patient Name: JESSICA GASTELUM MRN: [id number] date: 1995 Sex: F Assigned Patient Location: US Current Patient Location: US Accession/Order Number: [id number] Exam Date: 10/21/2023 12:00 Report Date: 10/21/2023 12:54 At the request of: KARINE TORRES Procedure: US OB anatomy EXAMINATION: US OB cervical length, US OB anatomy HISTORY: screening, , for anatomic survey Z36.89 COMPARISON: 10/19/2023 TECHNIQUE: Transabdominal sonographic examination was performed for obstetrical and evaluation. FINDINGS: Number: 1 Heart Rate: 140.8 bpm H.B. /min Amniotic Fluid Volume: Subjectively normal position: Cephalic presentation, longitudinal lie Placental Location: Anterior fundal, grade 2. Placental edge is 12.1 cm from the internal os Cervix Length: 4.5 cm , closed Normal anatomy: Lateral ventricles, cerebellum, posterior fossa, nose, lips, orbits, four-chamber heart, RVOT, LVOT, diaphragm, stomach, kidneys, bladder, umbilical arteries, three-vessel cord, spine, extremities Nonvisualization: Abdominal cord insertion BIOMETRY: BPD: 8.0 cm 32 weeks 1 days , 9% HC: 30.4 cm 33 weeks 5 days, 16% AC: 29.9 cm 33 weeks 6 days, 59% FL: 6.4 cm 32 weeks 6 days , 20% EFW:2194.7 grams; 4 lbs. 13 oz., 34% FL/AC: 21.3 FL/BPD: 79.7 HC/AC: 1.0 GESTATIONAL AGE: Age by EDC: 33 weeks 5 days Age by current US: 33 weeks 1 days JORI by current US: 12/08/2023 JORI by EDC: 12/04/2023 US/US OB anatomy IMPRESSION: Nonvisualization of the abdominal cord insertion, otherwise normal anatomy scan Closed cervix measuring 4.5 cm in length. *Reference: [facility] Practice Guideline for the performance of Obstetric Ultrasound Examinations, March 27, 2007. Electronically authenticated by: FADUMO AMARAL Date: 10/21/2023 12:54 Dictated By: Fadumo Amaral M.D. Signed By: 10/21/23 1257 DD/ 1254 TD/TT: Ui Application Developer: Procedure Note Radiology, Radiologist, MD - 10/21/2023 [place] [address] Ultrasound Report Signed Patient: JESSICA GASTELUM [facility]#: [id number] : 1995Acct:[id number] Age/Sex: Date: 10/21/23 Loc: US Attending Dr: Karine Torres D.O. Ordering Physician: Karine Torres D.O. Date of Service: 10/21/23 Procedure(s): US OB anatomy Accession Number(s): [id number] cc: Karine Torres D.O.; Physician,Non-Staff Sven [address] [address] Patient Name: JESSICA GASTELUM MRN: [id number] date: 1995 Sex: F Assigned Patient Location: US Current Patient Location: US Accession/Order Number: [id number] Exam Date: 10/21/2023 12:00 Report Date: 10/21/2023 12:54 At the request of: KARINE TORRES Procedure: US OB anatomy EXAMINATION: US OB cervical length, US OB anatomy HISTORY: screening, , for anatomic survey Z36.89 COMPARISON: 10/19/2023 TECHNIQUE: Transabdominal sonographic examination was performed for obstetrical and evaluation. FINDINGS: Number: 1 Heart Rate: 140.8 bpm H.B. /min Amniotic Fluid Volume: Subjectively normal position: Cephalic presentation, longitudinal lie Placental Location: Anterior fundal, grade 2. Placental edge is 12.1 cmfrom the internal os Cervix Length: 4.5 cm , closed Normal anatomy: Lateral ventricles, cerebellum, posterior fossa, nose,lips, orbits, four-chamber heart, RVOT, LVOT, diaphragm, stomach, kidneys,bladder, umbilical arteries, three-vessel cord, spine, extremities Nonvisualization: Abdominal cord insertion BIOMETRY: BPD: 8.0 cm 32 weeks 1 days , 9% HC: 30.4 cm 33 weeks 5 days, 16% AC: 29.9 cm 33 weeks 6 days, 59% FL: 6.4 cm 32 weeks 6 days , 20% EFW:2194.7 grams; 4 lbs. 13 oz., 34% FL/AC: 21.3 FL/BPD: 79.7 HC/AC: 1.0 GESTATIONAL AGE: Age by EDC: 33 weeks 5 days Age by current US: 33 weeks 1 days JORI by current US: 12/08/2023 JORI by EDC: 12/04/2023 US/US OB anatomy IMPRESSION: Nonvisualization of the abdominal cord insertion, otherwise normal anatomy scan Closed cervix measuring 4.5 cm in length. *Reference: [facility] Practice Guideline for the performance of Obstetric Ultrasound Examinations, March 27, 2007. Electronically authenticated by: FADUMO AMARAL Date: 10/21/2023 12:54 Dictated By: Fadumo Amaral M.D. Signed By:10/21/23 1257 DD/ 1254 TD/TT: Ui Application Developer: us Karine Torres DO [facility] Final Result documented in this encounter Visit Diagnoses Not on filedocumented in this encounter
--- OUTSIDE RECORDS SUMMARY | 2025-02-28 09:42 | XMS_ITS | Encounter Summary ---
Author Organization [facility] Address [address] [place] [address] Care Team Providers Care General Freight Agent Name Role Phone Unavailable Primary Care Provider Unavailabl e Encounter Details Date Type Department Care Team (Late st Contact Info) Description 10/19/2023 Clinisync Result Encounter [facility] External Department Unsolicited Richar Cooney, CNJose [address] [place], [place] [id number] Social History Tobacco Use Types Packs/Day Years Used Date Smoking Tobacco: Never Assessed Comments Unknown Sex and Gender Information Value Date Recorded Sex Assigned at Not on file Legal Sex Female 11:47 PM EDT Gender Identity Not on file Sexual Orientation Not on file documented as of this encounter Plan of Treatment Upcoming Encounters Date Type Department Care Team (Late st Contact Info) Description 04/10/2025 1:30 PM EDT Office Visit [facility]ILO [facility]ENA [address] [place] [address] Olivia Blackwell PA [address] [facility] [address] [place], [facility] 07/09/2025 2:00 PM EST Office Visit CAMILO CADENA [address] [place] [address] Connor Torres DO [address] [facility] [address] [place], [facility] documented as of this encounter Procedures Procedure Name Priority Date/Time Associated Diagnosis Comments US OB BPP W NON-STRESS 10/19/2023 4:13 AM EDT documented in this encounter Results * US OB BPP W NON-STRESS (10/19/2023 4:13 AM EDT) Anatomical Region Laterality Modality Other 10/19/2023 4:13 AM EDT Narrative 10/19/2023 4:15 [place] [address] Ultrasound Report Signed Patient: JESSICA SMALLS MR#: [id number] : 1995 Acct:[id number] Age/Sex: 28 / F ADM Date: Loc: [facility] 250-[address]: Connor Torres D.O. Ordering Physician: RICHAR COONEY APRN, CNM Date of Service: 10/19/23 Procedure(s): US OB BPP w non-stress Accession Number(s): [id number] cc: RICHAR COONEY APRN, CNM; Physician,Non-Staff M.D. The [place] [id number] Patient Name: JESSICA SMALLS MRN: [id number] date: 1995 Sex: F Assigned Patient Location: [facility] Current Patient Location: [facility] Accession/Order Number: [id number] Exam Date: 10/19/2023 01:59 Report Date: 10/19/2023 04:13 At the request of: RICHAR COONEY Procedure: US OB BPP w non-stress EXAM: US OB growth, US OB cervical length, US OB placenta, US OB BPP w non-stress HISTORY: , abdominal and back pain x5 days. COMPARISON: Ultrasound 08/27/2021. TECHNIQUE: Transabdominal sonographic images of the pelvis included grayscale and M-mode Doppler evaluation. FINDINGS: There is a single intrauterine gestation in the cephalic presentation, longitudinal lie. M-mode Doppler demonstrates a heart rate of 129 bpm. Placenta is located anteriorly with the tip of the placenta 10.4 cm from the internal os. Multiple small hypoechoic areas within the placenta, grade 2. Cervical length: 4.3 cm. Os is closed. JUVENTINO: 13.9 cm, between the 5th and 95th percentile. anatomy scan was not performed on this emergent study. measurements: Biparietal diameter: 8.3 cm, 33 week 4 day (53rd percentile) Head circumference: 31.2 cm, 34 week 6 day (54th percentile) Abdominal circumference: 28.7 cm, 32 week 5 day (35th percentile) Femur length: 6.2 cm, 32 week 1 day (13 percentile) Estimated weight: 2063 g +/- 3 109 g (29th percentile) HC/AC: 1.08 (0.96-1.11) Biophysical profile: Movement: 2/2. Tone: 2/2. Breathin/2. Fluid: 2/2. Total score: 02/01. US/US OB BPP w non-stress IMPRESSION: 1. Single living intrauterine gestation in the cephalic presentation. 2. Estimated gestational age: 33 week 2 day, estimated date of delivery 12/05/2023. This is concordant with dating by last menstrual period. 3. Biophysical profile: 02/01. 4. Cervical length: 4.3 cm. 5. Placenta is anteriorly located without signs of placenta previa. Electronically authenticated by: MARSHALL LEUNG Date: 10/19/2023 04:13 Dictated By: Marshall Leung M.D. Signed By: 10/19/235 DD/ 2 TD/TT: Strip Mine Supervisor: Procedure Note Radiology, Radiologist, MD - 10/19/2023 [place] [address] Ultrasound Report Signed Patient: JESSICA SMALLS [facility]#: [id number] : 1995Acct:[id number] Age/Sex: Date: Loc: [facility] 250-[address]: Connor Torres D.O. Ordering Physician: RICHAR COONEY APRN, CNM Date of Service: 10/19/23 Procedure(s): US OB BPP w non-stress Accession Number(s): [id number] cc: RICHAR COONEY APRN, CNM; Physician,Non-Staff M.Massimo The [place] [address] Patient Name: JESSICA SMALLS MRN: [facility]:[id number] date: 1995 Sex: F Assigned Patient Location: [facility] Current Patient Location: [facility] Accession/Order Number: [id number] Exam Date: 10/19/2023 01:59 Report Date: 10/19/2023 04:13 At the request of: RICHAR COONEY Procedure: US OB BPP w non-stress EXAM: US OB growth, US OB cervical length, US OB placenta, US OB BPPw non-stress HISTORY: , abdominal and back pain x5 days. COMPARISON: Ultrasound 08/27/2021. TECHNIQUE: Transabdominal sonographic images of the pelvis includedgrayscale and M-mode Doppler evaluation. FINDINGS: There is a single intrauterine gestation in the cephalic presentation, longitudinal lie. M-mode Doppler demonstrates a heart rate of 129bpm. Placenta is located anteriorly with the tip of the placenta 10.4 cm fromthe internal os. Multiple small hypoechoic areas within the placenta, grade 2. Cervical length: 4.3 cm. Os is closed. JUVENTINO: 13.9 cm, between the 5th and 95th percentile. anatomy scan was not performed on this emergent study. measurements: Biparietal diameter: 8.3 cm, 33 week 4 day (53rd percentile) Head circumference: 31.2 cm, 34 week 6 day (54th percentile) Abdominal circumference: 28.7 cm, 32 week 5 day (35th percentile) Femur length: 6.2 cm, 32 week 1 day (13 percentile) Estimated weight: 2063 g +/- 3 109 g (29th percentile) HC/AC: 1.08 (0.96-1.11) Biophysical profile: Movement: 2/2. Tone: 2/2. Breathin/2. Fluid: 2/2. Total score: 02/01. US/US OB BPP w non-stress IMPRESSION: 1. Single living intrauterine gestation in the cephalic presentation. 2. Estimated gestational age: 33 week 2 day, estimated date of delivery 12/05/2023. This is concordant with dating by last menstrual period. 3. Biophysical profile: 02/01. 4. Cervical length: 4.3 cm. 5. Placenta is anteriorly located without signs of placenta previa. Electronically authenticated by: MARSHALL LEUNG Date: 10/19/2023 04:13 Dictated By: Marshall Leung M.D. Signed By:10/19/23 0415 DD/ 0413 TD/TT: Strip [place] Supervisor: us Richar Cooney CNM [facility] Final Resu lt documented in this encounter Visit Diagnoses Not on filedocumented in this encounter
--- OUTSIDE RECORDS SUMMARY | 2025-02-28 09:42 | XMS_ITS | Encounter Summary ---
Author Organization [facility] Address [address] [facility] 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 Operator Name Role Phone Unavailable Primary Care Provider Unavailabl e Encounter Details Date Type Department Care Team (Late st Contact Info) Description 11/07/2023 Clinisync Result Encounter [facility] External Department Unsolicited Karine Torres DO [address] [place], [place] [phone] Social History Tobacco Use Types Packs/Day Years Used Date Smoking Tobacco: Never Assessed Comments Yes Sex and Gender Information Value Date Recorded Sex Assigned at Not on file Legal Sex Female 11:47 PM EDT Gender Identity Not on file Sexual Orientation Not on file documented as of this encounter Plan of Treatment Upcoming Encounters Date Type Department Care Team (Late st Contact Info) Description 04/10/2025 1:30 PM EDT Office Visit CAMILO CADENA [address] [place] [address] [place] [address] Olivia Blackwell PA [address] [facility] [address] [place], [place] [address] 07/09/2025 2:00 PM EST Office Visit CAMILO CADENA [address] [place] [address] [place] [address] Karine Torres DO [address], [place] [id number] documented as of this encounter Procedures Procedure Name Priority Date/Time Associated Diagnosis Comments US OB INCOMPLETE ANATOMY 11/07/2023 1:56 PM EDT documented in this encounter Results * US OB INCOMPLETE ANATOMY (11/07/2023 1:56 PM EDT) Anatomical Region Laterality Modality Other 11/07/2023 1:56 PM EDT Narrative 11/07/2023 1:59 [place] [address] Ultrasound Report Signed Patient: JESSICA SMALLS MR#: [id number] : 1995 Acct:[id number] Age/Sex: 28 / F ADM Date: 11/07/23 Loc: N[facility] Attending Dr: Karine Torres D.O. Ordering Physician: Karine Torres D.O. Date of Service: 11/07/23 Procedure(s): US OB incomplete anatomy Accession Number(s): [id number] cc: Karine Torres D.O.; Physician,Non-Staff Sven The [place] [id number] Patient Name: JESSICA SMALLS MRN: [id number] date: 1995 Sex: F Assigned Patient Location: [facility] Current Patient Location: [facility] Accession/Order Number: [id number] Exam Date: 11/07/2023 13:25 Report Date: 11/07/2023 13:56 At the request of: KARINE TORRES Procedure: US OB incomplete anatomy EXAM: US OB incomplete anatomy HISTORY: INCOMPLETE ANATOMY COMPARISON: 10/21/2023 TECHNIQUE: Transabdominal images FINDINGS: position: Cephalic presentation, longitudinal lie Heart rate: 1 40 bpm Anatomy: Abdominal cord insertion is grossly normal, limited secondary to acoustic shadowing from the femur US/US OB incomplete anatomy IMPRESSION: Grossly normal abdominal cord insertion Electronically authenticated by: FADUMO AMARAL Date: 11/07/2023 13:56 Dictated By: Fadumo Amaral M.D. Signed By: 11/07/23 1359 DD/ 1356 TD/TT: Buyer Assistant: Procedure Note Radiology, Radiologist, MD - 11/07/[address] [address] Ultrasound Report Signed Patient: JESSICA SMALLS [facility]#: [id number] : 1995Acct:[id number] Age/Sex: FADM Date: 11/07/23 Loc: [facility] Attending Dr: Karine Torres D.O. Ordering Physician: Karine Torres D.O. Date of Service: 11/07/23 Procedure(s): US OB incomplete anatomy Accession Number(s): [id number] cc: Karine Torres D.O.; Physician,Non-Staff Sven The [place] [id number] Patient Name: JESSICA SMALLS MRN: [id number] date: 1995 Sex: F Assigned Patient Location: [facility] Current Patient Location: [facility] Accession/Order Number: [id number] Exam Date: 11/07/2023 13:25 Report Date: 11/07/2023 13:56 At the request of: KARINE TORRES Procedure: US OB incomplete anatomy EXAM: US OB incomplete anatomy HISTORY: INCOMPLETE ANATOMY COMPARISON: 10/21/2023 TECHNIQUE: Transabdominal images FINDINGS: position: Cephalic presentation, longitudinal lie Heart rate: 1 40 bpm Anatomy: Abdominal cord insertion is grossly normal, limited secondary to acoustic shadowing from the femur US/US OB incomplete anatomy IMPRESSION: Grossly normal abdominal cord insertion Electronically authenticated by: FADUMO AMARAL Date: 11/07/2023 13:56 Dictated By: Faduom Amaral M.D. Signed By:11/07/23 1359 DD/ 1356 TD/TT: Buyer Assistant: Karine Torres DO [facility] Final Result documented in this encounter Visit Diagnoses Not on filedocumented in this encounter
--- OUTSIDE RECORDS SUMMARY | 2025-02-28 09:42 | XMS_ITS | Encounter Summary ---
Author Organization [facility] Address [address] [facility] [place] [address] Care Team Providers Care Rag Collector Name Role Phone Unavailable Primary Care Provider Unavailabl e Encounter Details Date Type Department Care Team (Late st Contact Info) Description 11/29/2023 Abstract N[facility]ENA [address] [facility] [place] [address] Yessenia Chi LPN 102 [facility] Martha [place], [facility]11 Social History Tobacco Use Types Packs/Day Years [...] 1:30 PM EDT Office Visit CAMILO CADENA [address] [place] [address] [place] [address] Olivia Blackwell PA [address] [facility] [address] [place], [facility]11 07/09/2025 2:00 PM EST Office Visit CAMILO CADENA [address] [facility] [place] [address] Connor Torres DO [address] [facility] [address] [place], [place] [phone] documented as of this encounter Visit Diagnoses Not on filedocumented in this encounter
--- OUTSIDE RECORDS SUMMARY | 2025-02-28 09:42 | XMS_ITS | Patient Health Record ---
Author Organization [facility] vices Address [address] [place], [place] [id number] Care Team Providers Care Elastic Cutter Name Role Phone VitaRohini bhagat Primary Care Provider [phone] Kathy Silverio Unavailable [phone] Allergies No Known Allergies Reason For Referral No Information Medications Medication SIG (Take, Route, Fr equency, Duration) Notes Start Date End Date Status Phentermine HCl 37.5 MG 1 capsule Orally Once a day Active Immunizations Vaccine Route Administration Date Status Comme nts *Hep A, ped/adol, 2 dose-VFC IM Intramuscular 09/20/2013 Administered Status:Complete ,Reason:Given or N/A ,ND [id number] *Tdap (Adacel)-VFC IM Intramuscular 03/05/2019 Administere d Status:Complete ,Reason:Given or N/A Influenza (split), 3 yrs and above IM Intramuscular 04/20/2010 Administered Status:Complete ,Reason:Given or N/A Influenza (split), 3 yrs and above IM Intramuscular 05/11/2012 Administered Status:Complete ,Reason:Given or N/A ,Given at 4:25pm Influenza (split), 3 yrs and above IM Intramuscular 04/25/2013 Administered Status:Complete ,Reason:Given or N/A ,[facility]# [id number] Influenza (split), 3 yrs and above IM Intramuscular 04/11/2014 Administered Status:Complete ,Reason:Given or N/A Influenza, quadrivalent, split, preservative free, 3 years or older IM Intramuscular 04/22/2015 Administered Status:Complete ,Reason:Given or N/A Meningococcal MCV4P IM Intramuscular 09/20/2013 Administer ed Status:Complete ,Reason:Given or N/A ,NDC [id number] Social History Tobacco Use: Social History Observation Description Date Details (start date - stop date) Never Smoker NA - NA Sex Assigned At : Social History Observation Description Sex Assigned At Female Tobacco Use/Smoking Question Answer Notes Tobacco use: nonsmoker patient enter ed data CAGE-AID Questionnaire (2018 Edition) Question Answer Notes Have you ever felt that you ought to cut down on your drinking or drug use? No patient entered data Have people annoyed you by c riticizing your drinking or drug use? No patient entered data Have you ever felt bad or gu ilty about your drinking or drug use? No patient entered data Have you ever had a drink or used drugs first thing in the morning to steady your nerves or to get rid of a hangover? No patient entered data PRAPARE Question Answer Notes Date Completed/Updated: 12/19/2024 keith nt entered data What is your current housing situation? I have housing patient entered data Are you worried about losing your housing? No patient entered data What is the highest level of school that you have finished? 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 No patient entered arnulfo a How often do you see or talk to people that you care about and feel close to? (For example: talking to friends on the phone, visiting friends or family, going to episcopal or club meetings) 3 to 5 times a week patient entered data How stressed are you? Stress is when someone feels tense, nervous, anxious, or can't sleep at night because their mind is troubled Not at all patient entered data In the past year have you sp ent more than 2 nights in a row in a fpc, senior living, residential center, or juvenile correctional facility? No patient entered arnulfo a Do you feel physically and emotionally safe where you currently live? Yes patient entered data In the past year, have you b een afraid of your partner or ex-partner? No patient entered data Are you a refugee? No patient en tered data What country are you from? [place] darrell dyer entered data Problems Problem Type SNOMED Code ICD Code Onset Dates Problem Status W/U Status Risk Notes Problem Obesity (599118590) Obesity, Class I, BMI 30-34.9 (E66.9) Active confirmed Problem Dyspareunia (09580604) Dyspareunia (625.0) Active confirmed Comment:-Pt's abdominal pain has been going on for 2-3 months, bilateral lower quadrants, nonradiating, intermittent, no worsening factors, no dysuria/dysmeno rrhea, denies constipation, -Pt complaining of dyspareunia cannot recall duration. Did not use condoms with ex boyfriend -Discussed importance of practicing safe sex; explained there are alternatives to latex condoms if worried about allergy lubricants, Problem Candidal urethritis (093970661) Candidal cystitis and urethritis (B37.41) Active confirmed Comment:-Urine dip from today showed +3 leukocytes, no blood, no protein in the urine -Pt has white, thick vaginal disharge; also complaining of vaginal pruritis -Complete course of of bactrim DS, start on 14 day course of fluconazole to cover for possible candidal cystitis -F/u in 2 weeks; if symptoms not improved or worsen; refer pt to Dr. Lay or urology -If symptoms worsen or do not improve, RTO, PVU, Problem Perioral dermatitis (142578107) Perioral dermatitis (L71.0) Active confirmed Comment:Much improved. Finish minocycine course and then f/u as needed for recurrence. Re-emphasized to avoid steroids on the face., Problem Vaccination given (144141263) Encounter for immunization (Z23) Active confirmed Problem Viral pharyngitis (2085390) Viral pharyngitis (J02.9) Active confirmed Comment:-Rapid strep in ER negative; culture was taken, results unknown -Mother was supposed to call for results; instructed to call today; mother verified understanding -Pt is asymptomatic today; is afebrile, no lymphadenopathy , and no exudate or injection -Increase rest and fluids -Take tylenol or ibuprofen prn -F/u if symptoms worsen or do not improve, Problem Eruption of skin (316129368) Rash and nonspecific skin eruption (782.1) (782.1) Active confirmed Comment:14 year 9 month old female here for check of a rash on the face around the nose and on the chin on and off since the summer. Worse lately, has had mild cough few days and is on Robutussin. Strept throat in the past. Rapid Strept negative, Throat culture sent. Advised stop Robutussin and come back after 1 week if rash persiting. 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 Thomas; although no fever/chills; felt appropriate to tx as pyelonephritis for two weeks with her history of recurrent UTIs, hematuria, and flank pain -Start pt on Bactrim -Give pyridium to help with pain -Obtain culture, U/A with microscopy -Recommended ibuprofen/aceta minophen for pain -F/u in 1 week; if symptoms do not improve, worsen, or fever develops, RTO, PVU, Problem Depression screening (931199761) Screening for depression (Z13.31) Active confirmed Description:Dep ression screening Problem Spasm of back muscles (372235273) Back muscle spasm (M62.830) Active confirmed Comment:Spencer rosario has terrible posture and this is likel contributing to muscle pain in the upper and mid back. Advised on proper posture and stretching, also encouraged exercises (as tolerated ) that strenghten the back muscles such as rows. F/u if pain intensifies or changes., Problem Dyspepsia (681669630) Dyspepsia (K30) Active confirmed Comment:-Feel abdominal pain is possibly r/t to either GERD or peptic ulcer -Discussed lifestyle modifications that include avoiding tomato based foods, citrus foods, fatty/greasy foods, eating late at night, laying down after eating, and coffee -Encourage increase in water and fiber -Pepcid has not provided any relief -Start on trial of PPI for 1 month -If symptoms worsen, fever develops rto office, patient and mother verified understanding, Problem Needs influenza immunization (295415855) Flu Shot > 3 yrs old (V04.81) (59345) (V04.81) Active confirmed Problem Noninflammatory disorder of the vagina (18004756) Discharge from the vagina (N89.8) Active confirmed Description:Vag inal Discharge Problem Requires vaccination (601854771) Need for prophylactic vaccination against viral hepatitis (Z23) Active confirmed Description: HEP A Peds/Adolescent 01498 Problem Gastroenteritis (81329170) Gastroenteritis (K52.9) Active confirmed Comment:Melinda ng Advised on clear liquids today BRAT diet tomorrow Mom verbalized understanding, Problem MENACTRA - MENINGOCOCCAL VACCINE (V03.89) 54046 (V03.89) Active confirmed Problem Hypertrophy of vulva (13472056) Labia enlarged (624.3) (624.3) Active confirmed Comment:left side, causes pain, affects self esteem, gets caught in clothing,, Problem BMI (body mass index), pediatric, 5% to less than 85% for age (V85.52) (V85.52) Active confirmed Problem Abdominal pain (87734255) Abdominal pain (R10.9) Active confirmed Comment:in NAD no weight loss from last visit check urine, negative for and UTI. Suspect constipation, start Miralax IF worsening over next few days, will order abd x-ray RTO if not resolving in 5-7 days PVU, Problem Postoperative status (36161329) Post-operative state (V45.89) (V45.89) Active confirmed Comment:s/p left labiaplasty, healing well. Mild swelling pt to continue to keep area clean and dry, no tampon use. To avoid bikeriding for at least another 2 weeks, can walk etc., Problem Constipation (50475435) Constipation (K59.00) Active confirmed Comment:-Chroni c constipation; in NAD -C/w with miralax regularly; will add lactulose to regimen -Increase fluid consumption and fruits and vegetables -Decreased consumption of milk, cheeses, and other dairy -F/u in 3-4 weeks, Problem Pre-procedure evaluation check (043979307) Preoperative clearance (Z01.818) Active confirmed Comment:Low-ris k patient. Clearance is pending EKG, CXR, labs, and anethesia. UA in house today is negative for infection. Forms signed, see attached., Problem Pain in female pelvis (285116137) Pelvic pain in female (R10.2) Active confirmed Comment:std testng pelvic US, Problem Needs influenza immunization (897391308) Flu Shot > 3 yrs old (Non-Medicare) (V04.81) (00115) (V04.81) Active confirmed Problem Urinary tract infectious disease (51318910) UTI (urinary tract infection) (N39.0) Active confirmed Comment:-Is currenlty on macrobid for UTI -Urine was cultured at ER; mother is supposed to call for results; has not yet; -Encouraged to call [facility] lab today to confirm UTI or not and to make sure if has UTI that bacteria is susceptible; mother verified understanding -Complete macrobid -Has hx of recurrent, chronic UTI -Pt is currently asymptomatic and afebrile -F/u after calling [facility] lab and if still symptomatic, Problem Requires vaccination (238747896) Need for immunization against influenza (Z23) Active confirmed Description: Flu vaccine need Problem History and physical examination, pre-employment (395611698) Physical exam, pre-employment (Z02.1) Active confirmed Comment:-Overal l doing well -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 Rapid Strep was negative. 2)Reassured Mom that what she saw was in fact just normal tongue papillae. 3)If any problems to come back PRN. Mom verbalized understanding., Description:FU ER visit for SORE THROAT Problem Exposure to tuberculosis (4419061001827) TB TEST FOR EXPOSURE TO TUBERCULOSIS (V01.1) (V01.1) Active confirmed Problem Adult health examination (071366532) Well adult exam (Z00.00) Active confirmed Comment:patient in overall good health. some recent stress w/ relationship change, 2 young daughters. discussed stress mgmt, provided info on techiques. c/o neck pain, discussed exercises to try, heating pad encouraged to get 3-5 servings vegetables/day, 2-3 of fruit. whole grains. limit added sugars, soda, fast food, energy drinks. keep regular follow-up with dentist screenings: uptodate on PAP. physical form for work started, will hold until Tdap completed., Problem Urinary tract infectious disease (78268304) UTI (lower urinary tract infection) (599.0) (599.0) Active confirmed Comment:> 100 K E.coli on 4th uti, just received bactrim from ER. Pt to be on suppression, Problem Bacteriuria (71592127) ASB (asymptomatic bacteriuria) (R82.71) Active confirmed Description:Asy mptomatic bacteriuria Problem Tuberculosis screening (483782272) Screening examination for pulmonary tuberculosis (Z11.1) Active confirmed Description:SCR EENING FOR PULMONARY TB Problem AV (anaerobic vaginosis) (N76.0) Active confirmed Comment:pt has had recurrent bv infections, recently treated with metrogel in ER, here for follow up repeated swab to make sure it has cleared pt to start probiotics rephresh suppositories prn,Description :Bacterial vaginosis Problem Delayed hypersensitivity skin test for tuberculin purified protein derivative (655563163) Encounter for tuberculin skin test (Z11.1) Active confirmed Description:Tub erculin skin test encounter Problem Microscopic hematuria (130660197) Hematuria, microscopic (R31.29) Active confirmed Comment:urine dips in past and er with blood dip today neg, Problem Viral gastroenteritis (053155018) Viral gastroenteritis (A08.4) Active confirmed Comment:-Start loperamide; discussed not taking more than 8 tablets in one day -Discussed BRAT diet; avoid dairy products and high fat food items -Recommended small, frequent sips of water to avoid dehydration -Discussed signs of dehydration -F/u in 1 week if symptoms worsen or do not improve, Problem Well child visit (523785229) Routine infant or child health check (V20.2) (V20.2) 2007 Active confirmed Comment:Anticip atory guidance provided. Discussed healthy diet and exercise. Discussed needing 2nd Hep A. Dad refused this today, wants to talk this over with his and will schedule a NV if wanting to get this done. All questions answered. Patient and Dad verbalized understanding., Problem Sinusitis (88617491) Sinusitis (J32.9) Active confirmed Comment:-Comple deniz course of amoxicillin -Pt has been feeling a lot better -No current signs or symptoms -If symptoms worsen or return; RTO, PVU, Problem Lower abdominal pain (07538137) Lower abdominal pain (R10.30) Active confirmed Vital Signs Heart Rate 74 /min 12/19/2024 Hugoangie Carole 12/19/2024 08:51:38 AM EDT > Temperature 98.5 degrees Fahrenheit 12/19/2024 Hugo angie Carole 12/19/2024 08:51:38 AM EDT > Respiratory Rate 18 /min 12/19/2024 ShashirashaunAbel adams nessaabraham 12/19/2024 08:51:38 AM EDT > Height-cm 158.75 cm 12/19/2024 Hugoangie Carole 12/19/2024 08:51:38 AM EDT > Oximetry 96 % 12/19/2024 Hugoangie Carole 12/19/2024 08:51:38 AM EDT > Blood pressure diastolic 72 mm Hg 12/19/2024 Kelly acosta Carole 12/19/2024 08:51:38 AM EDT > Weight-kg 86.91 kg 12/19/2024 Steffanie Carole 12/19/2024 08:51:38 AM EDT > Height 62.50 in 12/19/2024 Hugoangie Carole 12/19/2024 08:51:38 AM EDT > Blood pressure systolic 113 mm Hg 12/19/2024 Hugo angie Carole 12/19/2024 08:51:38 AM EDT > Weight 191.6 lbs 12/19/2024 Hugoangie Carole 12/19/2024 08:51:38 AM EDT > BMI 34.48 kg/m2 12/19/2024 Hugoangie Carole 12/19/2024 08:51:38 AM EDT > Encounters Encounter Location Date Provider Diagnosis [facility] [address] [place] [id number] 12/19/2024 Rohini Gorman Screening for toy betes mellitus Z13.1 ; Encounter for screening for HIV Z11.4 ; Encounter for wellness examination in adult Z00.00 ; Screening for cervical cancer Z12.4 ; Encounter for screening for cardiovascular disorders Z13.6 ; Obesity, Class I, BMI 30-34.9 E66.9 ; Dietary counseling Z71.3 and Exercise counseling Z71.82 [address] [id number] 12/19/2024 Rohini Gorman Assessments Encounter Date Diagnosis (ICD Code) Assessment Notes Treatment Notes Treatment Clinical Notes Section Notes 12/19/2024 Screening for diabetes mellitus (ICD-10 - Z13.1) 12/19/2024 Encounter for screening for HIV (ICD-10 - Z11.4) 12/19/2024 Encounter for wellness examination in adult (ICD-10 - Z00.00) Patient is here today to complete a yearly wellness exam. Blood work ordered is explained to the patient as to what we would be screening for and what the blood work specifically looks at. All blood work will be reviewed as it is resulted and then corresponded to the patient either by phone, during a visit, or both. 12/19/2024 Screening for cervical cancer (ICD-10 - Z12.4) 12/19/2024 Encounter for screening for cardiovascular disorders (ICD-10 - Z13.6) 12/19/2024 Obesity, Class I, BMI 30-34.9 (ICD-10 - E66.9) Encoruaged eating a healthy, balanced diet and increasing activity level by engaging in exercise atleast 30 min x atleast 5 days a week. Educational material was provided and patient was encouraged to use the resources to find the best options for a balanced diet. phentermine precrobed by Dr Torres , pt states med helps with weight loss 12/19/2024 Dietary counseling (ICD-10 - Z71.3) 12/19/2024 Exercise counseling (ICD-10 - Z71.82) Plan Of Treatment Pending Test Test Name Order Date LIPID PANEL WITH REFLEX TO DIRECT LDL COMPREHENSIVE METABOLIC PANEL WITH GFR 0 12/19/2024 CBC W/AUTO DIFF 12/19/2024 HIV-1 2 COMBO AG/AB 12/19/2024 Insurance Providers Payer Name Payer Address Payer Phone Subscriber Number Group Number Insured Name Patient Relationship to Insured Coverage Start Date Coverage End Date Dg [facility] [address] [place] [address] [id number] Vicki Gastelum Self - patient is the insured 4 Medicaid CFC after Dg [address] [place] [address] [id number] Vicki Gastelum Self - patient is the insured 4 Medical (General) History Medical History History ICD Code MEDICAL: No history of signi ficant medical diseases, ProblemStatus: Inactive, , No significant history of medical diseas es, ProblemStatus: Active, , Surgical History Surgery Date(Month/Year) labial surgery, ProblemStatus: Active, No previous surgeries, ProblemStatus: In active,
--- OUTSIDE RECORDS SUMMARY | 2025-02-28 09:42 | XMS_ITS | Encounter Summary ---
Author Organization [facility] Address [address] [place] [address] Care Team Providers Care Wild Life Manager Name Role Phone Unavailable Primary Care Provider Unavailabl e Encounter Details Date Type Department Care Team (Late st Contact Info) Description 10/19/2023 Clinisync Result Encounter [facility] External Department Unsolicited Richar Cooney, CNJose [address] [place], [place] [id number] Social History Tobacco Use Types Packs/Day Years [...] PM EDT Office Visit CAMILO CADENA [address] [address] Olivia Blackwell PA [address] [place], [facility] 07/09/2025 2:00 PM EST Office Visit CAMILO CADENA [address] [place] [address] Connor Torres DO [address] Martha Rosario, [facility]11 documented as of this encounter Procedures Procedure Name Priority Date/Time Associated Diagnosis Comments US OB CERVICAL LENGTH 10/19/2023 4:13 AM EDT documented in this encounter Results * US OB CERVICAL LENGTH (10/19/2023 4:13 AM EDT) Anatomical Region Laterality Modality Other 10/19/2023 4:13 AM EDT Narrative 10/19/2023 4:15 [place] [address] Ultrasound Report Signed Patient: JESSICA SMALLS MR#: [id number] : 1995 Acct:[id number] Age/Sex: 28 / F ADM Date: Loc: [facility] 250-[address]: Connor Torres D.O. Ordering Physician: RICHAR COONEY APRN, CNM Date of Service: 10/19/23 Procedure(s): US OB cervical length Accession Number(s): [id number] cc: RICHAR COONEY APRN, CNM; Physician,Non-Staff [address] [place] [address] Patient Name: JESSICA SMALLS MRN: [id number] date: 1995 Sex: F Assigned Patient Location: [facility] Current Patient Location: [facility] Accession/Order Number: [id number] Exam Date: 10/19/2023 01:59 Report Date: 10/19/2023 04:13 At the request of: RICHAR COONEY Procedure: US OB cervical length EXAM: US OB growth, US OB cervical [...] Fluid: 2/2. Total score: 02/01. US/US OB cervical length IMPRESSION: 1. Single living intrauterine gestation in the cephalic presentation. 2. Estimated gestational age: 33 week 2 day, estimated date of delivery 12/05/2023. This is concordant with dating by last menstrual period. 3. Biophysical profile: 02/01. 4. Cervical length: 4.3 cm. 5. Placenta is anteriorly located without signs of placenta previa. Electronically authenticated by: FRAN LEUNG Date: 10/19/2023 04:13 Dictated By: Fran Leung M.D. Signed By: 10/19/23 0415 DD/ 041 TD/TT: Inspector Barrel: Procedure Note Radiology, Radiologist, MD - 10/19/2023 [place] [address] Ultrasound Report Signed Patient: JESSICA SMALLS [facility]#: [id number] : 1995Acct:[id number] Age/Sex: FADM Date: Loc: [facility] 250-[address]: Connor Torres D.O. Ordering Physician: RICHAR COONEY APRN, CNM Date of Service: 10/19/23 Procedure(s): US OB cervical length Accession Number(s): [id number] cc: RICHAR COONEY APRN, CNM; Physician,Non-Staff [place] [address] Patient Name: JESSICA SMALLS MRN: [facility]:[id number] date: 1995 Sex: F Assigned Patient Location: [facility] Current Patient Location: [facility] Accession/Order Number: [id number] Exam Date: 10/19/2023 01:59 Report Date: 10/19/2023 04:13 At the request of: RICHAR COONEY Procedure: US OB cervical length EXAM: US OB growth, US OB cervical [...] Tone: 2/2. Breathin/2. Fluid: 2/2. Total score: 8/8. US/US OB cervical length IMPRESSION: 1. Single living intrauterine gestation in the cephalic presentation. 2. Estimated gestational age: 33 week 2 day, estimated date of delivery 12/05/2023. This is concordant with dating by last menstrual period. 3. Biophysical profile: 02/01. 4. Cervical length: 4.3 cm. 5. Placenta is anteriorly located without signs of placenta previa. Electronically authenticated by: FRAN LEUNG Date: 10/19/2023 04:13 Dictated By: Fran Leung M.D. Signed By:10/19/23 0415 DD/ 0413 TD/TT: Inspector Barrel: us Richar Cooney CNM [facility] Final Resu lt documented in this encounter Visit Diagnoses Not on filedocumented in this encounter
--- OUTSIDE RECORDS SUMMARY | 2025-02-28 09:42 | XMS_ITS | Encounter Summary ---
Author Organization [facility] Address [address] [place] [address] Care Team Providers Care Nc Machinist Name Role Phone Unavailable Primary Care Provider Unavailabl e Encounter Details Date Type Department Care Team (Late st Contact Info) Description 10/19/2023 Clinisync Result Encounter [facility] External Department Unsolicited Richar Cooney, CNJose [address] [facility] [place], [place] [id number] Social History Tobacco Use Types Packs/Day Years [...] PM EDT Office Visit CAMILO CADENA [address] [place] [address] Olivia Blackwell PA [address] [place], [facility] 07/09/2025 2:00 PM EST Office Visit CAMILO CADENA [address] [place] [address] Connor Torres DO [address] [place], [facility] documented as of this encounter Procedures Procedure Name Priority Date/Time Associated Diagnosis Comments US OB PLACENTA 10/19/2023 4:13 AM EDT documented in this encounter Results * US OB PLACENTA (10/19/2023 4:13 AM EDT) Anatomical Region Laterality Modality Other 10/19/2023 4:13 AM EDT Narrative 10/19/2023 4:15 [place] [address] Ultrasound Report Signed Patient: JESSICA SMALLS MR#: [id number] : 1995 Acct:[id number] Age/Sex: 28 / F ADM Date: Loc: [facility] 250-[address]: Connor Torres D.O. Ordering Physician: RICHAR COONEY APRN, CNM Date of Service: 10/19/23 Procedure(s): US OB placenta Accession Number(s): [id number] cc: RICHAR COONEY APRN, CNM; Physician,Non-Staff M.DKuldeep [place] [id number] Patient Name: JESSICA SMALLS MRN: [id number] date: 1995 Sex: F Assigned Patient Location: [facility] Current Patient Location: [facility] Accession/Order Number: [id number] Exam Date: 10/19/2023 01:59 Report Date: 10/19/2023 04:13 At the request of: RICHAR COONEY Procedure: US OB placenta EXAM: US OB growth, US OB cervical [...] Fluid: 2/2. Total score: 02/01. US/US OB placenta IMPRESSION: 1. Single living intrauterine gestation in [...] Leung M.D. Signed By: 10/19/23 0415 DD/ 0413 TD/TT: Highway Engineering Technician: Procedure Note Radiology, Radiologist, MD - 10/19/2023 [place] [address] Ultrasound Report Signed Patient: JESSICA SMALLS [facility]#: [id number] : 1995Acct:[id number] Age/Sex: 28 FADM Date: Loc: [facility] 250-[address]: Connor Torres D.O. Ordering Physician: RICHAR COONEY APRN, CNM Date of Service: 10/19/23 Procedure(s): US OB placenta Accession Number(s): [id number] cc: RICHAR COONEY APRN, CNM; Physician,Non-Staff MBhargavi The [place] [address] Patient Name: JESSICA SMALLS MRN: [facility]:[id number] date: 1995 Sex: F Assigned Patient Location: [facility] Current Patient Location: [facility] Accession/Order Number: [id number] Exam Date: 10/19/2023 01:59 Report Date: 10/19/2023 04:13 At the request of: RICHAR COONEY Procedure: US OB placenta EXAM: US OB growth, US OB cervical [...] Fluid: 2/2. Total score: 8/8. US/US OB placenta IMPRESSION: 1. Single living intrauterine gestation in [...] M.D. Signed By:10/19/23 0415 DD/ 0413 TD/TT: Highway Engineering Technician: us Richar Cooney CNM [facility] Final Resu lt documented in this encounter Visit Diagnoses Not on filedocumented in this encounter
--- OUTSIDE RECORDS SUMMARY | 2025-02-28 09:42 | XMS_ITS | Encounter Summary ---
Author Organization [facility] Address [address] [facility] [place] [address] Care Team Providers Care Cheerleading Coach Name Role Phone Unavailable Primary Care Provider Unavailabl e Encounter Details Date Type Department Care Team (Late st Contact Info) Description 10/21/2023 Clinisync Result Encounter [facility] External Department Unsolicited Karine Torres DO [address] [place], [place] [id number] Social History Tobacco Use Types Packs/Day Years [...] 1:30 PM EDT Office Visit CAMILO CADENA [address] [place] [address] [place] [address] Olivia Blackwell PA [address] [place], [place] [address] 07/09/2025 2:00 PM EST Office Visit CAMILO CADENA [address] [place] [address] Karine Torres DO [address] [place], [place] [id number] documented as of this encounter Procedures Procedure Name Priority Date/Time Associated Diagnosis Comments US OB CERVICAL LENGTH 10/21/2023 12:54 PM EDT documented in this encounter Results * US OB CERVICAL LENGTH (10/21/2023 12:54 PM EDT) Anatomical Region Laterality Modality Other 10/21/2023 12:5 4 PM EDT Narrative 10/21/2023 12:57 [place] [address] Ultrasound Report Signed Patient: JESSICA SMALLS MR#: [id number] : 1995 Acct:[id number] Age/Sex: 28 / F ADM Date: 10/21/23 Loc: US Attending Dr: Karine Torres D.O. Ordering Physician: Karine Torres D.O. Date of Service: 10/21/23 Procedure(s): US OB cervical length Accession Number(s): [id number] cc: Karine Torres D.O.; Physician,Non-Staff M.DKuldeep [place] [id number] Patient Name: JESSICA SMALLS MRN: [id number] date: 1995 Sex: F Assigned Patient Location: US Current Patient Location: US Accession/Order Number: [id number] Exam Date: 10/21/2023 12:00 Report Date: 10/21/2023 12:54 At the request of: KARINE TORRES Procedure: US OB cervical length EXAMINATION: US OB cervical length, US OB [...] 12/08/2023 JORI by EDC: 12/04/2023 US/US OB cervical length IMPRESSION: Nonvisualization of the abdominal cord insertion, otherwise normal anatomy scan Closed cervix measuring 4.5 cm in length. *Reference: [employer] Practice Guideline for the performance of Obstetric Ultrasound Examinations, March 27, 2007. Electronically authenticated by: FADUMO AMARAL Date: 10/21/2023 12:54 Dictated By: Fadumo Amaral M.D. Signed By: 10/21/23 1257 DD/ 1254 TD/TT: Public Service Officer: Procedure Note Radiology, Radiologist, MD - 10/21/2023 [place] [address] Ultrasound Report Signed Patient: JESSICA SMALLS [facility]#: [id number] : 1995Acct:[id number] Age/Sex: FADM Date: 10/21/23 Loc: US Attending Dr: Karine Torres D.O. Ordering Physician: Karine Torres D.O. Date of Service: 10/21/23 Procedure(s): US OB cervical length Accession Number(s): [id number] cc: Karine Torres D.O.; Physician,Non-Staff Sven The [place] [id number] Patient Name: JESSICA SMALLS MRN: [id number] date: 1995 Sex: F Assigned Patient Location: US Current Patient Location: US Accession/Order Number: [id number] Exam Date: 10/21/2023 12:00 Report Date: 10/21/2023 12:54 At the request of: KARINE TORRES Procedure: US OB cervical length EXAMINATION: US OB cervical length, US OB [...] 12/08/2023 JORI by EDC: 12/04/2023 US/US OB cervical length IMPRESSION: Nonvisualization of the abdominal cord insertion, otherwise normal anatomy scan Closed cervix measuring 4.5 cm in length. *Reference: [employer] Practice Guideline for the performance of Obstetric Ultrasound Examinations, March 27, 2007. Electronically authenticated by: FADUMO AMARAL Date: 10/21/2023 12:54 Dictated By: Fadumo Amaral M.D. Signed By:10/21/23 1257 DD/ 1254 TD/TT: Public Service Officer: us Karine Torres DO [facility] Final Result documented in this encounter Visit Diagnoses Not on filedocumented in this encounter
--- OUTSIDE RECORDS SUMMARY | 2025-02-28 09:42 | XMS_ITS | Encounter Summary ---
Author Organization [facility] Address [facility]-[id number] [address] [place] [address] Care Team Providers Care Buckle Wire Inserter Name Role Phone No Pcp, No Pcp Primary Care Provider Unavailabl e Encounter Details Date Type Department Care Team (Late st Contact Info) Description 01/04/2025 Results Follow-Up [facility] [address] [place] [address] Georgi Cotton, [employer] TECHNICIAN-CORPORATE ASSOCIATE [address] [place] [address] Chlamydia/GC by PCR Margaret Swab Social History Tobacco Use Types Packs/Day Years Used Date Smoking Tobacco: Never Smokeless Tobacco: Never Childcare Answer Date Recorded Childcare Unknown 12/04/2018 Employment Answer Date Recorded Employment Unknown 12/04/2018 Hunger Screening Answer Date Recorded Within the past 12 months we worried whether our food would run out before we got money to buy more. Never True 05/28/2024 Within the past 12 months th e food we bought just didn't last and we didn't have money to get more. Never True 05/28/2024 Purpose - Life Answer Date Recorded Purpose and direction in life Unknown Comments No Sex and Gender Information Value Date Recorded Sex Assigned at Not on file Legal Sex Female 12:20 PM EDT Gender Identity Not on file Sexual Orientation Not on file documented as of this encounter Plan of Treatment Not on file documented as of this encounter Visit Diagnoses Not on filedocumented in this encounter Care Teams Buckle Wire Inserter Relationship Specialty Start Date End Date No Pcp, [place] [address] PCP - General Family Medicine 07/16/21 documented as of this encounter
--- OUTSIDE RECORDS SUMMARY | 2025-02-28 09:42 | XMS_ITS | Clinical Summary ---
Author Organization [facility] Address [address] [place] [address] Care Team Providers Care Electrolysist Name Role Phone Unavailable Primary Care Provider Unavailabl e Allergies No known active allergies Medications phentermine (Adipex-P) 37.5 MG tabletIndication s:Encounter for weight management Take 1 tablet (37.5 mg) by mouth in the morning. Take before meals. 30 tablet 11/21/2024 Active phentermine (Adipex-P) 37.5 MG tabletIndication s:Encounter for weight management Take 1 tablet (37.5 mg) by mouth in the morning. Take before meals. 30 tablet 12/19/2024 Active valACYclovir (Valtrex) 500 MG tabletIndication s:Encounter for weight management Take 1 tablet (500 mg) by mouth Daily 30 tablet 01/16/2025 Active phentermine (Adipex-P) 37.5 MG tabletIndication s:Encounter for weight management Take 1 tablet (37.5 mg) by mouth in the morning. Take before meals. 90 tablet 01/16/2025 Active Encounters Date Type Department Care Team Description 01/16/2025 2:30 [place] [address] Olivia Blackwell PA Encounter for weight management 01/16/2025 [place] [address] Olivia Blackwell PA 12/19/2024 1:30 [place] [address] Olivia Blackwell PA Encounter for weight management 12/19/2024 Bamboo flowsheet NOMYaneth CADENA [address] [address] Olivia Blackwell PA from Last 3 Months Family History Medical History Relation Name Comments Diabetes Father Hyperlipidemia Father heart stents Father Arthritis Mother Heart murmur Mother Neuropathy Mother Osteopenia Mother Breast cancer Mother's Sister Cervical cancer Mother's Sister ADD / ADHD Other Autism Other Cervical cancer Other Heart failure Other Hyperlipidemia Other heart stents Other pacemaker Other Breast cancer Paternal Grandmother Relation Name Status Comments Father Mother Mother's Sister Other Paternal Grandmother Social History Tobacco Use Types Packs/Day Years Used Date Smoking Tobacco: Never Assessed Comments Unknown Sex and Gender Information Value Date Recorded Sex Assigned at Not on file Legal Sex Female 11:47 PM EDT Gender Identity Not on file Sexual Orientation Not on file Last Filed Vital Signs Vital Sign Reading Time Taken Comments Blood Pressure 116/74 01/16/2025 2:40 PM EDT Pulse - - Temperature - - Respiratory Rate - - Oxygen Saturation - - Inhaled Oxygen Concentration - - Weight 83.6 kg (184 lb 6.4 oz) 01/16/2025 2:40 P M EDT Height 160 cm (5' 3 ) 11/21/2024 2:44 PM EDT Body Mass Index 32.66 11/21/2024 2:44 PM EDT Plan of Treatment Upcoming Encounters Date Type Department Care Team (Late st Contact Info) Description 04/10/2025 1:30 PM EDT Office Visit CAMILO CADENA [address] [place] [address] [place] [address] Olivia Blackwell PA [address] [facility] [address] [place], [place] [phone] 07/09/2025 2:00 PM EST Office Visit CAMILO CADENA [address] [place] [address] Connor Torres DO [address] [facility] [place] [address] Insurance [employer]
--- OUTSIDE RECORDS SUMMARY | 2025-02-28 09:42 | XMS_ITS | Clinical Summary ---
Author Organization [facility] Address [facility]-[id number] [address] [place] [address] Care Team Providers Care Instruction Dean Name Role Phone No Pcp, No Pcp Primary Care Provider Unavailabl e Allergies No known active allergies Medications ondansetron ODT (ZOFRAN-ODT) 4 mg disintegrating tablet Dissolve 4 mg on tongue every 8 (eight) hours as needed for nausea or vomiting. Active valACYclovir (VALTREX) 500 mg tablet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 6 tablet 01/04/20 25 Active Additional Information Patient not taking.Reported on 02/02/2025 phentermine (ADIPEX-P) 37.5 mg tablet Take 1 tablet (37.5 mg total) by mouth every morning before breakfast. TAKE 1 TABLET (37.5 MG) BY MOUTH IN THE MORNING TAKE BEFORE MEALS 01/17/20 25 025 Active metroNIDAZOLE (FLAGYL) 500 mg tabletIndications: Bacterial vaginosis Take 1 tablet (500 mg total) by mouth 3 (three) times a day for 7 days. 21 tablet 02/04/20 25 025 Active Problems No known active problems Encounters Date Type Department Care Team Description 02/03/2025 Orders Only [facility] [address] [phone] Georgi Cotton APRN-CNP Bacterial vaginosis (Primary Dx) 02/03/2025 Results Follow-Up [facility] [address] [address] Georgi Cotton, STRUCTURAL IRON ERECTOR-INVENTORY CONTROL SPECIALIST Vaginitis Panel PCR, Chlamydia/GC by PCR Margraet Swab 02/02/2025 1:05 PM EDT Office Visit [facility] [address] [phone] Georgi Cotton, STRUCTURAL IRON ERECTOR-INVENTORY CONTROL SPECIALIST Vaginal discharge (Primary Dx) 02/02/2025 Travel 01/04/2025 Results Follow[facility] [address] [phone] Georgi Cotton, STRUCTURAL IRON ERECTOR-INVENTORY CONTROL SPECIALIST Chlamydia/GC by PCR Margaret Swab 01/04/2025 Orders Only [facility] [address] [phone] Georgi Cotton, STRUCTURAL IRON ERECTOR-INVENTORY CONTROL SPECIALIST Bacterial vaginosis (Primary Dx); Trichomonas vaginitis; Vaginal yeast infection 01/03/2025 8:25 AM EDT [facility] [address] [phone] Olivia Clements, STRUCTURAL IRON ERECTOR-INVENTORY CONTROL SPECIALIST Vaginal discharge (Primary Dx); Herpes simplex infection of perianal skin from Last 3 Months Family History Medical History Relation Name Comments Bleeding Disorder Mother Autism Other Cancer Other Depression Other Relation Name Status Comments Mother Other Social History Tobacco Use Types Packs/Day Years Used Date Smoking Tobacco: Never Smokeless Tobacco: Never Tobacco Cessation:Counseling Given: Not Answered Childcare Answer Date Recorded Childcare Unknown 12/04/2018 [...] Sign Reading Time Taken Comments Blood Pressure 132/69 02/02/2025 1:19 PM EDT Pulse 78 02/02/2025 1:19 PM EDT Temperature 36.6 C (97.9 F) 02/02/2025 1:19 PM EDT Respiratory Rate 18 02/02/2025 1:19 PM EDT Oxygen Saturation 100% 02/02/2025 1:19 PM EDT Inhaled Oxygen Concentration - - Weight 85.7 kg (189 lb) 02/02/2025 1:19 PM EDT Height 160 cm (5' 3 ) 05/28/2024 3:35 PM EST Body Mass Index 33.48 05/28/2024 3:35 PM EST Plan of Treatment Health Maintenance Due Date Last Done Comments Depression Screening 2009 Adult BMI Follow Up Plan 2015 Pap Smear 2018 Influenza Vaccine 02/25/2025 04/22/2015, , 04/25/2013, Additional history exists Adult BMI Screening 02/02/2026 02/02/2025 Tobacco Screening 02/02/2026 02/02/2025 DTaP,Tdap and Td Vaccines (1 1 - Td or Tdap) 09/05/2033 09/06/2023, 06/25/2020, 07/07/2019, Additional history exists Medical Devices Not on file Procedures Procedure Name Priority Date/Time Associated Diagnosis Comments CHLAMYDIA/GC BY PCR MARGARET SWAB Routine 02/02/2025 2:12 PM EDT Vaginal discharge VAGINITIS PANEL PCR Routine 02/02/2025 2 :12 PM EDT Vaginal discharge CHLAMYDIA/GC BY PCR MARGARET SWAB Routine 01/03/2025 8:57 AM EDT Vaginal discharge VAGINITIS PANEL PCR Routine 01/03/2025 8 :57 AM EDT Vaginal discharge from Last 3 Months Results * Chlamydia/GC by PCR Margaret Swab (02/02/2025 2:12 PM EDT) Only the most recent of2 resultswithin the time period is included. CHLAMYDIA DNA(PCR) Negative Negative 02/04/2025 12:45 PM EDT [facility] Comment:Chlamydia trachomati s not detected by nucleic acid amplification. This does not exclude the possibility of infection because results are dependent on adequate specimen collection. GONORRHOEAE DNA(PCR) Negative Negative 02/04/2025 12:45 PM EDT [facility] Comment:Neisseria gonorrhoea e not detected by nucleic acid amplification. This does not exclude the possibility of infection because results are dependent on adequate specimen collection. Swab Vaginal structure / Unknown 02/02/2025 2:12 PM EDT 02/02/2025 2:12 PM EDT Georgi Cotton STRUCTURAL IRON ERECTOR-INVENTORY CONTROL SPECIALIST MICROBIOLOGY - GENER AL ORDERABLES Final Result [facility] [address] [place] [address], * (ABNORMAL) Vaginitis Panel PCR (02/02/2025 2:12 PM EDT) Only the most recent of2 resultswithin the time period is included. [facility] BACT. VAGINOSIS DNA Detected(A) Not Detected 02/03/2025 11:21 AM EDT [facility] Comment:Qualitative results are reported based on detection and quantitation of targeted organism markers which include: Lactobacillus spp. (L. crispatus and L. jensenii), Gardnerella vaginalis, Atopobium vaginae, Bacterial Vaginosis Associated Bacteria-2 (BVAB-2) and Megasphaera-1. WHIT SPECIES DNA Not Detected Not Detected 02/03/2025 11:21 AM EDT [facility] Comment:Whit species not detected include: C. albicans, C. tropicalis, C. parapsilosis or C. dubliniensis. WHIT KRUSEI DNA Not Detected Not Detected 02/03/2025 11:21 AM EDT [facility] Comment:No Whit krusei de tected. WHIT GLABRATA DNA Not Detected Not Detected 02/03/2025 11:21 AM EDT [facility] Comment:No Whit glabrata detected. TRICHOMONAS VAG DNA Not Detected Not Detected 02/03/2025 11:21 AM EDT [facility] Comment: No Trichomonas vaginalis detected. BD MAX Vaginal Panel has not been evaluated for patients under 18 years old. Results for these patients should be reviewed and assessed in accordance with clinical presentation to determine patient diagnosis. Swab Vaginal structure / Unknown 02/02/2025 2:12 PM EDT 02/02/2025 2:12 PM EDT us Georgi Cotton STRUCTURAL IRON ERECTOR-INVENTORY CONTROL SPECIALIST MICROBIOLOGY - GENER AL ORDERABLES Final Result [facility] [address] [place] [address], from Last 3 Months Insurance [employer] Care Teams Instruction Dean Relationship Specialty Start Date End Date No Pcp, [place] [address] PCP - General Family Medicine 07/16/21
--- OUTSIDE RECORDS SUMMARY | 2025-02-28 09:42 | XMS_ITS | Encounter Summary ---
Author Organization [facility] Address [address] [place] [address] Care Team Providers Care Director Database Name Role Phone Unavailable Primary Care Provider Unavailabl e Encounter Details Date Type Department Care Team (Late st Contact Info) Description 11/27/2023 Abstract NOMYaneth CADENA [address] [address] Modesta Grimaldo LPN Social History Tobacco Use Types Packs/Day Years [...] PM EDT Office Visit CAMILO CADENA [address] [place] [address] Olivia Blackwell PA [address] [facility] [address] [place], [facility] 07/09/2025 2:00 PM EST Office Visit CAMILO CADENA [address] [place] [address] Connor Torres DO [address] [facility] [place] [address] documented as of this encounter Visit Diagnoses Not on filedocumented in this encounter
--- OUTSIDE RECORDS SUMMARY | 2025-02-28 09:42 | XMS_ITS | Encounter Summary ---
Author Organization [facility] Address [address] [place] [address] Care Team Providers Care Process Stripper Name Role Phone Unavailable Primary Care Provider Unavailabl e Encounter Details Date Type Department Care Team (Late st Contact Info) Description 10/19/2023 Clinisync Result Encounter [facility] External Department Unsolicited Richar Cooney, CNJose [address] [place], [place] [id number] Social History Tobacco Use Types Packs/Day Years [...] PM EDT Office Visit CAMILO CADENA [address] [place] [address] Olivia Blackwell PA [address] [place], [facility] [address] 07/09/2025 2:00 PM EST Office Visit CAMILO CADENA [address] [place] [address] Connor Torres DO [address] [facility] [facility] [address] Martha [place], [facility] [address] documented as of this encounter Procedures Procedure Name Priority Date/Time Associated Diagnosis Comments US OB GROWTH 10/19/2023 4:13 AM EDT HBSAG SCREEN Routine 10/19/2023 1:33 AM EDT RAPID PLASMA REAGIN, QUANT Routine 10/19/2023 1:33 AM EDT HIV AB/P24 AG WITH REFLEX Routine 10/19/2023 1:33 AM EDT HCV ANTIBODY RFX TO QUANT PCR Routine 10/19/2023 1:33 AM EDT ALL RUBELLA IGG AB Routine 10/19/2023 1: 33 AM EDT documented in this encounter Results * US OB GROWTH (10/19/2023 4:13 AM EDT) Anatomical Region Laterality Modality Other 10/19/2023 4:1 3 AM EDT Narrative 10/19/2023 4:16 [place] [address] Ultrasound Report Signed Patient: JESSICA SMALLS MR#: [id number] : 1995 Acct:[id number] Age/Sex: 28 / F ADM Date: Loc: [facility] Attending Dr: Connor Torres D.O. Ordering Physician: RICHAR COONEY APRN, CNM Date of Service: 10/19/23 Procedure(s): US OB growth Accession Number(s): [id number] cc: RICHAR COONEY APRN, CNM; Physician,Non-Staff M.D. [place] [address] Patient Name: JESSICA SMALLS MRN: [id number] date: 1995 Sex: F Assigned Patient Location: [facility] Current Patient Location: [facility] Accession/Order Number: [id number] Exam Date: 10/19/2023 01:59 Report Date: 10/19/2023 04:13 At the request of: RICHAR COONEY Procedure: US OB growth EXAM: US OB growth, US OB cervical [...] Fluid: 2/2. Total score: 8/8. US/US OB growth IMPRESSION: 1. Single living intrauterine gestation in the cephalic presentation. 2. Estimated gestational age: 33 week 2 day, estimated date of delivery 12/05/2023. This is concordant with dating by last menstrual period. 3. Biophysical profile: 8. 4. Cervical length: 4.3 cm. 5. Placenta is anteriorly located without signs of placenta previa. Electronically authenticated by: FRAN LEUNG Date: 10/19/2023 04:13 Dictated By: Fran Leung M.D. Signed By: 10/19/23 0416 DD/ 0413 TD/TT: A/C Technician: Procedure Note Radiology, Radiologist, - 10/19/2023 [place] [address] Ultrasound Report Signed Patient: JESSICA SMALLS [facility]#: [id number] : 1995Acct:[id number] Age/Sex: 28 / FADM Date: Loc: [facility] [address]: Connor Torres D.O. Ordering Physician: RICHAR COONEY APRN, CNM Date of Service: 10/19/23 Procedure(s): US OB growth Accession Number(s): [id number] cc: RICHAR COONEY APRN, CNM; Physician,Non-Staff M.[place] [id number] Patient Name: JESSICA SMALLS MRN: [id number] date: 1995 Sex: F Assigned Patient Location: [facility] Current Patient Location: [facility] Accession/Order Number: [id number] Exam Date: 10/19/2023 01:59 Report Date: 10/19/2023 04:13 At the request of: RICHAR COONEY Procedure: US OB growth EXAM: US OB growth, US OB cervical [...] Fluid: 2/2. Total score: 02/01. US/US OB growth IMPRESSION: 1. Single living intrauterine gestation in [...] 04:13 Dictated By: Fran Leung M.D. Signed By:10/19/23415 DD/ 2 TD/TT: A/C Technician: Richar Cooney CNM [facility] Final Resu lt * HBSAG SCREEN (10/19/2023 1:33 AM EDT) Pathologist [facility] HBSAG SCREEN Negative Negative [facility] Comment: Performed at: - [place] [id number] Rn Pediatric Icu: Martínez Presley PhD, Phone: [phone] 10/19/2023 1:33 AM EDT 10/19/2023 1:38 AM EDT Narrative [facility] 10/20/2023 12:09 PM EDT Richar BOOGIE LAB BLOOD ORDERABLES Final R esult [facility] * RAPID PLASMA REAGIN, QUANT (10/19/2023 1:33 AM EDT) Pathologist [facility] RAPID PLASMA REAGIN, QUANT Non Reactive NonRea<1: 1 titer [facility] Comment: Please Note: This test does not meet current guidelines for screening and diagnosis of syphilis. This test is intended for following treatment response in patients being treated for syphilis infection. To screen for syphilis infection, a reflex cascade that includes both RPR and a treponema-specific assay should be utilized, such as Treponema pallidum (Syphilis) Screening [place] (257255) or Rapid Plasma Reagin (RPR) Test With Reflex to Quantitative RPR and Confirmatory Treponema pallidum Antibodies (820815). Performed at: [address] [id number] Rn Pediatric Icu: Martínez Presley PhD, Phone: [phone] 10/19/2023 1:33 AM EDT 10/19/2023 1:38 AM EDT Narrative [facility] - 10/20/2023 12:09 PM EDT [facility] BLOOD ORDERABLES Final R esult Performing Organization Address City/[facility]/ZIP Co de Phone Number [facility] TB * HCV ANTIBODY RFX TO QUANT PCR (10/19/2023 1:33 AM EDT) HCV AB Non Reactive Non Reactive [facility] INTERPRETATION: Comment . [facility] Comment: Not infected with HCV unless early or acute infection is suspected (which may be delayed in an immunocompromised individual), or other evidence exists to indicate HCV infection. 10/19/2023 1:33 AM EDT 10/19/2023 1:38 AM EDT Narrative [facility] - 10/20/2023 12:09 PM EDT [employer] [facility] LAB BLOOD ORDERABLES Final R esult Performing Organization Address City/[facility]/ZIP Co de Phone Number [facility] * HIV AB/P24 AG WITH REFLEX (10/19/2023 1:33 AM EDT) HIV AB/P24 AG SCREEN Non Reactive Non Reactive [facility] Comment: HIV Negative HIV-1/HIV-2 antibodies and HIV-1 p24 antigen were NOT detected. There is no laboratory evidence of HIV infection. Performed at: [address] [id number] Rn Pediatric Icu: Martínez Presley PhD, Phone: [phone] 10/19/2023 1:33 AM EDT 10/19/2023 1:38 AM EDT Narrative [facility] - 10/20/2023 12:09 PM EDT us Richar Cooney CNM LAB BLOOD ORDERABLES Final R esult Performing Organization Address [facility] Co de Phone Number [facility] * (ABNORMAL) ALL RUBELLA IGG AB (10/19/2023 1:33 AM EDT) RUBELLA ANTIBODIES, IGG 0.96(A) Immune >0.99 index [facility] Comment: A second sample should be collected and tested no less than 2-4 weeks. Non-immune <0.90 Equivocal 0.90 - 0.99 Immune >0.99 Performed at: [facility] [address] [id number] Rn Pediatric Icu: Martínez Presley PhD, Phone: [phone] 10/19/2023 1:33 AM EDT 10/19/2023 1:38 AM EDT Narrative [facility] - 10/20/2023 12:09 PM EDT us Richar Cooney CNM [facility] Final Result Performing Organization Address City/[facility]/ZIP Co de Phone Number [facility] documented in this encounter Visit Diagnoses Not on filedocumented in this encounter
--- OUTSIDE RECORDS SUMMARY | 2025-02-28 09:42 | XMS_ITS | Encounter Summary ---
Author Organization [facility] Address [id number] [address] [place] [address] Care Team Providers Care Senior Receptionist Name Role Phone No Pcp, No Pcp Primary Care Provider Unavailabl e Encounter Details Date Type Department Care Team (Late st Contact Info) Description 02/03/2025 Results Follow-Up [facility] [address] [place] [address] Georgi Cotton, HADOOP DEVELOPER-BACK HOE OPERATOR [address] [place] [address] Vaginitis Panel PCR, Chlamydia/GC by PCR Margaret Swab Social History [...] on filedocumented in this encounter Care Teams Senior Receptionist Relationship Specialty Start Date End Date No Pcp, [place] [address] PCP - General Family Medicine 07/16/21 documented as of this encounter
--- OUTSIDE RECORDS SUMMARY | 2025-02-28 09:42 | XMS_ITS | Encounter Summary ---
Author Organization [facility] Address [address] [facility] [place] [address] Care Team Providers Care Log Buyer Name Role Phone Unavailable Primary Care Provider Unavailabl e Encounter Details Date Type Department Care Team (Late st Contact Info) Description 11/24/2023 Abstract NOMYaneth CADENA [address] [place] [address] [place] [address] Connor Torres DO [address] [facility] [address] Martha o[place], [facility]11 Social History Tobacco Use Types Packs/Day [...] 1:30 PM EDT Office Visit CAMILO CADENA [address] [place] [address] [place] [address] Olivia Blackwell PA [address] [facility] [address] [place], [facility]11 07/09/2025 2:00 PM EST Office Visit CAMILO CADENA [address] [place] [address] [place] [address] Connor Torres DO [address] [place], [place] [id number] documented as of this encounter Visit Diagnoses Not on filedocumented in this encounter
--- OUTSIDE RECORDS SUMMARY | 2025-02-28 09:42 | XMS_ITS | Clinical Summary ---
Author Organization [facility] Address [address] [place] [address] Care Team Providers Care Cat Swamper Name Role Phone Unavailable Primary Care Provider Unavailabl e Medications No known medications Social History Tobacco Use Types Packs/Day Years Used Date Smoking Tobacco: Never Alcohol Use Standard Drinks/Week Comments Not Currently 0 (1 standard drink = 0.6 oz pur e alcohol) Comments Yes Sex and Gender Information Value Date Recorded Sex Assigned at Not on file Legal Sex Female 8:49 PM EDT Gender Identity Not on file Sexual Orientation Not on file Last Filed Vital Signs Vital Sign Reading Time Taken Comments Blood Pressure 114/58 02/02/2021 9:37 PM EDT Pulse 65 02/02/2021 9:37 PM EDT Temperature 36.7 C (98.1 F) 02/02/2021 9:37 PM EDT Respiratory Rate 20 02/02/2021 9:37 PM EDT Oxygen Saturation 100% 02/02/2021 9:37 PM EDT Inhaled Oxygen Concentration - - Weight 72.6 kg (160 lb) 02/02/2021 9:37 PM EDT Height 160 cm (5' 3 ) 02/02/2021 9:37 PM EDT Body Mass Index 28.34 02/02/2021 9:37 PM EDT Plan of Treatment Not on file Insurance [employer]
--- OUTSIDE RECORDS SUMMARY | 2025-02-28 09:42 | XMS_ITS | Encounter Summary ---
Author Organization [facility] Address [address] [facility] [place] [address] Care Team Providers Care Director Of Clinical Applications Name Role Phone Unavailable Primary Care Provider Unavailabl e Encounter Details Date Type Department Care Team (Late st Contact Info) Description 11/24/2023 Abstract NOMYaneth CADENA [address] [place] [address] [place] [address] Connor Torres DO [address] [facility] [address] Martha [place], [facility]11 Social History Tobacco Use Types Packs/Day [...] 1:30 PM EDT Office Visit CAMILO CADENA [address] [place] [address] [place] [address] Olivia Blackwell PA [address] [facility] [address] [place], [facility]11 07/09/2025 2:00 PM EST Office Visit CAMILO CADENA [address] [place] [address] [place] [address] Connor Torres DO [address] [place], [place] [id number] documented as of this encounter Visit Diagnoses Not on filedocumented in this encounter
--- OUTSIDE RECORDS SUMMARY | 2025-02-28 09:42 | XMS_ITS | Encounter Summary ---
Author Organization [facility] Address [address] [facility] [place] [address] Care Team Providers Care Ammonia Distiller Name Role Phone Unavailable Primary Care Provider Unavailabl e Encounter Details Date Type Department Care Team (Late st Contact Info) Description 07/16/2024 Orders Only NOMYaneth CADENA [address] [facility] [place] [address] Yessenia Chi LPN [address] [facility] Martha [place], [facility]11 Social History Tobacco Use Types Packs/Day [...] PM EDT Office Visit CAMILO CADENA [address] [facility] [place] [address] Olivia Blackwell PA [address] [facility] [address] [place], [facility]11 07/09/2025 2:00 PM EST Office Visit CAMILO CADENA [address] [facility] [place] [address] Connor Torres DO [address] [facility] [address] Martha [place], [place] [id number] documented as of this encounter Procedures Procedure Name Priority Date/Time Associated Diagnosis Comments PAP SMEAR Routine 07/04/2024 12:00 AM EST documented in this encounter Results * Pap Smear (07/04/2024 12:00 AM EST) Swab Cervical swab / Unknown us Melissa Nurse [facility] LAB CYTOLOGY ORDERABLES Final Result EXTERNAL LAB documented in this encounter Visit Diagnoses Not on filedocumented in this encounter
--- NOTE | 2025-02-28 09:47 | PC.NURSE ---
pt reports heaving bleeding, ER DR offers a pelvic exam and pt then states no, i'm not bleeding that bad .
--- OUTSIDE RECORDS SUMMARY | 2025-02-28 09:49 | XMS_ITS | CCD ---
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 (Bld) [Volume fraction] 41.9 % 36 - 46 % [facility] Hemoglobin (Bld) [Mass/Vol] 14.3 g/dL 12.0 - 16.0 g/dL [facility] Interpretation and review of laboratory results Abnormal [facility] Lymphocytes/100 WBC (Bld) 18 % Low 24 - 44 % [facility] Lymphocytes/100 WBC (Bld) 1.50 % [facility] MCH (RBC) [Entitic mass] 29.5 pg 26 - 34 pg [facility] MCHC (RBC) [Mass/Vol] 34.0 g/dL 31 - 37 g/dL B on [facility] MCV (RBC) [Entitic vol] 86.8 fL 80 - 100 fL [facility] Monocytes/100 WBC (Bld) 8 % High 1 - 7 % [facility] Monocytes/100 WBC (Bld) 0.70 % [facility] Neutrophils/100 WBC (Bld) 72 % High 36 - 66 % [facility] Platelet mean volume (Bld) [Entitic vol] 7.5 fL 6.0 - 12.0 fL [facility] Platelets (Bld) [#/Vol] 210 10*3/uL [facility] RBC (Bld) [#/Vol] 4.82 10*6/uL 4.0 - 5.2 m/uL B on [facility] Segmented neutrophils/100 WBC (Bld) 5.90 % [facility] WBC other (Bld) [#/Vol] 8.3 [facility] CBC with Diffon 07-19-2024 Abs. Basophil 0.00 k/uL Normal 0.0-0.2 [facility] Comment on above: Performed By: #### TEA ARGUELLES, CDP #### [facility] [address] [facility] [place] [address] Home Based Assistant: Travis Eduardo DO Abs.Neutrophil (Seg) 5.90 k/uL Normal 1.3-9.1 [facility] Comment on above: Performed By: #### TEA ARGUELLES, CDP #### [facility] [address] [place] [address] Home Based Assistant: Travis Eduardo DO Basophils/100 WBC (Bld) 0 % Normal 0-2 [facility] Comment on above: Performed By: #### TEA ARGUELLES, MONICA #### [facility] [address] [place] [address]. [place] [address] Home Based Assistant: Travis Eduardo DO Eosinophils (Bld) [#/Vol] 0.20 10*3/uL Normal 0.0-0.4 [facility] Comment on above: Performed By: #### TEA ARGUELLES, MONICA #### [facility] [place] [address] Home Based Assistant: Travis Eduardo DO Eosinophils/100 WBC (Bld) 2 % Normal 0-4 [facility] Comment on above: Performed By: #### TEA ARGUELLES, CDP #### [facility]0 [place] [address] Home Based Assistant: Travis Eduardo DO Erythrocyte distribution width (RBC) [Ratio] 14.1 % Normal 11.5-14.9 [facility] Comment on above: Performed By: #### TEA ARGUELLES, CDP #### [facility] [address] [place] [address] Home Based Assistant: Travis Eduardo DO Hematocrit (Bld) [Volume fraction] 41.9 % Normal 36-46 [facility] Comment on above: Performed By: #### TEA ARGUELLES, CDP #### [facility]0 [place] [address] Home Based Assistant: Travis Eduardo DO Hemoglobin (Bld) [Mass/Vol] 14.3 g/dL Normal 12.0-16.0 [facility] Comment on above: Performed By: #### TEA ARGUELLES, CDP #### [facility] [place] [address] Home Based Assistant: Travis Eduardo DO Lymphocytes (Bld) [#/Vol] 1.50 10*3/uL Normal 1.0-4.8 [facility] Comment on above: Performed By: #### TEA ARGUELLES, CDP #### [facility] [address] [place] [address] Home Based Assistant: Travis Eduardo DO Lymphocytes/100 WBC (Bld) 18 % Low 24-44 [facility] Comment on above: Performed By: #### TEA ARGUELLES, CDP #### [facility] [address] [place] [address] Home Based Assistant: Travis Eduardo DO MCH (RBC) [Entitic mass] 29.5 pg Normal 26-34 [facility] Comment on above: Performed By: #### TEA ARGUELLES, CDP #### [facility] [place] [address] Home Based Assistant: Travis Eduardo DO MCHC (RBC) [Mass/Vol] 34.0 g/dL Normal 31-37 [facility] Comment on above: Performed By: #### TEA ARGUELLES, CDP #### [facility] [address] [place] [address] Home Based Assistant: Travis Eduardo DO MCV (RBC) [Entitic vol] 86.8 fL Normal 80-100 [facility] Comment on above: Performed By: #### H TEA MATOS, CDP #### [facility] [address] [place] [address] Home Based Assistant: Travis Eduardo DO Monocytes (Bld) [#/Vol] 0.70 10*3/uL Normal 0.1-1.3 [facility] Comment on above: Performed By: #### H TEA MATOS, CDP #### [facility] [place] [address] Home Based Assistant: Travis Eduardo DO Monocytes/100 WBC (Bld) 8 % High 1-7 [facility] Comment on above: Performed By: #### TEA ARGUELLES, CDP #### [facility] [address] [place] [address]. [place] [address] Home Based Assistant: Travis Eduardo DO Neutrophil (Seg) 72 % High 36-66 [facility] Comment on above: Performed By: #### H TEA MATOS, CDP #### [facility] [address] [place] [address] Home Based Assistant: Travis Eduardo DO Platelet mean volume (Bld) [Entitic vol] 7.5 fL Normal 6.0-12.0 [facility] Comment on above: Performed By: #### H TEA MATOS, CDP #### [facility] [place] [address] Home Based Assistant: Travis Eduardo DO Platelets (Bld) [#/Vol] 210 10*3/uL Normal 150-450 [facility] Comment on above: Performed By: #### H TEA MATOS, CDP #### [facility] [address] [place] [address] Home Based Assistant: Travis Eduardo DO RBC (Bld) [#/Vol] 4.82 10*6/uL Normal 4.0-5.2 [facility] Comment on above: Performed By: #### H TEA MATOS, CDP #### [facility] [address] [place] [address] Home Based Assistant: Travis Eduardo DO WBC (Bld) [#/Vol] 8.3 10*3/uL Normal 3.5-11.0 [facility] Comment on above: Performed By: #### H TEA MATOS, CDP #### [facility] [address] [facility] [place] [address] Home Based Assistant: Travis Eduardo DO HCG Qualitative, Serumon HCG ( test) Ql Negative NEGATIVE [facility] Comment on above: Specimens with hCG l evels near the threshold of the test (25 mIU/mL) may give a negative or indeterminate result. In such cases, another test should be performed with a new specimen in 48-72 hours. If early is suspected clinically in this setting, correlation with quantitative serum b-hCG level is suggested. [facility] HCG Screen, Bloodon 07-19-19 25 HCG Screen, Blood Negative Normal NEG [facility] Comment on above: Result Comment: Spec imens with hCG levels near the threshold of the test (25 mIU/mL) may give a negative or indeterminate result. In such cases, another test should be performed with a new specimen in 48-72 hours. If early is suspected clinically in this setting, correlation with quantitative serum b-hCG level is suggested. Performed By: #### H TEA MATOS, CDP #### [facility] [address] [facility] [place] [address] Home Based Assistant: Travis Eduardo DO Microscopic Urinalysison Bacteria LM Ql (Urine sed) None None [facility] Casts LM.LPF (Urine sed) [#/Area] 0 TO 2 Abnormal None /LPF [facility] Epithelial cells LM.HPF (Urine sed) [#/Area] 0 TO 2 /HPF [facility] Interpretation and review of laboratory results Abnormal [facility] RBC LM.HPF (Urine sed) [#/Area] 10 TO 20 Abnormal 0 TO 2 /HPF [facility] WBC LM.HPF (Urine sed) [#/Area] 0 TO 2 Abnormal 0 TO 5 /HPF [facility] UA w/Reflex Cultureon 2024 Bilirubin, SemiQt,Ur Negative Normal NEG [facility] Comment on above: Performed By: #### U ANA COCHRAN #### [facility] [address] [place] [address] Home Based Assistant: Travis Eduardo DO Blood, Urine SMALL Abnormal NEG [facility] Comment on above: Performed By: #### U ANA COCHRAN #### [facility] [address] [place] [address] Home Based Assistant: Travis Eduardo DO Clarity (U) Clear Normal CLEAR [facility] Comment on above: Performed By: #### U ANA COCHRAN #### [facility] [address] [place] [address] Home Based Assistant: Travis Eduardo DO Color (U) Yellow Normal YEL [facility] Comment on above: Performed By: #### U ANA COCHRAN #### [facility] [address] [place] [address] Home Based Assistant: Travis Eduardo DO Glucose Ql (U) Negative Normal NEG [facility] Comment on above: Performed By: #### U ANA COCHRAN #### [facility] [address] [place] [address] Home Based Assistant: Travis Eduardo DO Ketones Ql (U) Negative Normal NEG [facility] Comment on above: Performed By: #### U AXANA #### [facility] [address] [facility] [place] [address] Home Based Assistant: Travis Eduardo DO Leukocyte esterase Test strip Ql (U) Negative Normal NEG [facility] Comment on above: Performed By: #### U AXANA #### [facility] [place] [address] Home Based Assistant: Travis Eduardo DO Nitrite,Ur Negative Normal NEG [facility] Comment on above: Performed By: #### U AXANA #### [facility] [address] [place] [address] Home Based Assistant: Travis Eduardo DO PH,Ur 6.5 Normal 5.0-8.0 [facility] Comment on above: Performed By: #### U AXANA #### [facility] [place] [address] Home Based Assistant: Travis Eduardo DO Protein Ql (U) Negative Normal NEG [facility] Comment on above: Performed By: #### U AX UMKEENANO #### [facility] [address] [place] [address] Home Based Assistant: Travis Eduardo DO Spec. [place],Ur 1.022 Normal 1.000-1.[address] [facility] Comment on above: Performed By: #### U AXANA #### [facility] [place] [address] Home Based Assistant: Travis Eduardo DO Urobilinogen,Ur Normal Normal 0.0-1.0 [facility] Comment on above: Performed By: #### U AXANA #### [facility] [address] [place] [address] Home Based Assistant: Travis Eduardo DO Urinalysis with Reflex to Cu ltureon 07-19-2024 Bilirubin Ql (U) Negative NEGATIVE [facility] Clarity (U) Clear Clear [facility] Color (U) Yellow Yellow [facility] Glucose Test strip (U) [Mass/Vol] Negative NEGATIVE mg/dL [facility] Hemoglobin Auto test strip Ql (U) SMALL Abnormal NEGATIVE [facility] Interpretation and review of laboratory results Abnormal [facility] Ketones (U) [Mass/Vol] Negative NEGATIVE mg/d L [facility] Leukocyte esterase Test strip Ql (U) Negative NEGATIVE [facility] Nitrite Ql (U) Negative NEGATIVE [facility] pH (U) 6.5 [pH] 5.0 - 8.0 [facility] Protein (U) [Mass/Vol] Negative NEGATIVE mg/d L [facility] Specific gravity (U) [Rel density] 1.022 1.000 - 1.030 [facility] Urobilinogen Qn (U) Normal 0.0 - 1. 0 EU/dL [facility] Urinalysis,Microon 5 Bacteria None Normal NONE [facility] Comment on above: Performed By: #### U ANA COCHRAN #### [facility] [address] [place] [address] Home Based Assistant: Travis Eduardo DO Casts 0 TO 2 Abnormal NONE [facility] Comment on above: Performed By: #### ANA ARROYO #### [facility] [address] [place] [address] Home Based Assistant: Travis Eduardo DO Epithelial cells LM Ql (Urine sed) 0 TO 2 Normal [facility] Comment on above: Performed By: #### U ANA COCHRAN #### [facility] [address] [place] [address] Home Based Assistant: Travis Eduardo DO Urine RBC's 10 TO [address] Comment on above: Performed By: #### U ANA COCHRAN #### [facility] [address] [place] [address] Home Based Assistant: Travis Eduardo DO Urine WBC's 0 TO [address] Comment on above: Performed By: #### ANA ARROYO #### [facility] [address] [place] [address] Home Based Assistant: Travis Eduardo DO Vaginitis DNA Probeon 2024 Matthew species Negative NEGATIVE [facility] Comment on above: for Matthew sp. Method of testing is a DNA probe intended for detection and identification of Matthew species, Gardnerella vaginalis, and Trichomonas vaginalis nucleic acid in vaginal fluid specimens from patients with symptoms of vaginitis/vaginosis. GARDNERELLA VAGINALIS Negative NEGATIVE [facility] Comment on above: for Gardnerella vagi nalis Source .VAGINAL SWAB [facility] Trichomonas Negative NEGATIVE [facility] Comment on above: for Trichomonas Vagi nalis [facility] Matthew Negative Normal NEG [facility] Comment on above: Result Comment: for Matthew sp. Method of testing is a DNA probe intended for detection and identification of Matthew species, Gardnerella vaginalis, and Trichomonas vaginalis nucleic acid in vaginal fluid specimens from patients with symptoms of vaginitis/vaginosis. Performed By: #### S WCGP #### [address] [id number] Home Based Assistant: Philip Schulte MD Gardnerella Negative Normal NEG [facility] Comment on above: Result Comment: for Gardnerella vaginalis Performed By: #### S WCGP #### [address] [id number] Home Based Assistant: Philip Schulte MD Trichomonas Negative Normal NEG [facility] Comment on above: Result Comment: for Trichomonas Vaginalis Performed By: #### S WCGP #### [facility] [address] [place], [place] [phone] Home Based Assistant: Philip Schulte MD Source .VAGINAL SWAB Normal [facility] Comment on above: Performed By: #### S WCGP #### [facility] [address] [place], [place] [phone] Home Based Assistant: Philip Schulte MD IGP,APTIMA HPV,AGE GDLNon AGE GDLN ACOG TESTING Note . [facility] Comment on above: TESTS RESULT FLAG UN ITS REF RANGE LAB Clinician Provided Cytology Information Source.............Cervix;Endocervix No. of containers..01 ThinPrep Vial Age Algo ACOG Renate... - 01 FLAG LEGEND: L-Low Normal,H-High Normal,LL-Alert Low,HH-Alert High <-Panic Low,>-Panic High,A-Abnormal,AA-Critical Abnormal Performed at: 01 =G [address] [address] Margaret Regan MD, IGP, RFX APTIMA HPV ASCU Note . [facility] Comment on above: TESTS RESULT FLAG UN ITS REF RANGE LAB DIAGNOSIS: 02 NEGATIVE FOR INTRAEPITHELIAL LESION OR MALIGNANCY. Specimen adequacy: 02 Satisfactory for evaluation. Endocervical and/or squamous metaplastic cells (endocervical component) are present. Performed by: 02 Johnnie Albrecht, Government Affairs Fellow ([facility]) . 02 Note: Note 02 The Pap smear is a screening test designed to aid in the detection of premalignant and malignant conditions of the uterine cervix. It is not a diagnostic procedure and should not be used as the sole means of detecting cervical cancer. Both false-positive and false-negative reports do occur. Test Methodology: Note 02 This liquid based ThinPrep(R) pap test was screened with the use of an image guided system. . 02 The HPV DNA reflex criteria were not met with this specimen result therefore, no HPV testing was performed. FLAG LEGEND: L-Low Normal,H-High Normal,LL-Alert Low,HH-Alert High <-Panic Low,>-Panic High,A-Abnormal,AA-Critical Abnormal Performed at: [address] [facility] [address] [place] [address] Margaret Regan MD, Performed at: = - [facility] [address], [place] [id number] Home Based Assistant: Margaret Regan MD, Phone: [phone] Performed at: [facility] [address] [id number] Home Based Assistant: Margaret Regan MD, Phone: [phone] BRUSH-SPATULA CERVIX ENDOCERVIX [facility] Chlamydia/GC,DNA Ampon 06-04 Chlamydia Probe POSITIVE: CHLAMYDIA TRACHOMATIS DNA detected by nucleic acid amplification. Abnormal NEG [facility] Comment on above: Result Comment: This test [...] Department Performed By: #### S WCGP #### [facility] [address] [place] [phone] Home Based Assistant: Philip Schulte MD Gonorrhea Probe Negative Normal [facility] Comment on above: Result Comment: NEIS [...] target. Performed By: #### S WCGP #### [facility] [address] [place] [phone] Home Based Assistant: Philip Schulte MD HCG, ,Urineon 06-02 Beta HCG ( test) Ql (U) Negative Normal [facility] Comment on above: Result Comment: Spec imens with hCG levels near the threshold of the test (25 mIU/mL) may give a negative or indeterminate result. In such cases, another test should be performed with a new specimen in 48-72 hours. If early is suspected clinically in this setting, correlation with quantitative serum b-hCG level is suggested. Performed By: #### S WCGP #### [facility] [address] [place] [phone] Home Based Assistant: Philip Schulte MD Microscopic Urinalysison 12- 07-2024 Bacteria LM Ql (Urine sed) FEW Abnormal None [facility] Casts LM.LPF (Urine sed) [#/Area] 0 TO 2 Abnormal None /LPF [facility] Epithelial cells LM.HPF (Urine sed) [#/Area] 3 to 5 /HPF [facility] Interpretation and review of laboratory results Abnormal [facility] RBC LM.HPF (Urine sed) [#/Area] 0 TO 2 0 TO 2 /HPF [facility] WBC LM.HPF (Urine sed) [#/Area] 3 to 5 Abnormal 0 TO 5 /HPF [facility] , Urineon HCG ( test) Ql (U) Negative NEGATIVE [facility] Comment on above: Specimens with hCG l evels near the threshold of the test (25 mIU/mL) may give a negative or indeterminate result. In such cases, another test should be performed with a new specimen in 48-72 hours. If early is suspected clinically in this setting, correlation with quantitative serum b-hCG level is suggested. [facility] UA w/Reflex Cultureon 2023 Bilirubin, SemiQt,Ur Negative Normal NEG [facility] Comment on above: Performed By: #### S WCGP #### [facility] [employer] [address] [place] [address] Home Based Assistant: Philip Schulte MD Blood, Urine Negative Normal NEG [facility] Comment on above: Performed By: #### S WCGP #### [facility] [address] [place] [address] [phone] Home Based Assistant: Philip Schulte MD Clarity (U) Clear Normal CLEAR [facility] Comment on above: Performed By: #### S WCGP #### [facility] [employer] [address] [place] [phone] Home Based Assistant: Philip Schulte MD Color (U) Yellow Normal YEL [facility] Comment on above: Performed By: #### S WCGP #### [facility] [address] [place], [place] [phone] Home Based Assistant: Philip Schulte MD Glucose Ql (U) Negative Normal NEG [facility] Comment on above: Performed By: #### S WCGP #### [address] [address] Home Based Assistant: Philip Schulte MD Ketones Ql (U) Negative Normal NEG [facility] Comment on above: Performed By: #### S WCGP #### [address] [address] Home Based Assistant: Philip Schulte MD Leukocyte esterase Test strip Ql (U) TRACE Abnormal NEG [facility] Comment on above: Performed By: #### S WCGP #### [address] [address] Home Based Assistant: Philip Schulte MD Nitrite,Ur Negative Normal NEG [facility] Comment on above: Performed By: #### S WCGP #### [address] [address] Home Based Assistant: Philip Schulte MD PH,Ur 5.5 Normal 5.0-8.0 [facility] Comment on above: Performed By: #### S WCGP #### [address] [address] Home Based Assistant: Philip Schulte MD Protein Ql (U) Negative Normal NEG [facility] Comment on above: Performed By: #### S WCGP #### [address] [address] Home Based Assistant: Philip Schulte MD Spec. [place],Ur 1.025 Normal 1.000-1.[address] [facility] Comment on above: Performed By: #### S WCGP #### [address] [address] Home Based Assistant: Philip Schulte MD Urobilinogen,Ur Normal Normal 0.0-1.0 [facility] Comment on above: Performed By: #### S WCGP #### [employer] [facility] [place], [place] [phone] Home Based Assistant: Philip Schulte MD Urinalysis with Reflex to Cu ltureon 06-02-2024 Bilirubin Ql (U) Negative NEGATIVE [facility] Clarity (U) Clear Clear [facility] Color (U) Yellow Yellow [facility] Glucose Test strip (U) [Mass/Vol] Negative NEGATIVE mg/dL [facility] Hemoglobin Auto test strip Ql (U) Negative NEGATIVE [facility] Interpretation and review of laboratory results Abnormal [facility] Ketones (U) [Mass/Vol] Negative NEGATIVE mg/d L [facility] Leukocyte esterase Test strip Ql (U) TRACE Abnormal NEGATIVE [facility] Nitrite Ql (U) Negative NEGATIVE [facility] pH (U) 5.5 [pH] 5.0 - 8.0 [facility] Protein (U) [Mass/Vol] Negative NEGATIVE mg/d L [facility] Specific gravity (U) [Rel density] 1.025 1.000 - 1.030 [facility] Urobilinogen Qn (U) Normal 0.0 - 1. 0 EU/dL [facility] Urinalysis,Microon 4 Bacteria FEW Abnormal NONE [facility] Comment on above: Performed By: #### S WCGP #### [facility] [address] [place] [address] Home Based Assistant: Philip Schulte MD Casts 0 TO 2 Abnormal NONE [facility] Comment on above: Performed By: #### S WCGP #### [facility] [address] [place] [address] [id number] Home Based Assistant: Philip Schulte MD Epithelial cells LM Ql (Urine sed) 3 to 5 Normal [facility] Comment on above: Performed By: #### S WCGP #### [facility] [address] [place] [address] [id number] Home Based Assistant: Philip Schulte MD Urine RBC's 0 TO [address] Comment on above: Performed By: #### S WCGP #### [address] [id number] Home Based Assistant: Philip Schulte MD Urine WBC's 3 to [address] Comment on above: Performed By: #### S WCGP #### [address] [address] Home Based Assistant: Philip Schulte MD Vaginitis DNA Probeon 2023 Matthew species Positive Abnormal NEGATIVE [facility] Comment on above: for Matthew sp. Method of testing is a DNA probe intended for detection and identification of Matthew species, Gardnerella vaginalis, and Trichomonas vaginalis nucleic acid in vaginal fluid specimens from patients with symptoms of vaginitis/vaginosis. GARDNERELLA VAGINALIS Negative NEGATIVE [facility] Comment on above: for Gardnerella vagi nalis Interpretation and review of laboratory results Abnormal [facility] Source .VAGINAL SWAB [facility] Trichomonas Negative NEGATIVE [facility] Comment on above: for Trichomonas Vagi nalis [facility] Matthew Positive Abnormal NEG [facility] Comment on above: Result Comment: for Matthew sp. Method of testing is a DNA probe intended for detection and identification of Matthew species, Gardnerella vaginalis, and Trichomonas vaginalis nucleic acid in vaginal fluid specimens from patients with symptoms of vaginitis/vaginosis. Performed By: #### V AGP #### [facility] [address] [facility]. [place], [place] [id number] Home Based Assistant: Travis Eduardo DO Gardnerella Negative Normal [facility] Comment on above: Result Comment: for Gardnerella vaginalis Performed By: #### V AGP #### [facility] [address] [place] [facility] [place] [address] Home Based Assistant: Travis Eduardo DO Trichomonas Negative Normal NEG [facility] Comment on above: Result Comment: for Trichomonas Vaginalis Performed By: #### V AGP #### [facility] [address] [facility] [place] [address] Home Based Assistant: Travis Eduardo DO Source .VAGINAL SWAB Normal [facility] Comment on above: Performed By: #### V AGP #### [facility] [address] [facility] [place] [address] Home Based Assistant: Travis Eduardo DO CHLAMYDIA/GC BY PCRon 2023 CHLAMYDIA/GC BY PCR SPECIMEN SOURCE VAGINAL CHLAMYDIA DNA(PCR) Positive (qualifier value) Chlamydia trachomatis detected by nucleic acid amplification. GONORRHOEAE DNA(PCR) Negative (qualifier value) Neisseria gonorrhoeae not detected by nucleic acid amplification. This does not exclude the possibility of infection because results are dependent on adequate specimen collection. Normal [facility] Comment on above: Performed By: #### C GS #### [facility] ([id number]) [address] [place] [address] [facility] ([id number]) [address] [place] [address], [address] [place] [address] HCG ( test) Ql (U)o n 05-28-2024 Beta HCG ( test) Ql (U) Negative Normal NEG [facility] Comment on above: Performed By: #### 2 106-3 #### [facility] ([id number]) [address] [place] [address] T. pallidum IgG+IgM IA Ql (S )on 05-28-2024 Syphilis Total <0.2 Normal 0.0-0.8 [facility] Comment on above: Result Comment: NON REACTIVE No serologic evidence of infection to Treponema pallidum (syphilis). Repeat testing may be considered in patients with suspected acute or primary syphilis in 2 to 4 weeks. Performed By: #### 4 [id number] #### [facility] ([id number]) [address] [place] [address], [address] [place] [address] URN MACROSCOPIC NURon 2023 BILIRUBIN ONEL Negative Normal NEG [facility] Comment on above: Performed By: #### N UM #### [facility] ([id number]) [address] [place] [address] BLOOD/HGB ONEL Negative Normal NEG [facility] Comment on above: Performed By: #### N UM #### [facility] ([id number]) [address] [place] [address] GLUCOSE ONEL Negative Normal NEG [facility] Comment on above: Performed By: #### N UM #### [facility] ([id number]) [address] [place] [address] KETONES ONEL Negative Normal NEG [facility] Comment on above: Performed By: #### N UM #### [facility] ([id number]) [address] [place] [address] LEUKOCYTE ESTERASE ONEL Negative Normal NEG [facility] Comment on above: Performed By: #### N UM #### [facility] ([id number]) [address] [place] [address] NITRITE ONEL Negative Normal NEG [facility] Comment on above: Performed By: #### N UM #### [facility] ([id number]) [address] [place] [address] [place] [address] PH ONEL 7.0 Normal 5.0-8.5 [facility] Comment on above: Performed By: #### N UM #### [facility] ([id number]) [address] [place] [address] [place] [address] PROTEIN ONEL Negative Normal NEG [facility] Comment on above: Performed By: #### N UM #### [facility] ([id number]) [address] [place] [address] [place] [address] SPECIFIC GRAVITY ONEL 1.025 Normal 1.003-1.035 [facility] Comment on above: Performed By: #### N UM #### [facility] ([id number]) [address] [facility], [place] [address] UROBILINOGEN ONEL 1.0 eu/dL Normal <1.1 [facility] Comment on above: Performed By: #### N UM #### [facility] ([id number]) [address] [facility] [place] [address] VAGINITIS PANEL PCRon 2023 VAGINITIS PANEL PCR BACT. VAGINOSIS DNA Not detected (qualifier value) Qualitative results are reported based on detection and quantitation of targeted organism markers which include: Lactobacillus spp. (L. crispatus and L. jensenii), Gardnerella vaginalis, Atopobium vaginae, Bacterial Vaginosis Associated Bacteria-2 (BVAB-2) and Megasphaera-1 MATTHEW SPECIES DNA Detected (qualifier value) Matthew species result based on detection of one or more of the following species: C. albicans, C. tropicalis, C. parapsilosis or C. dubliniensis MATTHEW KRUSEI DNA Not detected (qualifier value) No Matthew krusei detected MATTHEW GLABRATA DNA Not detected (qualifier value) No Matthew glabrata detected TRICHOMONAS VAG DNA Not detected (qualifier value) No Trichomonas vaginalis detected NOTE BD MAX Vaginal Panel has not been evaluated for patients under 18 years old. Results for these patients should be reviewed and assessed in accordance with clinical presentation to determine patient diagnosis. Normal [facility] Comment on above: Performed By: #### V PPCR #### [facility] ([id number]) [address] [place] [address], [address] [place] [address] CHLAMYDIA/GC BY PCRon 2023 CHLAMYDIA/GC BY PCR SPECIMEN SOURCE VAGINAL CHLAMYDIA DNA(PCR) Negative (qualifier value) Chlamydia trachomatis not detected by nucleic acid amplification. This does not exclude the possibility of infection because results are dependent on adequate specimen collection. GONORRHOEAE DNA(PCR) Negative (qualifier value) Neisseria gonorrhoeae not detected by nucleic acid amplification. This does not exclude the possibility of infection because results are dependent on adequate specimen collection. Normal [facility] Comment on above: Performed By: #### C GS #### [facility] ([id number]) [address] [facility], [address] [place] [address] POCT Urinalysis Auto, W/O Mi croscopyon 04-03-2024 Appearance (U) clear [facility] External Poct Urine Bilirubin Negative [facility] External Poct Urine Blood Negative [facility] External Poct Urine Character clear [facility] External Poct Urine Color yellow [facility] External Poct Urine Glucose Negative [facility] External Poct Urine Ketones Negative [facility] External Poct Urine Leukocyte Esterase Negative [facility] External Poct Urine Nitrite Negative [facility] External Poct Urine Ph 5.5 Pr [facility] External Poct Urine Protein Negative [facility] External Poct Urine Specific [place] 1.030 [facility] External Poct Urine Urobilinogen 0.2 [facility] Interpretation and review of laboratory results Normal [facility] URINE CULTUREon 04-03-2024 Bacteria identified Cx Nom (U) CULTURE RESULTS 50-100,000 ORGANISMS/ML NORMAL UROGENITAL DAHLIA Normal [facility] Comment on above: Performed By: #### 6 30-4 #### [facility] ([id number]) [address] [facility], [address] [place] [address] VAGINITIS PANEL PCRon 2023 VAGINITIS PANEL PCR BACT. VAGINOSIS DNA Not detected (qualifier value) Qualitative results are reported based on detection and quantitation of targeted organism markers which include: Lactobacillus spp. (L. crispatus and L. jensenii), Gardnerella vaginalis, Atopobium vaginae, Bacterial Vaginosis Associated Bacteria-2 (BVAB-2) and Megasphaera-1 MATTHEW SPECIES DNA Not detected (qualifier value) Matthew species not detected include: C. albicans, C. tropicalis, C. parapsilosis or C. dubliniensis MATTHEW KRUSEI DNA Not detected (qualifier value) No Matthew krusei detected MATTHEW GLABRATA DNA Not detected (qualifier value) No Matthew glabrata detected TRICHOMONAS VAG DNA Not detected (qualifier value) No Trichomonas vaginalis detected NOTE BD MAX Vaginal Panel has not been evaluated for patients under 18 years old. Results for these patients should be reviewed and assessed in accordance with clinical presentation to determine patient diagnosis. [facility] Comment on above: Performed By: #### V PPCR #### [facility] ([id number]) [address] [facility], [address] [place] [address] Chlamydia/GC,DNA Ampon 02-20 Chlamydia Probe Negative Normal NEG [facility] Comment on above: Result Comment: CHLA MYDIA [...] target. Performed By: #### S WCGP #### [address] [id number] Home Based Assistant: hPilip Schulte MD Gonorrhea Probe Negative Normal [facility] Comment on above: Result Comment: NEIS [...] target. Performed By: #### S WCGP #### [address] [address] Home Based Assistant: Philip Schulte MD HCG, ,Urineon 02-19 Beta HCG ( test) Ql (U) Negative Normal [facility] Comment on above: Result Comment: Spec imens with hCG levels near the threshold of the test (25 mIU/mL) may give a negative or indeterminate result. In such cases, another test should be performed with a new specimen in 48-72 hours. If early is suspected clinically in this setting, correlation with quantitative serum b-hCG level is suggested. Performed By: #### U HCG, UAX, UMICAO #### [facility] [address] [facility] [place] [address] Home Based Assistant: Travis Eduardo DO Microscopic Urinalysison Bacteria LM Ql (Urine sed) None None [facility] Casts LM.LPF (Urine sed) [#/Area] 0 TO 2 Abnormal None /LPF [facility] Epithelial cells LM.HPF (Urine sed) [#/Area] 6 TO 9 /HPF [facility] Interpretation and review of laboratory results Abnormal [facility] RBC LM.HPF (Urine sed) [#/Area] 0 TO 2 0 TO 2 /HPF [facility] WBC LM.HPF (Urine sed) [#/Area] 0 TO 2 Abnormal 0 TO 5 /HPF [facility] , Urineon HCG ( test) Ql (U) Negative NEGATIVE [facility] Comment on above: Specimens with hCG l evels near the threshold of the test (25 mIU/mL) may give a negative or indeterminate result. In such cases, another test should be performed with a new specimen in 48-72 hours. If early is suspected clinically in this setting, correlation with quantitative serum b-hCG level is suggested. [facility] UA w/Reflex Cultureon 2023 Bilirubin, SemiQt,Ur Negative Normal NEG [facility] Comment on above: Performed By: #### U HCG, UAX, UMICAO #### [facility] [address] [facility] [place] [address] Home Based Assistant: Travis Eduardo DO Blood, Urine Negative Normal NEG [facility] Comment on above: Performed By: #### U HCG, UAX, UMICAO #### [facility] [address] [facility] [place] [address] Home Based Assistant: Travis Eduardo DO Clarity (U) Cloudy Abnormal CLEAR [facility] Comment on above: Performed By: #### U HCG, UAX, UMICAO #### [facility] [facility] [place] [address] Home Based Assistant: Travis Eduardo DO Color (U) Yellow Normal YEL [facility] Comment on above: Performed By: #### U HCG, UAX, UMICAO #### [facility] [address] [place] [address] Home Based Assistant: Travis Eduardo DO Glucose Ql (U) Negative Normal NEG [facility] Comment on above: Performed By: #### U HCG, UAX, UMICAO #### [facility] [address] [place] [address] Home Based Assistant: Travis Eduardo DO Ketones Ql (U) Negative Normal NEG [facility] Comment on above: Performed By: #### U HCG, UAX, UMICAO #### [facility] [address] [place] [address]. [place] [address] Home Based Assistant: Travis Eduardo DO Leukocyte esterase Test strip Ql (U) Negative Normal NEG [facility] Comment on above: Performed By: #### U HCG, UAX, UMICAO #### [facility] [address] [place] [address] Home Based Assistant: Travis Eduardo DO Nitrite,Ur Negative Normal NEG [facility] Comment on above: Performed By: #### U HCG, UAX, UMICAO #### [facility] [address] [place] [address] Home Based Assistant: Travis Eduardo DO PH,Ur 5.0 Normal 5.0-8.0 [facility] Comment on above: Performed By: #### U HCG, UAX, UMICAO #### [facility] [place] [address] Home Based Assistant: Travis Eduardo DO Protein Ql (U) Negative Normal NEG [facility] Comment on above: Performed By: #### U HCG, UAX, UMICAO #### [facility] [address] [place] [address]. [place] [address] Home Based Assistant: Travis Eduardo DO Spec. [place],Ur 1.027 Normal 1.000-1.[address] [facility] Comment on above: Performed By: #### U HCG, UAX, UMICAO #### [facility] [place] [address] Home Based Assistant: Travis Eduardo DO Urobilinogen,Ur Normal Normal 0.0-1.0 [facility] Comment on above: Performed By: #### U HCG, UAX, UMICAO #### [facility] [address] [place] [address] Home Based Assistant: Travis Eduardo DO Urinalysis with Reflex to Cu ltureon 02-20-2024 Bilirubin Ql (U) Negative NEGATIVE [facility] Clarity (U) Cloudy Abnormal Clear [facility] Color (U) Yellow Yellow [facility] Glucose Test strip (U) [Mass/Vol] Negative NEGATIVE mg/dL [facility] Hemoglobin Auto test strip Ql (U) Negative NEGATIVE [facility] Interpretation and review of laboratory results Abnormal [facility] Ketones (U) [Mass/Vol] Negative NEGATIVE mg/d L [facility] Leukocyte esterase Test strip Ql (U) Negative NEGATIVE [facility] Nitrite Ql (U) Negative NEGATIVE [facility] pH (U) 5.0 [pH] 5.0 - 8.0 [facility] Protein (U) [Mass/Vol] Negative NEGATIVE mg/d L [facility] Specific gravity (U) [Rel density] 1.027 1.000 - 1.030 [facility] Urobilinogen Qn (U) Normal 0.0 - 1. 0 EU/dL [facility] Urinalysis,Microon 4 Bacteria None Normal NONE [facility] Comment on above: Performed By: #### S WCGP #### [address] [address] Home Based Assistant: Philip Schulte MD Casts 0 TO 2 Abnormal NONE [facility] Comment on above: Performed By: #### S WCGP #### [address] [address] Home Based Assistant: Philip Schulte MD Epithelial cells LM Ql (Urine sed) 6 TO 9 Normal [facility] Comment on above: Performed By: #### S WCGP #### [address] [address] Home Based Assistant: Philip Schulte MD Urine RBC's 0 TO [address] Comment on above: Performed By: #### S WCGP #### [address] [address] Home Based Assistant: Philip Schulte MD Urine WBC's 0 TO [address] Comment on above: Performed By: #### S WCGP #### [address] [address] Home Based Assistant: Philip Schulte MD Vaginitis DNA Probeon 2023 Matthew species Negative NEGATIVE [facility] Comment on above: for Matthew sp. Method of testing is a DNA probe intended for detection and identification of Matthew species, Gardnerella vaginalis, and Trichomonas vaginalis nucleic acid in vaginal fluid specimens from patients with symptoms of vaginitis/vaginosis. GARDNERELLA VAGINALIS Positive Abnormal NEGATIVE [facility] Comment on above: for Gardnerella vagi nalis Interpretation and review of laboratory results Abnormal [facility] Source .VAGINAL SWAB [facility] Trichomonas Negative NEGATIVE [facility] Comment on above: for Trichomonas Vagi nalis [facility] Matthew Negative Normal NEG [facility] Comment on above: Result Comment: for Matthew sp. Method of testing is a DNA probe intended for detection and identification of Matthew species, Gardnerella vaginalis, and Trichomonas vaginalis nucleic acid in vaginal fluid specimens from patients with symptoms of vaginitis/vaginosis. Performed By: #### S WCGP #### [address] [address] Home Based Assistant: Philip Schulte MD Gardnerella Positive Abnormal NEG [facility] Comment on above: Result Comment: for Gardnerella vaginalis Performed By: #### S WCGP #### [address] [address] Home Based Assistant: Philip Schulte MD Trichomonas Negative Normal [facility] Comment on above: Result Comment: for Trichomonas Vaginalis Performed By: #### S WCGP #### [address] [address] Home Based Assistant: Philip Schulte MD Source .VAGINAL SWAB [facility] Comment on above: Performed By: #### S WCGP #### [address] [address] Home Based Assistant: Philip Schulte MD Chlamydia/GC,DNA Ampon 08-08 Chlamydia Probe Negative Normal NEG [facility] Comment on above: Result Comment: CHLA MYDIA [...] target. Performed By: #### C DP #### [address] [address] Home Based Assistant: Philip Schulte MD Gonorrhea Probe Negative [facility] Comment on above: Result Comment: NEIS [...] target. Performed By: #### C DP #### [address] [address] Home Based Assistant: Philip Schulte MD Vaginitis DNA Probeon 2023 Matthew Negative [facility] Comment on above: Result Comment: for Matthew sp. Method of testing is a DNA probe intended for detection and identification of Matthew species, Gardnerella vaginalis, and Trichomonas vaginalis nucleic acid in vaginal fluid specimens from patients with symptoms of vaginitis/vaginosis. Performed By: #### C DP #### [address] [address] Home Based Assistant: Philip Schulte MD Gardnerella Negative [facility] Comment on above: Result Comment: for Gardnerella vaginalis Performed By: #### C DP #### [address] [address] Home Based Assistant: Philip Schulte MD Trichomonas Negative Normal [facility] Comment on above: Result Comment: for Trichomonas Vaginalis Performed By: #### C DP #### [address] [address] Home Based Assistant: Philip Schulte MD Matthew species Negative NEGATIVE [facility] Comment on above: for Matthew sp. Method of testing is a DNA probe intended for detection and identification of Matthew species, Gardnerella vaginalis, and Trichomonas vaginalis nucleic acid in vaginal fluid specimens from patients with symptoms of vaginitis/vaginosis. GARDNERELLA VAGINALIS Negative NEGATIVE [facility] Comment on above: for Gardnerella vagi nalis Source .VAGINAL SWAB [facility] Trichomonas Negative NEGATIVE [facility] Comment on above: for Trichomonas Vagi nalis [facility] Source .VAGINAL SWAB Normal [facility] Comment on above: Performed By: #### C DP #### [facility] [address] [place] [address] Home Based Assistant: Philip Schulte MD Cytology Reporton 08-04-2023 Cytology report Cyto stain.thin prep Doc (Cvx/Vag) (NOTE) Path Number: [id number] DIAGNOSIS Imaged ThinPrep Pap - Cervical (1 monolayer slide): Specimen Adequacy: Satisfactory for evaluation. - Endocervical/transfo rmation zone component present. Descriptive Diagnosis: Negative for intraepithelial lesion or malignancy. Comments: Specimen was screened at [facility], [address] [place] [address] [employer] Screener: CS Electronically Signed Out GUSTAVO Mendoza(ASCP) cs/08/14/2023 Source of Specimen: A: Imaged ThinPrep Pap - Cervical (1 monolayer slide) HPV Reflex?............. .........HPV if ASCUS Clinical History Z12.4 Encounter for screening for malignant neoplasm of cervix LMP: 02/28/2023 Processing Lab: [address] [id number] [place] [address] This Pap Test has been evaluated with [...] smear result. GYNECOLOGIC CYTOLOGY REPORT Patient Name: SERINAJESSICA Med Rec: [id number] [facility] ANATOMIC PATHOLOGY [address] [place] [id number] Normal [facility] Cult,Urineon 07-31-2023 Cult,Urine Specimen Description .CLEAN CATCH URINE Culture NO SIGNIFICANT GROWTH Report Status FINAL 07/31/2023 Normal [facility] Comment on above: Performed By: #### U RC #### [place] [address] Home Based Assistant: Philip Schulte MD CBC with Diffon 07-30-2023 Abs. Basophil 0.03 k/uL Normal 0.00-0.20 [facility] Comment on above: Performed By: #### C DP #### [place] [address] Home Based Assistant: Philip Schulte MD Abs.Imm.Granulocyte 0.04 k/uL Normal 0.00-0.30 [facility] Comment on above: Performed By: #### C DP #### [address] [address] Home Based Assistant: Philip Schulte MD Abs.Neutrophil (Seg) 7.38 k/uL Normal 1.50-8.10 [facility] Comment on above: Performed By: #### C DP #### [place] [address] Home Based Assistant: Philip Schulte MD Basophils/100 WBC (Bld) 0 % Normal 0-2 [facility] Comment on above: Performed By: #### C DP #### [place] [address] Home Based Assistant: Philip Schulte MD Eosinophils (Bld) [#/Vol] 0.05 10*3/uL Normal 0.00-0.44 [facility] Comment on above: Performed By: #### C DP #### [address] [address] Home Based Assistant: Philip Schulte MD Eosinophils/100 WBC (Bld) 1 % Normal 1-4 [facility] Comment on above: Performed By: #### C DP #### [address] [address] Home Based Assistant: Philip Schulte MD Erythrocyte distribution width (RBC) [Ratio] 13.3 % Normal 11.8-14.4 [facility] Comment on above: Performed By: #### C DP #### [address] [address] Home Based Assistant: Philip Schulte MD Hematocrit (Bld) [Volume fraction] 39.3 % Normal 36.3-47.1 [facility] Comment on above: Performed By: #### C DP #### [address] [address] Home Based Assistant: Philip Schulte MD Hemoglobin (Bld) [Mass/Vol] 13.3 g/dL Normal 11.9-15.1 [facility] Comment on above: Performed By: #### C DP #### [address] [address] Home Based Assistant: Philip Schulte MD Immature granulocytes/100 WBC (Bld) 0 % Normal 0 [facility] Comment on above: Performed By: #### C DP #### [address] [address] Home Based Assistant: Philip Schulte MD Lymphocytes (Bld) [#/Vol] 1.57 10*3/uL Normal 1.10-3.70 [facility] Comment on above: Performed By: #### C DP #### [address] [address] Home Based Assistant: Philip Schulte MD Lymphocytes/100 WBC (Bld) 16 % Low 24-43 [facility] Comment on above: Performed By: #### C DP #### [address] [address] Home Based Assistant: Philip Schulte MD MCH (RBC) [Entitic mass] 31.3 pg Normal 25.2-33.5 [facility] Comment on above: Performed By: #### C DP #### [address] [address] Home Based Assistant: Philip Schulte MD MCHC (RBC) [Mass/Vol] 33.8 g/dL Normal 28.4-34.8 [facility] Comment on above: Performed By: #### C DP #### [address] [address] Home Based Assistant: Philip Schulte MD MCV (RBC) [Entitic vol] 92.5 fL Normal 82.6-102.9 [facility] Comment on above: Performed By: #### C DP #### [address] [address] Home Based Assistant: Philip Schulte MD Monocytes (Bld) [#/Vol] 0.69 10*3/uL Normal 0.10-1.20 [facility] Comment on above: Performed By: #### C DP #### [address] [address] Home Based Assistant: Philip Schulte MD Monocytes/100 WBC (Bld) 7 % Normal 3-12 [facility] Comment on above: Performed By: #### C DP #### [address] [address] Home Based Assistant: Philip Schulte MD Neutrophil (Seg) 76 % High 36-65 [facility] Comment on above: Performed By: #### C DP #### [address] [address] Home Based Assistant: Philip Schulte MD NRBC Automated 0.0 per 100 WBC Normal 0.0 [facility] Comment on above: Performed By: #### C DP #### [address] [address] Home Based Assistant: Philip Schulte MD Platelet mean volume (Bld) [Entitic vol] 10.7 fL Normal 8.1-13.5 [facility] Comment on above: Performed By: #### C DP #### [address] [address] Home Based Assistant: Philip Schulte MD Platelets (Bld) [#/Vol] 194 10*3/uL Normal 138-453 [facility] Comment on above: Performed By: #### C DP #### [address] [address] Home Based Assistant: Philip Schulte MD RBC (Bld) [#/Vol] 4.25 10*6/uL Normal 3.95-5.11 [facility] Comment on above: Performed By: #### C DP #### [address] [address] Home Based Assistant: Philip Schulte MD WBC (Bld) [#/Vol] 9.8 10*3/uL Normal 3.5-11.3 [facility] Comment on above: Performed By: #### C DP #### [address] [address] Home Based Assistant: Philip Schulte MD CT CERVICAL SPINE WO [...] Fadumo Vergara MD 07/30/23 Final result Normal [facility] CT HEAD WO CONTRASTon 2023 CT HEAD [...] Fadumo Vergara MD 07/30/23 Final result Normal [facility] CTA HEAD NECK W CONTRASTon 0 07-30-2023 [...] Phillip Belcher MD 07/30/23 Final result Normal [facility] -Maternal Hemoron 07-30 -Maternal Hemor Bleed Volume UP TO 15 % Bleed NO CELLS SEEN Doses of Rhogam PATIENT IS RH POSITIVE Normal [facility] Comment on above: Performed By: #### C DP #### [facility] [address] [place] [phone] Home Based Assistant: Philip Schulte MD HIV Ag/Abon 07-30-2023 HIV Ag/Ab Non-Reactive Normal NR [facility] Comment on above: Result Comment: No l aboratory evidence of HIV infection. If acute HIV infection is suspected, consider testing for HIV-1 RNA. Performed By: #### H IVCMB, AHCV, PRENAT #### [facility] [address] [place] [address] Home Based Assistant: Philip Schulte MD HIV Screenon 07-30-2023 HIV 1+2 Ab+HIV1 p24 Ag IA Ql Non-Reactive NONREACTIVE [facility] Comment on above: No laboratory eviden ce of HIV infection. If acute HIV infection is suspected, consider testing for HIV-1 RNA. Hep C Abon 07-30-2023 Hep C Ab Non-Reactive Normal NR [facility] Comment on above: Result Comment: The hepatitis [...] By: #### H IVCMB, AHCV, PRENAT #### [address] [facility] [address] [place] [address] Home Based Assistant: Philip Schulte MD Hepatitis C Antibodyon 07-30 HCV Ab IA Ql Non-Reactive NONREACTIVE [facility] Comment on above: The hepatitis C procedure [...] recommended by ordering HCV RNA by PCR. [facility] [employer] No Panel Informationon 07-30 [facility] [employer] PROFILE Ion 024 Basophils (Bld) [#/Vol] [facility] Basophils/100 WBC (Bld) 0 % 0 - 2 % [facility] Eosinophils (Bld) [#/Vol] 0.13 10*3/uL [facility] Eosinophils/100 WBC (Bld) 2 % 1 - 4 % [facility] Erythrocyte distribution width (RBC) [Ratio] 13.5 % 11.8 - 14.4 % [facility] HBV surface Ag IA Ql Non-Reactive NONREACTIVE B [facility] Hematocrit (Bld) [Volume fraction] 36.4 % 36.3 - 47.1 % [facility] Hemoglobin (Bld) [Mass/Vol] 11.9 g/dL 11.9 - 15.1 g/dL [facility] Immature granulocytes (Bld) [#/Vol] [facility] Immature granulocytes/100 WBC (Bld) 0 % 0 [facility] Interpretation and review of laboratory results Abnormal [facility] Lymphocytes/100 WBC (Bld) 23 % Low 24 - 43 % [facility] Lymphocytes/100 WBC (Bld) 1.74 % [facility] MCH (RBC) [Entitic mass] 31.2 pg 25.2 - 33.5 pg [facility] MCHC (RBC) [Mass/Vol] 32.7 g/dL 28.4 - 34.8 g/dL [facility] MCV (RBC) [Entitic vol] 95.5 fL 82.6 - 102.9 fL [facility] Monocytes/100 WBC (Bld) 7 % 3 - 12 % [facility] Monocytes/100 WBC (Bld) 0.54 % [facility] Neutrophils/100 WBC (Bld) 68 % High 36 - 65 % [facility] Nucleated RBC/100 WBC (Bld) [Ratio] 0.0 % 0.0 per 100 WBC [facility] Platelet mean volume (Bld) [Entitic vol] 10.2 fL 8.1 - 13.5 fL [facility] Platelets (Bld) [#/Vol] 155 10*3/uL [facility] RBC (Bld) [#/Vol] 3.81 10*6/uL Low 3.95 - 5.1 1 m/uL [facility] Rubella virus IgG IA Ql 118.2 IU/mL [facility] Comment on above: REFERENCE RANGE: <5.0 NON-REACTIVE (non-immune) 5.0 TO 9.9 EQUIVOCAL >=10.0 REACTIVE (immune) Segmented neutrophils/100 WBC (Bld) 5.11 % [facility] T. pallidum Ab IA Ql (S) Non-Reactive NONREACTIVE [facility] Comment on above: T. pallidum antibodies are not detected. There is no serological evidence of infection with T. pallidum (early primary syphilis cannot be excluded). Retest in 2-4 weeks if syphilis is clinically suspect. WBC other (Bld) [#/Vol] 7.6 [facility] Profileon 4 T.pallidum Ab Screen Non-Reactive Normal NR [facility] Comment on above: Result Comment: T. pallidum antibodies are not detected. There is no serological evidence of infection with T. pallidum (early primary syphilis cannot be excluded). Retest in 2-4 weeks if syphilis is clinically suspect. Performed By: #### H IVCMB, AHCV, PRENAT #### [facility] [employer] [address] [place] [address] Home Based Assistant: Philip Schulte MD Hep B Surf Ag Non-Reactive Normal NR [facility] Comment on above: Performed By: #### H IVCMB, AHCV, PRENAT #### [facility] [address] [place] [address] Home Based Assistant: Philip Schulte MD Rubella Ab, IgG 118.2 IU/mL Normal [facility] Comment on above: Result Comment: REFERENCE RANGE: <5.0 NON-REACTIVE (non-immune) 5.0 TO 9.9 EQUIVOCAL >=10.0 REACTIVE (immune) Performed By: #### H IVCMB, AHCV, PRENAT #### [facility] [employer] [facility] [address] [place] [address] Home Based Assistant: Philip Schulte MD Abs. Basophil <0.03 Normal 0.00-0.20 [facility] Comment on above: Performed By: #### H IVCMB, AHCV, PRENAT #### [facility] [employer] [facility] [address] [place] [address] Home Based Assistant: Philip Schulte MD Abs.Imm.Granulocyte <0.03 Normal 0.00-0.30 [facility] Comment on above: Performed By: #### H IVCMB, AHCV, PRENAT #### [facility] [employer] [address] [place] [address] Home Based Assistant: Philip Schulte MD Abs.Neutrophil (Seg) 5.11 k/uL Normal 1.50-8.10 [facility] Comment on above: Performed By: #### H IVCMB, AHCV, PRENAT #### [facility] [employer] [address] [place] [address] Home Based Assistant: Philip Schulte MD Basophils/100 WBC (Bld) 0 % Normal 0-2 [facility] Comment on above: Performed By: #### H IVCMB, AHCV, PRENAT #### [address] [address] Home Based Assistant: Philip Schulte MD Eosinophils (Bld) [#/Vol] 0.13 10*3/uL Normal 0.00-0.44 [facility] Comment on above: Performed By: #### H IVCMB, AHCV, PRENAT #### [facility] [employer] [address] [place] [address] Home Based Assistant: Philip Schulte MD Eosinophils/100 WBC (Bld) 2 % Normal 1-4 [facility] Comment on above: Performed By: #### H IVCMB, AHCV, PRENAT #### [facility] [employer] [address] [place] [address] Home Based Assistant: Philip Schulte MD Erythrocyte distribution width (RBC) [Ratio] 13.5 % Normal 11.8-14.4 [facility] Comment on above: Performed By: #### H IVCMB, AHCV, PRENAT #### [facility] [address] [place] [address] Home Based Assistant: Philip Schulte MD Hematocrit (Bld) [Volume fraction] 36.4 % Normal 36.3-47.1 [facility] Comment on above: Performed By: #### H IVCMB, AHCV, PRENAT #### [facility] [employer] [address] [place] [address] Home Based Assistant: Philip Schulte MD Hemoglobin (Bld) [Mass/Vol] 11.9 g/dL Normal 11.9-15.1 [facility] Comment on above: Performed By: #### H IVCMB, AHCV, PRENAT #### [facility] [employer] [address] [place] [address] Home Based Assistant: Philip Schulte MD Immature granulocytes/100 WBC (Bld) 0 % Normal 0 [facility] Comment on above: Performed By: #### H IVCMB, AHCV, PRENAT #### [facility] [employer] [address] [place] [address] Home Based Assistant: Philip Schulte MD Lymphocytes (Bld) [#/Vol] 1.74 10*3/uL Normal 1.10-3.70 [facility] Comment on above: Performed By: #### H IVCMB, AHCV, PRENAT #### [facility] [employer] [address] [place] [address] Home Based Assistant: Philip Schulte MD Lymphocytes/100 WBC (Bld) 23 % Low 24-43 [facility] Comment on above: Performed By: #### H IVCMB, AHCV, PRENAT #### [facility] [employer] [address] [place] [address] Home Based Assistant: Philip Schulte MD MCH (RBC) [Entitic mass] 31.2 pg Normal 25.2-33.5 [facility] Comment on above: Performed By: #### H IVCMB, AHCV, PRENAT #### [facility] [address] [place] [address] Home Based Assistant: Philip Schulte MD MCHC (RBC) [Mass/Vol] 32.7 g/dL Normal 28.4-34.8 [facility] Comment on above: Performed By: #### H IVCMB, AHCV, PRENAT #### [facility] [employer] [address] [place] [address] Home Based Assistant: Philip Schulte MD MCV (RBC) [Entitic vol] 95.5 fL Normal 82.6-102.9 [facility] Comment on above: Performed By: #### H IVCMB, AHCV, PRENAT #### [facility] [employer] [address] [place] [address] Home Based Assistant: Philip Schulte MD Monocytes (Bld) [#/Vol] 0.54 10*3/uL Normal 0.10-1.20 [facility] Comment on above: Performed By: #### H IVCMB, AHCV, PRENAT #### [address] [address] Home Based Assistant: Philip Schulte MD Monocytes/100 WBC (Bld) 7 % Normal 3-12 [facility] Comment on above: Performed By: #### H IVCMB, AHCV, PRENAT #### [facility] [employer] [address] [place] [address] Home Based Assistant: Philip Schulte MD Neutrophil (Seg) 68 % High 36-65 [facility] Comment on above: Performed By: #### H IVCMB, AHCV, PRENAT #### [facility] [employer] [address] [place] [address] Home Based Assistant: Philip Schulte MD NRBC Automated 0.0 per 100 WBC Normal 0.0 [facility] Comment on above: Performed By: #### H IVCMB, AHCV, PRENAT #### [facility] [employer] [address] [place] [address] Home Based Assistant: Philip Schulte MD Platelet mean volume (Bld) [Entitic vol] 10.2 fL Normal 8.1-13.5 [facility] Comment on above: Performed By: #### H IVCMB, AHCV, PRENAT #### [facility] [address] [place] [address] Home Based Assistant: Philip Schulte MD Platelets (Bld) [#/Vol] 155 10*3/uL Normal 138-453 [facility] Comment on above: Performed By: #### H IVCMB, AHCV, PRENAT #### [facility] [address] [place] [address] Home Based Assistant: Philip Schulte MD RBC (Bld) [#/Vol] 3.81 10*6/uL Low 3.95-5.11 [facility] Comment on above: Performed By: #### H IVCMB, AHCV, PRENAT #### [facility] [address] [place] [address] Home Based Assistant: Philip Schulte MD WBC (Bld) [#/Vol] 7.6 10*3/uL Normal 3.5-11.3 [facility] Comment on above: Performed By: #### H IVCMB, AHCV, PRENAT #### [employer] [address] [place] [address] Home Based Assistant: Philip Schulte MD TYPE AND SCREENon 07-30-2023 ABO and Rh group Nom (Bld) Blood group A Rh(D) positive [facility] Arm Band Number BE [id number] [facility] Blood Bank Sample Expiration 08/02/2023,2359 [facility] Blood group antibodies identified Nom Negative [facility] Type + Screenon 07-30-2023 Type + Screen Sample Expiration 08/02/2023,2359 Arm Band Number BE [id number] ABO/Rh(D) A POSITIVE Antibody Screen NEGATIVE Normal [facility] Comment on above: Performed By: #### T YS #### [address] [address] Home Based Assistant: Philip Schulte MD Type + Screen Sample Expiration 07/29/2023,2359 Arm Band Number BE [id number] ABO/Rh(D) A POSITIVE Antibody Screen NEGATIVE Blood Bank Comment Band removed Normal [facility] Comment on above: Performed By: #### T YS #### [address] [address] Home Based Assistant: Philip Schulte MD UA w/Reflex Cultureon 2023 Bilirubin, SemiQt,Ur Negative Normal NEG [facility] Comment on above: Performed By: #### U AX #### [address] [address] Home Based Assistant: Philip Schulte MD Blood, Urine Negative Normal NEG [facility] Comment on above: Performed By: #### U AX #### [address] [address] Home Based Assistant: Philip Schulte MD Clarity (U) Clear Normal CLEAR [facility] Comment on above: Performed By: #### U AX #### [address] [address] Home Based Assistant: Philip Schulte MD Color (U) Dark Yellow Abnormal YEL [facility] Comment on above: Performed By: #### U AX #### [address] [address] Home Based Assistant: Philip Schulte MD Comment Microscopic exam not performed based on chemical results unless requested in Normal [facility] Comment on above: Result Comment: orig inal order. Performed By: #### U AX #### [address] [address] Home Based Assistant: Philip Schulte MD Glucose Ql (U) Negative Normal NEG [facility] Comment on above: Performed By: #### U AX #### [address] [address] Home Based Assistant: Philip Schulte MD Ketones Ql (U) Negative Normal NEG [facility] Comment on above: Performed By: #### U AX #### [address] [address] Home Based Assistant: Philip Schulte MD Leukocyte esterase Test strip Ql (U) Negative Normal NEG [facility] Comment on above: Performed By: #### U AX #### [address] [address] Home Based Assistant: Philip Schulte MD Nitrite,Ur Negative Normal NEG [facility] Comment on above: Performed By: #### U AX #### [address] [address] Home Based Assistant: Philip Schulte MD PH,Ur 5.5 Normal 5.0-8.0 [facility] Comment on above: Performed By: #### U AX #### [address] [address] Home Based Assistant: Philip Schulte MD Protein Ql (U) Negative Normal NEG [facility] Comment on above: Performed By: #### U AX #### [address] [address] Home Based Assistant: Philip Schulte MD Spec. [place],Ur 1.037 High 1.005-1.030 [facility] Comment on above: Performed By: #### U AX #### [address] [address] Home Based Assistant: Philip Schulte MD Urobilinogen,Ur Normal Normal 0.0-1.0 [facility] Comment on above: Performed By: #### U AX #### [address] [address] Home Based Assistant: Philip Schulte MD OB 14 PLUS WEEKS SINGLE O R [...] Fadumo Vergara MD 07/30/23 Final result Normal [facility] Urinalysis with Reflex to Cu ltureon 07-30-2023 Bilirubin Ql (U) Negative NEGATIVE [employer] Clarity (U) Clear Clear [employer] Color (U) Dark Yellow Abnormal Yellow [employer] Comment Microscopic exam not performed based on chemical results unless requested in original order. [employer] Glucose Test strip (U) [Mass/Vol] Negative NEGATIVE mg/dL [employer] Hemoglobin Auto test strip Ql (U) Negative NEGATIVE [employer] [facility] Interpretation and review of laboratory results Abnormal [facility] Ketones (U) [Mass/Vol] Negative NEGATIVE mg/d L [facility] Leukocyte esterase Test strip Ql (U) Negative NEGATIVE [facility] Nitrite Ql (U) Negative NEGATIVE [facility] pH (U) 5.5 [pH] 5.0 - 8.0 [facility] Protein (U) [Mass/Vol] Negative NEGATIVE mg/d L [facility] Specific gravity (U) [Rel density] 1.037 High 1.005 - 1.030 [facility] Urobilinogen Qn (U) Normal 0.0 - 1. 0 EU/dL [facility] XR SHOULDER LEFT (MIN 2 VIEW [...] Fadumo Vergara MD 07/30/23 Final result Normal [facility] Pap IG,rfx Aptima HPV all pt hon 02-03-2022 . . Normal [facility] Comment on above: Performed By: #### P [id number] #### [facility] [address] [address] [address] Mack Marcial DIAGNOSIS: Comment Abnormal [facility] Comment on above: Result Comment: EPIT HELIAL CELL ABNORMALITY. LOW GRADE SQUAMOUS INTRAEPITHELIAL LESION (LSIL). PREDOMINANCE OF COCCOBACILLI CONSISTENT WITH SHIFT IN VAGINAL DAHLIA IS PRESENT. Performed By: #### P APH11A #### [facility] [address] [address] [address] Mack Marcial Electronically signed by: Comment Normal [facility] Comment on above: Result Comment: Terrell Mendoza MD, Pathologist Performed By: #### P APH11A #### [facility] [address] [place] [address] Dr. Mack Marcial HPV Aptima Positive Abnormal Negative [facility] Comment on above: Result Comment: This nucleic acid amplification test detects fourteen high-risk HPV types (16,18,31,33,35,39,45,51,52,56,58,59,66,68) without differentiation. Performed By: #### P APH11A #### [facility] [address] [place] [address] Dr. Mack Marcial Methodology: Comment Normal [facility] Comment on above: Result Comment: This liquid based ThinPrep(R) pap test was screened with the use of an image guided system. Performed By: #### P APH11A #### [facility] [address] [place] [address] Dr. Mack Marcial Note: Comment Normal [facility] Comment on above: Result Comment: The Pap smear is a screening test designed to aid in the detection of premalignant and malignant conditions of the uterine cervix. It is not a diagnostic procedure and should not be used as the sole means of detecting cervical cancer. Both false-positive and false-negative reports do occur. . Performed By: #### P APH11A #### [facility] [address] [place] [address] Dr. Mack Marcial Pathologist Provided ICD10 Comment Normal [facility] Comment on above: Result Comment: R87. [id number], R87.5 Performed By: #### P APH11A #### [facility] [address] [place] [address] Dr. Mack Marcial Performed by: Comment Normal [facility] Comment on above: Result Comment: Juhi Albrecht Government Affairs Fellow (ASCP) Performed By: #### P APH11A #### [facility] [address] [place] [address] Dr. Mack Marcial Reflex Criteria: Comment Normal [facility] Comment on above: Result Comment: See below for HPV testing results. . Performed By: #### P APH11A #### [facility] [address] [place] [address] Dr. Mack Marcial Specimen adequacy: Comment Normal [facility] Comment on above: Result Comment: Sati sfactory for evaluation. Endocervical and/or squamous metaplastic cells (endocervical component) are present. Performed By: #### P APH11A #### [facility] [address] [place] [address] Dr. Mack Marcial CBC AUTO DIFFon 09-06-2021 BASO # 0.0 103/ul Normal 0.0-0.1 [facility] Comment on above: Performed By: #### H IV12 #### [facility] [address] [place] [address] Dr. Mack Marcial Basophils/100 WBC (Bld) 0.2 % Normal 0.2-2.0 [facility] Comment on above: Performed By: #### H IV12 #### [facility] [address] [place] [address] Dr. Mack Marcial EO # 0.1 103/ul Normal 0.0-0.7 [facility] Comment on above: Performed By: #### H IV12 #### [facility] [address] [place] [address] Dr. Mack Marcial Eosinophils/100 WBC (Bld) 0.5 % Critically low 0.9-7.0 [facility] Comment on above: Performed By: #### H IV12 #### [facility] [address] [place] [address] Dr. Mack Marcial Erythrocyte distribution width (RBC) [Ratio] 16.2 % Critically high 11.0-15.0 [facility] Comment on above: Performed By: #### H IV12 #### [facility] [address] [place] [address] Dr. Mack Marcial Hematocrit (Bld) [Volume fraction] 25.6 % Critically low 36.0-48.0 [facility] Comment on above: Performed By: #### H IV12 #### [facility] [address] [place] [address] Dr. Mack Marcial Hemoglobin (Bld) [Mass/Vol] 7.9 g/dL Critically low 12.0-16.0 [facility] Comment on above: Result Comment: post Performed By: #### H IV12 #### [facility] [address] [address] [address] Mack Marcial IG # 0.07 10e3/ul Critically high 0.00-0.03 [facility] Comment on above: Performed By: #### H IV12 #### [facility] [address] [place] [address] Dr. Mack Marcial IG % 0.5 % Normal 0.0-0.5 [facility] Comment on above: Performed By: #### H IV12 #### [facility] [address] [place] [address] Dr. Mack Marcial LYMPH # 2.2 103/ul Normal 1.2-3.8 [facility] Comment on above: Performed By: #### H IV12 #### [facility] [address] [place] [address] Dr. Mack Marcial Lymphocytes/100 WBC (Bld) 16.9 % Critically low 20.5-60.0 [facility] Comment on above: Performed By: #### H IV12 #### [facility] [address] [place] [address] Dr. Mack Marcial MANUAL DIFF REQ NO Normal [facility] Comment on above: Performed By: #### H IV12 #### [facility] [address] [place] [address] Dr. Mack Marcial MCH (RBC) [Entitic mass] 24.8 pg Critically low 26.7-34.0 [facility] Comment on above: Performed By: #### H IV12 #### [facility] [address] [place] [address] Dr. Mack Marcial MCHC (RBC) [Mass/Vol] 30.9 g/dL Normal 29.9-35.2 [facility] Comment on above: Performed By: #### H IV12 #### [facility] [address] [place] [address] Dr. Mack Marcial MCV (RBC) [Entitic vol] 80.5 fL Critically low 81.0-99.0 [facility] Comment on above: Performed By: #### H IV12 #### [facility] [address] [address] [address] Mack Marcial MONO # 1.2 103/ul Critically high 0.3-0.8 [facility] Comment on above: Performed By: #### H IV12 #### [facility] [address] [address] [address] Mack Marcial Monocytes/100 WBC (Bld) 9.2 % Normal 1.7-12.0 [facility] Comment on above: Performed By: #### H IV12 #### [facility] [address] [address] [address] Mack Marcial NEUT # 9.4 103/ul Critically high 1.4-6.5 [facility] Comment on above: Performed By: #### H IV12 #### [facility] [address] [place] [address] Dr. Mack Marcial Neutrophils/100 WBC (Bld) 72.7 % Normal 43.0-75.0 [facility] Comment on above: Performed By: #### H IV12 #### [facility] [address] [place] [address] Dr. Mack Marcial Platelet mean volume (Bld) [Entitic vol] 10.1 fL Normal 9.5-13.5 [facility] Comment on above: Performed By: #### H IV12 #### [facility] [address] [place] [address] Dr. Mack Marcial PLT 159 103/ul Normal 150-450 [facility] Comment on above: Performed By: #### H IV12 #### [facility] [address] [address] [address] Mack Marcial RBC 3.18 106/ul Critically low 4.20-5.40 [facility] Comment on above: Performed By: #### H IV12 #### [facility] [address] [address] [address] Mack Marcial WBC 13.0 103/ul Critically high 4.0-11.0 [facility] Comment on above: Performed By: #### H IV12 #### [facility] [address] [place] [address] Dr. Mack Marcial CBC AUTO DIFFon 09-05-2021 BASO # 0.0 103/ul Normal 0.0-0.1 [facility] Comment on above: Performed By: #### 4 [id number] #### [facility] [address] [place] [address] Dr. Mack Marcial Basophils/100 WBC (Bld) 0.3 % Normal 0.2-2.0 [facility] Comment on above: Performed By: #### 4 [id number] #### [facility] [address] [place] [address] Dr. Mack Marcial EO # 0.1 103/ul Normal 0.0-0.7 [facility] Comment on above: Performed By: #### 4 [id number] #### [facility] [address] [place] [address] Dr. Mack Marcial Eosinophils/100 WBC (Bld) 1.0 % Normal 0.9-7.0 [facility] Comment on above: Performed By: #### 4 [id number] #### [facility] [address] [place] [address] Dr. Mack Marcial Erythrocyte distribution width (RBC) [Ratio] 16.4 % Critically high 11.0-15.0 [facility] Comment on above: Performed By: #### 4 [id number] #### [facility] [address] [place] [address] Dr. Mack Marcial Hematocrit (Bld) [Volume fraction] 33.4 % Critically low 36.0-48.0 [facility] Comment on above: Performed By: #### 4 [id number] #### [facility] [address] [place] [address] Dr. Mack Marcial Hemoglobin (Bld) [Mass/Vol] 10.4 g/dL Critically low 12.0-16.0 [facility] Comment on above: Performed By: #### 4 [id number] #### [facility] [address] [place] [address] Dr. Mack Marcial IG # 0.06 10e3/ul Critically high 0.00-0.03 [facility] Comment on above: Performed By: #### 4 [id number] #### [facility] [address] [place] [address] Dr. Mack Marcial IG % 0.6 % Critically high 0.0-0.5 [facility] Comment on above: Performed By: #### 4 [id number] #### [facility] [address] [address] [address] Mack Marcial LYMPH # 2.4 103/ul Normal 1.2-3.8 [facility] Comment on above: Performed By: #### 4 [id number] #### [facility] [address] [place] [address] Dr. Mack Marcial Lymphocytes/100 WBC (Bld) 25.2 % Normal 20.5-60.0 [facility] Comment on above: Performed By: #### 4 [id number] #### [facility] [address] [place] [address] Dr. Mack Marcial MANUAL DIFF REQ NO Normal [facility] Comment on above: Performed By: #### 4 [id number] #### [facility] [address] [place] [address] Dr. Mack Marcial MCH (RBC) [Entitic mass] 24.4 pg Critically low 26.7-34.0 [facility] Comment on above: Performed By: #### 4 [id number] #### [facility] [address] [place] [address] Dr. Mack Marcial MCHC (RBC) [Mass/Vol] 31.1 g/dL Normal 29.9-35.2 [facility] Comment on above: Performed By: #### 4 [id number] #### [facility] [address] [place] [address] Dr. Mack Marcial MCV (RBC) [Entitic vol] 78.2 fL Critically low 81.0-99.0 [facility] Comment on above: Performed By: #### 4 [id number] #### [facility] [address] [place] [address] Dr. Mack Marcial MONO # 0.8 103/ul Normal 0.3-0.8 [facility] Comment on above: Performed By: #### 4 [id number] #### [facility] [address] [place] [address] Dr. Mack Marcial Monocytes/100 WBC (Bld) 8.8 % Normal 1.7-12.0 [facility] Comment on above: Performed By: #### 4 [id number] #### [facility] [address] [place] [address] Dr. Mack Marcial NEUT # 6.1 103/ul Normal 1.4-6.5 [facility] Comment on above: Performed By: #### 4 [id number] #### [facility] [address] [place] [address] Dr. Mack Marcial Neutrophils/100 WBC (Bld) 64.1 % Normal 43.0-75.0 [facility] Comment on above: Performed By: #### 4 [id number] #### [facility] [address] [place] [address] Dr. Mack Marcial Platelet mean volume (Bld) [Entitic vol] 10.4 fL Normal 9.5-13.5 [facility] Comment on above: Performed By: #### 4 [id number] #### [facility] [address] [place] [address] Dr. Mack Marcial PLT 191 103/ul Normal 150-450 [facility] Comment on above: Performed By: #### 4 [id number] #### [facility] [address] [place] [address] Dr. Mack Marcial RBC 4.27 106/ul Normal 4.20-5.40 [facility] Comment on above: Performed By: #### 4 [id number] #### [facility] [address] [place] [address] Dr. Mack Marcial WBC 9.6 103/ul Normal 4.0-11.0 [facility] Comment on above: Performed By: #### 4 [id number] #### [facility] [address] [place] [address] Dr. Mack Marcial Covid-19 PCR (CVDTBH)on 08-25 SARS-CoV-2 (COVID-19) RNA CHUCK+probe Ql (Unsp spec) Not detected Normal NOT DETECTED [facility] Comment on above: Result Comment: When diagnostic [...] for this test is supported by the [place] [employer] and Human Service's declaration that [...] longer be used). Performed By: #### 4 [id number] #### [facility] [address] [place] [address] Dr. Mack Marcial DRUG SCREEN RAPID (URINE)on 09-05-2021 AMP Negative Normal NEGATIVE [facility] Comment on above: Performed By: #### H IV12 #### [facility] [address] [place] [address] Dr. Mack Marcial BAR Negative Normal NEGATIVE [facility] Comment on above: Performed By: #### H IV12 #### [facility] [address] [place] [address] Dr. Mack Marcial BUP Negative Normal NEGATIVE [facility] Comment on above: Performed By: #### H IV12 #### [facility] [address] [place] [address] Dr. Mack Marcial BZO Negative Normal NEGATIVE [facility] Comment on above: Performed By: #### H IV12 #### [facility] [address] [place] [address] Dr. Mack Marcial ANDREA Negative Normal NEGATIVE [facility] Comment on above: Performed By: #### H IV12 #### [facility] [address] [place] [address] Dr. Mack Marcial CUT-OFFS SEE BELOW Normal [facility] Comment on above: Result Comment: AMP (Amphetamine): 500ng/mL, BAR (Barbituates): 200 ng/mL, BZO (Benzodiazepines): 150 ng/mL, BUP (Buprenorphine): 10 ng/mL, ANDREA (Cocaine): 150 ng/mL, mAMP (Methamphetamine): 500 ng/mL, MTD (Methadone): 200 ng/mL, OPI (Opiates): 100 ng/mL, OXY (Oxycodone): 100 ng/mL, PCP (Phencyclidine): 25 ng/mL, PPX (Propoxyphene): 300 ng/mL, THC (Cannabinoids): 50 ng/mL, TCA (Trycyclic Antidepressants): 300 ng/mL Performed By: #### H IV12 #### [facility] [address] [place] [address] Dr. Mack Marcial DRUG CUT HEADER DRUG CLASS TEST SYSTEM CUT-OFF CONCENTRATIONS ARE FOLLOWS: Normal [facility] Comment on above: Performed By: #### H IV12 #### [facility] [address] [place] [address] Dr. Mack Marcial mAMP Negative Normal NEGATIVE [facility] Comment on above: Performed By: #### H IV12 #### [facility] [address] [place] [address] Dr. Mack Marcial MTD Negative Normal NEGATIVE [facility] Comment on above: Performed By: #### H IV12 #### [facility] [address] [place] [address] Dr. Mack Marcial OPI Negative Normal NEGATIVE [facility] Comment on above: Performed By: #### H IV12 #### [facility] [address] [place] [address] Dr. Mack Marcial OXY Negative Normal NEGATIVE [facility] Comment on above: Performed By: #### H IV12 #### [facility] [address] [place] [address] Dr. Mack Marcial PCP Negative Normal NEGATIVE [facility] Comment on above: Performed By: #### H IV12 #### [facility] [address] [address] [address] Mack Marcial PPX Negative Normal NEGATIVE [facility] Comment on above: Performed By: #### H IV12 #### [facility] [address] [address] [address] Mack Marcial TCA Negative Normal NEGATIVE [facility] Comment on above: Performed By: #### H IV12 #### [facility] [address] [place] [address] Dr. Mack Marcial THC Negative Normal NEGATIVE [facility] Comment on above: Performed By: #### H IV12 #### [facility] [address] [place] [address] Dr. Mack Marcial TYPE AND SCREENon 09-05-2021 TYPE AND SCREEN Negative Normal [facility] Comment on above: Performed By: #### H IV12 #### [facility] [address] [place] [address] Dr. Mack Marcial US PREG GROWTHon 08-27-2021 [...] by ultrasound, 88% by expected EDC FL/AC: 0.867548 FL/BPD: 0.982375 HC/AC: 0.447751, slightly low normal 0.9-1.05 GESTATIONAL AGE: Age by EDC: 37 weeks 6 days JORI by EDC: 09/11/2021 Age by US: 38 weeks 1 day JORI by US: 09/09/2021 IMPRESSION: Slightly low head circumference to abdominal circumference ratio Otherwise normal interval growth with estimated weight 88% by expected EDC Electronically authenticated by: FADUMO AMARAL Date: 2021-08-27 17:10 Normal [facility] GROUP B STREP CULTUREon 07-28 S. agalactiae Ag Ql (Unsp spec) Culture Observations: NEGATIVE FOR GROUP B STREPTOCOCCUS. Normal [facility] Comment on above: Performed By: #### G BSCX #### [facility] [address] [address] [address] Mack Marcial HEP B SURFACE ANTIGEN SCREEN on 07-08-2021 HBsAg Screen Negative Normal Negative [facility] Comment on above: Performed By: #### H BSANS #### [facility] [address] [address] [address] Mack Marcial HEPATITIS C VIRUS AB W/ REFL EX QUANTon 07-08-2021 HCV AB <0.1 Normal 0.0-0.9 [facility] Comment on above: Performed By: #### H IV12 #### [facility] [address] [place] [address] Dr. Mack Marcial Interpretation: Comment Normal [facility] Comment on above: Result Comment: Nega tive Not infected with HCV, unless recent infection is suspected or other evidence exists to indicate HCV infection. Performed By: #### H IV12 #### [facility] [address] [place] [address] Dr. Mack Marcial HIV 1 AND 2 WITH REFLEXon HIV Screen 4th Generation wRfx Non-Reactive Normal Non Reactive [facility] Comment on above: Result Comment: HIV Negative HIV-1/HIV-2 antibodies and HIV-1 p24 antigen were NOT detected. There is no laboratory evidence of HIV infection. Performed By: #### H IV12 #### [facility] [address] [place] [address] Dr. Mack Marcial RPR QUANTon 07-08-2021 Rapid Plasma Reagin, Quant Non-Reactive Normal NonRea<1:1 [facility] Comment on above: Performed By: #### R PRQ #### [facility] [address] [place] [address] Dr. Mack Marcial RUBELLA AB IGGon 07-08-2021 Rubella Antibodies, IgG 1.38 index Normal Immune >0.99 [facility] Comment on above: Result Comment: Non- immune <0.90 Equivocal 0.90 - 0.99 Immune >0.99 Performed By: #### R UBIGG #### [facility] [address] [place] [address] Dr. Mack Marcial VARICELLA IGG ABon 2 Varicella Zoster IgG 1197 index Normal Immune >165 [facility] Comment on above: Result Comment: Nega tive <135 Equivocal 135 - 165 Positive >165 A positive result generally indicates exposure to the pathogen or administration of specific immunoglobulins, but it is not indication of active infection or stage of disease. Performed By: #### 4 [id number] #### [facility] [address] [place] [address] Dr. Mack Marcial CBC AUTO DIFFon 07-07-2021 BASO # 0.0 103/ul Normal 0.0-0.1 [facility] Comment on above: Performed By: #### H IV12 #### [facility] [address] [place] [address] Dr. Mack Marcial Basophils/100 WBC (Bld) 0.3 % Normal 0.2-2.0 [facility] Comment on above: Performed By: #### H IV12 #### [facility] [address] [place] [address] Dr. Mack Marcial EO # 0.1 103/ul Normal 0.0-0.7 [facility] Comment on above: Performed By: #### H IV12 #### [facility] [address] [place] [address] Dr. Mack Marcial Eosinophils/100 WBC (Bld) 1.1 % Normal 0.9-7.0 [facility] Comment on above: Performed By: #### H IV12 #### [facility] [address] [place] [address] Dr. Mack Marcial Erythrocyte distribution width (RBC) [Ratio] 14.0 % Normal 11.0-15.0 [facility] Comment on above: Performed By: #### H IV12 #### [facility] [address] [place] [address] Dr. Mack Marcial Hematocrit (Bld) [Volume fraction] 31.9 % Critically low 36.0-48.0 [facility] Comment on above: Performed By: #### H IV12 #### [facility] [address] [place] [address] Dr. Mack Marcial Hemoglobin (Bld) [Mass/Vol] 10.3 g/dL Critically low 12.0-16.0 [facility] Comment on above: Performed By: #### H IV12 #### [facility] [address] [address] [address] Mack Marcial IG # 0.05 10e3/ul Critically high 0.00-0.03 [facility] Comment on above: Performed By: #### H IV12 #### [facility] [address] [place] [address] Dr. Mack Marcial IG % 0.6 % Critically high 0.0-0.5 [facility] Comment on above: Performed By: #### H IV12 #### [facility] [address] [place] [address] Dr. Mack Marcial LYMPH # 1.7 103/ul Normal 1.2-3.8 [facility] Comment on above: Performed By: #### H IV12 #### [facility] [address] [place] [address] Dr. Mack Marcial Lymphocytes/100 WBC (Bld) 21.4 % Normal 20.5-60.0 [facility] Comment on above: Performed By: #### H IV12 #### [facility] [address] [address] [address] Mack Marcial MANUAL DIFF REQ NO Normal [facility] Comment on above: Performed By: #### H IV12 #### [facility] [address] [place] [address] Dr. Mack Marcial MCH (RBC) [Entitic mass] 27.0 pg Normal 26.7-34.0 [facility] Comment on above: Performed By: #### H IV12 #### [facility] [address] [place] [address] Dr. Mack Marcial MCHC (RBC) [Mass/Vol] 32.3 g/dL Normal 29.9-35.2 [facility] Comment on above: Performed By: #### H IV12 #### [facility] [address] [place] [address] Dr. Mack Marcial MCV (RBC) [Entitic vol] 83.5 fL Normal 81.0-99.0 [facility] Comment on above: Performed By: #### H IV12 #### [facility] [address] [place] [address] Dr. Mack Marcial MONO # 0.5 103/ul Normal 0.3-0.8 [facility] Comment on above: Performed By: #### H IV12 #### [facility] [address] [place] [address] Dr. Mack Marcial Monocytes/100 WBC (Bld) 6.2 % Normal 1.7-12.0 [facility] Comment on above: Performed By: #### H IV12 #### [facility] [address] [place] [address] Dr. Mack Marcial NEUT # 5.5 103/ul Normal 1.4-6.5 [facility] Comment on above: Performed By: #### H IV12 #### [facility] [address] [place] [address] Dr. Mack Marcial Neutrophils/100 WBC (Bld) 70.4 % Normal 43.0-75.0 [facility] Comment on above: Performed By: #### H IV12 #### [facility] [address] [place] [address] Dr. Mack Marcial Platelet mean volume (Bld) [Entitic vol] 10.4 fL Normal 9.5-13.5 [facility] Comment on above: Performed By: #### H IV12 #### [facility] [address] [place] [address] Dr. Mack Marcial PLT 185 103/ul Normal 150-450 [facility] Comment on above: Performed By: #### H IV12 #### [facility] [address] [place] [address] Dr. Mack Marcial RBC 3.82 106/ul Critically low 4.20-5.40 [facility] Comment on above: Performed By: #### H IV12 #### [facility] [address] [place] [address] Dr. Mack Marcial WBC 7.9 103/ul Normal 4.0-11.0 [facility] Comment on above: Performed By: #### H IV12 #### [facility] [address] [place] [address] Dr. Mack Marcial GLUCOSE - 1HRon 07-07-2021 Glucose [Mass/Vol] 121 mg/dL Critically high 74-106 [facility] Comment on above: Performed By: #### G LU1HR #### [facility] [address] [place] [address] Dr. Mack Marcial GLYCOHEMOGLOBIN A1Con 2021 ADA RECOMMENDATION ADA THERAPEUTIC TARGET 6.0 - 7.0 ACTION SUGGESTED > 7.0 Normal [facility] Comment on above: Performed By: #### A 1C #### [facility] [address] [place] [address] Dr. Mack Marcial Glucose [Mass/Vol] 105 mg/dL Normal [facility] Comment on above: Performed By: #### A 1C #### [facility] [address] [place] [address] Dr. Mack Marcial HbA1c (Bld) [Mass fraction] 5.3 % Normal <=6.0 [facility] Comment on above: Performed By: #### A 1C #### [facility] [address] [place] [address] Dr. Mack Marcial TYPE AND SCREENon 07-07-2021 TYPE AND SCREEN Negative Normal [facility] Comment on above: Performed By: #### T NS #### [facility] [address] [place] [address] Dr. Mack Marcial US PREG ANATOMY SINGLEon [...] by: LUDMILA EGAN Date: 2021-07-07 16:55 Normal [facility] PAP ACOG PANEL 3: 21 to 29on 04-02-2021 . . Normal [facility] Comment on above: Result Comment: Perf ormed at: WB Performed By: #### 4 [id number] #### [facility] [address] [address] [address] Mack Marcial Age Gdln ACOG Testing 21-29 Normal [facility] Comment on above: Performed By: #### 4 [id number] #### [facility] [address] [address] [address] Mack Marcial Chlamydia, Nuc. Acid Amp Negative Normal Negative [facility] Comment on above: Result Comment: Perf ormed at: =G Performed By: #### 4 [id number] #### [facility] [address] [address] [address] Mack Marcial DIAGNOSIS: Comment Abnormal [facility] Comment on above: Result Comment: EPIT HELIAL CELL ABNORMALITY. LOW GRADE SQUAMOUS INTRAEPITHELIAL LESION (LSIL). Performed at: WB Performed By: #### 4 [id number] #### [facility] [address] [place] [address] Dr. Mack Marcial Electronically signed by: Comment Normal [facility] Comment on above: Result Comment: Terrell Mendoza MD, Pathologist Performed at: WB Performed By: #### 4 [id number] #### [facility] [address] [place] [address] Dr. Mack Marcial Gonococcus, Nuc. Acid Amp Negative Normal Negative [facility] Comment on above: Result Comment: Perf ormed at: =G Performed By: #### 4 [id number] #### [facility] [address] [place] [address] Dr. Mack Marcial Methodology: Comment Normal [facility] [facility] Comment on above: Result Comment: This liquid based ThinPrep(R) pap test was screened with the use of an image guided system. Performed at: WB Performed By: #### [id number] #### [facility] [address] [place] [address] Dr. Mack Marcial Note: Comment Normal [facility] Comment on above: Result Comment: The Pap smear is a screening test designed to aid in the detection of premalignant and malignant conditions of the uterine cervix. It is not a diagnostic procedure and should not be used as the sole means of detecting cervical cancer. Both false-positive and false-negative reports do occur. . Performed at: WB Performed By: #### [id number] #### [facility] [address] [place] [address] Dr. Mack Marcial Pathologist Provided ICD10 Comment Normal [facility] Comment on above: Result Comment: [id number] Performed at: WB Performed By: #### [id number] #### [facility] [address] [place] [address] Dr. Mack Marcial Performed by: Comment Normal [facility] Comment on above: Result Comment: Eyal Winslow Government Affairs Fellow (ASCP) Performed at: WB Performed By: #### [id number] #### [facility] [address] [place] [address] Dr. Mack Marcial Reflex Criteria: Comment Normal [facility] Comment on above: Result Comment: The HPV DNA reflex criteria were not met with this specimen result therefore, no HPV testing was performed. . Performed at: WB Performed By: #### [id number] #### [facility] [address] [place] [address] Dr. Mack Marcial Specimen adequacy: Comment Normal [facility] Comment on above: Result Comment: Sati sfactory for evaluation. No endocervical component is identified. Performed at: WB Performed By: #### [id number] #### [facility] [address] [place] [address] Dr. Mack Marcial CULTURE URINEon 03-30-2021 CULTURE URINE Culture Observations: HEAVY GROWTH OF MIXED GENITAL DAHLIA. NO POTENTIAL PATHOGENS SEEN. Normal [facility] Comment on above: Performed By: #### H IV12 #### [facility] [address] [place] [address] Dr. Mack Marcial UA RANDOM W/MICROSCOPICon BACTERIA MODERATE Abnormal NONE SEEN [facility] Comment on above: Performed By: #### H IV12 #### [facility] [address] [place] [address] Dr. Mack Marcial Bilirubin Ql (U) Negative Normal NEGATIVE [facility] Comment on above: Performed By: #### H IV12 #### [facility] [address] [place] [address] Dr. Mack Marcial CAST NONE SEEN Normal NONE SEEN [facility] Comment on above: Performed By: #### H IV12 #### [facility] [address] [place] [address] Dr. Mack Marcial Clarity (U) SL CLOUDY Abnormal CLEAR [facility] Comment on above: Performed By: #### H IV12 #### [facility] [address] [place] [address] Dr. Mack Marcial Color (U) LT. YELLOW Normal YELLOW [facility] Comment on above: Performed By: #### H IV12 #### [facility] [address] [place] [address] Dr. Mack Marcial Crystals LM Nom (Urine sed) NONE SEEN Normal NONE SEEN [facility] Comment on above: Performed By: #### H IV12 #### [facility] [address] [place] [address] Dr. Mack Marcial Epithelial cells LM Ql (Urine sed) MODERATE Abnormal NONE SEEN /RARE [facility] Comment on above: Performed By: #### H IV12 #### [facility] [address] [place] [address] Dr. Mack Marcial Glucose Ql (U) Negative Normal NEGATIVE [facility] Comment on above: Performed By: #### H IV12 #### [facility] [address] [place] [address] Dr. Mack Marcial Hemoglobin Ql (U) TRACE-INTACT Abnormal NEGATIVE [facility] Comment on above: Performed By: #### H IV12 #### [facility] [address] [place] [address] Dr. Mack Marcial Ketones Ql (U) Negative Normal NEGATIVE [facility] Comment on above: Performed By: #### H IV12 #### [facility] [address] [place] [address] Dr. Mack Marcial LEUKOCYTES MODERATE Abnormal NEGATIVE [facility] Comment on above: Performed By: #### H IV12 #### [facility] [address] [place] [address] Dr. Mack Marcial MUCOUS NONE SEEN Normal NONE SEEN [facility] Comment on above: Performed By: #### H IV12 #### [facility] [address] [place] [address] Dr. Mack Marcial Nitrite Ql (U) Negative Normal NEGATIVE [facility] Comment on above: Performed By: #### H IV12 #### [facility] [address] [place] [address] Dr. Mack Marcial pH (U) 5.5 [pH] Normal 5-9 [facility] Comment on above: Performed By: #### H IV12 #### [facility] [address] [address] [address] Mack Marcial RBC 2-5 Abnormal 0-2 [facility] Comment on above: Performed By: #### H IV12 #### [facility] [address] [address] [address] Mack Marcial SPEC GRAVITY >=1.030 Abnormal 1.005-<=1.025 [facility] Comment on above: Performed By: #### H IV12 #### [facility] [address] [address] [address] Mack Marcial UA PROTEIN Negative Normal NEGATIVE/ TRACE [facility] Comment on above: Performed By: #### H IV12 #### [facility] [address] [place] [address] Dr. Mack Marcial Urobilinogen Qn (U) 0.2 {Saul'U}/dL Normal 0.2 - 1. 0 [facility] Comment on above: Performed By: #### H IV12 #### [facility] [address] [place] [address] Dr. Mack Marcial WBC 75-100 Abnormal NONE SEEN [facility] Comment on above: Performed By: #### H IV12 #### [facility] [address] [place] [address] Dr. Mack Marcial US PREG TVon 02-17-2021 [...] measuring 10 weeks 3 days Normal [facility] URINALYSIS WITH MICROSCOPICO rdered By: Henry Heller on 01-21-2021 - [employer] Work Phone: Amorphous, UA NOT REPORTED None [facility] Work Phone: Bacteria, UA FEW Abnormal None [facility] CenterB[facility] Work Phone: Bilirubin Urine Negative NEGATIVE [facility] Center[facility] Work Phone: Casts UA 5 TO 10 HYALINE Reference range defined for non-centrifuged specimen. [facility] Center[facility] Work Phone: Color, UA DARK YELLOW Abnormal YELLOW [facility] CenterMotorpaneer Phone: Crystals, UA NOT REPORTED None /HPF [facility] [employer] Work Phone: Epithelial Cells UA 5 TO 10 [facility] [employer] Phone: Glucose, Ur Negative NEGATIVE [facility] CenterM[facility]aneer Phone: Interpretation and review of laboratory results Abnormal [facility] CenterM[facility]aneer Phone: Ketones Ql (U) Negative NEGATIVE [facility] Center[facility] Work Phone: Leukocyte esterase Test strip Ql (U) Negative NEGATIVE [facility] [employer] Phone: Mucus, UA NOT REPORTED None [facility] [employer] Social Phone: Nitrite, Urine Negative NEGATIVE [facility] Work Phone: Other Observations UA NOT REPORTED NOT REQ. [facility] [employer] Work Phone: pH, UA 5.0 [facility] [employer] Work Phone: Protein, UA Negative NEGATIVE [facility] [employer] Social Phone: RBC, UA 5 TO 10 [facility] [employer] Social Phone: Comment on above: Reference range defi sofía for non-centrifuged specimen. Renal Epithelial, UA NOT REPORTED 0 /HPF [employer] Work Phone: Specific [place], UA 1.037 [employer] Work Phone: Trichomonas, UA NOT REPORTED None [employer] Work Phone: Turbidity UA CLEAR CLEAR [employer] Phone: Urine Hgb Negative NEGATIVE [facility] Center[facility]aneer Phone: Urobilinogen, Urine Normal Normal [facility] Center[facility] Phone: WBC, UA 5 TO 10 [employer] Phone: Yeast, UA NOT REPORTED None [employer] Phone: [employer] Phone: HCG, ,Urineon 08-19 Beta HCG ( test) Ql (U) Negative NEGATIVE [place] Comment on above: Specimens with hCG l evels near the threshold of the test (25 mIU/mL) may give a negative or indeterminate result. In such cases, another test should be performed with a new specimen in 48-72 hours. If early is suspected clinically in this setting, correlation with quantitative serum b-hCG level is suggested. Microscopic Urinalysison Amorphous, UA NOT REPORTED None [facility] [place] [place] Bacteria, UA FEW Abnormal None [facility] Casts UA NOT REPORTED /LPF [facility] [place] Crystals UA NOT REPORTED None /HPF [facility] Epithelial Cells UA 5 TO 10 /HPF [place] Interpretation and review of laboratory results Abnormal [place] Mucus, UA NOT REPORTED None [facility] Other Observations UA NOT REPORTED NOT REQ. M [facility], [place] RBC (U) [#/Vol] 0 TO 2 /HPF [facility] [place] Renal Epithelial, Urine NOT REPORTED 0 /HPF [place] Trichomonas, UA NOT REPORTED None [facility] WBC, UA 2 TO 5 /HPF [facility], [place] Yeast, UA NOT REPORTED [place] Otheron 08-19-2019 Direct Exam Negative [place] Urinalysis Reflex to Culture on 08-19-2019 Bilirubin Urine Negative NEGATIVE [facility] [place] Color, UA YELLOW YELLOW [place] Glucose, Ur Negative NEGATIVE [place] Interpretation and review of laboratory results Abnormal [place] Ketones Ql (U) Negative NEGATIVE [place] Leukocyte esterase Test strip Ql (U) MOD Abnormal NEGATIVE [place] Nitrite, Urine Negative NEGATIVE [place] pH, UA 5.0 [place] Protein (U) [Mass/Vol] Negative NEGATIVE [place] Specific [place], UA 1.027 [place] Turbidity UA CLOUDY Abnormal CLEAR [place] Urinalysis Comments NOT REPORTED [place] Urine Hgb Negative NEGATIVE [place] Urobilinogen, Urine Normal Normal [place] Vaginitis DNA Probeon 2019 Direct Exam Positive Abnormal [place] Direct Exam Method of testing is a DNA probe intended for detection and identification of Matthew species, Gardnerella vaginalis, and Trichomonas vaginalis nucleic acid in vaginal fluid specimens from patients with symptoms of vaginitis/vaginosis. [place] Interpretation and review of laboratory results Abnormal [place] Special Requests NOT REPORTED [place] Specimen Description .VAG[place] Microscopic Urinalysison Amorphous, UA 1+ Abnormal None [facility] [employer] Work Phone: Bacteria, UA FEW Abnormal None [facility] Work Phone: Casts UA NOT REPORTED /LPF [facility] Work Phone: Crystals UA NOT REPORTED None /HPF [facility] [employer] Work Phone: Epithelial Cells UA 2 TO 5 /HPF [facility] Work Phone: Interpretation and review of laboratory results Abnormal [facility] Work Phone: Mucus, UA NOT REPORTED None [employer] Work Phone: Other Observations UA NOT REPORTED NOT REQ. M [facility] [employer] Work Phone: RBC (U) [#/Vol] 2 TO 5 /HPF [facility] CenterMetconne[facility] [place] Work Phone: Renal Epithelial, Urine NOT REPORTED 0 /HPF [facility] Center[facility] Work Phone: Trichomonas, UA NOT REPORTED None [facility] CenterVinAsset, Inc [employer] Work Phone: WBC, UA 5 TO 10 /HPF [facility] CenterB[facility] Work Phone: Yeast, UA NOT REPORTED None [employer] Work Phone: - [employer] Work Phone: POCT HCG, Prenancy, Uron Beta HCG ( test) Ql (U) Negative NEGATIVE [employer] Work Phone: Comment on above: HCG screen is sensitive to 25 mIU/mL. However this test may roll picker lower levels of HCG. If further evaluation is needed please request quantitative HCG. - NOT REPORTED [employer] Work Phone: POCT urine pregnancyon 08-05 Interpretation and review of laboratory results Normal [employer] Work Phone: Preg Test, Ur Negative [place] [facility] Work Phone: QC OK? yes [employer] Work Phone: Urinalysis Reflex to Culture on 08-05-2019 Bilirubin Urine Negative NEGATIVE [employer] [place] Work Phone: Color, UA YELLOW YELLOW [employer] Work Phone: Glucose, Ur Negative NEGATIVE [employer] Work Phone: Interpretation and review of laboratory results Abnormal [employer] Work Phone: Ketones Ql (U) Negative NEGATIVE [employer] Work Phone: Leukocyte esterase Test strip Ql (U) MOD Abnormal NEGATIVE [facility] CenterMotor[facility]aneer Phone: Nitrite, Urine Negative NEGATIVE [facility] CenterCloudShield Technologies [facility] [employer] Work Phone: pH, UA 6.0 [facility] CenterB[facility] Work Phone: Protein (U) [Mass/Vol] Negative NEGATIVE [facility] [employer] Work Phone: Specific [place], UA 1.025 [facility] [employer] Phone: Turbidity UA CLOUDY Abnormal CLEAR [facility] Center[facility] Work Phone: Urinalysis Comments NOT REPORTED [facility] [employer] Work Phone: Urine Hgb Negative NEGATIVE [facility] CenterMotorpaneer Phone: Urobilinogen, Urine Normal Normal [facility] CenterMotor[facility]aneer Phone: CT Head WO ContrastOrdered B y: Marshall Rodriguez on 07-07-2019 No acute intracranial abnormality. [employer] Phone: EXAMINATION: CT OF THE HEAD WITHOUT [...] of the visualized skull or soft tissues. [employer] Phone: Moisés, Mhpn Incoming Radiant Results From [employer] - 07/07/2019 3:30 PM EST EXAMINATION: CT [...] soft tissues. IMPRESSION: No acute intracranial abnormality. [facility] Work Phone: HCG, ,Urineon 04-03 Beta HCG ( test) Ql (U) Negative NEGATIVE [place] Comment on above: Specimens with hCG [...] Culture on 04-03-2019 Bilirubin Urine Negative NEGATIVE [place] Color, UA YELLOW YELLOW [place], [place] Glucose, Ur Negative NEGATIVE [place] Interpretation and review of laboratory results Abnormal [place] Ketones Ql (U) Negative NEGATIVE [place] Leukocyte esterase Test strip Ql (U) LARGE Abnormal NEGATIVE [place] Nitrite, Urine Negative NEGATIVE [place] pH, UA 7.5 [place], [place] Protein (U) [Mass/Vol] 1+ Abnormal NEGATIVE [place] Specific [place], UA 1.014 [place] Turbidity UA CLOUDY Abnormal CLEAR [place] Urinalysis Comments NOT REPORTED [place] Urine Hgb LARGE Abnormal NEGATIVE [place] Urobilinogen, Urine Normal Normal [place] HCG, ,Urineon 03-15 Beta HCG ( test) Ql (U) Negative NEGATIVE [place] Comment on above: Specimens with hCG l evels near the threshold of the test (25 mIU/mL) may give a negative or indeterminate result. In such cases, another test should be performed with a new specimen in 48-72 hours. If early is suspected clinically in this setting, correlation with quantitative serum b-hCG level is suggested. Microscopic Urinalysison Amorphous, UA NOT REPORTED None [place] Bacteria, UA MODERATE Abnormal None [place] Casts UA NOT REPORTED /LPF [place] Crystals UA NOT REPORTED None /HPF [place] Epithelial Cells UA 0 TO 2 /HPF [place] Interpretation and review of laboratory results Abnormal [place] Mucus, UA 2+ Abnormal None [place] Other Observations UA NOT REPORTED NOT REQ. M [place] RBC (U) [#/Vol] 0 TO 2 /HPF [place] Renal Epithelial, Urine NOT REPORTED 0 /HPF [place] Trichomonas, UA NOT REPORTED None [place], [place] WBC, UA 20 TO 50 /HPF [place] Yeast, UA NOT REPORTED None [place] Urinalysis Reflex to Culture on 03-15-2019 Bilirubin Urine Negative NEGATIVE [place] Color, UA YELLOW YELLOW [place], [place] Glucose, Ur Negative NEGATIVE [place] Interpretation and review of laboratory results Abnormal [place] Ketones Ql (U) Negative NEGATIVE [place] Leukocyte esterase Test strip Ql (U) MOD Abnormal NEGATIVE [place], [place] Nitrite, Urine Negative NEGATIVE [place] pH, UA 7.5 [place], [place] Protein (U) [Mass/Vol] 1+ Abnormal NEGATIVE [place] Specific [place], UA 1.019 [place] Turbidity UA TURBID Abnormal CLEAR [place] Urinalysis Comments NOT REPORTED [place] Urine Hgb TRACE Abnormal NEGATIVE [place] Urobilinogen, Urine Normal Normal [place] HCG, ,Urineon 02-15 Beta HCG ( test) Ql (U) Negative NEGATIVE [place] Comment on above: Specimens with hCG l evels near the threshold of the test (25 mIU/mL) may give a negative or indeterminate result. In such cases, another test should be performed with a new specimen in 48-72 hours. If early is suspected clinically in this setting, correlation with quantitative serum b-hCG level is suggested. Microscopic Urinalysison Amorphous, UA NOT REPORTED None [place] Bacteria, UA FEW Abnormal None [place] Casts UA NOT REPORTED /LPF [place] Crystals UA NOT REPORTED None /HPF [place] Epithelial Cells UA 10 TO 20 /HPF [place], [place] Interpretation and review of laboratory results Abnormal [place] Mucus, UA 1+ Abnormal None [place], [place] Other Observations UA NOT REPORTED NOT REQ. M [place] RBC (U) [#/Vol] 0 TO 2 /HPF [place] Renal Epithelial, Urine NOT REPORTED 0 /HPF [place], [place] Trichomonas, UA NOT REPORTED None [place], [place] WBC, UA 5 TO 10 /HPF [place], [place] Yeast, UA NOT REPORTED None [place] - [place] Otheron 02-15-2019 Direct Exam Negative [place], [place] Urinalysis Reflex to Culture on 02-15-2019 Bilirubin Urine Presumptive positive. Unable to confirm due to unavailability of reagent. Abnormal NEGATIVE [place], [place] Color, UA DARK YELLOW Abnormal YELLOW [place], [place] Glucose, Ur Negative NEGATIVE [place], [place] Interpretation and review of laboratory results Abnormal [place], [place] Ketones Ql (U) Negative NEGATIVE [place] Leukocyte esterase Test strip Ql (U) SMALL Abnormal NEGATIVE [place], [place] Nitrite, Urine Negative NEGATIVE [place] pH, UA 5.0 [place], [place] Protein (U) [Mass/Vol] TRACE Abnormal NEGATIVE [place] Specific [place], UA 1.036 [place] Turbidity UA CLOUDY Abnormal CLE[place] Urinalysis Comments NOT REPORTED [place] Urine Hgb Negative NEGATIVE [place], [place] Urobilinogen, Urine Normal Normal [place] Vaginitis DNA Probeon 2018 Direct Exam Method of testing is a DNA probe intended for detection and identification of Matthew species, Gardnerella vaginalis, and Trichomonas vaginalis nucleic acid in vaginal fluid specimens from patients with symptoms of vaginitis/vaginosis. [place] Special Requests NOT REPORTED [place] Specimen Description .VAGINA [place] Vital Signs Date Time Vital Sign Value Performing Clinician Faci lity 02-02-2025 13:19-040 Body mass index (BMI) [Ratio] 33.48 kg/m2 Faby JAY Work Phone: [facility] 02-02-2025 13:19-040 Body temperature 97.9 [degF] Faby JAY Work Phone: [facility] 02-02-2025 [id number] Body weight 85.73 kg Faby JAY Work Phone: [facility] 02-02-2025 13:19-0400 Diastolic blood pressure 69 mm[Hg] Faby Diaz [employer]NN[employer] Work Phone: [facility] 02-02-2025 13:19-040 Heart rate 78 /min Faby Diaz [employer]NN[employer]JOS Work Phone: [facility] 02-02-2025 13:19-0400 Respiratory rate 18 /min Faby Diaz [employer]NN[employer]JOS Work Phone: [facility] 02-02-2025 13:19-0400 SaO2% (BldA) [Mass fraction] 100 % Laureanojennifer Diaz [employer] DEALER-WAREHOUSE PRICING AND INVENTORY CLERK Work Phone: [facility] 02-02-2025 13:19-0400 Systolic blood pressure 132 mm[Hg] Faby Lula [employer] DEALER-WAREHOUSE PRICING AND INVENTORY CLERK Work Phone: [facility] 01-16-2025 14:40-0400 Body mass index (BMI) [Ratio] 32.66 kg/m2 Olivia Blackwell PA Work Phone: [facility] 01-16-2025 14:40-0400 Body weight 83.64 kg Olivia Blackwell PA Work Phone: [facility] 01-16-2025 14:40-0400 Diastolic blood pressure 74 mm[Hg] Olivia Blackwell PA Work Phone: [facility] 01-16-2025 14:40-0400 Systolic blood pressure 116 mm[Hg] Olivia Blackwell PA Work Phone: [facility] 01-03-2025 08:27-0400 Body mass index (BMI) [Ratio] 33.48 kg/m2 Olivia Rush [employer] DEALER-WAREHOUSE PRICING AND INVENTORY CLERK Work Phone: [facility] 01-03-2025 08:27-0400 Body temperature 97.59 [degF] Olivia Rush [employer] DEALER-WAREHOUSE PRICING AND INVENTORY CLERK Work Phone: [facility] 01-03-2025 08:27-0400 Body weight 85.73 kg Olivia Rush [employer] DEALER-WAREHOUSE PRICING AND INVENTORY CLERK Work Phone: [facility] 01-03-2025 08:27-0400 Diastolic blood pressure 58 mm[Hg] Olivia Rush [employer] DEALER-WAREHOUSE PRICING AND INVENTORY CLERK Work Phone: [facility] 01-03-2025 08:27-0400 Heart rate 74 /min Olivia Rush [employer] DEALER-WAREHOUSE PRICING AND INVENTORY CLERK Work Phone: [facility] 01-03-2025 08:27-0400 Respiratory rate 18 /min Olivia Rush [employer] DEALER-WAREHOUSE PRICING AND INVENTORY CLERK Work Phone: [facility] 01-03-2025 08:27-0400 SaO2% (BldA) [Mass fraction] 99 % Olivia Rush [employer] DEALER-WAREHOUSE PRICING AND INVENTORY CLERK Work Phone: [facility] 01-03-2025 08:27-0400 Systolic blood pressure 124 mm[Hg] Olivia Rush [employer] DEALER-WAREHOUSE PRICING AND INVENTORY CLERK Work Phone: [facility] 12-19-2024 14:04-0400 Body mass index (BMI) [Ratio] 33.98 kg/m2 Olivia Rosalva PA Work Phone: [facility] 12-19-2024 14:04-0400 Body weight 87 kg Olivia Rosalva PA Work Phone: [facility] 12-19-2024 14:04-0400 Diastolic blood pressure 76 mm[Hg] Olivia Van Horne PA Work Phone: [facility] 12-19-2024 14:04-0400 Systolic blood pressure 120 mm[Hg] Olivia Rosalva PA Work Phone: [facility] 11-21-2024 14:44-0400 Body height 160 cm Olivia Van Horne PA Work Phone: [facility] 11-21-2024 14:44-0400 Body mass index (BMI) [Ratio] 35.22 kg/m2 Olivia Rosalva PA Work Phone: [facility] 11-21-2024 14:44-0400 Body weight 90.17 kg Olivia Van Horne PA Work Phone: [facility] 11-21-2024 14:44-0400 Diastolic blood pressure 60 mm[Hg] Olivia Van Horne PA Work Phone: [facility] 11-21-2024 14:44-0400 Systolic blood pressure 100 mm[Hg] Olivia Rosalva PA Work Phone: [facility] 10-09-2024 17:09-0400 Body height 160 cm Calvin Heller Work Phone: [employer] 10-09-2024 17:09-0400 Body mass index (BMI) [Ratio] 35.43 kg/m2 Calvin Hicks MD Work Phone: [facility] [employer] 10-09-2024 17:09-0400 Body temperature 98.6 [degF] Calvin Garcia D Work Phone: [facility] [employer] 10-09-2024 17:09-0400 Body weight 90.72 kg Calvin Garcia D Work Phone: [facility] [employer] 10-09-2024 17:09-0400 Diastolic blood pressure 46 mm[Hg] Calvin Hicks MD Work Phone: [facility] [employer] 10-09-2024 17:09-0400 Heart rate 70 /min Calvin Heller Work Phone: [facility] [employer] 10-09-2024 17:09-0400 Respiratory rate 16 /min Calvin Heller Work Phone: [facility] [employer] 10-09-2024 17:09-0400 SaO2% (BldA) [Mass fraction] 97 % Calvin Hicks MD Work Phone: [facility] [employer] 10-09-2024 17:09-0400 Systolic blood pressure 119 mm[Hg] Calvin Hicks MD Work Phone: [facility] [employer] 07-19-2024 15:30-0500 Respiratory rate 16 /min Faustino Knight MD Work Phone: [facility] [employer] 07-19-2024 14:02-0500 Body height 160 cm Faustino Knight MD Work Phone: [facility] [employer] 07-19-2024 14:02-0500 Body mass index (BMI) [Ratio] 35.43 kg/m2 Faustino Knight MD Work Phone: [employer] 07-19-2024 14:02-0500 Body temperature 98.2 [degF] Faustino Knight MD [facility] 07-19-2024 14:02-0500 Body weight 90.72 kg Faustino Knight MD Work Phone: [facility] [employer] 07-19-2024 14:02-0500 Diastolic blood pressure 55 mm[Hg] Faustino Knight MD [facility] 07-19-2024 14:02-0500 Heart rate 91 /min Faustino Knight MD Work Phone[facility] 07-19-2024 14:02-0500 SaO2% (BldA) [Mass fraction] 98 % Faustino Knight MD Work Phone[facility] 07-19-2024 14:02-0500 Systolic blood pressure 103 mm[Hg] Faustino Knight MD Work [facility] 07-04-2024 14:28-0500 Body weight 88 kg Olivia LEE Work Phone: [facility] 07-04-2024 14:28-0500 Diastolic blood pressure 62 mm[Hg] Olivia LEE Work Phone: [facility] 07-04-2024 14:28-0500 Systolic blood pressure 116 mm[Hg] Olivia LEE Work Phone: [facility] 06-02-2024 16:36-0500 Body height 160 cm Leighton Mary Ellen DO Work Phone: [facility] [employer] 06-02-2024 16:36-0500 Body mass index (BMI) [Ratio] 30.11 kg/m2 Leighton Mary Ellen DO Work Phone: [facility] [employer] 06-02-2024 16:36-0500 Body temperature 97.3 [degF] Leighton Mary Ellen DO Work Phone: [facility] [employer] 06-02-2024 16:36-0500 Body weight 77.11 kg Leighton Wongd DO Work Phone: [facility] [employer] 06-02-2024 16:36-0500 Diastolic blood pressure 74 mm[Hg] Leighton Wongd DO Work Phone: [facility] [employer] 06-02-2024 16:36-0500 Heart rate 72 /min Leighton Wongd DO Work Phone: [facility] [employer] 06-02-2024 16:36-0500 Respiratory rate 18 /min Leighton Wongd DO Work Phone: [facility] [employer] 06-02-2024 16:36-0500 SaO2% (BldA) [Mass fraction] 99 % Leighton Wongd DO Work Phone: [facility] [employer] 06-02-2024 16:36-0500 Systolic blood pressure 124 mm[Hg] Leighton Wongd DO Work Phone: [facility] [employer] 04-03-2024 13:59-0400 Body mass index (BMI) [Ratio] 34.37 kg/m2 Racquel Shehorn PA-C Work Phone: [facility] [employer] [facility] 04-03-2024 13:59-0400 Body temperature 97.59 [degF] Racquel Shehorn PA-C Work Phone: [facility] [employer] [facility] 04-03-2024 13:59-0400 Body weight 88 kg Racquel Shehorn PA-C [facility] 04-03-2024 13:59-0400 Diastolic blood pressure 65 mm[Hg] Racquel Shehorn PA-C Work Phone: [facility] [employer] [facility] 04-03-2024 13:59-0400 Heart rate 83 /min Racquel Shehorn PA-C Work Phone: [facility] 04-03-2024 13:59-0400 Respiratory rate 20 /min Racquel Smith PA-C Work Phone: [facility] 04-03-2024 13:59-0400 SaO2% (BldA) [Mass fraction] 100 % Racquel Encarnacionn PA-C Work Phone: [facility] 04-03-2024 13:59-0400 Systolic blood pressure 110 mm[Hg] Racquel Smith PA-C Work Phone: [facility] 02-20-2024 16:47-0400 Body height 160 cm Shant Fernándezgume I, D O Work Phone: [facility] [employer] 02-20-2024 16:47-0400 Body mass index (BMI) [Ratio] 30.11 kg/m2 Shant Jolenegume I, DO Work Phone: [facility] [employer] 02-20-2024 16:47-0400 Body temperature 98.1 [degF] Shant Fernándezgume I, D O Work Phone: [facility] [employer] 02-20-2024 16:47-0400 Body weight 77.11 kg Shant Fernándezgume I, D O Work Phone[facility] 02-20-2024 16:47-0400 Diastolic blood pressure 76 mm[Hg] Jolenegume Jolenegume I, DO Work Phone: [facility] [employer] 02-20-2024 16:47-0400 Heart rate 71 /min Shant Fernándezgume I, D O Work Phone: [employer] 02-20-2024 16:47-0400 Respiratory rate 18 /min Shant Fernándezgume I, D O Work Phone: [facility] [employer] 02-20-2024 16:47-0400 SaO2% (BldA) [Mass fraction] 99 % Shant Jolenegume I, DO Work Phone: [employer] 02-20-2024 16:47-0400 Systolic blood pressure 99 mm[Hg] Shant Bran I, DO Work Phone: [employer] 07-31-2023 08:49-0500 Body temperature 98.29 [degF] Aria Chowdary MD Work Phone: [employer] 07-31-2023 08:49-0500 Diastolic blood pressure 42 mm[Hg] Aria Chowdary MD Work Phone: [employer] 07-31-2023 08:49-0500 Heart rate 66 /min Aria Chowdary MD Work Phone: [employer] 07-31-2023 08:49-0500 Respiratory rate 18 /min Aria Chowdary MD Work Phone: [employer] 07-31-2023 08:49-0500 SaO2% (BldA) [Mass fraction] 99 % Aria Chowdary MD Work Phone: [employer] 07-31-2023 08:49-0500 Systolic blood pressure 103 mm[Hg] Aria Chowdary MD Work Phone: [employer] 01-20-2021 22:05-0400 Body height 160 cm Henry Heller MD [employer] Work Phone: 01-20-2021 22:05-0400 Body mass index (BMI) [Ratio] 30.11 kg/m2 Henry Heller MD [employer] Work Phone: 01-20-2021 22:05-0400 Body temperature 98.1 [degF] Henry Heller MD [employer] Work Phone: 01-20-2021 22:05-0400 Body weight 77.11 kg Henry Heller MD [employer] Work Phone: 01-20-2021 22:05-0400 Diastolic blood pressure 82 mm[Hg] Henry Heller MD [employer] Phone: 01-20-2021 22:05-0400 Heart rate 98 /min Henry Heller MD [employer] Phone: 01-20-2021 22:05-0400 Respiratory rate 16 /min Henry Heller MD [employer] Phone: 01-20-2021 22:05-0400 SaO2% (BldA) [Mass fraction] 100 % Henry Heller MD [employer] Phone: 01-20-2021 22:05-0400 Systolic blood pressure 138 mm[Hg] Henry Heller MD [employer] Phone: 08-19-2019 13:39-0500 BMI (Body Mass Index) 26.57 kg/m2 [facility] 08-19-2019 13:39-0500 Body Temperature 98.1 [degF] [facility] 08-19-2019 13:39-0500 Body weight 68.04 kg [facility] 08-19-2019 13:39-0500 BP Diastolic 76 mm[Hg] [facility] 08-19-2019 13:39-0500 BP Systolic 123 mm[Hg] [facility] 08-19-2019 13:39-0500 Height 160 cm [facility] 08-19-2019 13:39-0500 Pulse (Heart Rate) 87 /min [facility] 08-19-2019 13:39-0500 Pulse Oximetry 98 % [facility] 08-19-2019 13:39-0500 Respiratory Rate 16 /min [facility] 08-05-2019 14:22-0500 BMI (Body Mass Index) 26.57 kg/m2 [employer] Phone: 08-05-2019 14:22-0500 Body Temperature 98.71 [degF] [employer] Phone: 08-05-2019 14:22-0500 Body weight 68.04 kg [employer] Phone: 08-05-2019 14:22-0500 BP Diastolic 62 mm[Hg] [employer] Phone: 08-05-2019 14:22-0500 BP Systolic 117 mm[Hg] [employer] Phone: 08-05-2019 14:22-0500 Height 160 cm [employer] Phone: 08-05-2019 14:22-0500 Pulse (Heart Rate) 59 /min [employer] Phone: 08-05-2019 14:22-0500 Pulse Oximetry 99 % [employer] Phone: 08-05-2019 14:22-0500 Respiratory Rate 16 /min [employer] Phone: 2019 10:44-0500 Body height 160 cm Vini cartmi Work Phone: [employer] Phone: 2019 10:44-0500 Body mass index (BMI) [Ratio] 26.57 kg/m2 [employer] Phone: [employer] Phone: 2019 10:44-0500 Body temperature 98.29 [degF] [employer] Phone: [employer] Phone: 2019 10:44-0500 Body weight 68.04 kg Vini [employer] Work Phone: [employer] Work Phone: 2019 10:44-0500 Diastolic blood pressure 58 mm[Hg] Vini Sueroak DO Work Phone: [employer] Work Phone: 2019 10:44-0500 Heart rate 70 /min Vini Su[employer] Work Phone: [employer] Work Phone: 2019 10:44-0500 Respiratory rate 15 /min [email or web address] Work Phone: [employer] Work Phone: 2019 10:44-0500 SaO2% (BldA) [Mass fraction] 99 % [email or web address] Work Phone: [employer] Work Phone: 2019 10:44-0500 Systolic blood pressure 106 mm[Hg] [email or web address] Work Phone: [employer] Work Phone: 07-07-2019 14:30-0500 Body height 160 cm Marshall Rodriguez MD Work Phone: [employer] Work Phone: 07-07-2019 14:30-0500 Body mass index (BMI) [Ratio] 26.57 kg/m2 Marshall Rodriguez MD Work Phone: [employer] Work Phone: 07-07-2019 14:30-0500 Body temperature 98.2 [degF] Marshall Rodriguez MD Work Phone: [employer] Work Phone: 07-07-2019 14:30-0500 Body weight 68.04 kg Marshall Rodriguez MD Work Phone: [employer] Work Phone: 07-07-2019 14:30-0500 Diastolic blood pressure 78 mm[Hg] Marshall Rodriguez MD Work Phone: [employer] Work Phone: 07-07-2019 14:30-0500 Heart rate 99 /min Marshall Rodriguez MD Work Phone: [employer] Work Phone: 07-07-2019 14:30-0500 Respiratory rate 18 /min Marshall Rodriguez MD Work Phone: [employer] Work Phone: 07-07-2019 14:30-0500 SaO2% (BldA) [Mass fraction] 100 % Marshall Rodriguez MD Work Phone: [employer] Work Phone: 07-07-2019 14:30-0500 Systolic blood pressure 128 mm[Hg] Marshall Rodriguez MD Work Phone: [employer] Work Phone: 04-03-2019 17:20-0400 BMI (Body Mass Index) 27.28 kg/m2 [facility] 04-03-2019 17:20-0400 Body Temperature 98.4 [degF] [facility] 04-03-2019 17:20-0400 Body weight 69.[address] [facility] 04-03-2019 17:20-0400 BP Diastolic 46 mm[Hg] [facility] 04-03-2019 17:20-0400 BP Systolic 120 mm[Hg] [facility] 04-03-2019 17:20-[address] [facility] 04-03-2019 17:20-0400 Pulse (Heart Rate) 69 /min [facility] 04-03-2019 17:20-0400 Pulse Oximetry 98 % [facility] [place] 04-03-2019 17:20-0400 Respiratory Rate 18 /min [facility] [place] 03-15-2019 17:35-0400 BMI (Body Mass Index) 27.28 kg/m2 Drake Corcoran [facility] 03-15-2019 17:35-0400 Body Temperature 98.4 [degF] Drake [facility] 03-15-2019 17:35-0400 Body weight 69.85 kg Drake [facility] , [place] 03-15-2019 17:35-0400 BP Diastolic 57 mm[Hg] [facility] [place] 03-15-2019 17:35-0400 BP Systolic 114 mm[Hg] [facility] [place] 03-15-2019 17:35-0400 Height 160 cm Drake Corcoran [facility] , [place] 03-15-2019 17:35-0400 Pulse (Heart Rate) 66 /min Drake [facility] 03-15-2019 17:35-0400 Pulse Oximetry 99 % [facility] , [place] 03-15-2019 17:35-0400 Respiratory Rate 16 /min Drake Corcoran [facility], [place] 02-15-2019 11:22-0400 BMI (Body Mass Index) 28.34 kg/m2 [facility] [place] 02-15-2019 11:22-0400 Body Temperature 98.01 [degF] Елена [facility] 02-15-2019 11:22-0400 Body weight 72.58 kg Елена [facility] , [place] 02-15-2019 11:22-0400 BP Diastolic 67 mm[Hg] [facility] , [place] 02-15-2019 11:22-0400 BP Systolic 111 mm[Hg] [facility] [place] 02-15-2019 11:22-0400 Height 160 cm Елена [facility] [place] 02-15-2019 11:22-0400 Pulse (Heart Rate) 69 /min Елена [facility] 02-15-2019 11:22-0400 Pulse Oximetry 98 % [facility] [place] , [place] 02-15-2019 11:-0400 Respiratory Rate 14 /min Елена Olivera [facility] [place], [place] Encounters Encounter Date Encounter Type Care Provider Facility Start: 02-03-2025 End: 02-03-2025 Orders Only Faby Perez Diaz [employer]WAREHOUSE [employer]ICING AND INVENTORY CLERK Work Phone: [facility] Comment on above: Bacterial vaginosis (Primary Dx) Start: 02-02-2025 End: 02-02-2025 ambulatory NO PCP NO PCP [facility] Start: 02-02-2025 End: 02-02-2025 Office outpatient visit 15 minutes Faby Diasis Lula [employer]WAREHOUSE PRICING AND INVENTORY CLERK Work Phone: [facility] Comment on above: Vaginal discharge (P rimary Dx) Start: 01-16-2025 End: 01-16-2025 Office outpatient visit 15 minutes Olivia LEE Work Phone: [facility] Comment on above: Encounter for weight management Start: 01-16-2025 End: 01-16-2025 ambulatory OLIVIA BLACKWELL Not Available Start: 01-16-2025 End: 01-16-2025 Bamboo flowsheet Olivia LEE Work Phone: [facility] Start: 01-16-2025 End: 01-16-2025 Bamboo flowsheet Olivia LEE Work Phone: [facility] Start: 01-04-2025 End: 01-04-2025 Orders Only Faby Perez Lula [employer]WAREHOUSE PRICING AND INVENTORY CLERK Work Phone: [facility] Comment on above: Bacterial vaginosis (Primary Dx); Trichomonas vaginitis; Vaginal yeast infection Start: 01-03-2025 End: 01-03-2025 Office outpatient visit 25 minutes Olivia Rush [employer]WAREHOUSE PRICING AND INVENTORY CLERK Work Phone: [facility] Comment on above: Vaginal discharge (P rimary Dx); Herpes simplex infection of perianal skin Start: 01-03-2025 End: 01-03-2025 ambulatory NO PCP NO PCP [facility] Start: 12-19-2024 End: 12-19-2024 Bamboo flowsheet Olivia Blackwell PA Work Phone: [facility] Start: 12-19-2024 End: 12-19-2024 Bamboo flowsheet Olivia Blackwell PA Work Phone: [facility] Start: 12-19-2024 End: 12-19-2024 ambulatory OLIVIA BLACKWELL Not Available Start: 12-19-2024 End: 12-19-2024 Office outpatient visit 5 minutes Olivia Blackwell PA Work Phone: [facility] Comment on above: Encounter for weight management Start: 11-21-2024 End: 11-21-2024 ambulatory OLIVIA BLACKWELL Not Available Start: 11-21-2024 End: 11-21-2024 Office outpatient visit 15 minutes Olivia Blackwell PA Work Phone: [facility] Comment on above: Encounter for weight loss counseling; Encounter for weight management Start: 11-21-2024 End: 11-21-2024 Bamboo flowsheet Olivia Van Horne PA Work Phone: [facility] Start: 11-21-2024 End: 11-21-2024 Bamboo flowsheet Olivia Rosalva PA Work Phone: [facility] Start: 10-09-2024 End: 10-09-2024 Emergency department patient visit Calvin Hicks MD Work Phone: [facility] Comment on above: Insect bite of other part of neck, initial encounter (Primary Dx) Start: 07-19-2024 End: 07-19-2024 Emergency department patient visit Faustino Knight MD Work Phone: [facility] Comment on above: Possible exposure to STI (Primary Dx) Start: 07-04-2024 End: 07-04-2024 Bamboo flowsheet Olivia Blackwell PA Work Phone: [facility] Start: 07-04-2024 End: 07-09-2024 Bamboo flowsheet Olivia LEE Work Phone: [facility] Start: 07-04-2024 End: 07-09-2024 Clinisync Result Encounter Olivia LEE Work Phone: [facility] External Department Unsolicited Start: 07-04-2024 End: 07-04-2024 Patient encounter procedure Olivia LEE Work Phone: [facility] Start: 07-04-2024 End: 07-04-2024 Periodic preventive med est patient 18-39 yrs Olivia LEE Work Phone: [facility] Comment on above: Well woman exam with routine gynecological exam Start: 07-04-2024 End: 07-04-2024 ambulatory OLIVIA BLACKWELL Not Available Start: 06-02-2024 End: 06-02-2024 Emergency department patient visit Leighton Hyde DO Work Phone: [facility] Emergency Department Comment on above: Vaginal yeast infect ion (Primary Dx); STD (female) Start: 05-28-2024 End: 05-28-2024 Emergency department patient visit NO PCP NO PCP [facility] Start: 04-03-2024 End: 04-03-2024 [facility] Start: 04-03-2024 End: 04-03-2024 ambulatory NO PCP NO PCP [facility] Start: 04-03-2024 End: 04-03-2024 Office outpatient new 30 minutes Racquel Smith PA-C Work Phone: [facility] Comment on above: Urinary frequency (P rimary Dx); Screening examination for STD (sexually transmitted disease) Start: 02-20-2024 End: 02-20-2024 Emergency department patient visit Shant Bran DO Work Phone: [facility] ED Comment on above: Bacterial vaginosis (Primary Dx) Start: 08-04-2023 End: 08-05-2023 ambulatory [facility] Start: 08-04-2023 End: 08-04-2023 Subsequent hospital visit by physician Leonel Adams [employer] DEALER - WAREHOUSE PRICING AND INVENTORY CLERK Work Phone: [facility] Draw Comment on above: High-risk in second trimester Start: 07-30-2023 End: 07-31-2023 ambulatory LEONELPop ADAMS [facility] Start: 07-30-2023 End: 07-31-2023 Subsequent hospital visit by physician Aria Chowdary MD Work Phone: [facility] Start: 07-30-2023 End: 07-30-2023 Emergency department patient visit VAN FARRIS [facility] Start: 01-31-2022 Encounter for cervic al smear to confirm findings of recent normal smear following initial abnormal smear DR CONNOR TORRES [facility] Start: 01-28-2022 End: 01-28-[address] CONNOR TORRES Facility:[facility] Start: 01-28-2022 End: 01-28-2022 Encounter for cervical smear to confirm findings of recent normal smear following initial abnormal smear DR CONNOR TORRES Facility:[facility] Start: 12-02-[address] ZARA CONNELL [...] Emergency department patient visit Henry Heller MD [facility] ED Comment on above: Urinary tract infect ion in mother during first trimester of (Primary Dx); Non-intractable vomiting with nausea, unspecified vomiting type Start: 08-19-2019 End: 08-19-2019 Emergency department patient visit Calvin Hicks Work Phone: [facility] Comment on above: BV (bacterial vagino sis) (Primary Dx); Rash Start: 08-05-2019 End: 08-05-2019 Emergency department patient visit Vini Erma Work Phone: [facility] ED Comment on above: Acute cystitis witho ut hematuria (Primary Dx) Start: 2019 End: 2019 Emergency department patient visit Vini Petitfeliberto POWELL Work Phone: [facility] ED Comment on above: Visit for suture rem oval (Primary Dx) Start: 07-07-2019 End: 07-07-2019 Emergency department patient visit Marshall Rodriguez MD Work Phone: [facility] ED Comment on above: Facial laceration, i nitial encounter (Primary Dx); Injury of head, initial encounter Start: 04-03-2019 End: 04-03-2019 Emergency department patient visit Jean Claude Fisher Work Phone: [facility] ED Comment on above: Acute cystitis with hematuria (Primary Dx) Start: 03-15-2019 End: 03-15-2019 Emergency department patient visit Drake Corcoran [facility] ED Comment on above: Urinary tract infect ion without hematuria, site unspecified (Primary Dx) Start: 02-15-2019 End: 02-15-2019 Emergency department patient visit Елена Jimy Olivera Work Phone: [facility] ED Comment on above: Dysuria (Primary Dx) ; Vaginal discharge Procedures Date Procedure Procedure Detail Performing Clinician Start: 07-19-2024 Basic metabolic pane l calcium total Ludmila Morales [employer] Work Phone: Start: 07-19-2024 Iadna matthew specie s direct probe tq Ludmila Morales PA-C Work Phone: Start: 07-19-2024 Urnls dip stick/tabl et rgnt auto w/o microscopy Ludmila TUCKERC Work Phone: Start: 07-04-2024 IGP,APTIMA HPV,AGE GDLN Olivia LEE Work Phone: Start: 06-02-2024 End: 06-02-2024 Iadna matthew species direct probe tq Leighton Hyde DO Work Phone: Start: 06-02-2024 Urine test visual color cmprsn meths Leighton Hyde DO Work Phone: Start: 04-03-2024 Urnls dip stick/tabl et rgnt auto w/o microscopy Racquel Smith PA-C Work Phone: Start: 02-20-2024 Iadna matthew specie s direct probe tq Harvey Sarah MD Work Phone: Start: 02-20-2024 Urine test visual color cmprsn meths Harvey Sarah MD Work Phone: Start: 08-04-2023 Iadna matthew specie s direct probe tq Karis Palma DO Work Phone: Start: 08-04-2023 Microscopic observat ion [Identifier] in Cervix by Cyto stain Shant Jolenegume Malone, DO Work Phone: Start: 07-30-2023 Urnls dip [...] microscopy Henry Heller MD Start: 08-19-2019 Iadna matthew specie s direct probe tq Ranjana Del Rosario Work Phone: Start: 08-19-2019 Urinalysis microscop ic only Ranjana Del Rosario Work Phone: Start: 08-19-2019 Urine test visual color cmprsn meths Ranjana Del Rosario Work Phone: Start: 08-19-2019 Urnls dip stick/tabl et rgnt auto w/o microscopy Ranjana Del Rosario Work Phone: Start: 08-05-2019 End: 08-05-2019 Urine test visual color cmprsn meths Ludmila Arron Quench Work Phone: Start: 08-05-2019 Urinalysis microscop ic only Ludmila Arron Quench Work Phone: Start: 08-05-2019 Urnls dip stick/tabl et rgnt auto w/o microscopy Ludmila Arron Quench Work Phone: Start: 07-07-2019 Ct head/brain w/o co ntrast material Marshall Rodriguez MD Work Phone: Start: 04-03-2019 Urine test visual color cmprsn meths Ranjana Del Rosario Work Phone: Start: 04-03-2019 Urnls dip stick/tabl et rgnt auto w/o microscopy Ranjana Del Rosario Work Phone: Start: 03-15-2019 Urinalysis microscop ic only Drake Corcoran Start: 03-15-2019 Urine test visual color cmprsn meths Drake Corcoran Start: 03-15-2019 Urnls dip stick/tabl et rgnt auto w/o microscopy Drake Corcoran Start: 02-15-2019 Iadna matthew specie s direct probe tq Ranjana Del [...] of 2) Shingles Vaccine (1 of 2) [employer] Work Phone: Start: 09-05-2033 DTaP,Tdap and Td Vaccines (11 - Td or Tdap) DTaP,Tdap and Td Vaccines (11 - Td or Tdap) [facility] Start: 09-05-2033 DTaP/Tdap/Td vaccine (11 - Td or Tdap) DTaP/Tdap/Td vaccine (11 - Td or Tdap) [facility] Start: 07-07-2029 DTaP/Tdap/Td vaccine (5 - Td or Tdap) DTaP/Tdap/Td vaccine (5 - Td or Tdap) [facility] Start: 07-07-2029 DTaP/Tdap/Td vaccine (9 - Td or Tdap) DTaP/Tdap/Td vaccine (9 - Td or Tdap) [facility] Start: 07-07-2029 DTaP/Tdap/Td vaccine (9 - Td) DTaP/Tdap/Td vaccine (9 - Td) [facility] [employer] Phone: Start: 08-04-2026 Screening for malign ant neoplasm of cervix Pap smear [facility] Start: 02-02-2026 Adult BMI Screening Adult BMI Screen ing [facility] [facility] Start: 02-02-2026 Tobacco Screening Tobacco Screening [facility] Start: 01-03-2026 Adult BMI Screening Adult BMI Screen ing [facility] Start: 01-03-2026 Tobacco Screening Tobacco Screening [facility] Start: 07-09-2025 End: 07-09-2025 Patient encounter procedure 07/09/2025 2:00 PM EST Office Visit [facility] [address] [place] [address] Connor Torres DO [address] [place] [address] [facility] Start: 04-03-2025 Adult BMI Screening Adult BMI Screen ing [facility] Start: 04-03-2025 Tobacco Screening Tobacco Screening [facility] Start: 02-25-2025 Influenza vaccination Influenza Vacc ine [facility] Start: 01-25-2025 Influenza vaccination Flu vacc ine (Season Ended) [facility] Start: 01-16-2025 End: 01-16-2025 Patient encounter procedure 01/16/2025 2:30 PM EDT Office Visit [facility] [address] [phone] Olivia Blackwell, PA [address] [place] [address] Arrived [facility] Comment on above: Arrived Start: 12-19-2024 End: 12-19-2024 Patient encounter procedure 12/19/2024 1:30 PM EDT Office Visit [facility] [address] [place] [phone] Olivia Blackwell, PA [address] [place] [address] [facility] Start: 07-04-2024 End: 07-04-2024 Patient encounter procedure 07/04/2024 2:00 PM EST Office Visit [facility] [address] [place] [phone] Olivia Blackwell, PA [address] [place], [place] [phone] Arrived [facility] Comment on above: Arrived Start: 02-26-2024 COVID-19 Vaccine ( season) COVID-19 Vaccine ( season) [facility] Start: 02-26-2024 COVID-19 Vaccine ( season) COVID-19 Vaccine ( season) [facility] Start: 02-26-2024 Influenza vaccination Influenza Vacc [facility] Start: 01-26-2024 Influenza vaccination Flu vaccine (# 1) [facility] Start: 09-02-2023 End: 09-02-2023 Patient encounter procedure 09/02/2023 8:15 AM EST Routine [facility] [address] [place] [phone] Sharla Bravo MD [facility] [employer], [address] [place] [address] GAYATRI [facility] Comment on above: GAYATRI Start: 08-11-2023 End: 08-11-2023 Patient encounter procedure 08/11/2023 9:00 AM EST Routine [facility] [address] [place] [phone] ANATOMY [facility] Comment on above: ANATOMY Start: 08-04-2023 End: 08-04-2023 Patient encounter procedure 08/04/2023 1:00 PM EST Office Visit [facility] [address] [place] [phone] Karis Palma DO [address] [place], [place] [phone] Pt will come at 1430 [facility] Comment on above: Pt will come at 1430 Start: 02-25-2023 COVID-19 Vaccine ( season) COVID-19 Vaccine ( season) [facility] Start: 01-25-2023 Influenza vaccination Flu vaccine (# 1) [facility] Start: 02-25-2021 Influenza vaccination Flu vaccine (# 1) [facility] Work Phone: Start: 08-19-2020 Screening for Chlamy toy trachomatis Chlamydia screen [facility] [employer] Phone: Start: 02-16-2020 Chlamydia screen Chlamydia screen [facility] Work Phone: Start: 02-25-2019 Influenza vaccination Flu vaccine (# 1) [employer] [facility] [facility] [place] Start: 2018 Cervical cancer screen Cervical canc er screen [facility] [employer] Phone: Start: 2018 Screening for malign ant neoplasm of cervix [facility] Start: 2015 Adult BMI Follow Up Plan Adult BMI Follow Up Plan [facility] [employer] [facility] Start: 2012 HIV screen HIV screen [facility] Work Phone: Start: 2012 HIV screening [facility] [place] Work Phone: Start: 2009 COVID-19 Vaccine (1) COVID-19 Vaccin e (1) [facility] Work Phone: Start: 2009 Depression Screen Depression Screen [facility] Start: 2009 Depression Screening Depression Scre ening [facility] Start: 01-18-1998 COVID-19 Vaccine (#1) COVID-19 Vacci ne (#1) [facility] Start: 1997 Hepatitis B vaccine (2 of 3 - 3-dose series) Hepatitis B vaccine (2 of 3 - 3-dose series) [facility] Start: 1997 Hepatitis C screening Hepatitis C sc reen [facility] [employer] Phone: End: 04-03-2025 Bacteria identified in Urine by Culture Urine culture (clean catch) Microbiology Routine Urinary frequency 1 Occurrences starting 04/03/2024 until 04/03/2025 [facility] [employer] [facility] Comment on above: 1 Occurrences starti ng 04/03/2024 until 04/03/2025 Bacteria identified in Urine by Culture Urine culture (clean catch) Microbiology Routine Urinary frequency 04/03/2024 6:37 PM EDT [facility] End: 08-19-2019 C.trachomatis N.gonorrhoeae DNA C.trachomatis N.gonorrhoeae DNA Microbiology Routine One Time for 1 Occurrences starting 08/19/2019 until 08/19/2019 [facility] [employer] Comment on above: One Time for 1 Occur rences starting 08/19/2019 until 08/19/2019 C.trachomatis N.gonorrhoeae DNA [place], [place] End: 02-15-2019 C.trachomatis N.gonorrhoeae DNA C.trachomatis N.gonorrhoeae DNA Microbiology Routine One Time for 1 Occurrences starting 02/15/2019 until 02/15/2019 [place] Comment on above: One Time for 1 Occur rences starting 02/15/2019 until 02/15/2019 C.trachomatis N.gonorrhoeae DNA C.trachomatis N.gonorrhoeae DNA Microbiology Routine High-risk in second trimester 08/04/2023 7:20 AM EST [facility] [employer] C.trachomatis N.gonorrhoeae DNA C.trachomatis N.gonorrhoeae DNA Microbiology Stat [employer] Label print 06/02/2024 6:18 PM EST [facility] C.trachomatis N.gonorrhoeae DNA C.trachomatis N.gonorrhoeae DNA Microbiology Stat [employer] Label print 07/19/2024 2:23 PM EST [facility] [employer] C.trachomatis N.gonorrhoeae DNA (Cervical or Vaginal Swab) C.trachomatis N.gonorrhoeae DNA (Cervical or Vaginal Swab) Microbiology Stat [employer] Label print 02/20/2024 5:35 PM EDT [facility] Chlamydia trachomati s DNA [Presence] in Unspecified specimen by CHUCK with probe detection Chlamydia/GC by PCR Jolynn Swab Microbiology Routine Vaginal discharge 01/03/2025 8:57 AM EDT [facility] [employer] [facility] Chlamydia trachomati s DNA [Presence] in Unspecified specimen by CHUCK with probe detection Chlamydia/GC by PCR Jolynn Swab Microbiology Routine Vaginal discharge Ordered: 02/02/2025 [facility] [employer] Comment on above: Ordered: 02/02/2025 End: 04-03-2025 Chlamydia/GC by PCR Jolynn Swab Chlamydia/GC by PCR Jolynn Swab Microbiology Routine Screening examination for STD (sexually transmitted disease) 1 Occurrences starting 04/03/2024 until 04/03/2025 [facility] Comment on above: 1 Occurrences starti ng 04/03/2024 until 04/03/2025 Chlamydia/GC by PCR Jolynn Swab Chlamydia/GC by PCR Jolynn Swab Microbiology Routine Screening examination for STD (sexually transmitted disease) 04/03/2024 6:38 PM EDT [facility] End: 08-19-2019 Culture, HSV Culture, HSV Microbiology Routine Once for 1 Occurrences starting 08/19/2019 until 08/19/2019 [place] Comment on above: Once for 1 Occurrenc es starting 08/19/2019 until 08/19/2019 Culture, HSV Culture, HSV Microbiology Routine 08/19/2019 2:20 PM EST [place] End: 08-19-2019 Culture, Urine Culture, Urine Microbiology Routine Once for 1 Occurrences starting 08/19/2019 until 08/19/2019 [place] Comment on above: Once for 1 Occurrenc es starting 08/19/2019 until 08/19/2019 Culture, Urine [place] End: 01-20-2021 Culture, Urine Culture, Urine Microbiology STAT One Time for 1 Occurrences starting 01/20/2021 until 01/20/2021 [facility] [employer] Work Phone: Comment on above: One Time for 1 Occur rences starting 01/20/2021 until 01/20/2021 End: 07-30-2023 Culture, Urine [facility] [employer] Comment on above: One Time for 1 Occur rences starting 07/30/2023 until 07/30/2023 End: 08-19-2019 Culture, Wound Culture, Wound Microbiology Routine One Time for 1 Occurrences starting 08/19/2019 until 08/19/2019 [place] Comment on above: One Time for 1 Occur rences starting 08/19/2019 until 08/19/2019 Cytology Cervical or vaginal smear or scraping study Pap Smear Pathology and Cytology Routine Well woman exam with routine gynecological exam Ordered: 07/04/2024 [facility] [employer] Work Phone: Comment on above: Ordered: 07/04/2024 End: 08-04-2023 [employer] Cytology [employer] Cytology Lab Routine Once for 1 Occurrences starting 08/04/2023 until 08/04/2023 [employer] Comment on above: Once for 1 Occurrenc es starting 08/04/2023 until 08/04/2023 End: 04-03-2019 Microscopic urinalysis Microscopic Urinalysis Lab Routine Once for 1 Occurrences starting 04/03/2019 until 04/03/2019 [place] Comment on above: Once for 1 Occurrenc es starting 04/03/2019 until 04/03/2019 Microscopic urinalysis Microscop ic Urinalysis Lab Routine 04/03/2019 5:28 PM EDT [place] Nonrebreather mask oxygen Nonrebreather mask oxygen Respiratory Care Routine As Needed until discontinued starting 07/30/2023 [facility] Comment on above: As Needed until disc ontinued starting 07/30/2023 End: 02-15-2019 Urine culture clean catch Urine culture clean catch Microbiology Routine Once for 1 Occurrences starting 02/15/2019 until 02/15/2019 [place] Comment on above: Once for 1 Occurrenc es starting 02/15/2019 until 02/15/2019 Urine culture clean catch [place] End: 08-05-2019 Urine culture clean catch Urine culture clean catch Microbiology Routine Once for 1 Occurrences starting 08/05/2019 until 08/05/2019 [employer] Phone: Comment on above: Once for 1 Occurrenc es starting 08/05/2019 until 08/05/2019 End: 03-15-2019 Urine culture clean catch Urine culture clean catch Microbiology Routine Once for 1 Occurrences starting 03/15/2019 until 03/15/2019 [place] Comment on above: Once for 1 Occurrenc es starting 03/15/2019 until 03/15/2019 End: 04-03-2025 Vaginitis Panel PCR Vaginitis Panel PCR Microbiology Routine Screening examination for STD (sexually transmitted disease) 1 Occurrences starting 04/03/2024 until 04/03/2025 [facility] Phone: Comment on above: 1 Occurrences starti ng 04/03/2024 until 04/03/2025 Vaginitis Panel PCR Vaginitis Pa suzette PCR Microbiology Routine Screening examination for STD (sexually transmitted disease) 04/03/2024 6:38 PM EDT [employer] Vaginitis Panel PCR Vaginitis Pa suzette PCR Microbiology Routine Vaginal discharge 01/03/2025 8:57 AM EDT [employer] Work Phone: Vaginitis Panel PCR Vaginitis Pa suzette PCR Microbiology Routine Vaginal discharge Ordered: 02/02/2025 [facility] Work Phone: Comment on above: Ordered: 02/02/2025 Immunizations Immunization Date Immunization Notes Care Provider [facility] 09-06-2023 tetanus toxoid, redu pat diphtheria toxoid, and acellular pertussis vaccine, adsorbed Mansgume Bran I, DO Work Phone: [facility] 07-07-2019 diphtheria, tetanus toxoids and acellular pertussis vaccine, unspecified formulation Marshall Rodriguez MD Work Phone: [facility] Work Phone: 07-07-2019 tetanus toxoid, redu pat diphtheria toxoid, and acellular pertussis vaccine, adsorbed Marshall Rodriguez MD Work Phone: [facility] 03-05-2019 tetanus toxoid, redu pat diphtheria toxoid, and acellular pertussis vaccine, adsorbed Aria Chowdary MD Work Phone: [facility] 04-22-2015 influenza virus vacc ine, unspecified formulation Aria Chowdary MD Work Phone: [facility] 04-11-2014 influenza virus vacc ine, unspecified formulation Aria Chowdary MD Work Phone: [facility] 10-15-2013 hepatitis A vaccine, pediatric/adolescent dosage, 2 dose schedule Aria Chowdary MD Work Phone: [facility] 10-15-2013 meningococcal polysaccharide (groups A, C, Y and W-135) diphtheria toxoid conjugate vaccine (MCV4P) Aria Chowdary MD Work Phone: [facility] 04-25-2013 influenza, injectabl e, quadrivalent, preservative free Aria Chowdary MD Work Phone: [facility] 05-11-2012 influenza virus vacc ine, unspecified formulation Aria Chowdary MD Work Phone: [facility] 03-22-2011 influenza virus vacc ine, unspecified formulation Aria Chowdary MD Work Phone: [facility] 04-20-2010 influenza virus vacc ine, unspecified formulation Aria Chowdary MD Work Phone: [facility] 06-03-2009 influenza virus vacc ine, unspecified formulation Aria Chowdary MD Work Phone: [facility] 01-23-2009 human papilloma viru s vaccine, quadrivalent Aria Chowdary MD Work Phone: [facility] 09-20-2008 hepatitis A vaccine, pediatric/adolescent dosage, 2 dose schedule Aria Chowdary MD Work Phone: [facility] 09-20-2008 human papilloma viru s vaccine, quadrivalent Aria Chowdary MD Work Phone: [facility] 07-26-2008 human papilloma viru s vaccine, quadrivalent Aria Chowdary MD Work Phone: [facility] 07-26-2008 meningococcal polysaccharide (groups A, C, Y and W-135) diphtheria toxoid conjugate vaccine (MCV4P) Aria Chowdary MD Work Phone: [facility] 07-26-2008 tetanus toxoid, redu pat diphtheria toxoid, and acellular pertussis vaccine, adsorbed Aria Chowdary MD Work Phone: [facility] 07-26-2008 varicella virus vaccine Gilma Chowdary MD Work Phone: [facility] 04-26-2008 influenza virus vacc ine, unspecified formulation Aria Chowdary MD Work Phone: [facility] 04-18-2007 influenza virus vacc ine, unspecified formulation Aria Chowdary MD Work Phone: [facility] 10-01-2002 diphtheria, tetanus toxoids and acellular pertussis vaccine, unspecified formulation Aria Chowdary MD Work Phone: [facility] 07-28-2001 measles, mumps and rubella virus vaccine Aria Chowdary MD Work Phone: [facility] 07-28-2001 poliovirus vaccine, inactivated Aria Chowdary MD Work Phone: [facility] 10-22-1998 varicella virus vaccine Gilma Chowdary MD Work Phone: [facility] 08-01-1998 diphtheria, tetanus toxoids and acellular pertussis vaccine, unspecified formulation Aria Chowdary MD Work Phone: [facility] 08-01-1998 haemophilus influenz ae type b vaccine, conjugate unspecified formulation Aria Chowdary MD Work Phone: [facility] 08-01-1998 measles, mumps and rubella virus vaccine Aria Chowdary MD Work Phone: [facility] 01-29-1998 diphtheria, tetanus toxoids and acellular pertussis vaccine, unspecified formulation Aria Chowdary MD Work Phone: [facility] 01-29-1998 haemophilus influenz ae type b vaccine, conjugate unspecified formulation Aria Chowdary MD Work Phone: [facility] 01-29-1998 hepatitis B vaccine, pediatric or pediatric/adolescent dosage Aria Chowdary MD Work Phone: [facility] 01-29-1998 poliovirus vaccine, unspecified formulation Aria Chowdary MD Work Phone: [facility] 1997 diphtheria, tetanus toxoids and acellular pertussis vaccine, unspecified formulation Aria Chowdary MD Work Phone: [facility] 1997 haemophilus influenz ae type b vaccine, conjugate unspecified formulation Aria Chowdary MD Work Phone: [facility] 1997 poliovirus vaccine, unspecified formulation Aria Chowdary MD Work Phone: [facility] 1997 diphtheria, tetanus toxoids and acellular pertussis vaccine, unspecified formulation Aria Chowdary MD Work Phone: [facility] 1997 haemophilus influenz ae type b vaccine, conjugate unspecified formulation Aria Chowdary MD Work Phone: [facility] 1997 poliovirus vaccine, unspecified formulation Aria Chowdary MD Work Phone: [facility] 1997 hepatitis B vaccine, pediatric or pediatric/adolescent dosage Aria Chowdary MD Work Phone: [facility] 1997 hepatitis B vaccine, pediatric or pediatric/adolescent dosage Aria Chowdary MD Work Phone: [facility] Payers Date Payer Category Payer Medicaid (Managed Care) [facility] MEDICAID [id number] 2017 Unknown [facility] xxxxxxxxxxxx 2017-Present [phone] [place] [address] xxxxxxxxxxxx [id number] 2014 Unknown [id number]. [id number] 2003 Medicaid [place] [employer] [place] [employer] [id number] 2003-Present [phone] [address] [place] [address] [id number]. [id number] 2003 Medicaid [place] [employer] [id number] 1997 Unknown [id number] 2.16.840.1.801150.3.579.2. 593 1997 Unknown [id number] 2.16.840.1.854765.3.579.2. 593 1997 Unknown [id number] 2.16.840.1.418498.3.579.2. 593 1997 Unknown [id number] 2.16.840.1.302895.3.579.2. 593 1997 Unknown [id number] 2.16.840.1.064344.3.579.2. 593 1997 Unknown [id number] 2.16.840.1.042582.3.579.2. 593 1997 Unknown [id number] 2.16.840.1.367326.3.579.2. 593 1997 Unknown [id number] 2.16.840.1.670736.3.579.2. 593 1997 Unknown [id number] 2.16.840.1.711760.3.579.2. 593 1997 Unknown [id number] 2.16.840.1.287115.3.579.2. 175 1997 Unknown [id number] 2.16.840.1.692980.3.579.2. 175 1997 Unknown [id number] 2.16.840.1.240772.3.579.2. 1286 1997 Unknown [id number] 2.16.840.1.547956.3.579.2. 1286 1997 Unknown [id number] 2.16.840.1.020911.3.579.2. 176 1997 Unknown [id number] 2.16.840.1.776025.3.579.2. 176 1997 Unknown [id number] 2.16.840.1.533113.3.579.2. 176 1997 Unknown [id number] 2.16.840.1.386526.3.579.2. 176 1997 Unknown [id number] 2.16.840.1.472750.3.579.2. 1259 1997 Unknown [id number] 2.16.840.1.659804.3.579.2. 1259 1997 Unknown [id number] 2.16.840.1.728334.3.579.2. 1259 1997 Unknown [id number] 2.16.840.1.899320.3.579.2. 1259 1997 Unknown [id number] 2.16.840.1.791769.3.579.2. 1286 1997 Unknown [id number] 2.16.840.1.864932.3.579.2. 1286 1997 Unknown [id number] 2.16.840.1.744171.3.579.2. 1286 1959 Unknown [id number] [id number]. [id number] Social History Date Type Detail Facility Start: 04-03-2019 End: 04-03-2024 Tobacco smoking status MEIS Never smoker [employer] Start: 04-03-2019 End: 08-06-2020 Alcohol intake No [employer] Start: 1997 Sex Assigned At Not on file [facility] [place] Start: 08-19-2019 End: 08-04-2023 Alcohol intake Current non-drinker of alcohol (finding) [employer] Work Phone: Start: 01-20-2021 End: 04-03-2024 Tobacco use and exposure Never used [employer] Start: 08-06-2020 End: 07-30-2023 History of Social function [employer] How often to you hav e a drink containing alcohol? Never [employer] How many standard drinks containing alcohol do you have on a typical day? Patient does not drink [employer] Start: 03-11-2023 [employer] Start: 02-20-2024 End: 10-09-2024 Alcoholic beverage intake Lifetime non-drinker (finding) [employer] Tobacco smoking stat [facility] Tobacco smoking consumption unknown [facility] Start: 1997 Sex assigned at Female [facility] [employer] Start: 08-06-2012 End: 01-28-2015 Sex Female (finding) [facility] Clinical Notes 07-31-2023 to 02-03-2025 MISTY Peters - 02/03/2025 11:28 AM KING Lamb CNP - 02/02/2025 1:05 PM JESUS Haynes - 01/16/2025 2:30 PM MISTY Lamb - 01/04/2025 8:08 AM EDT Note Date & Type Note Facility 02-03-2025 History of Present illness Narrative Positive bacterial vaginosis, flagyl will be sent to pharmacy No visits with results within 1 Day(s) from this visit. Latest known visit with results is: Office Visit on 02/02/2025 Component Date Value BACT. VAGINOSIS DNA 02/02/2025 Detected (A) MATTHEW SPECIES DNA 02/02/2025 Not Detected MATTHEW KRUSEI DNA 02/02/2025 Not Detected MATTHEW GLABRATA DNA 02/02/2025 Not Detected TRICHOMONAS VAG DNA 02/02/2025 Not Detected MISTY Peters 02/03/25 [id number] documented in this encounter [facility] 02-02-2025 History of Present illness Narrative Subjective: Patient ID: Jessica Gastelum is a 29 y.o. female. Chief Complaint Patient presents with Exposure to STD Std check 29-year-old female patient presents to urgent care with complaints of a green in odorous vaginal discharge. She states that at the beginning of the month last month, she was diagnosed with Trichomonas. She was treated in took her full course of treatment but she is starting to experience similar symptoms. She would like to be retested. Despite the flagyl, has not been on any other antibiotics. Denies nausea or vomiting. Denies chest pains or shortness of breath. No further complaints. Vaginal Discharge The patient's primary symptoms include vaginal discharge. The patient's pertinent negatives include no genital itching, genital lesions, genital odor, genital rash, missed menses, pelvic pain or vaginal bleeding. This is a new problem. The current episode started in the past 7 days. The problem occurs constantly. The problem has been unchanged. The patient is experiencing no pain. Pertinent negatives include no abdominal pain, anorexia, back pain, chills, constipation, diarrhea, discolored urine, dysuria, fever, flank pain, frequency, headaches, hematuria, joint pain, joint swelling, nausea, painful intercourse, rash, sore throat, urgency or vomiting. The vaginal discharge was green and malodorous. There has been no bleeding. She has tried antibiotics for the symptoms. The treatment provided mild relief. She is sexually active. It is unknown whether or not her partner has an STD. The following portions of the patient's history were reviewed and updated as appropriate: allergies, current medications, past family history, past medical history, past social history, past surgical history and problem list. Review of Systems Constitutional: Negative for chills, fatigue and fever. HENT: Negative for congestion and sore throat. Respiratory: Negative for chest tightness. Cardiovascular: Negative for chest pain. Gastrointestinal: Negative for abdominal pain, anorexia, constipation, diarrhea, nausea and vomiting. Genitourinary: Positive for vaginal discharge. Negative for dysuria, flank pain, frequency, hematuria, missed menses, pelvic pain and urgency. Musculoskeletal: Negative for back pain and joint pain. Skin: Negative for rash. Neurological: Negative for dizziness and headaches. Past Medical History: Diagnosis Date HSV-2 infection Past Surgical History: Procedure Laterality Date VULVA SURGERY Social History Tobacco Use Smoking status: Never Smokeless tobacco: Never Vaping Use Vaping status: Never Used Family History Problem Relation Age of Onset Bleeding Disorder Mother Depression Other Cancer Other Autism Other No Known Allergies Current Outpatient Medications on File Prior to Visit Medication Sig Dispense Refill phentermine (ADIPEX-P) 37.5 mg tablet Take 1 tablet (37.5 mg total) by mouth every morning before breakfast. TAKE 1 TABLET (37.5 MG) BY MOUTH IN THE MORNING TAKE BEFORE MEALS ondansetron ODT (ZOFRAN-ODT) 4 mg disintegrating tablet Dissolve 4 mg on tongue every 8 (eight) hours as needed for nausea or vomiting. (Patient not taking: Reported on 04/03/2024) valACYclovir (VALTREX) 500 mg tablet Take 1 tablet (500 mg total) by mouth in the morning and 1 tablet (500 mg total) before bedtime. (Patient not taking: Reported on 02/02/2025) 6 tablet 0 No current facility-administered medications on file prior to visit. Objective: Vitals: 02/02/25 1319 BP: 132/69 Pulse: 78 Resp: 18 Temp: 36.6 C (97.9 F) TempSrc: Temporal SpO2: 100% Weight: 85.7 kg (189 lb) Patient's last menstrual period was 01/29/2025 (exact date). The patient is not currently . Body mass index is 33.48 kg/m . Facility age limit for growth %sindy is 20 years. Physical Exam Vitals and nursing note reviewed. Constitutional: Appearance: Normal appearance. HENT: Head: Normocephalic. Mouth/Throat: Mouth: Mucous membranes are moist. Eyes: Extraocular Movements: Extraocular movements intact. Cardiovascular: Rate and Rhythm: Normal rate and regular rhythm. Pulses: Normal pulses. Pulmonary: Effort: Pulmonary effort is normal. Musculoskeletal: General: Normal range of motion. Cervical back: Normal range of motion. Skin: General: Skin is warm and dry. Capillary Refill: Capillary refill takes less than 2 seconds. Neurological: General: No focal deficit present. Mental Status: She is alert and oriented to person, place, and time. Psychiatric: Mood and Affect: Mood normal. Behavior: Behavior normal. Differential Diagnosis: Differentials from this visit include: Urinary tract infection, pyelonephritis, kidney stone, interstitial cystitis, STI, vaginal yeast infection bacterial vaginosis Assessment/Plan: Patient declines provider pelvic examination and has opted to self swab. Vaginitis labs as well as gonorrhea and chlamydia labs collected. Results available in 24-48 hours. If positive, patient will be called in appropriate antibiotics will be prescribed at that time. Follow-up with PCP. Follow up care is usually required after a visit to the Urgent care. It is your responsibility to call for a follow up appointment. Your diagnosis today is a provisional one based on information available to the Urgent care provider. The diagnosis may change as more information becomes available to your private physician. If you develop any new, worsening, or concerning symptoms of illness, and are unable to follow up with a private physician, please return here or to the nearest Emergency Department for further care immediately. Jessica was seen today for exposure to std. Diagnoses and all orders for this visit: Vaginal discharge - Vaginitis Panel PCR - Chlamydia/GC by PCR Jolynn Swab Orders Placed or Reconciled This Encounter Medications phentermine (ADIPEX-P) 37.5 mg tablet Sig: Take 1 tablet (37.5 mg total) by mouth every morning before breakfast. TAKE 1 TABLET (37.5 MG) BY MOUTH IN THE MORNING TAKE BEFORE MEALS There are no Patient Instructions on file for this visit. This note is dictated with the use of M*Modal.Please note that this dictation was completed with computer voice recognition software. Quite often unanticipated grammatical, syntax, homophones, and other interpretive errors are inadvertently transcribed by the computer software. Please disregard these errors. Please excuse any errors that have escaped final proofreading. I personally discussed test results with patient/parent. Education handout and discharge papers given. Paperwork explained. Denies questions or concerns. Discussed that follow up care is usually required after a visit to the Urgent care. It is your responsibility to contact your primary care provider for follow up. If symptoms are not improving, worsening, or concerning symptoms of illness develop, follow up with your primary care provider or go to the nearest Emergency Department for further care immediately. MISTY Peters 02/02/25 1333 documented in this encounter [facility] 01-16-2025 History of Present illness Narrative Reason for Appointment: Patient ID: Jessica Gastelum is a 29 y.o. female who presents for Weight Management Patient presents today for Weight Management Consult. MEDICATIONS Current Outpatient Medications Medication Instructions phentermine (ADIPEX-P) 37.5 mg, Oral, Daily before breakfast phentermine (ADIPEX-P) 37.5 mg, Oral, Daily before breakfast phentermine (ADIPEX-P) 37.5 mg, Oral, Daily before breakfast valACYclovir (VALTREX) 500 mg, Oral, Daily ALLERGIES No Known Allergies PROBLEMS Active Ambulatory Problems Diagnosis Date Noted No Active Ambulatory Problems Resolved Ambulatory Problems Diagnosis Date Noted No Resolved Ambulatory Problems No Additional Past Medical History HISTORY PAST MEDICAL HISTORY SOCIAL HISTORY History reviewed. No pertinent past medical history. Social History Tobacco Use Smoking status: Not on file Smokeless tobacco: Not on file Substance Use Topics Alcohol use: Not on file Drug use: Not on file FAMILY HISTORY Family History Problem Relation Name Age of Onset Neuropathy Mother Heart murmur Mother Arthritis Mother Osteopenia Mother Diabetes Father Other (heart stents) Father Hyperlipidemia Father Breast cancer Mother's Sister Cervical cancer Mother's Sister Breast cancer Paternal Grandmother Heart failure Other Other (heart stents) Other Hyperlipidemia Other Cervical cancer Other Other (pacemaker) Other Autism Other ADD / ADHD Other SURGICAL HISTORY History reviewed. No pertinent surgical history. REVIEW OF SYSTEMS Review of Systems: Review of Systems Constitutional: Negative. HENT: Negative. Eyes: Negative. Respiratory: Negative. Cardiovascular: Negative. Gastrointestinal: Negative. Genitourinary: Negative. Musculoskeletal: Negative. Skin: Negative. Neurological: Negative. All other systems reviewed and are negative. Hematological: Negative. Endocrine: Negative. Allergic/Immunologic: Negative. OBJECTIVE Objective: Physical Exam Constitutional: Appearance: Normal appearance. She is normal weight. HENT: Head: Normocephalic. Cardiovascular: Rate and Rhythm: Normal rate. Pulses: Normal pulses. Pulmonary: Effort: Pulmonary effort is normal. Breath sounds: Normal breath sounds. Abdominal: Palpations: Abdomen is soft. Musculoskeletal: General: Normal range of motion. Neurological: General: No focal deficit present. Mental Status: She is alert and oriented to person, place, and time. Psychiatric: Mood and Affect: Mood normal. Behavior: Behavior normal. Thought Content: Thought content normal. Judgment: Judgment normal. Vitals and nursing note reviewed. Vitals: Estimated body mass index is 32.66 kg/m as calculated from the following: Height as of 11/21/24: 5' 3 . Weight as of this encounter: 184 lb 6.4 oz. BP: 116/74 No LMP recorded. ASSESSMENT & PLAN ICD-10-CM 1. Encounter for weight management Z76.89 valACYclovir (Valtrex) 500 MG tablet phentermine (Adipex-P) 37.5 MG tablet Patient presents today for 3rd Adipex prescription. Patient desires additional weigh loss and she is currently taking metformin along with working out to achieve further results. The possibility of Ozempic for future use has been discussed. Weight and blood pressure has been captured and it has been discussed/reiterated the importance of keeping a food journal, proper nutrition/diet, and exercise regimen. Patient verbalized understanding. Patient has lost more than 5% of her initial body weight Follow Up: Patient will follow up in 3 months, she is doing well and continues to lose weight. Patient states she is feeling good Documented by JESUS Bell on behalf of: JESUS Bell documented in this encounter [facility] 01-04-2025 History of Present illness Narrative Vaginitis panel was positive for bacterial vaginosis, Trichomonas and yeast. Patient will be placed on metronidazole for both Trichomonas and bacterial vaginosis. Diflucan for vaginal yeast infection. Still awaiting gonorrhea/chlamydia test results. Patient will be called when those are back. No visits with results within 1 Day(s) from this visit. Latest known visit with results is: Office Visit on 01/03/2025 Component Date Value BACT. VAGINOSIS DNA 01/03/2025 Detected (A) MATTHEW SPECIES DNA 01/03/2025 Detected (A) MATTHEW KRUSEI DNA 01/03/2025 Not Detected MATTHEW GLABRATA DNA 01/03/2025 Not Detected TRICHOMONAS VAG DNA 01/03/2025 Detected (A) MISTY Peters 01/04/25 0810 [facility] History of Present illness Narrative Subjective: Patient ID: Jessica Gastelum is a 29 y.o. female. Chief Complaint Patient presents with Rash Rash on left side of butt std check Rash This is a new problem. The current episode started in the past 7 days. The problem is unchanged. The affected locations include the left buttock. The rash is characterized by redness and pain. It is unknown (hx of herpes) if there was an exposure to a precipitant. Pertinent negatives include no fever. (Vaginal discharge for a few days) Past treatments include nothing. The following portions of the patient's history were reviewed and updated as appropriate: allergies, current medications, past family history, past medical history, past social history, past surgical history and problem list. Review of Systems Constitutional: Negative for fever. Gastrointestinal: Negative for abdominal pain. Genitourinary: Positive for genital sores (inside left butt cheek; hx of herpes) and vaginal discharge. Negative for dysuria, flank pain, frequency, urgency and vaginal bleeding. Skin: Positive for rash. Past Medical History: Diagnosis Date HSV-2 infection Past Surgical History: Procedure Laterality Date VULVA SURGERY Social History Tobacco Use Smoking status: Never Smokeless tobacco: Never Vaping Use Vaping status: Never Used Family History Problem Relation Age of Onset Bleeding Disorder Mother Depression Other Cancer Other Autism Other No Known Allergies Current Outpatient Medications on File Prior to Visit Medication Sig Dispense Refill phentermine (ADIPEX-P) 37.5 mg tablet Take 1 tablet (37.5 mg total) by mouth every morning before breakfast. TAKE 1 TABLET (37.5 MG) BY MOUTH IN THE MORNING TAKE BEFORE MEALS ondansetron ODT (ZOFRAN-ODT) 4 mg disintegrating tablet Dissolve 4 mg on tongue every 8 (eight) hours as needed for nausea or vomiting. (Patient not taking: Reported on 01/03/2025) No current facility-administered medications on file prior to visit. Objective: Vitals: 01/03/25 0827 BP: 124/58 Pulse: 74 Resp: 18 Temp: 36.4 C (97.6 F) TempSrc: Temporal SpO2: 99% Weight: 85.7 kg (189 lb) Patient's last menstrual period was 12/23/2024 (exact date). The patient is not currently . Body mass index is 33.48 kg/m . Facility age limit for growth %sindy is 20 years. Physical Exam Vitals and nursing note reviewed. Constitutional: General: She is not in acute distress. HENT: Head: Normocephalic and atraumatic. Pulmonary: Effort: Pulmonary effort is normal. Genitourinary: General: Normal vulva. Labia: Left: Lesion present. Musculoskeletal: Cervical back: Neck supple. Skin: General: Skin is warm and dry. Neurological: Mental Status: She is alert and oriented to person, place, and time. Assessment/Plan: Assessment findings consistent with herpes outbreak; patient will be prescribed Valtrex 500 mg twice a day x3 days; patient also has vaginal discharge which patient elected to self swab; vaginitis panel pending gonorrhea chlamydia pending - patient advised treatment will be based on results and monitor her MyChart; patient advised to remain sexually abstinent until all testing and/or treatment as complete Labs for this visit: Jessica was seen today for rash. Diagnoses and all orders for this visit: Vaginal discharge - Vaginitis Panel PCR - Chlamydia/GC by PCR Jolynn Swab Herpes simplex infection of perianal skin - valACYclovir (VALTREX) 500 mg tablet; Take 1 tablet (500 mg total) by mouth in the morning and 1 tablet (500 mg total) before bedtime. Orders Placed or Reconciled This Encounter Medications phentermine (ADIPEX-P) 37.5 mg tablet Sig: Take 1 tablet (37.5 mg total) by mouth every morning before breakfast. TAKE 1 TABLET (37.5 MG) BY MOUTH IN THE MORNING TAKE BEFORE MEALS valACYclovir (VALTREX) 500 mg tablet Sig: Take 1 tablet (500 mg total) by mouth in the morning and 1 tablet (500 mg total) before bedtime. Dispense: 6 tablet Refill: 0 Patient Instructions Monitor your MyChart for results and communication; remain sexually abstinent until all testing and/or treatment as complete This note is dictated with the use of M*Modal.Please note that this dictation was completed with computer voice recognition software. Quite often unanticipated grammatical, syntax, homophones, and other interpretive errors are inadvertently transcribed by the computer software. Please disregard these errors. Please excuse any errors that have escaped final proofreading. I personally discussed test results with patient/parent. Education handout and discharge papers given. Paperwork explained. Denies questions or concerns. Discussed that follow up care is usually required after a visit to the Urgent care. It is your responsibility to contact your primary care provider for follow up. If symptoms are not improving, worsening, or concerning symptoms of illness develop, follow up with your primary care provider or go to the nearest Emergency Department for further care immediately. MISTY Manriquez 01/03/25 0851 documented in this encounter [facility] 01-03-2025 Instructions MISTY Manriquez - 01/03/2025 8:25 AM EDT Monitor your MyChart for results and communication; remain sexually abstinent until all testing and/or treatment as complete The following attachments cannot be sent through Care Everywhere.Genital herpes ([place])Vaginal discharge ([place])documented in this encounter [facility] 12-19-2024 History of Present illness Narrative Reason for Appointment: Patient ID: Jessica Gastelum is a 29 y.o. female who presents for Weight Management Patient presents today for a weight management consultation. Patient has been prescribed Adipex and she is here for her 2nd prescription. Today's Vitals: Estimated body mass index is 33.98 kg/m as calculated from the following: Height as of 11/21/24: 5' 3 . Weight as of this encounter: 191 lb 12.8 oz. Previous Weight/BMI: Wt Readings from Last 2 Encounters: 12/19/24 191 lb 12.8 oz 11/21/24 198 lb 12.8 oz BMI Readings from Last 2 Encounters: 12/19/24 33.98 kg/m 11/21/24 35.22 kg/m Allergies as of 12/19/2024 (No Known Allergies) History reviewed. No pertinent past medical history. History reviewed. No pertinent surgical history. Assessment/Plan Encounter Diagnosis Name Primary? Encounter for weight management Adipex: Patient presents today for 2nd Adipex prescription. Patients weight and blood pressure has been captured and discussed with the patient. I have discussed/reiterated the importance of keeping a food journal, proper nutrition/diet, and exercise regimen while taking Adipex. Patient verbalized understanding and was given a printed prescription signed by provider to take to their local pharmacy. Follow Up: Patient is to return to the office in 1 month for further evaluation to assess patient progress. Weight and blood pressure will need to be obtained in order for patient to receive 3rd prescription. Documented by: Juju Connolly LPN on behalf of JESUS Bell documented in this encounter [facility] 11-21-2024 History of Present illness Narrative Reason for Appointment: Patient ID: Jessica Gastelum is a 29 y.o. female who presents for encounter for weight loss management Patient presents today for Weight Management Consult. MEDICATIONS Current Outpatient Medications Medication Instructions phentermine (ADIPEX-P) 37.5 mg, Oral, Daily before breakfast ALLERGIES No Known Allergies PROBLEMS Active Ambulatory Problems Diagnosis Date Noted No Active Ambulatory Problems Resolved Ambulatory Problems Diagnosis Date Noted No Resolved Ambulatory Problems No Additional Past Medical History HISTORY PAST MEDICAL HISTORY SOCIAL HISTORY History reviewed. No pertinent past medical history. Social History Tobacco Use Smoking status: Not on file Smokeless tobacco: Not on file Substance Use Topics Alcohol use: Not on file Drug use: Not on file FAMILY HISTORY Family History Problem Relation Name Age of Onset Neuropathy Mother Heart murmur Mother Arthritis Mother Osteopenia Mother Diabetes Father Other (heart stents) Father Hyperlipidemia Father Breast cancer Mother's Sister Cervical cancer Mother's Sister Breast cancer Paternal Grandmother Heart failure Other Other (heart stents) Other Hyperlipidemia Other Cervical cancer Other Other (pacemaker) Other Autism Other ADD / ADHD Other SURGICAL HISTORY History reviewed. No pertinent surgical history. REVIEW OF SYSTEMS Review of Systems: Review of Systems Constitutional: Negative. HENT: Negative. Eyes: Negative. Respiratory: Negative. Cardiovascular: Negative. Gastrointestinal: Negative. Genitourinary: Negative. Musculoskeletal: Negative. Skin: Negative. Neurological: Negative. All other systems reviewed and are negative. Hematological: Negative. Endocrine: Negative. Allergic/Immunologic: Negative. OBJECTIVE Objective: Physical Exam Constitutional: Appearance: Normal appearance. She is normal weight. HENT: Head: Normocephalic. Cardiovascular: Rate and Rhythm: Normal rate. Pulses: Normal pulses. Pulmonary: Effort: Pulmonary effort is normal. Breath sounds: Normal breath sounds. Abdominal: Palpations: Abdomen is soft. Musculoskeletal: General: Normal range of motion. Neurological: General: No focal deficit present. Mental Status: She is alert and oriented to person, place, and time. Psychiatric: Mood and Affect: Mood normal. Behavior: Behavior normal. Thought Content: Thought content normal. Judgment: Judgment normal. Vitals and nursing note reviewed. Vitals: Estimated body mass index is 35.22 kg/m as calculated from the following: Height as of this encounter: 5' 3 . Weight as of this encounter: 198 lb 12.8 oz. BP: 100/60 Patient's last menstrual period was 10/28/2024. ASSESSMENT & PLAN ICD-10-CM 1. Encounter for weight loss counseling Z71.3 2. Encounter for weight management Z76.89 phentermine (Adipex-P) 37.5 MG tablet Patient presents today for initial Adipex prescription. The importance of keeping a food journal, proper nutrition/diet, and exercise regimen while taking Adipex has been discussed. Patient verbalized understanding and signed consents to initiate (Adipex) medication therapy. Patient was given a printed prescription signed by provider to take to their local pharmacy. Follow Up: Patient is to return to the office in 1 month for further evaluation to assess patient progress. Weight and blood pressure will need to be captured in order for patient to receive 2nd prescription. Documented by JESUS Bell on behalf of: JESUS Bell documented in this encounter [facility] 10-09-2024 Hospital Discharge instructions Ludmila Morales PA-C - 10/09/2024 5:26 PM EDT You can use warm or cool compress presses which ever is desired You can use Tylenol for pain if needed Benadryl for redness and itching Take antibiotics as directed Follow-up with your doctor for recheck in 1 to 2 days The following attachments cannot be sent through Care Everywhere.Insect Stings and Bites ([place])documented in this encounter [facility] 07-19-2024 Hospital Discharge instructions Ludmila Morales PA-C - 07/19/2024 3:16 PM EST Condoms are an effective way to prevent sexually transmitted infections No sexual activity until test results are known Make sure you follow-up with your doctor in 1 to 2 days for recheck The following attachments cannot be sent through Care Everywhere.STI ([place])documented in this encounter [facility] 07-04-2024 History of Present illness Narrative Reason for Appointment: Patient ID: Jessica Gastelum is a 28 y.o. female who presents for Gynecologic Exam Patient presents today for Annual Exam. MEDICATIONS No current outpatient medications ALLERGIES No Known Allergies PROBLEMS Active Ambulatory Problems Diagnosis Date Noted No Active Ambulatory Problems Resolved Ambulatory Problems Diagnosis Date Noted No Resolved Ambulatory Problems No Additional Past Medical History HISTORY PAST MEDICAL HISTORY SOCIAL HISTORY No past medical history on file. Social History Tobacco Use Smoking status: Not on file Smokeless tobacco: Not on file Substance Use Topics Alcohol use: Not on file Drug use: Not on file FAMILY HISTORY Family History Problem Relation Name Age of Onset Neuropathy Mother Heart murmur Mother Arthritis Mother Osteopenia Mother Diabetes Father Other (heart stents) Father Hyperlipidemia Father Breast cancer Mother's Sister Cervical cancer Mother's Sister Breast cancer Paternal Grandmother Heart failure Other Other (heart stents) Other Hyperlipidemia Other Cervical cancer Other Other (pacemaker) Other Autism Other ADD / ADHD Other SURGICAL HISTORY History reviewed. No pertinent surgical history. REVIEW OF SYSTEMS Review of Systems: Review of Systems Constitutional: Negative. HENT: Negative. Eyes: Negative. Respiratory: Negative. Cardiovascular: Negative. Gastrointestinal: Negative. Genitourinary: Negative. Musculoskeletal: Negative. Skin: Negative. Neurological: Negative. All other systems reviewed and are negative. Hematological: Negative. Endocrine: Negative. Allergic/Immunologic: Negative. OBJECTIVE Objective: Physical Exam Constitutional: Appearance: Normal appearance. She is well-developed. Genitourinary: Vulva normal. Right Adnexa: not tender and no mass present. Left Adnexa: not tender and no mass present. No cervical discharge. Breasts: Breasts are soft. Right: Normal. Left: Normal. HENT: Head: Normocephalic. Nose: Nose normal. Mouth/Throat: Mouth: Mucous membranes are moist. Cardiovascular: Rate and Rhythm: Normal rate and regular rhythm. Pulmonary: Effort: Pulmonary effort is normal. Breath sounds: Normal breath sounds. Abdominal: General: Bowel sounds are normal. There is no distension. Palpations: Abdomen is soft. Tenderness: There is no abdominal tenderness. There is no guarding or rebound. Musculoskeletal: General: No swelling. Normal range of motion. Cervical back: Normal range of motion. Right lower leg: No edema. Left lower leg: No edema. Neurological: General: No focal deficit present. Mental Status: She is alert and oriented to person, place, and time. Skin: General: Skin is warm and dry. Psychiatric: Mood and Affect: Mood normal. Behavior: Behavior normal. Vitals and nursing note reviewed. Exam conducted with a softlines supervisor present. Vitals: There is no height or weight on file to calculate BMI. BP: No LMP recorded. ASSESSMENT & PLAN ICD-10-CM 1. Well woman exam with routine gynecological exam Z01.419 Pap Smear Annual Exam: Patient presents today for an annual exam. Patient states she is doing well and has no complaints. Pap was obtained without difficulty. No orders of the defined types were placed in this encounter. Follow Up: Patient is to return in one year for annual unless needed otherwise. Documented by Simona Yee MA on behalf of: JESUS Bell documented in this encounter [facility] 04-03-2024 History of Present illness Narrative Subjective: Patient ID: Jessica Gastelum is a 28 y.o. female. Chief Complaint Patient presents with uti sx std check Patient presents to urgent care for evaluation. She reports urinary frequency that started 3-4 days ago. She also reports new sexual partner so requests STD testing. No vaginal bleeding nor discharge. LMP 03/01/24 - she denies chance of and declines testing. No known STD exposure. Urinary Tract Infection This is a new problem. The current episode started in the past 7 days. There has been no fever. She is Sexually active. Associated symptoms include frequency. Pertinent negatives include no chills, hematuria, possible , urgency or vomiting. She has tried nothing for the symptoms. There is no history of kidney stones, recurrent UTIs, a single kidney or a urological procedure. The following portions of the patient's history were reviewed and updated as appropriate: allergies, current medications, past family history, past medical history, past social history, past surgical history and problem list. Review of Systems Constitutional: Negative for chills and fever. Respiratory: Negative for cough and shortness of breath. Cardiovascular: Negative for chest pain. Gastrointestinal: Positive for abdominal pain. Negative for diarrhea and vomiting. Genitourinary: Positive for frequency. Negative for dysuria, hematuria, urgency, vaginal bleeding and vaginal discharge. Past Medical History: Diagnosis Date HSV-2 infection Past Surgical History: Procedure Laterality Date VULVA SURGERY Social History Tobacco Use Smoking status: Never Smokeless tobacco: Never Family History Problem Relation Age of Onset Bleeding Disorder Mother Depression Other Cancer Other Autism Other No Known Allergies Current Outpatient Medications on File Prior to Visit Medication Sig Dispense Refill ondansetron ODT (ZOFRAN-ODT) 4 mg disintegrating tablet Dissolve 4 mg on tongue every 8 (eight) hours as needed for nausea or vomiting. (Patient not taking: Reported on 04/03/2024) valACYclovir (VALTREX) 500 mg tablet Take 500 mg by mouth 2 (two) times a day. (Patient not taking: Reported on 04/03/2024) No current facility-administered medications on file prior to visit. Objective: Vitals: 04/03/24 1359 BP: 110/65 Pulse: 83 Resp: 20 Temp: 36.4 C (97.6 F) SpO2: 100% Weight: 88 kg (194 lb) No LMP recorded. It is unknown whether the patient is currently . Body mass index is 34.37 kg/m . Facility age limit for growth %sindy is 20 years. Physical Exam Constitutional: General: She is not in acute distress. Appearance: She is not toxic-appearing. Cardiovascular: Rate and Rhythm: Normal rate and regular rhythm. Pulmonary: Effort: Pulmonary effort is normal. No respiratory distress. Breath sounds: Normal breath sounds. Abdominal: General: Bowel sounds are normal. There is no distension. Tenderness: There is no abdominal tenderness. There is no right CVA tenderness, left CVA tenderness, guarding or rebound. Genitourinary: Comments: Patient is at urgent care with her 5 children, and requests to self swab. Assessment/Plan: Labs for this visit: Office Visit on 04/03/2024 Component Date Value External Poct Urine Color 04/03/2024 yellow External Poct Urine Dina* 04/03/2024 clear External Poct Urine Appe* 04/03/2024 clear External Poct Urine Gluc* 04/03/2024 Negative External Poct Urine Bili* 04/03/2024 Negative External Poct Urine Keto* 04/03/2024 Negative External Poct Urine Spec* 04/03/2024 1.030 External Poct Urine Blood 04/03/2024 Negative External Poct Urine Ph 04/03/2024 5.5 External Poct Urine Prot* 04/03/2024 Negative External Poct Urine Urob* 04/03/2024 0.2 External Poct Urine Nitr* 04/03/2024 Negative External Poct Urine Leuk* 04/03/2024 Negative Jessica was seen today for uti sx and std check. Diagnoses and all orders for this visit: Urinary frequency - POCT Urinalysis Auto, W/O Microscopy - Urine culture (clean catch); Future Screening examination for STD (sexually transmitted disease) - Vaginitis Panel PCR; Future - Chlamydia/GC by PCR Jolynn Swab; Future This note is dictated with the use of M*Modal.Please note that this dictation was completed with computer voice recognition software. Quite often unanticipated grammatical, syntax, homophones, and other interpretive errors are inadvertently transcribed by the computer software. Please disregard these errors. Please excuse any errors that have escaped final proofreading. I personally discussed test results with patient/parent. Questions answered. Discussed that follow up care is usually required after a visit to the Urgent care. It is patient responsibility to contact your primary care provider for follow up. If symptoms are not improving, worsening, or concerning symptoms of illness develop, follow up with your primary care provider or go to the nearest Emergency Department for further care immediately. Racquel Smith PA-C 04/03/24 1501 documented in this encounter [facility] [employer] 02-20-2024 Hospital Discharge instructions Harvey Sarah MD - 02/20/2024 6:41 PM EDT You tested positive for bacterial vaginosis, this is not an STI. This is a common bacterial infection, treated with antibiotics. You were given a dose of antibiotics in the emergency department and provided a prescription, please take all doses as prescribed and do not miss any doses. test was negative. Results of STI testing will be available to view in [place] in the next 24-48 hours. If you do not have access to [employer] a provider will call you if positive result. documented in this encounter [facility] 07-31-2023 Hospital Discharge instructions Ericka Vogt RN - 07/31/2023 10:37 [...] on left side. documented in this encounter [facility] 07-31-2023 History of Present illness Narrative [employer] PROGRESS NOTE Jessica Gastelum is a 28 [...] admission and completed - Message sent to [facility] to coordinate care and schedule initial appointment Patient Active Problem List Diagnosis Date Noted 21 weeks gestation of 07/30/[address] Farris. 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 MD [employer] Resident 07/31/2023, 6:43 AM documented in this encounter [employer] Evaluation note Diagnosis Urinary tract infection in mother during first trimester of - Primary Non-intractable vomiting with nausea, unspecified vomiting type documented in this encounter [employer] Phone: evaluation note* Diagnosis Facial laceration, initial encounter- Primary Injury of head, initial encounter documented in this encounter [employer] Phone: evaluation note* Diagnosis Visit for suture removal- Primary Encounter for removal of sutures documented in this encounter [employer] Phone: evaluation note* Diagnosis 21 weeks gestation of - Primary state, incidental Abdominal trauma in Other injury of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
--- NOTE | 2025-02-28 09:57 | ED.GENADUL1 ---
HPI HPI - General Adult General Chief complaint: Urogenital-Female Stated complaint: VAGINAL BLEEDING HEAVY Time Seen by Provider: 02/28/25 09:39 Source: patient Mode of arrival: walk-in History of Present Illness HPI narrative: Patient is a 29-year-old female presenting to the emergency department for evaluation of a headache and vaginal bleeding. Patient states she started her menstrual cycle 2 days ago. She states that this menstrual cycle in particular is heavier than her typical periods. She states that she has been going through a tampon every 2 hours for the last 2 days. She states that she has associated pain in the lower part of her back. She denies being . She states she has had 5 vaginal deliveries in the past, her last delivery was in 2023. She denies history of fibroids, endometriosis, or any other gynecologic conditions. She is sexually active with 1 partner. She states was tested for STDs in December and was bee negative. She denies vaginal discharge or concern for STD exposures. She states that over the last couple days she has developed a headache. She has taken Tylenol for the pain, which seems to help. She denies any neck pain or stiffness. No fevers or chills. No URI symptoms, cough, congestion, chest pain, shortness of breath, abdominal pain, nausea, or vomiting. Related Data Home Medications ?Medication ?Instructions ?Recorded ?Confirmed valacyclovir 500 mg tablet 500 mg PO DAILY 11/27/23 02/28/25 Allergies Allergy/AdvReac Type Severity Reaction Status Date / Time No Known Drug Allergies Allergy Verified 10/19/23 01:38 Opioid HPI Opioid Management Most Recent Opioid Data: Last Pain Scale 3 11/29/23, 09:30 Ur Phencyclidine Scrn, (NEGATIVE) Negative 11/27/23, 06:00 Review of Systems ROS Status of ROS 10 or more systems reviewed and unremarkable except as noted in history and below [facility] Medical History (Updated 02/28/25 @ 10:28 by Zachery Irizarry DO) Herpes ?B00.9 - Herpesviral infection, unspecified (ICD-10) Exam Narrative Exam Narrative: CONSTITUTIONAL: Well-appearing, answering questions and following commands appropriately SKIN: Was warm and dry. EYES: Sclerae white. No conjunctival pallor. EARS, NOSE, THROAT: Moist oral mucosa. RESPIRATORY: Clear to auscultation bilaterally, no wheezes, crackles, or stridor, no use of accessory muscles CARDIOVASCULAR: Normal rate and regular rhythm. There is no S3, S4, murmur, rub. GASTROINTESTINAL: Mild tenderness palpation in the lower part of her abdomen without rebound tenderness or guarding. No peritoneal signs. MUSCULOSKELETAL: No peripheral edema. NEUROLOGIC: Patient is awake and alert. Facies were symmetrical. PELVIC: Patient declined pelvic exam Constitutional Vital Signs, click to edit/add: Last Vital Signs Temp 98.8 F 02/28/25 09:38 Pulse 78 02/28/25 09:38 Resp 16 02/28/25 09:38 BP 123/69 02/28/25 09:38 Pulse Ox 98 02/28/25 09:38 O2 Del Method Room Air 02/28/25 09:38 Course Vital Signs Vital signs: Vital Signs Temperature 98.8 F 02/28/25 09:38 Pulse Rate 78 02/28/25 09:38 Respiratory Rate 16 02/28/25 09:38 Blood Pressure 123/69 02/28/25 09:38 Pulse Oximetry 98 02/28/25 09:38 Oxygen Delivery Method Room Air 02/28/25 09:38 Temperature 98.8 F 02/28/25 09:38 Pulse Rate 78 02/28/25 09:38 Respiratory Rate 16 02/28/25 09:38 Blood Pressure 123/69 02/28/25 09:38 Pulse Oximetry 98 02/28/25 09:38 Oxygen Delivery Method Room Air 02/28/25 09:38 Medical Decision Making MDM Narrative Medical decision making narrative: Patient is a healthy 29-year-old female presenting to the emergency department for 2-day history of heavy menstrual cycle and headache. Her vital signs are within normal limits. She is afebrile and hemodynamically stable. Other than mild tenderness to palpation in the lower part of her abdomen, her exam is unremarkable. She does not appear to be significantly anemic, no conjunctival or palmar pallor. I did offer to perform a pelvic examination to quantify the amount of bleeding, however the patient declined. She states that currently, her bleeding is mild to moderate. My differential diagnosis includes menorrhagia, ectopic , symptomatic anemia, tension headache. She has no urinary complaints to suggest cystitis. Patient's exam is not consistent with surgical etiologies of abdominal pain such as appendicitis. IV was established and laboratory studies were obtained. She was given 1 L bolus IV normal saline and 30 mg IV ketorolac for symptomatic treatment. Laboratory studies were unremarkable. No significant electrolyte or metabolic derangement. No evidence of acute kidney injury. No anemia, leukocytosis, or thrombocytopenia. test negative. On reevaluation, patient states she feels improved. She feels comfortable being discharged home. I do believe the patient is stable for discharge at this time. They were instructed to follow up with her PCP as needed. Return precautions were given including any new or worsening symptoms, including bleeding through more than 2 pads per hour for more than 2 hours. Patient understands and agrees to the plan. FINAL IMPRESSION: #Acute menorrhagia #Acute tension headache DISPOSITION: Discharged home CONDITION: Good Lab Data Lab results reviewed: Yes I reviewed the patient's lab results Labs: Lab Results 02/28/25 Range/Units 10:00 WBC 4.1 (4.0-11.0) 10^3/uL RBC 4.29 (4.20-5.40) 10^6/uL Hgb 13.2 (12.0-16.0) g/dL Hct 37.5 (36.0-48.0) % MCV 87.4 (81.0-99.0) fL MCH 30.8 (26.7-34.0) pg MCHC 35.2 (29.9-35.2) g/dL RDW 12.9 (11.0-15.0) % Plt Count 161 (150-450) 10^3/uL MPV 9.8 (9.5-13.5) fL Sodium 141 (136-145) mmol/L Potassium 3.6 (3.5-5.1) mmol/L Chloride 106 (98-107) mmol/L Carbon Dioxide 25.4 (21.0-32.0) mmol/L Anion Gap 13.2 BUN 16.0 (7.0-18.0) mg/dL Creatinine 0.64 (0.55-1.02) mg/dL Est GFR ( Amer) >60 (>=60 mL/min/1.73m^2) Est GFR (Non-Af Amer) >60 (>=60 mL/min/1.73m^2) BUN/Creatinine Ratio 25.0 Glucose 101 (74-106) mg/dL Calcium 8.6 (8.5-10.1) mg/dL Serum HCG, Qual Negative (NEGATIVE) Discharge Plan Discharge Chief Complaint: Urogenital-Female Clinical Impression: Acute tension headache, Menorrhagia Patient Disposition: Home, Self-Care Time of Disposition Decision: 10:28 Condition: Good Mode of Transportation: Private Vehicle Prescriptions / Home Meds: No Action valacyclovir 500 mg tablet 500 mg PO DAILY Print Language: Syriac Instructions: Acute Headache (ED), Menorrhagia (ED) Additional Instructions: Follow up with your family Referrals: Physician,Non-Staff, [Primary Care Provider] - 1 week Discharge Date/Time: 02/28/25 11:01
[2025-02-28] MEDS: 0.9 % SODIUM CHLORIDE 1,000 ML 1000 ML IV (10:11)
[2025-02-28] MEDS: KETOROLAC TROMETHAMINE 30 MG/ML VIAL IVP (10:11)
[2025-02-28 10:17] LABS: Hematocrit 37.5 % (36.0-48.0); Hemoglobin 13.2 g/dL (12.0-16.0); Mean Corpuscular HGB Conc 35.2 g/dL (29.9-35.2); Mean Corpuscular Hemoglobin 30.8 pg (26.7-34.0); Mean Corpuscular Volume 87.4 fL (81.0-99.0); Platelet Count 161 10^3/uL (150-450); Red Blood Count 4.29 10^6/uL (4.20-5.40); White Blood Count 4.1 10^3/uL (4.0-11.0)
[2025-02-28 10:25] LABS: Anion Gap 13.2; Blood Urea Nitrogen 16.0 mg/dL (7.0-18.0); Calcium 8.6 mg/dL (8.5-10.1); Carbon Dioxide 25.4 mmol/L (21.0-32.0); Chloride 106 mmol/L (98-107); Estimated GFR (African America >60 (>=60 mL/min/1.73m^2); Estimated GFR (Non-African Ame >60 (>=60 mL/min/1.73m^2); Glucose 101 mg/dL (74-106); Potassium 3.6 mmol/L (3.5-5.1); Sodium 141 mmol/L (136-145)
== END 2025-02-28 11:01 | disposition home or self-care (01) ==
PROVIDERS: Emergency Provider Student in an Organized Health Care Education/Training Program
DX: N92.0 Excessive and frequent menstruation with regular cycle (principal); G44.209 Tension-type headache, unspecified, not intractable
CPT/HCPCS: 36415; 80048; 81001; 84703; 85027; 96374; 99284; J1885

== ENCOUNTER 2025-06-03 10:58 | Outpatient (OUT) | payer OTHER, SELFPAY ==
--- OUTSIDE RECORDS SUMMARY | 2025-06-03 11:03 | XMS_ITS | CCD ---
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 been evaluated for patients under 18 years old. Results for these patients should be reviewed and assessed in accordance with clinical presentation to determine patient diagnosis. [facility] Medical CenterCT BRAIN WO CONTon [id number] BRAIN WO CONTCT BRAIN WO CONT History: Headache Technique: Contiguous axial images through the brain were obtained without the administration of intravenous contrast material. Automated exposure control was utilized. Comparison: None Findings: The ventricles are normal in size. There is no evidence of midline shift. There are no areas of abnormal density to suggest presence of acute major vessel infarct, mass lesion, or hemorrhage. The visualized osseous structures are intact. Impression: Normal CT brain. All CT scans at this facility use dose modulation, iterative reconstruction, and/or weight based dosing when appropriate to reduce radiation dose to as low as reasonably achievable. Finalized by Fadumo Mesa MD on 03/02/2025 3:54 AMNormalProWvumedicine Barnesville Hospitalca Radiant HospitalCHLAMYDIA/GC BY PCR JOLYNN SWABon [id number]/GC BY PCR JOLYNN SWABCHLAMYDIA DNA(PCR) Negative Chlamydia trachomatis not detected by nucleic acid amplification. This does not exclude the possibility of infection because results are dependent on adequate specimen collection. GONORRHOEAE DNA(PCR) Negative Neisseria gonorrhoeae not detected by nucleic acid amplification. This does not exclude the possibility of infection because results are dependent on adequate specimen collection.NormalProWvumedicine Barnesville Hospitalca Hospital Ambulatory PPGComment on above: Performed By: #### CGS #### [facility] ([facility]) [address] [place] [address] VIRVAGINITIS PANEL PCRon [id number] PANEL PCRBACT. VAGINOSIS DNA Detected Qualitative results are reported [...] accordance with clinical presentation to determine patient diagnosis.[facility] Ambulatory PPGComment on above:Performed By: #### VPPCR #### [facility] ([facility]) [address] [place] [address] VIRCHLAMYDIA/GC BY PCR JOLYNN SWABon [id number]/GC BY PCR JOLYNN SWABCHLAMYDIA DNA(PCR) Negative Chlamydia trachomatis not detected by nucleic acid amplification. This does not exclude the possibility of infection because results are dependent on adequate specimen collection. GONORRHOEAE DNA(PCR) Negative Neisseria gonorrhoeae not detected by nucleic acid amplification. This does not exclude the possibility of infection because results are dependent on adequate specimen collection.[facility] Ambulatory PPGComment on above: Performed By: #### CGS #### [facility] ([facility]) [address] [place] [address] VIRVAGINITIS PANEL PCRon [id number] PANEL PCRBACT. VAGINOSIS DNA Detected Qualitative results are reported [...] accordance with clinical presentation to determine patient diagnosis.[facility] Ambulatory PPGComment on above:Performed By: #### VPPCR #### [facility] ([facility]) [address] [place] [address] VIRChlamydia/GC,DNA Ampon [id number] ProbeNegative NormalTwin City HospitalComment on above:Result Comment: CHLAMYDIA TRACHOMATIS DNA not detected by nucleic acid [...] positive results by an alternative nucleic acid target.Performed By: #### SWCGP #### [employer] [address] [place] [address] Cloth Washer Back Tender: Fran Pereira ProbeNegativeNormalNEGMount Carmel Health SystemComsouthwest regional rehabilitation center on above:Result Comment: NEISSERIA GONORRHOEAE DNA not detected by nucleic acid [...] positive results by an alternative nucleic acid target.Performed By: #### SWCGP #### [employer] [address] [place] [address] Cloth Washer Back Tender: Jeffrey Pereira [id number] gap [Moles/Vol]10 mmol/L9 - 16 mmol/LBon Magruder HospitalCalcium [Mass/Vol]9.0 mg/dL8.6 - 10.4 mg/dL Bon Magruder HospitalChloride [Moles/Vol]105 mmol/L98 - 107 mmol/LBon Magruder HospitalCO2 [Moles/Vol]24 mmol/L20 - 31 mmol/LBon Magruder Hospital Creatinine [Mass/Vol]0.6 mg/dLLow0.7 - 1.2 mg/dLBon Magruder HospitalEst, Glom Filt Rate- PINFBon Magruder HospitalComment on above: These results are not intended [...] therapy that affects renal tubular secretion. Glucose [Mass/Vol]102 mg/eKMihu41 - 99 mg/dLBon Magruder Hospital Interpretation and review of laboratory resultsAbnormalSentara [facility] General Hospital Potassium [Moles/Vol]4.1 mmol/L3.7 - 5.3 mmol/LBon Magruder HospitalSodium [Moles/Vol]139 mmol/L136 - 145 mmol/LBon Magruder HospitalUrea nitrogen [Mass/Vol]13 mg/dL6 - 20 mg/dLBon [facility] Basic Metabolic Profon [id number] gap [Moles/Vol]10 mmol/LNormal9-16[facility] Hospital - CincinnatiComment on above:Performed By: #### HCG, BMP, CDP #### [facility] [address] [place] [address] Cloth Washer Back Tender: Travis Eduardo DOCalcium [Mass/Vol]9.0 mg/dLNormal8.6-10.4 [facility] SystemComment on above:Performed By: #### JAXON BMP, CDP #### [facility] [address] [facility] [place] [address] Cloth Washer Back Tender: Travis Eduardo DOChloride [Moles/Vol]105 mmol/XAuxnvo41-130 [facility] SystemComment on above:Performed By: #### JAXON, BMP, CDP #### [facility] [address] [facility] [place] [address] Cloth Washer Back Tender: Travis Eduardo DOCO2 [Moles/Vol]24 mmol/QMajuoi58-63SjsluMount Carmel Health SystemComment on above:Performed By: #### JAXON BMP, CDP #### [facility] [address] [facility] [place] [address] Cloth Washer Back Tender: Travis Eduardo DOCreatinine [Mass/Vol]0.6 mg/dLLow0.7-1.2MWayne HealthCare Main CampusComsouthwest regional rehabilitation center on above:Performed By: #### TEA COATES, CDP #### [facility] [facility] [place] [address] Cloth Washer Back Tender: Travis Eduardo DOGFR/1.73 sq M.predicted among non-blacks MDRD (S/P/Bld) [Vol rate/Area]mL/min/{1.73_m2}Normal>60[facility] Comment on above:Result Comment: These results are not intended for [...] or following therapy that affects renal tubular secretion.Performed By: #### HCG, BMP, CDP #### [facility] [address] [facility] [place] [address] Cloth Washer Back Tender: Travis Eduardo, DOGlucose [Mass/Vol]102 mg/bCAxyo33-55VgsfxWayne HealthCare Main CampusComment on above:Performed By: #### TEA COATES, CDP #### [facility] [address] [place] [address] Cloth Washer Back Tender: Travis Eduardo, DOPotassium [Moles/Vol]4.1 mmol/LNormal3.7-5.3 [facility] SystemComsouthwest regional rehabilitation center on above:Performed By: #### TEA COATES, CDP #### [facility] [address] [place] [address] Cloth Washer Back Tender: Travis Eduardo, DOSodium [Moles/Vol]139 mmol/LCptgbn527-417 [facility] SystemComsouthwest regional rehabilitation center on above:Performed By: #### TEA COATES, CDP #### [facility] [address] [place] [address] Cloth Washer Back Tender: Travis Eduardo DOUrea nitrogen [Mass/Vol]13 mg/dLNormal6-20 [facility] SystemComsouthwest regional rehabilitation center on above:Performed By: #### TEA COATES, CDP #### [facility] [address] [place] [address] Cloth Washer Back Tender: Travis Eduardo DOCBC with Auto Differentialon 07-19-2024 Basophils (Bld) [#/Vol]0.00 10*3/uLBon Secours Trihealthy HealthBasophils/100 WBC (Bld)0 %0 - 2 %[facility] Mercy HealthEosinophils (Bld) [#/Vol]0.20 10*3/uLBon Secours Mercy HealthEosinophils/100 WBC (Bld)2 %0 - 4 %[facility] Erythrocyte distribution width (RBC) [Ratio]14.1 %11.5 - 14.9 %[facility]cy HealthHematocrit (Bld) [Volume fraction]41.9 %36 - 46 %[facility] Hemoglobin (Bld) [Mass/Vol]14.3 g/dL12.0 - 16.0 g/dLBon Magruder Hospital Interpretation and review of laboratory resultsAbnormalSentara Virginia Beach General Hospital Lymphocytes/100 WBC (Bld)18 %Low24 - 44 %[facility] HospitalLymphocytes/100 WBC (Bld)1.50 %[facility] HospitalH (RBC) [Entitic mass]29.5 pg26 - 34 pgBon Fisher-Titus Medical CenterHC (RBC) [Mass/Vol]34.0 g/dL31 - 37 g/dLBon Fisher-Titus Medical CenterV (RBC) [Entitic vol]86.8 fL80 - 100 fLSentara Virginia Beach General Hospital Monocytes/100 WBC (Bld)8 %High1 - 7 %[facility] HospitalMonocytes/100 WBC (Bld)0.70 %[facility] HospitalNeutrophils/100 WBC (Bld)72 %High36 - 66 %[facility] HospitalPlatelet mean volume (Bld) [Entitic vol]7.5 fL6.0 - 12.0 fL [facility] HospitalPlatelets (Bld) [#/Vol]210 10*3/uLSentara Virginia Beach General HospitalRBC (Bld) [#/Vol]4.82 10*6/uL4.0 - 5.2 m/uLSentara Virginia [facility] General Hospital Segmented neutrophils/100 WBC (Bld)5.90 %[facility] HospitalWBC other (Bld) [#/Vol]8.3Bon Spearfish Regional HospitalCBC with Diffon [id number]. Basophil0.00 k/uLNormal0.0-0.2[facility] - CincinnatiComment on above:Performed By: #### HCG, BMP, CDP #### [facility] [address] [place] [address] Cloth Washer Back Tender: Travis Eduardo DOAbs.Neutrophil (Seg)5.90 k/uLNormal1.3-9.1 [facility] SystemComment on above:Performed By: #### HCG, BMP, CDP #### [facility] [place] [address] Cloth Washer Back Tender: Travis Eduardo DOBasophils/100 WBC (Bld)0 %Normal0-2[facility] Hospital - CincinnatiComment on above:Performed By: #### HCG, BMP, CDP #### [facility] [address] [place] [address] Cloth Washer Back Tender: Travis Eduardo DOEosinophils (Bld) [#/Vol]0.20 10*3/uLNormal 0.0-0.4[facility] SystemComsouthwest regional rehabilitation center on above:Performed By: #### HCG, BMP, CDP #### [facility] [address] [place] [address] Cloth Washer Back Tender: Travis Eduardo DOEosinophils/100 WBC (Bld)2 %Normal0-4[facility] SystemComment on above:Performed By: #### JAXON, BMP, CDP #### [facility] [address] [place] [address] Cloth Washer Back Tender: Travis Eduardo DOErythrocyte distribution width (RBC) [Ratio] 14.1 %Zeasjz77.5-14.9[facility] SystemComsouthwest regional rehabilitation center on above:Performed By: #### JAXON, BMP, CDP #### [facility] [address] [place] [address] Cloth Washer Back Tender: Travis Eduardo DOHematocrit (Bld) [Volume fraction]41.9 % Xsltmx93-58KhwnzMount Carmel Health SystemComsouthwest regional rehabilitation center on above:Performed By: #### HCG, BMP, CDP #### [facility] [address] [place] [address] Cloth Washer Back Tender: Travis Eduardo DOHemoglobin (Bld) [Mass/Vol]14.3 g/dLNormal 12.0-16.0[facility] on above:Performed By: #### HCG, BMP, CDP #### [facility] [place] [address] Cloth Washer Back Tender: Travis Eduardo DOLymphocytes (Bld) [#/Vol]1.50 10*3/uLNormal 1.0-4.8[facility] on above:Performed By: #### HCG, BMP, CDP #### [facility] [address] [place] [address] Cloth Washer Back Tender: Travis Eduardo DOLymphocytes/100 WBC (Bld)18 %Hqm24-26FpijeMercy Health Clermont Hospital on above:Performed By: #### HCG, BMP, CDP #### [facility] [address] [place] [address] Cloth Washer Back Tender: Travis Eduardo DOMCH (RBC) [Entitic mass]29.5 myZdvqss68-99 [facility] on above:Performed By: #### JAXON, BMP, CDP #### [facility] [address] [place] [address] Cloth Washer Back Tender: Travis Eduardo DOMCHC (RBC) [Mass/Vol]34.0 g/cSKngwwm54-29 [facility] on above:Performed By: #### JAXON, BMP, CDP #### [facility] [address] [place] [address] Cloth Washer Back Tender: Travis Eduardo DOMCV (RBC) [Entitic vol]86.8 qQOgjjru74-394 [facility] on above:Performed By: #### JAXON, BMP, CDP #### [facility] [address] [place] [address] Cloth Washer Back Tender: Travis Eduardo DOMonocytes (Bld) [#/Vol]0.70 10*3/uLNormal 0.1-1.3Mknox community hospitaly [facility] CincinnatiComsouthwest regional rehabilitation center on above:Performed By: #### HCG, BMP, CDP #### [facility] [address] [place] [address] Cloth Washer Back Tender: Travis Eduardo DOMonocytes/100 WBC (Bld)8 %High1-7[facility] SystemComsouthwest regional rehabilitation center on above:Performed By: #### HCG, BMP, CDP #### [facility] [place] [address] Cloth Washer Back Tender: Travis Eduardo DONeutrophil (Seg)72 %Crzq93-88PususMercy Health Clermont Hospital on above:Performed By: #### HCG, BMP, CDP #### [facility] [address] [place] [address] Cloth Washer Back Tender: Travis Eduardo DOPlatelet mean volume (Bld) [Entitic vol]7.5 fLNormal6.0-12.0[facility] on above:Performed By: #### HCG, BMP, CDP #### [facility] [place] [address] Cloth Washer Back Tender: Travis Eduardo DOPlaterussell (Bld) [#/Vol]210 10*3/uLNormal 150-450[facility] on above:Performed By: #### HCG, BMP, CDP #### [facility] [place] [address] Cloth Washer Back Tender: Travis Eduardo DORBC (Bld) [#/Vol]4.82 10*6/uLNormal4.0-5.2 [facility] on above:Performed By: #### HCG, BMP, CDP #### [facility] [address] [facility] [place] [address] Cloth Washer Back Tender: Travis Eduardo DOWBC (Bld) [#/Vol]8.3 10*3/uLNormal3.5-11.0 [facility] on above:Performed By: #### HCG, BMP, CDP #### [facility] [address] [facility] [place] [address] Cloth Washer Back Tender: Travis Eduardo DOHCG Qualitative, Serumon [id number] ( test) QlNegativeNEGATIVESentara Virginia Beach General HospitalComment on above: Specimens with hCG levels near the threshold of the test (25 mIU/mL) may give a negative or indeterminate result. In such cases, another test should be performed with a new specimen in 48-72 hours. If early is suspected clinically in this setting, correlation with quantitative serum b-hCG level is suggested. Bon Magruder HospitalHCG Screen, Bloodon [id number] Screen, BloodNegative NormalNEGMercy Select Medical Specialty Hospital - CincinnatiComment on above:Result Comment: Specimens with hCG levels near the threshold of the test (25 mIU/mL) may give a negative or indeterminate result. In such cases, another test should be performed with a new specimen in 48-72 hours. If early is suspected clinically in this setting, correlation with quantitative serum b-hCG level is suggested.Performed By: #### HCG BMP, CDP #### [facility] [address] [facility]. [place], [place] [address] Cloth Washer Back Tender: Travis Eduardo DOMicroscopic Urinalysison 60-73-2673Udejwvte LM Ql (Urine sed)NoneNoneBon Magruder HospitalCasts LM.LPF (Urine sed) [#/Area]0 TO 2AbnormalNone /LPFBon Magruder HospitalEpithelial cells LM.HPF (Urine sed) [#/Area]0 TO 2/HPFBon Magruder HospitalInterpretation and review of laboratory resultsAbnormalBon Magruder HospitalRBC LM.HPF (Urine sed) [#/Area]10 TO 39Rdyfcita5 TO 2 /HPFBon [facility] LM.HPF (Urine sed) [#/Area]0 TO 3Cmqlfwjm7 TO 5 /HPFBon Spearfish Regional HospitalUA w/Reflex Cultureon [id number], SemiQt,UrNegativeNormalNEGMercy [facility] Hospital - CincinnatiComsouthwest regional rehabilitation center on above:Performed By: #### ANA HENRY #### [facility] [address] [place] [address]. [place] [address] Cloth Washer Back Tender: Travis Eduardo DOBlpatty, UrineSMALLAbnormalNEGMerRegency Hospital CompanyComsouthwest regional rehabilitation center on above:Performed By: #### ANA HENRY #### [facility] [address] [place] [address]. [place] [address] Cloth Washer Back Tender: Travis Eduardo DOClarity (U)ClearNormalCLEARMerRegency Hospital CompanyComsouthwest regional rehabilitation center on above:Performed By: #### ANA HENRY #### [facility] [address] [place] [address]. [place] [address] Cloth Washer Back Tender: Travis Eduardo DOColor (U)YellowNormalYELMerRegency Hospital CompanyComsouthwest regional rehabilitation center on above:Performed By: #### ANA HENRY #### [facility] [address] [place] [address]. [place] [address] Cloth Washer Back Tender: Travis Eduardo DOGlucose Ql (U)NegativeNormalNEGMercy [facility] Hospital - CincinnatiComsouthwest regional rehabilitation center on above:Performed By: #### MARÍA HENRYICAO #### [facility] [address] [place] [address] Cloth Washer Back Tender: Travis Eduardo DOKetones Ql (U)NegativeNormalNEGMercy [facility] Hospital - CincinnatiComsouthwest regional rehabilitation center on above:Performed By: #### ELAINE UMICAO #### [facility] [address] [place] [address]. [place] [address] Cloth Washer Back Tender: Travis Eduardo DOLeukocyte esterase Test strip Ql (U)Negative NormalNEGMercy Health Clermont Hospital on above:Performed By: #### ELAINE UMKEENANO #### [facility] [address] [place] [address]. [place] [address] Cloth Washer Back Tender: Travis Eduardo DONitrite,UrNegativeNormalNEGMercy Health Clermont Hospital on above:Performed By: #### ANA HENRY #### [facility] [address] [place] [address] Cloth Washer Back Tender: Travis Eduardo DOPH,Ur6.8Unnwoj8.0-8.0[facility] on above:Performed By: #### ANA HENRY #### [facility] [address] [place] [address]. [place] [address] Cloth Washer Back Tender: Travis Eduardo DOProtein Ql (U)NegativeNormalNEGMercy Health Clermont Hospital on above:Performed By: #### ANA HENRY #### [facility] [address] [place] [address] Cloth Washer Back Tender: Travis Eduardo DOSpec. Hewitt,Ur1.155Uiieju6.000-1.030[facility] on above:Performed By: #### ELAINE UMICAO #### [facility] [address] [place] [address] Cloth Washer Back Tender: Travis Eduardo DOUrobilinogen,UrNormalNormal0.0-1.0[facility] on above:Performed By: #### ELAINE UMICAO #### [facility] [address] [place] [address]. [place] [address] Cloth Washer Back Tender: Travis Eduardo, DOUrinalysis with Reflex to Cultureon [id number] Ql (U)NegativeNEGATIVEBon Magruder HospitalClarity (U) ClearClearBon Magruder HospitalColor (U)YellowYellowBon [facility] Hospital Glucose Test strip (U) [Mass/Vol]NegativeNEGATIVE mg/dLBon [facility] Hospital Hemoglobin Auto test strip Ql (U)SMALLAbnormalNEGATIVESentara [facility] General Hospital Interpretation and review of laboratory resultsAbnormalBon [facility] Hospital Ketones (U) [Mass/Vol]NegativeNEGATIVE mg/dLBon Magruder HospitalLeukocyte esterase Test strip Ql (U)NegativeNEGATIVEBon Magruder HospitalNitrite Ql (U) NegativeNEGATIVEBon Magruder HospitalpH (U)6.5 [pH]5.0 - 8.0[facility] HospitalProtein (U) [Mass/Vol]NegativeNEGATIVE mg/dLBon [facility] Hospital Specific gravity (U) [Rel density]1.0221.000 - 1.030[facility] Urobilinogen Qn (U)Normal0.0 - 1.0 EU/dLBon Spearfish Regional HospitalUrinalysis,Microon [id number]hcw St. Charles HospitalComment on above:Performed By: #### ANA HENRY #### [facility] [address] [place] [address]. [place] [address] Cloth Washer Back Tender: Travis Eduardo, DOCasts0 TO 2AbnormalPremier HealthComment on above:Performed By: #### ANA HENRY #### [facility] [address] [place] [address]. [place], [place] [id number] Cloth Washer Back Tender: Travis Eduardo DOEpithelial cells LM Ql (Urine sed)0 TO 2 NormalMercy Select Medical Specialty Hospital - CincinnatiComment on above:Performed By: #### ANA HENRY #### [facility] [address] [place] [address] [place] [address] Cloth Washer Back Tender: Travis Eduardo DOUrine RBC's10 TO 01HeuypmesP15ArsfwMercy Health Clermont Hospital on above:Performed By: #### ANA HENRY #### [facility] [address] [facility] [place] [address] Cloth Washer Back Tender: Travis Eduardo DOUrine WBC's0 TO 9XosfdotcE36XlveuMercy Health Clermont Hospital on above:Performed By: #### ANA HENRY #### [facility] [address] [facility] [place] [address] Cloth Washer Back Tender: Travis Eduardo DOVaginitis DNA Probeon 25-09-2356Nlpippt speciesNegativeNEGDominion HospitalComsouthwest regional rehabilitation center on above:for Matthew sp. Method of testing is a DNA probe intended for detection and identification of Matthew species, Gardnerella vaginalis, and Trichomonas vaginalis nucleic acid in vaginal fluid specimens from patients with symptoms of vaginitis/vaginosis. GARDNERELLA VAGINALISNegativeNEGATIVESentara Virginia Beach General HospitalComsouthwest regional rehabilitation center on above: for Gardnerella vaginalisSource.VAGINAL SWABBon Magruder HospitalTrichomonas NegativeNEGATIVECentra Bedford Memorial Hospital on above:for Trichomonas VaginalisBon Magruder HospitalCandidaNegativeNormalHocking Valley Community Hospital on above:Result Comment: for Matthew sp. Method of testing is a DNA probe intended for detection and identification of Matthew species, Gardnerella vaginalis, and Trichomonas vaginalis nucleic acid in vaginal fluid specimens from patients with symptoms of vaginitis/vaginosis. Performed By: #### TYSHAWNGP #### [employer] [facility] [place] [address] Cloth Washer Back Tender: Geoffrey PereiragativeNDiley Ridge Medical Center on above:Result Comment: for Gardnerella vaginalisPerformed By: #### DEECGP #### [employer] [address] [place] [address] Cloth Washer Back Tender: Chace PereirahomonasNegativeNormalNEGMercy Health Clermont Hospital on above:Result Comment: for Trichomonas VaginalisPerformed By: #### TYSHAWNGP #### [employer] [address] [place], [place] [id number] Cloth Washer Back Tender: Shereen Pereira.VAGINAL SWABNormalMount Carmel Health SystemComsouthwest regional rehabilitation center on above:Performed By: #### TYSHAWNGP #### [employer] [address] [place], [place] [id number] Cloth Washer Back Tender: ROBERT Pereira,APTIMA HPV,AGE GDLNon [id number] GDLN ACOG TESTINGNote.[facility] DANVERSS Children'[facility] Hospital Of ColumbusComment on above:TESTS RESULT FLAG UNITS REF RANGE LAB Clinician Provided Cytology Information Source.............Cervix;Endocervix No. of containers..01 ThinPrep Vial Age Algo ACOG Renate... FLAG LEGEND: L-Low Normal,H-High Normal,LL-Alert Low,HH-Alert High <-Panic Low,>-Panic High,A-Abnormal,AA-Critical Abnormal Performed at: 01 =G [address] [place] [address] Margaret Regan MD, IGP, RFX APTIMA HPV ASCUNote.[facility]SS HealthcareComment on above:TESTS RESULT FLAG UNITS REF RANGE LAB DIAGNOSIS: 02 NEGATIVE FOR INTRAEPITHELIAL LESION OR MALIGNANCY. Specimen adequacy: 02 Satisfactory for evaluation. Endocervical and/or squamous metaplastic cells (endocervical component) are present. Performed by: 02 Johnnie Albrecht, Special Needs Nanny ([facility] . 02 Note: Note 02 The Pap [...] Low,>-Panic High,A-Abnormal,AA-Critical Abnormal Performed at: [address] [facility] [address] [place] [address] Margaret Regan MD, Performed at: =G - [facility] [address] [id number] Cloth Washer Back Tender: Margaret Regan MD, Phone: [phone] Performed at: [facility] [id number] Cloth Washer Back Tender: Margaret Regan MD, Phone: [phone] BRUSH-SPATULA CERVIX ENDOCERVIX [facility] Surgical HospitalChlamydia/GC,DNA Ampon 49-26-1022Gxbfekztn Probe POSITIVE: CHLAMYDIA TRACHOMATIS DNA detected by nucleic acid amplification. AbnormalNEGMercy Health Clermont Hospital on above:Result Comment: This test is intended for medical [...] target. Results reported to the appropriate Health DepartmentPerformed By: #### SWCGP #### [employer] [address] [place], [place] [id number] Cloth Washer Back Tender: Monroe Pereirarrhea ProbeNegativeNormalNEGMercy Health Clermont Hospital on above:Result Comment: NEISSERIA GONORRHOEAE DNA not detected by nucleic acid [...] positive results by an alternative nucleic acid target.Performed By: #### SWCGP #### [employer] [address] [place] [address] Cloth Washer Back Tender: Philip Schulte MDG, ,Urineon 37-34-8649Qtrk HCG ( test) Ql (U)NegativeNormalNEGMercy Health Clermont Hospital on above:Result Comment: Specimens with hCG levels near the threshold of the test (25 mIU/mL) may give a negative or indeterminate result. In such cases, another test should be performed with a new specimen in 48-72 hours. If early is suspected clinically in this setting, correlation with quantitative serum b-hCG level is suggested.Performed By: #### DEECGP #### [employer] [address] [place], [place] [id number] Cloth Washer Back Tender: Suzi Pereira Urinalysison 05-50-1001Hufuqyit LM Ql (Urine sed)FEWAbnormalNoneBon Magruder HospitalCasts LM.LPF (Urine sed) [#/Area]0 TO 2AbnormalNone /LPFBon Magruder HospitalEpithelial cells LM.HPF (Urine sed) [#/Area]3 to 5/HPFSentara Virginia [place] General HospitalInterpretation and review of laboratory resultsAbnormalBon Magruder HospitalRBC LM.HPF (Urine sed) [#/Area]0 TO 20 TO 2 /HPFBon Magruder HospitalWBC LM.HPF (Urine sed) [#/Area] 3 to 0Xdnqwmmr2 TO 5 /HPFBon [facility] , Urineon 78-74-3296EGA ( test) Ql (U)NegativeNEGATIVECentra Bedford Memorial Hospital on above:Specimens with hCG levels near the threshold of the test (25 mIU/mL) may give a negative or indeterminate result. In such cases, another test should be performed with a new specimen in 48-72 hours. If early is suspected clinically in this setting, correlation with quantitative serum b-hCG level is suggested. Bon Magruder HospitalUA w/Reflex Cultureon 29-23-0485Lepkzsqtx, SemiQt,Ur NegativeNormalNEGMount Carmel Health SystemComsouthwest regional rehabilitation center on above:Performed By: #### SWCGP #### [employer] [address] [place], [place] [id number] Cloth Washer Back Tender: Abiodun Pereira, UrineNegativeNormalNEGMercy Health Clermont Hospital on above:Performed By: #### DEECGP #### [employer] [address] [place], [place] [id number] Cloth Washer Back Tender: MARYAM Pereiralarity (U)ClearNormalCLEARMerSalem Regional Medical Center on above:Performed By: #### SWCGP #### [facility] [address] [place] [address] Cloth Washer Back Tender: MARYAM Pereiraolor (U)YellowNormalYELMerSalem Regional Medical Center on above:Performed By: #### DEECGP #### [facility] [address] [place] [address] Cloth Washer Back Tender: Philip Schulte MDGlucose Ql (U)NegativeNormalNEGMercy Health Clermont Hospital on above:Performed By: #### DEECGP #### [facility] [address] [place] [address] Cloth Washer Back Tender: Philip Schulte MDKetones Ql (U)NegativeNormalNEGParma Community General Hospitalment on above:Performed By: #### TYSHAWNGP #### [facility] [address] [address] Cloth Washer Back Tender: Philip Schulte MDLeukocyte esterase Test strip Ql (U)TRACE AbnormalNEGMerSalem Regional Medical Center on above:Performed By: #### TYSHAWNGP #### [facility] [address] [address] Cloth Washer Back Tender: Philip Schulte MDNitrite,UrNegativeNormalNEGMercy Health Clermont Hospital on above:Performed By: #### TYSHAWNGP #### [facility] [address] [address] Cloth Washer Back Tender: EMELYN Pereira,Ur5.4Wacogh4.0-8.0[facility] on above:Performed By: #### TYSHAWNGP #### [facility] [address] [place] [address] Cloth Washer Back Tender: EMELYN Pereirarotein Ql (U)NegativeNormalNEGMercy Health Clermont Hospital on above:Performed By: #### TYSHAWNGP #### [facility] [address] [place] [address] Cloth Washer Back Tender: MELISSA Pereirapec. Hew[place],Ur1.814Ydujwo1.000-1.030[facility]el Health SystemComment on above:Performed By: #### SWCGP #### [facility] [address] [place] [address] Cloth Washer Back Tender: Philip Schulte MDUrobilinogen,UrNormalNormal0.0-1.0[facility] Health SystemComment on above:Performed By: #### SWAdamGP #### [facility] [address] [place] [address] Cloth Washer Back Tender: Philip Schulte MDUrinalysis with Reflex to Cultureon 06-02-2024 Bilirubin Ql (U)NegativeNEGATIVEBon Secours Mercy HealthClarity (U)ClearClearBon Secours Mercy HealthColor (U)YellowYellowBon Secours Mercy HealthGlucose Test strip (U) [Mass/Vol]NegativeNEGATIVE mg/dLBon Secours Mercy HealthHemoglobin Auto test strip Ql (U)NegativeNEGATIVEBon Secours Mercy HealthInterpretation and review of laboratory resultsAbnormalBon Secours Mercy HealthKetones (U) [Mass/Vol]NegativeNEGATIVE mg/dLBon Secours Mercy HealthLeukocyte esterase Test strip Ql (U)TRACEAbnormalNEGATIVEBon Secours Mercy HealthNitrite Ql (U)Negative NEGATIVEBon Secours Mercy HealthpH (U)5.5 [pH]5.0 - 8.0[facility] Protein (U) [Mass/Vol]NegativeNEGATIVE mg/dLBon Secours Mercy HealthSpecific gravity (U) [Rel density]1.0251.000 - 1.030Bon [facility]ours [facility]cy HealthUrobilinogen Qn (U)Normal0.0 - 1.0 EU/dLBon Secours Mercy HealthBon Secours [facility] Urinalysis,Microon 60-26-2758FbtuloqgUNQBztszwgaWMGVGoiux [facility] Comment on above:Performed By: #### SWAdamGP #### [facility] [address] [place] [address] Cloth Washer Back Tender: MARYAM Pereiraasts0 TO 2AbnormalNONEMeOhioHealth Berger Hospital on above:Performed By: #### SWCGP #### [address] [address] Cloth Washer Back Tender: Philip Schulte MDEpithelial cells LM Ql (Urine sed)3 to 5Normal [facility] SystemComsouthwest regional rehabilitation center on above:Performed By: #### SWCGP #### [facility] [address] [place] [address] Cloth Washer Back Tender: Marvin Pereira RBC's0 TO 7AykogvA82GlhrbMercy Health Clermont Hospital on above:Performed By: #### SWCGP #### [address] [address] Cloth Washer Back Tender: Marvin Pereira WBC's3 to 7HodpsaykJ55EwcsnMercy Health Clermont Hospital on above:Performed By: #### SWCGP #### [address] [address] Cloth Washer Back Tender: Philip Schulte MDVaginitis DNA Probeon 45-54-7108Jzglnzf species PositiveAbnormalNEGSpotsylvania Regional Medical Center on above:for Matthew sp. Method of testing is a DNA probe intended for detection and identification of Matthew species, Gardnerella vaginalis, and Trichomonas vaginalis nucleic acid in vaginal fluid specimens from patients with symptoms of vaginitis/vaginosis. GARDNERELLA VAGINALISNegativeNEGATIVESentara Virginia [place] General HospitalComsouthwest regional rehabilitation center on above: for Gardnerella vaginalisInterpretation and review of laboratory resultsAbnormal Bon Magruder HospitalSource.VAGINAL SWABBon Magruder HospitalTrichomonas NegativeNEGATIVESentara Virginia Beach General HospitalComsouthwest regional rehabilitation center on above:for Trichomonas VaginalisBon Magruder HospitalCandidaPositiveAbnormalNEGMercy Health Clermont Hospital on above:Result Comment: for Matthew sp. Method of testing is a DNA probe intended for detection and identification of Matthew species, Gardnerella vaginalis, and Trichomonas vaginalis nucleic acid in vaginal fluid specimens from patients with symptoms of vaginitis/vaginosis. Performed By: #### VAGP #### [facility] [address] [facility] [place] [address] Cloth Washer Back Tender: Travis Eduardo DOGardnerjohnWyandot Memorial HospitalComsouthwest regional rehabilitation center on above:Result Comment: for Gardnerella vaginalisPerformed By: #### VAGP #### [facility] [address] [facility] [place] [address] Cloth Washer Back Tender: Travis Eduardo DOTrichomonasNegGreene Memorial HospitalComsouthwest regional rehabilitation center on above:Result Comment: for Trichomonas VaginalisPerformed By: #### VAGP #### [facility] [address] [facility] [place] [address] Cloth Washer Back Tender: Travis Eduardo DOSource.VAGINAL SWABNormKettering Health DaytonComment on above:Performed By: #### VAGP #### [facility] [address] [facility] [place] [address] Cloth Washer Back Tender: Travis Eduardo DOCHLAMYDIA/GC BY PCRon 99-01-5846PRAXFJZHH/GC BY PCRSPECIMEN SOURCE VAGINAL CHLAMYDIA DNA(PCR) Positive (qualifier value) Chlamydia trachomatis detected by nucleic acid amplification. GONORRHOEAE DNA(PCR) Negative (qualifier value) Neisseria gonorrhoeae not detected by nucleic acid amplification. This does not exclude the possibility of infection because results are dependent on adequate specimen collection.[facility] Comment on above:Performed By: #### CGS #### [facility] ([id number]) [address] [facility], [place] [address] [facility] ([id number]) [address] [facility], [address] [place], [place] [address]KKV ( test) Ql (U)on 87-67-3990Zzmh HCG ( test) Ql (U)NegativeNormalNEGOhioHealth Southeastern Medical CenterComment on above: Performed By: #### 2106-3 #### [facility] ([id number]) [address] [place] [address]Z. pallidum IgG+IgM IA Ql (S)on 00-75-6671Ggxcyqih Total<0.2 Normal0.0-0.8ProFort Duncan Regional Medical CenterComment on above:Result Comment: NON REACTIVE No serologic evidence of infection to Treponema pallidum (syphilis). Repeat testing may be considered in patients with suspected acute or primary syphilis in 2 to 4 weeks.Performed By: #### 58651-8 #### [facility] ([id number]) [address] [place] [address], [address] [place], [place] [address]DYG MACROSCOPIC NURon 94-74-5791EUECBERUH NURNegativeNormalNEG ProMthomasville regional medical centera California [facility] CenterComment on above:Performed By: #### NUM #### [facility] ([id number]) [address] [place] [address]ENEXI/HGB NURNegativeNormalNEGOhioHealth Southeastern Medical CenterComment on above:Performed By: #### NUM #### [facility] ([id number]) [address] [place] [address]FCRXPII NURNegativeNormalNEGOhioHealth Southeastern Medical CenterComment on above:Performed By: #### NUM #### [facility] ([id number]) [address] [place] [address]ONVUUJC NURNegativeNormalNEGOhioHealth Southeastern Medical CenterComment on above:Performed By: #### NUM #### [facility] ([id number]) [address] [place] [address]DVHHZOVXJ ESTERASE NURNegativeNormalNEGOhioHealth Southeastern Medical CenterComment on above:Performed By: #### NUM #### [facility] ([id number]) [address] [place] [address] [place] [address]TKOLAOE NURNegativeNormalNEGOhioHealth Southeastern Medical CenterComment on above:Performed By: #### NUM #### [facility] ([id number]) [address] [place] [address] NUR7.1Uxyuqg6.0-8.5PDayton VA Medical CenterComment on above:Performed By: #### NUM #### [facility] ([id number]) [address] [place] [address] [place] [address]HWTFJNG NURNegativeNormalNEGProFort Duncan Regional Medical CenterComment on above:Performed By: #### NUM #### [facility] ([id number]) [address] [place] [address] [place] [address]WAEOLIOE GRAVITY NUR1.034Nulesm5.003-1.035ProFort Duncan Regional Medical CenterComment on above:Performed By: #### NUM #### [facility] ([id number]) [address] [place] [address]HTDVLGFLUJRM NUR1.0 eu/dLNormal<1.1PDayton VA Medical Center Comment on above:Performed By: #### NUM #### [facility] ([id number]) [address] [place] [address]CHTDKBTMG PANEL PCRon 51-48-4916HZUTAYFGQ PANEL PCRBACT. VAGINOSIS DNA Not detected (qualifier value) Qualitative [...] accordance with clinical presentation to determine patient diagnosis.NormalOhioHealth Southeastern Medical CenterComment on above:Performed By: #### VPPCR #### [facility] ([id number]) [address] [place] [address], [address] [place], [place] [address]UITHHBDJG/GC BY PCRon 83-33-5095NAKOATYTP/GC BY PCRSPECIMEN SOURCE VAGINAL CHLAMYDIA DNA(PCR) Negative (qualifier value) Chlamydia trachomatis not detected by nucleic acid amplification. This does not exclude the possibility of infection because results are dependent on adequate specimen collection. GONORRHOEAE DNA(PCR) Negative (qualifier value) Neisseria gonorrhoeae not detected by nucleic acid amplification. This does not exclude the possibility of infection because results are dependent on adequate specimen collection.NormalOhioHealth Berger HospitalComment on above:Performed By: #### CGS #### [facility] ([id number]) [address] [place] [address], [address] [place], [place] [address]ZKKB Urinalysis Auto, W/O Microscopyon 00-24-2345Nayfwrroen (U) clearProFostoria City Hospital SystemExternal Poct Urine BilirubinNegativePremier Health Atrium Medical Center SystemExternal Poct Urine BloodNegativePremier Health Atrium Medical Center SystemExternal Poct Urine CharacterclearPKeenan Private Hospital SystemExternal Poct Urine Coloryellow [facility] SystemExternal Poct Urine GlucoseNegativeProFostoria City Hospital SystemExternal Poct Urine KetonesNegativePremier Health Atrium Medical Center SystemExternal Poct Urine Leukocyte EsteraseNegativePremier Health Atrium Medical Center SystemExternal Poct Urine NitriteNegativePremier Health Atrium Medical Center SystemExternal Poct Urine Ph5.5PKeenan Private Hospital SystemExternal Poct Urine ProteinNegativeProFostoria City Hospital SystemExternal Poct Urine Specific Gravity1.030[facility] SystemExternal Poct Urine Urobilinogen0.2PSelect Medical Cleveland Clinic Rehabilitation Hospital, BeachwoodInterpretation and review of laboratory resultsNormalMetroHealth Main Campus Medical Centerca Health SystemProMedica Health SystemURINE CULTUREon 56-39-8178Dklqxpbp identified Cx Nom (U)CULTURE RESULTS 50-100,000 ORGANISMS/ML NORMAL UROGENITAL FLORANoMartins Ferry Hospital Comment on above:Performed By: #### 630-4 #### [facility] ([id number]) [address] [place], [place] [address]RWPUAFOJY PANEL PCRon 51-31-6203ZZGGPSUUZ PANEL PCRBACT. VAGINOSIS DNA Not detected (qualifier value) Qualitative [...] accordance with clinical presentation to determine patient diagnosis.NormalOhioHealth Berger HospitalComment on above:Performed By: #### VPPCR #### [facility] ([id number]) [address] [place], [place] [address]Zuopieqps/GC,DNA Ampon 68-59-2644Sntnvnuoh ProbeNegativeNormal NEGMount Carmel Health SystemComment on above:Result Comment: CHLAMYDIA TRACHOMATIS DNA not detected by nucleic acid [...] positive results by an alternative nucleic acid target.Performed By: #### SWCGP #### [place] [address] [place], [place] [address] Cloth Washer Back Tender: Philip Schulte MDGojairorrhea ProbeNegativeNoElyria Memorial Hospital on above:Result Comment: NEISSERIA GONORRHOEAE DNA not detected by nucleic acid [...] positive results by an alternative nucleic acid target.Performed By: #### SWCGP #### [address] [address] Cloth Washer Back Tender: Philip Schulte MDHCG, ,Urineon 51-01-6119Muhg HCG ( test) Ql (U)NegativeEast Ohio Regional HospitalComsouthwest regional rehabilitation center on above:Result Comment: Specimens with hCG levels near the threshold of the test (25 mIU/mL) may give a negative or indeterminate result. In such cases, another test should be performed with a new specimen in 48-72 hours. If early is suspected clinically in this setting, correlation with quantitative serum b-hCG level is suggested.Performed By: #### UHCG, UAX, UMICAO #### [facility] [address] [place] [address] Cloth Washer Back Tender: Travis Eduardo DOMicroscopic Urinalysison 85-79-6926Vzguwxsw LM Ql (Urine sed)NoneNoneBON SIERRA TUCSONPrismic Pharmaceuticals [facility] Emergent OneCasts LM.LPF (Urine sed) [#/Area]0 TO 2AbnormalNone /LPFBON SIERRA TUCSONPrismic Pharmaceuticals [facility] HOSPITALBlueRonin [facility] LIMAEpithelial cells LM.HPF (Urine sed) [#/Area]6 TO 9/HPFVIRGINIA HOSPITAL CENTERInterpretation and review of laboratory resultsAbnormalBON MARY RUTAN HOSPITALRBC LM.HPF (Urine sed) [#/Area]0 TO 20 TO 2 /HPFBON MARY RUTAN HOSPITALWBC LM.HPF (Urine sed) [#/Area] 0 TO 2Suqebgqu0 TO 5 /HPFBON BLACK HILLS [facility] , Urineon 17-84-9399HGI ( test) Ql (U)NegativeNEGATIVERiverside Tappahannock Hospital on above:Specimens with hCG levels near the threshold of the test (25 mIU/mL) may give a negative or indeterminate result. In such cases, another test should be performed with a new specimen in 48-72 hours. If early is suspected clinically in this setting, correlation with quantitative serum b-hCG level is suggested. BON MARY RUTAN HOSPITALUA w/Reflex Cultureon 63-26-8655Vhkruardd, SemiQt,Ur NegativeNormalNEGMerRegency Hospital CompanyComsouthwest regional rehabilitation center on above:Performed By: #### UHCG, UAX, UMICAO #### [facility] [address] [place] [address]. [place] [address] Cloth Washer Back Tender: Travis Eduardo DOBlood, UrineNegativeNormalNEGMerSalem Regional Medical Center on above:Performed By: #### UHCG, UAX, UMICAO #### [facility] [address] [place] [address]. [place] [address] Cloth Washer Back Tender: Travis Eduardo DOClarity (U)CloudyAbnormalCLEARMercBrown Memorial Hospital on above:Performed By: #### UHCG, UAX, UMICAO #### [facility] [address] [place] [address]. [place] [address] Cloth Washer Back Tender: Travis Eduardo DOColor (U)YellowNormalYELMerRegency Hospital CompanyComsouthwest regional rehabilitation center on above:Performed By: #### UHCG, UAX, UMICAO #### [facility] [address] [place] [address]. [place] [address] Cloth Washer Back Tender: Travis Eduardo DOGlucose Ql (U)NegativeNormalNEGMerSalem Regional Medical Center on above:Performed By: #### UHCG, UAX, UMICAO #### [facility] [address] [place] [address]. [place] [address] Cloth Washer Back Tender: Travis Eduardo DOKetones Ql (U)NegativeNormalNEGMercy Select Medical Specialty Hospital - CincinnatiComsouthwest regional rehabilitation center on above:Performed By: #### DUSTINCYony, UAX, UMICAO #### [facility] [address] [place] [address] Cloth Washer Back Tender: Travis Eduardo DOLeukocyte esterase Test strip Ql (U)Negative NormalNEGMount Carmel Health SystemComsouthwest regional rehabilitation center on above:Performed By: #### DUSTINCG, UAX, UMICAO #### [facility] [address] [place] [address]. [place] [address] Cloth Washer Back Tender: Travis Eduardo DONitrite,UrNegativeNormalNEGMercy Health Clermont Hospital on above:Performed By: #### DUSTINCG, UAX, UMICAO #### [facility] [address] [place] [address] Cloth Washer Back Tender: Travis Eduardo DOPH,Ur5.9Nrbpsm7.0-8.0[facility] on above:Performed By: #### DUSTINCYony UAX, UMICAO #### [facility] [address] [place] [address] Cloth Washer Back Tender: Travis Eduardo DOProtein Ql (U)NegativeNormalNEGMerRegency Hospital CompanyComsouthwest regional rehabilitation center on above:Performed By: #### DUSTINCG, UAX, UMICAO #### [facility] [address] [place] [address] Cloth Washer Back Tender: Travis Eduardo DOSpec. Hewitt,Ur1.805Iljxuk4.000-1.030[facility] Health SystemComsouthwest regional rehabilitation center on above:Performed By: #### UHCG, UAX, UMICAO #### [facility] [address] [facility] [place] [address] Cloth Washer Back Tender: Travis Eduardo DOUrobilinogen,UrNormalNormal0.0-1.0MerRegency Hospital CompanyComsouthwest regional rehabilitation center on above:Performed By: #### DUSITNCG, UAX, UMICAO #### [facility] [address] [facility] [place] [address] Cloth Washer Back Tender: Travis Eduardo DOUrinalysis with Reflex to Cultureon 72-45-3023Yejfxhwzu Ql (U)NegativeNEGATIVEBON SECOURS MERCER COUNTY COMMUNITY HOSPITALY HEALTHClarity (U) CloudyAbnormalClearBON SECOURS MERCER COUNTY COMMUNITY HOSPITALY HEALTHColor (U)YellowYellowBON SECDOCTORS HOSPITALY HEALTHGlucose Test strip (U) [Mass/Vol]NegativeNEGATIVE mg/dLBON SECOURS MERCER COUNTY COMMUNITY HOSPITALY HEALTHHemoglobin Auto test strip Ql (U)NegativeNEGATIVEBON SECOURS MERCY HEALTHInterpretation and review of laboratory resultsAbnormalBON SECOURS MERCY HEALTHKetones (U) [Mass/Vol]NegativeNEGATIVE mg/dLBON SECOURS MERCER COUNTY COMMUNITY HOSPITALY HEALTH Leukocyte esterase Test strip Ql (U)NegativeNEGATIVEBON SECOURS MERCY HEALTH Nitrite Ql (U)NegativeNEGATIVEBON SECOURS MERCY HEALTHpH (U)5.0 [pH]5.0 - 8.0BON SECOURS MERCY HEALTHProtein (U) [Mass/Vol]NegativeNEGATIVE mg/dLBON SECOURS MERCY HEALTHSpecific gravity (U) [Rel density]1.0271.000 - 1.030BON SECOURS MERCY HEALTHUrobilinogen Qn (U)Normal0.0 - 1.0 EU/dLBON SECOURS MERCY HEALTHBON SECOURS MERCER COUNTY COMMUNITY HOSPITALY HEALTHUrinalysis,Microon 52-61-1065RsbjrdrsMsjnFwbdieUXHTXinwc St. Charles HospitalComsouthwest regional rehabilitation center on above:Performed By: #### SWCGP #### [facility] [address] [place] [address] Cloth Washer Back Tender: Philip Schulte MDCasts0 TO 2AbnormalNONEMercBrown Memorial Hospital on above:Performed By: #### SWCGP #### [address] [address] Cloth Washer Back Tender: Philip Schulte MDEpithelial cells LM Ql (Urine sed)6 TO 9Normal [facility] SystemComsouthwest regional rehabilitation center on above:Performed By: #### SWCGP #### [address] [address] Cloth Washer Back Tender: Philip Schulte MDUrine RBC's0 TO 9WtticoG98MkcliMercy Health Clermont Hospital on above:Performed By: #### DEECGP #### [address] [address] Cloth Washer Back Tender: Marvin Pereira WBC's0 TO 1TjkqgmtmF91ErftnMercy Health Clermont Hospital on above:Performed By: #### DEECGP #### [address] [address] Cloth Washer Back Tender: Philip Schulte MDVaginitis DNA Probeon 63-76-2848Ieqhnrd species NegativeNEGATIVERiverside Tappahannock Hospital on above:for Matthew sp. Method of testing is a DNA probe intended for detection and identification of Matthew species, Gardnerella vaginalis, and Trichomonas vaginalis nucleic acid in vaginal fluid specimens from patients with symptoms of vaginitis/vaginosis. GARDNERELLA VAGINALISPositiveAbnormalNEGRiverside Behavioral Health Center on above:for Gardnerella vaginalisInterpretation and review of laboratory results AbnormalVIRGINIA HOSPITAL CENTERSource.VAGINAL SWABVIRGINIA HOSPITAL CENTER TrichomonasNegativeNEGATIVERiverside Tappahannock Hospital on above:for Trichomonas VaginalisVIRGINIA HOSPITAL CENTERCandidaNegativeBayamonNEGMercy Health Clermont [facility] on above:Result Comment: for Matthew sp. Method of testing is a DNA probe intended for detection and identification of Matthew species, Gardnerella vaginalis, and Trichomonas vaginalis nucleic acid in vaginal fluid specimens from patients with symptoms of vaginitis/vaginosis. Performed By: #### SWCGP #### [facility] [address] [place] [address] Cloth Washer Back Tender: Iraida PereiradnerellaPositiveAbTrinity Health SystemComsouthwest regional rehabilitation center on above:Result Comment: for Gardnerella vaginalisPerformed By: #### SWCGP #### [facility] [address] [place] [address] Cloth Washer Back Tender: Chace PereirahomonasNegativeEast Ohio Regional HospitalComsouthwest regional rehabilitation center on above:Result Comment: for Trichomonas VaginalisPerformed By: #### SWCGP #### [facility] [address] [place] [address] Cloth Washer Back Tender: Shereen Pereira.VAGINAL SWABVeterans Health AdministrationComsouthwest regional rehabilitation center on above:Performed By: #### SWCGP #### [facility] [address] [place] [address] Cloth Washer Back Tender: KERA Pereira OB INCOMPLETE ANATOMYon 35-91-1549[address] [address] Ultrasound Report Signed Patient: JESSICA SMALLS MR#: [id number] : 1995 Acct:[id number] Age/Sex: 28 / F ADM Date: 11/07/23 Loc: [facility] Attending Dr: Connor Torres D.O. Ordering Physician: Connor Torres D.O. Date of Service: 11/07/23 Procedure(s): US OB incomplete anatomy Accession Number(s): [id number] cc: Connor Torres D.O.; Physician,Non-Staff M.Massimo [address] [address] Patient Name: JESSICA SMALLS MRN: [id number] date: 1995 Sex: F Assigned Patient Location: [facility] Current Patient Location: [facility] Accession/Order Number: [id number] Exam Date: 11/07/2023 13:25 Report Date: 11/07/2023 13:56 At the request of: CONNOR TORRES Procedure: US OB incomplete anatomy EXAM: US OB incomplete anatomy HISTORY: INCOMPLETE ANATOMY COMPARISON: 10/21/2023 TECHNIQUE: Transabdominal images FINDINGS: position: Cephalic presentation, longitudinal lie Heart rate: 1 40 bpm Anatomy: Abdominal cord insertion is grossly normal, limited secondary to acoustic shadowing from the femur US/US OB incomplete anatomy IMPRESSION: Grossly normal abdominal cord insertion Electronically authenticated by: FADUMO NEGRON Date: 11/07/2023 13:56 Dictated By: Fadumo Negron M.D. Signed By: 11/07/23 1359 DD/ 1356 TD/TT: Travelift Operator:HUMPHREYHRadiology, Radiologist, MD - 11/07/2023 [place] [address] Ultrasound Report Signed Patient: JESSICA SMALLS MR#: [id number] : 1995 Acct:[id number] Age/Sex: 28 / F ADM Date: 11/07/23 Loc: [facility] Attending Dr: Connor Torres D.O. Ordering Physician: Connor Torres D.O. Date of Service: 11/07/23 Procedure(s): US OB incomplete anatomy Accession Number(s): [id number] cc: Connor Torres D.O.; Physician,Non-Staff [address] [place] [id number] Patient Name: JESSICA SMALLS MRN: [id number] date: 1995 Sex: F Assigned Patient Location: [facility] Current Patient Location: [facility] Accession/Order Number: [id number] Exam Date: 11/07/2023 13:25 Report Date: 11/07/2023 13:56 At the request of: CONNOR TORRES Procedure: US OB incomplete anatomy EXAM: US OB incomplete anatomy HISTORY: INCOMPLETE ANATOMY COMPARISON: 10/21/2023 TECHNIQUE: Transabdominal images FINDINGS: position: Cephalic presentation, longitudinal lie Heart rate: 1 40 bpm Anatomy: Abdominal cord insertion is grossly normal, limited secondary to acoustic shadowing from the femur US/US OB incomplete anatomy IMPRESSION: Grossly normal abdominal cord insertion Electronically authenticated by: FADUMO NEGRON Date: 11/07/2023 13:56 Dictated By: Fadumo Negron M.D. Signed By: 11/07/23 1354 DD/ 1356 TD/TT: Travelift Operator: [facility] HealthcareRadiology Study observation (narrative)[facility] HealthcareUS OB INCOMPLETE ANATOMYOrdered By: Radiologist Radiology on 23-20-9234XYFVCedar County Memorial Hospital Work Phone: no Panel InformationOrdered By: Radiologist Radiology on 60-63-6811INEDCedar County Memorial Hospital Work Phone: no Panel Informationon 71-69-8507Bgzzcymmy Study observation (narrative)NOMS HealthcareUS OB ANATOMYon 55-59-7310[place]on[place] [address] Ultrasound Report Signed Patient: JESSICA SMALLS MR#: [id number] : 1995 Acct:[id number] Age/Sex: 28 / F ADM Date: 10/21/23 Loc: US Attending Dr: Connor Torres D.O. Ordering Physician: Connor Torres D.O. Date of Service: 10/21/23 Procedure(s): US OB anatomy Accession Number(s): [id number] cc: Connor Torres D.O.; Physician,Non-Staff MBhargavi [address] [place] [id number] Patient Name: JESSICA SMALLS MRN: [id number] date: 1995 Sex: F Assigned Patient Location: US Current Patient Location: US Accession/Order Number: [id number] Exam Date: 10/21/2023 12:00 Report Date: 10/21/2023 12:54 At the request of: CONNOR TORRES Procedure: US OB anatomy EXAMINATION: US [...] March 27, 2007. Electronically authenticated by: FADUMO NEGRON Date: 10/21/2023 12:54 Dictated By: Fadumo Negron M.D. Signed By: 10/21/23 1257 DD/ 1254 TD/TT: Travelift Operator:TBHRadiology, Radiologist, - 10/21/2023 [place] [address] Ultrasound Report Signed Patient: JESSICA SMALLS MR#: [id number] : 1995 Acct:[id number] Age/Sex: 28 / F ADM Date: 10/21/23 Loc: US Attending Dr: Connor Torres D.O. Ordering Physician: Connor Torres D.O. Date of Service: 10/21/23 Procedure(s): US OB anatomy Accession Number(s): [id number] cc: Connor Torres D.O.; Physician,Non-Staff Sven [address] [address] Patient Name: JESSICA SMALLS MRN: [facility]:[id number] date: 1995 Sex: F Assigned Patient Location: US Current Patient Location: US Accession/Order Number: [id number] Exam Date: 10/21/2023 12:00 Report Date: 10/21/2023 12:54 At the request of: CONNOR TORRES Procedure: US OB anatomy EXAMINATION: US [...] March 27, 2007. Electronically authenticated by: FADUMO NEGRON Date: 10/21/2023 12:54 Dictated By: Fadumo Negron M.D. Signed By: 10/21/23 1257 DD/ 1254 TD/TT: Travelift Operator: CAMILO Miramontes OB CERVICAL LENGTHon 85-69-6797[place]wk[place] [address] Ultrasound Report Signed Patient: JESSICA SMALLS MR#: [id number] : 1995 Acct:[id number] Age/Sex: 28 / F ADM Date: 10/21/23 Loc: US Attending Dr: Connor Torres D.O. Ordering Physician: Connor Torres D.O. Date of Service: 10/21/23 Procedure(s): US OB cervical length Accession Number(s): [id number] cc: Connor Torres D.O.; Physician,Non-Staff [place] [address] Patient Name: JESSICA SMALLS MRN: [id number] date: 1995 Sex: F Assigned Patient Location: US Current Patient Location: US Accession/Order Number: [id number] Exam Date: 10/21/2023 12:00 Report Date: 10/21/2023 12:54 At the request of: CONNOR TORRES Procedure: US OB cervical length EXAMINATION: [...] March 27, 2007. Electronically authenticated by: FADUMO NEGRON Date: 10/21/2023 12:54 Dictated By: Fadumo Negron M.D. Signed By: 10/21/23 1257 DD/ 1254 TD/TT: Travelift Operator:TBHRadiology, Radiologist, - 10/21/2023 [place] [address] Ultrasound Report Signed Patient: JESSICA SMALLS MR#: [id number] : 1995 Acct:[id number] Age/Sex: 28 / F ADM Date: 10/21/23 Loc: US Attending Dr: Connor Torres D.O. Ordering Physician: Connor Torres D.O. Date of Service: 10/21/23 Procedure(s): US OB cervical length Accession Number(s): [id number] cc: Connor Torres D.O.; Physician,Non-Staff [place] [place] [address] Patient Name: JESSICA SMALLS MRN: [facility]:[id number] date: 1995 Sex: F Assigned Patient Location: US Current Patient Location: US Accession/Order Number: [id number] Exam Date: 10/21/2023 12:00 Report Date: 10/21/2023 12:54 At the request of: CONNOR TORRES Procedure: US OB cervical length EXAMINATION: [...] March 27, 2007. Electronically authenticated by: FADUMO NEGRON Date: 10/21/2023 12:54 Dictated By: Fadumo Negron M.D. Signed By: 10/21/23 1257 DD/ 1254 TD/TT: Travelift Operator: CAMILO Anthony 12-76-2371Kpqbnhmxnmxqow and review of laboratory resultsAbnormalNOMS HealthcareRUBELLA ANTIBODIES, IGG0.96Abnormal Immune >0.99 indexNOMS HealthcareComment on above:A second sample should be collected and tested no less than 2-4 weeks. Non-immune <0.90 Equivocal 0.90 - 0.99 Immune >0.99 Performed at: [address] [id number] Cloth Washer Back Tender: Martínez Presley PhD, Phone: [phone] HBSAG SCREENon 76-43-7680BHJOI SCREENNegativeNegativeNOID HealthcareComment on above:Performed at: [address] [id number] Cloth Washer Back Tender: Martínez Presley PhD, Phone: [phone] HCV ANTIBODY RFX TO QUANT PCRon 52-59-8628MCK ABNon-ReactiveNon ReactiveNOID HealthcareINTERPRETATION:Comment.NOMS HealthcareComment on above:Not infected with HCV unless early or acute infection is suspected (which may be delayed in an immunocompromised individual), or other evidence exists to indicate HCV infection. HIV AB/P24 AG WITH REFLEXon 39-96-9853HBP AB/P24 AG SCREENNon-ReactiveNon ReactiveNOID HealthcareComment on above:HIV Negative HIV-1/HIV-2 antibodies and HIV-1 p24 antigen were NOT detected. There is no laboratory evidence of HIV infection. Performed at: [address] [id number] Cloth Washer Back Tender: Martínez Presley PhD, Phone: [phone] No Panel Informationon 87-81-6498DZGRHSAGGEBEX HealthcareRAPID PLASMA REAGIN, QUANTon 38-32-1553WCDJO PLASMA REAGIN, QUANTNon-ReactiveNonRea<1:1 titerNOID HealthcareComment on above:Please Note: This test does not meet current guidelines for screening and diagnosis of syphilis. This test is intended for following treatment response in patients being treated for syphilis infection. To screen for syphilis infection, a reflex cascade that includes both RPR and a treponema-specific assay should be utilized, such as Treponema pallidum (Syphilis) Screening [place] (891206) or Rapid Plasma Reagin (RPR) Test With Reflex to Quantitative RPR and Confirmatory Treponema pallidum Antibodies (923962). Performed at: [address] [id number] Cloth Washer Back Tender: Martínez Presley PhD, Phone: [phone] No Panel InformationOrdered By: Radiologist Radiology on 16-11-8356GS[facility] Work Phone: No Panel Informationon 24-79-8369Iroywgcnw Study observation (narrative)N[facility]S HealthcareUS OB CERVICAL LENGTHon 86-51-7668[place] [address] Ultrasound Report Signed Patient: JESSICA SMALLS MR#: [id number] : 1995 Acct:[id number] Age/Sex: 28 / F ADM Date: Loc: [facility] 250-[address]: Connor Torres D.O. Ordering Physician: RICHAR COONEY APRN, CNM Date of Service: 10/19/23 Procedure(s): US OB cervical length Accession Number(s): [id number] cc: RICHAR COONEY APRN, CNM; Physician,Non-Staff M.DKuldeep [address] [place] [id number] Patient Name: JESSICA SMALLS MRN: [id number] date: 1995 Sex: F Assigned Patient Location: [facility] Current Patient Location: [facility] Accession/Order Number: [id number] Exam Date: 10/19/2023 01:59 Report Date: 10/19/2023 [...] Signed By: 10/19/23 0415 DD/ 0413 TD/TT: Travelift Operator:TBHRadiology, Radiologist, MD - 10/19/2023 [place] [address] Ultrasound Report Signed Patient: JESSICA SMALLS MR#: [id number] : 1995 Acct:[id number] Age/Sex: 28 / F ADM Date: Loc: [facility] 250- Attending Dr: Connor Torres D.O. Ordering Physician: RICHAR COONEY APRN, CNM Date of Service: 10/19/23 Procedure(s): US OB cervical length Accession Number(s): [id number] cc: RICHAR COONEY APRN, CNM; Physician,Non-Staff [place] [address] Patient Name: JESSICA SMALLS MRN: [id number] date: 1995 Sex: F Assigned Patient Location: [facility] Current Patient Location: [facility] Accession/Order Number: [id number] Exam Date: 10/19/2023 01:59 Report Date: 10/19/2023 [...] Dictated By: Fran Leung M.D. Signed By: 10/19/23414 DD/ 2 TD/TT: Travelift Operator: CAMILO Miramontes OB BPP W NON-STRESSon 66-13-8307Jwz[place] [address] Ultrasound Report Signed Patient: JESSICA SMALLS MR#: [id number] : 1995 Acct:[id number] Age/Sex: 28 / F ADM Date: Loc: [facility] 250-[address]: Connor Torres D.O. Ordering Physician: RICHAR COONEY APRN, CNM Date of Service: 10/19/23 Procedure(s): US OB BPP w non-stress Accession Number(s): [id number] cc: RICHAR COONEY APRN, CNM; Physician,Non-Staff [address] [place] [address] Patient Name: JESSICA SMALLS MRN: [id number] date: 1995 Sex: F Assigned Patient Location: [facility] Current Patient Location: [facility] Accession/Order Number: [id number] Exam Date: 10/19/2023 01:59 Report Date: 10/19/2023 [...] Tone: 2/2. Breathin/2. Fluid: 2/2. Total score: 8. US/US OB BPP w non-stress IMPRESSION: 1. [...] Signed By: 10/19/23 0415 DD/ 0413 TD/TT: Travelift Operator:TBHRadiology, Radiologist, MD - 10/19/2023 [place] [address] Ultrasound Report Signed Patient: JESSICA SMALLS MR#: [id number] : 1995 Acct:[id number] Age/Sex: 28 / F ADM Date: Loc: [facility] 250-[address]: Connor Torres D.O. Ordering Physician: RICHAR COONEY APRN, CNM Date of Service: 10/19/23 Procedure(s): US OB BPP w non-stress Accession Number(s): [id number] cc: RICHAR COONEY APRN, CNM; Physician,Non-Staff [place] [id number] Patient Name: JESSICA SMALLS MRN: [id number] date: 1995 Sex: F Assigned Patient Location: [facility] Current Patient Location: [facility] Accession/Order Number: [id number] Exam Date: 10/19/2023 01:59 Report Date: 10/19/2023 [...] Fluid: 2/2. Total score: 8/8. US/US OB BPP w non-stress IMPRESSION: 1. [...] Dictated By: Fran Leung M.D. Signed By: 10/19/23414 DD/ 2 TD/TT: Travelift Operator: CAMILO Miramontes OB GROWTHon 17-56-7122Qxy[place], [place] [address] Ultrasound Report Signed Patient: JESSICA SMALLS MR#: [id number] : 1995 Acct:[id number] Age/Sex: 28 / F ADM Date: Loc: [facility] 250-[address]: Connor Torres D.O. Ordering Physician: RICHAR COONEY APRN, CNM Date of Service: 10/19/23 Procedure(s): US OB growth Accession Number(s): [id number] cc: RICHAR COONEY APRN, CNM; Physician,Non-Staff [place] [place] [address] Patient Name: JESSICA SMALLS MRN: [id number] date: 1995 Sex: F Assigned Patient Location: [facility] Current Patient Location: [facility] Accession/Order Number: [id number] Exam Date: 10/19/2023 01:59 Report Date: 10/19/2023 [...] Signed By: 10/19/23 0416 DD/ 0413 TD/TT: Travelift Operator:TBHRadiology, Radiologist, MD - 10/19/2023 [place] [address] Ultrasound Report Signed Patient: JESSICA SMALLS MR#: [id number] : 1995 Acct:[id number] Age/Sex: 28 / F ADM Date: Loc: [facility] Attending Dr: Connor Torres D.O. Ordering Physician: RICHAR COONEY APRN, CNM Date of Service: 10/19/23 Procedure(s): US OB growth Accession Number(s): [id number] cc: RICHAR COONEY APRN, CNM; Physician,Non-Staff M.D. [address] [address] Patient Name: JESSICA SMALLS MRN: [id number] date: 1995 Sex: F Assigned Patient Location: [facility] Current Patient Location: [facility] Accession/Order Number: [id number] Exam Date: 10/19/2023 01:59 Report Date: 10/19/2023 [...] Dictated By: Fran Leung M.D. Signed By: 10/19/23415 DD/ 2 TD/TT: Travelift Operator: CAMILO Miramontes OB GROWTHOrdered By: Radiologist Radiology on 83-23-7822TBTH [employer] Work Phone: US OB PLACENTAon 81-14-1123QxgBeaver[place], [place] [address] Ultrasound Report Signed Patient: JESSICA SMALLS MR#: [id number] : 1995 Acct:[id number] Age/Sex: 28 / F ADM Date: Loc: [facility] 250-[address]: Connor Torres D.O. Ordering Physician: RICHAR COONEY APRN, CNM Date of Service: 10/19/23 Procedure(s): US OB placenta Accession Number(s): [id number] cc: RICHAR COONEY APRN, CNM; Physician,Non-Staff M.Massimo [place] [address] Patient Name: JESSICA SMALLS MRN: [facility]:[id number] date: 1995 Sex: F Assigned Patient Location: [facility] Current Patient Location: [facility] Accession/Order Number: [id number] Exam Date: 10/19/2023 01:59 Report Date: 10/19/2023 [...] Signed By: 10/19/23 0415 DD/ 0413 TD/TT: Travelift Operator:TBHRadiology, Radiologist, - 10/19/2023 [place] [address] Ultrasound Report Signed Patient: JESSICA SMALLS MR#: [id number] : 1995 Acct:[id number] Age/Sex: 28 / F ADM Date: Loc: [facility] Attending Dr: Connor Torres D.O. Ordering Physician: RICHAR COONEY APRN, CNM Date of Service: 10/19/23 Procedure(s): US OB placenta Accession Number(s): [id number] cc: RICHAR COONEY APRN, CNM; Physician,Non-Staff M.D. The [address] [address] Patient Name: JESSICA SMALLS MRN: [id number] date: 1995 Sex: F Assigned Patient Location: [facility] Current Patient Location: [facility] Accession/Order Number: [id number] Exam Date: 10/19/2023 01:59 Report Date: 10/19/2023 [...] Dictated By: Fran Leung M.D. Signed By: 10/19/23414 DD/ 2 TD/TT: Travelift Operator: CAMILO Cisneros/KECIA,DNA Ampon 71-32-5081Rmstjlkfx ProbeNegativeNormalNEG [facility] Rehabilitation HospitalComment on above:Result Comment: CHLAMYDIA TRACHOMATIS DNA not detected by nucleic acid [...] positive results by an alternative nucleic acid target.Performed By: #### CDP #### [employer] [place] [id number] Cloth Washer Back Tender: Philip Schulte MDGonorrhea ProbeNegativeNormalNEGSelect Medical Trihealth Rehabilitation HospitalComment on above:Result Comment: NEISSERIA GONORRHOEAE DNA not detected by nucleic acid [...] positive results by an alternative nucleic acid target.Performed By: #### CDP #### [employer] [address] [place] [address] Cloth Washer Back Tender: Philip Schulte MDVaginitis DNA Probeon 65-81-7145ZvlyqkqUqyudsau NormalNEGSelect Medical Trihealth Rehabilitation HospitalComment on above:Result Comment: for Matthew sp. Method of testing is a DNA probe intended for detection and identification of Matthew species, Gardnerella vaginalis, and Trichomonas vaginalis nucleic acid in vaginal fluid specimens from patients with symptoms of vaginitis/vaginosis. Performed By: #### CDP #### [address] [address] Cloth Washer Back Tender: Janelle PereirallaNegativeNormalNEGSelect Medical Trihealth Rehabilitation HospitalComment on above:Result Comment: for Gardnerella vaginalis Performed By: #### CDP #### [address] [address] Cloth Washer Back Tender: Steve PereiraonasNegativeNormalTwin City HospitalComment on above:Result Comment: for Trichomonas Vaginalis Performed By: #### CDP #### [address] [address] Cloth Washer Back Tender: Raphael Pereira speciesNegativeNEGATIVEVIRGINIA HOSPITAL CENTERComsouthwest regional rehabilitation center on above:for Matthew sp. Method of testing is a DNA probe intended for detection and identification of Matthew species, Gardnerella vaginalis, and Trichomonas vaginalis nucleic acid in vaginal fluid specimens from patients with symptoms of vaginitis/vaginosis. GARDNERELLA VAGINALISNegativeNEGATIVEBON MARY RUTAN HOSPITALComment on above: for Gardnerella vaginalisSource.VAGINAL SWABBON MARY RUTAN HOSPITALTrichomonas NegativeNEGATIVEVIRGINIA HOSPITAL CENTERComsouthwest regional rehabilitation center on above:for Trichomonas VaginalisBON MARY RUTAN HOSPITALSource.VAGINAL SWABNoOhioHealth Doctors HospitalComment on above:Performed By: #### CDP #### [address] [address] Cloth Washer Back Tender: MARYAM Pereiraytology Reporton 50-67-7361Lmbrkygj report Cyto stain.thin prep Doc (Cvx/Vag)(NOTE) Path Number: [id number] DIAGNOSIS Imaged ThinPrep Pap - Cervical (1 monolayer slide): Specimen Adequacy: Satisfactory for evaluation. - Endocervical/transformation zone component present. Descriptive Diagnosis: Negative for intraepithelial lesion or malignancy. Comments: Specimen was screened at [facility], [address] [place] [address] [employer] Screener: CS Electronically Signed Out GUSTAVO Mendoza(ASCP) cs/08/14/2023 Source of Specimen: A: Imaged ThinPrep Pap - Cervical (1 monolayer slide) HPV Reflex?......................HPV if ASCUS Clinical History Z12.4 Encounter for screening for malignant neoplasm of cervix LMP: 02/28/2023 Processing Lab: [address] [address] Interpretation performed at [facility], [address] [place] [address] This Pap Test has been evaluated with [...] result. GYNECOLOGIC CYTOLOGY REPORT Patient Name: JESSICA SMALLSKuldeep [facility] Rec: [id number] [facility] ANATOMIC PATHOLOGY [address] [place] [id number] NoOhioHealth Doctors HospitalCult,Urineon 07-31-2023 Cult,UrineSpecimen Description .CLEAN CATCH URINE Culture NO SIGNIFICANT GROWTH Report Status FINAL 07/31/2023NoOhioHealth Doctors HospitalComment on above:Performed By: #### URC #### [employer] [address] [place] [address] Cloth Washer Back Tender: DIALLO Pereira with Diffon 34-32-2744Ihj. Basophil0.03 k/uL Normal0.00-0.20[facility] Rehabilitation HospitalComment on above:Performed By: #### CDP #### [facility] [employer] [address] [place] [address] Cloth Washer Back Tender: Farrah Pereira.Imm.Granulocyte0.04 k/uLNormal0.00-0.30[facility] HospitalComment on above:Performed By: #### CDP #### [address] [address] Cloth Washer Back Tender: Farrah Pereira.Neutrophil (Seg)7.38 k/uLNormal1.50-8.10 [facility] HospitalComment on above:Performed By: #### CDP #### [address] [address] Cloth Washer Back Tender: Philip Schulte MDBasophils/100 WBC (Bld)0 %Normal0-2MAnaheim General HospitalComment on above:Performed By: #### CDP #### [address] [address] Cloth Washer Back Tender: Philip Schulte MDEosinophils (Bld) [#/Vol]0.05 10*3/uLNormal 0.00-0.44[facility] HospitalComment on above:Performed By: #### CDP #### [address] [address] Cloth Washer Back Tender: Philip Schulte MDEosinophils/100 WBC (Bld)1 %Normal1-4[facility] HospitalComment on above:Performed By: #### CDP #### [address] [address] Cloth Washer Back Tender: Philip Schulte MDErythrocyte distribution width (RBC) [Ratio]13.3 %Ezfmub68.8-14.4[facility] HospitalComment on above:Performed By: #### CDP #### [address] [address] Cloth Washer Back Tender: Philip Schulte MDHematocrit (Bld) [Volume fraction]39.3 %Normal 36.3-47.1MAnaheim General HospitalComment on above:Performed By: #### CDP #### [address] [address] Cloth Washer Back Tender: Philip Schulte MDHemoglobin (Bld) [Mass/Vol]13.3 g/dLNormal 11.9-15.1MAnaheim General HospitalComment on above:Performed By: #### CDP #### [address] [address] Cloth Washer Back Tender: Philip Schulte MDImmature granulocytes/100 WBC (Bld)0 %Normal0 [facility] HospitalComment on above:Performed By: #### CDP #### [address] [address] Cloth Washer Back Tender: Daina Pereiramphocytes (Bld) [#/Vol]1.57 10*3/uLNormal 1.10-3.70[facility] HospitalComment on above:Performed By: #### CDP #### [place] [address] Cloth Washer Back Tender: Daina Pereiramphocytes/100 WBC (Bld)16 %Wac35-60CixtfSelect Medical Trihealth Rehabilitation HospitalComment on above:Performed By: #### CDP #### [address] [address] Cloth Washer Back Tender: SASHA PereiraCH (RBC) [Entitic mass]31.3 ewMhuthw47.2-33.5 [facility] Rehabilitation HospitalComment on above:Performed By: #### CDP #### [address] [address] Cloth Washer Back Tender: SASHA PereiraCHC (RBC) [Mass/Vol]33.8 g/lBLlickl21.4-34.8 [facility] HospitalComment on above:Performed By: #### CDP #### [address] [address] Cloth Washer Back Tender: SASHA PereiraCV (RBC) [Entitic vol]92.5 vOFyyjyi06.6-102.9 [facility] HospitalComment on above:Performed By: #### CDP #### [address] [address] Cloth Washer Back Tender: Philip Schulte MDMonocytes (Bld) [#/Vol]0.69 10*3/uLNormal 0.10-1.20[facility] HospitalComment on above:Performed By: #### CDP #### [address] [address] Cloth Washer Back Tender: SASHA Pereiraonocytes/100 WBC (Bld)7 %Normal3-12[facility] HospitalComment on above:Performed By: #### CDP #### [place] [address] Cloth Washer Back Tender: Philip Schulte MDNeutrophil (Seg)76 %Ttkn14-77NyiepSelect Medical Trihealth Rehabilitation HospitalComment on above:Performed By: #### CDP #### [address] [address] Cloth Washer Back Tender: Philip Schulte MDNRBC Automated0.0 per 100 WBCNormal0.0[facility] HospitalComment on above:Performed By: #### CDP #### [address] [address] Cloth Washer Back Tender: Roseanna Pereiratelet mean volume (Bld) [Entitic vol]10.7 fL Normal8.1-13.5[facility] HospitalComment on above:Performed By: #### CDP #### [address] [address] Cloth Washer Back Tender: EMELYN Pereiralatelets (Bld) [#/Vol]194 10*3/kDBmtiiu847-875 [facility] HospitalComment on above:Performed By: #### CDP #### [facility] [address] [place], [place] [id number] Cloth Washer Back Tender: YARIEL Pereira (Bld) [#/Vol]4.25 10*6/uLNormal3.95-5.11 [facility] HospitalComment on above:Performed By: #### CDP #### [facility] [address] [place], [place] [id number] Cloth Washer Back Tender: GERTRUDE Pereira (Bld) [#/Vol]9.8 10*3/uLNormal3.5-11.3MAnaheim General HospitalComment on above:Performed By: #### CDP #### [facility] [address] [place], [place] [id number] Cloth Washer Back Tender: CHELLE Pereira CERVICAL SPINE WO CONTRASTon 32-71-9040LC CERVICAL SPINE WO CONTRASTEXAMINATION: CT OF THE CERVICAL SPINE WITHOUT CONTRAST; [...] Signed by: Fadumo Vergara MD 07/30/23 Final resultNormalMercy San Francisco Chinese HospitalCT HEAD WO CONTRASTon [id number] HEAD WO CONTRASTEXAMINATION: CT OF THE CERVICAL SPINE WITHOUT CONTRAST; [...] Signed by: Fadumo Vergara MD 07/30/23 Final resultNormalMercy San Francisco Chinese HospitalCTA HEAD NECK W CONTRASTon [id number] HEAD NECK W CONTRASTEXAMINATION: CTA OF THE HEAD AND NECK WITH [...] Signed by: Phillip Belcher MD 07/30/23 Final resultCleveland Clinic Union HospitalFetal-Maternal Hemoron 64-76-9525Lgnvg-Maternal HemorFetal Bleed Volume UP TO 15 % Bleed NO CELLS SEEN Doses of Rhogam PATIENT IS RH POSITIVENoOhioHealth Doctors Hospital Comment on above:Performed By: #### CDP #### [facility] [employer] [address] [place] [id number] Cloth Washer Back Tender: Philip Schulte MDHIV Ag/Abon 46-52-5158YTQ Ag/AbNon-Reactive Protestant HospitalComment on above:Result Comment: No laboratory evidence of HIV infection. If acute HIV infection is suspected, consider testing for HIV-1 RNA.Performed By: #### HIVCMB, AHCV, PRENAT #### [employer] [address] [place] [address] [id number] Cloth Washer Back Tender: YECENIA Pereira Screenon 65-24-6061JOX 1+2 Ab+HIV1 p24 Ag IA QlNon-ReactiveNONREACTIVEVIRGINIA HOSPITAL CENTERComment on above:No laboratory evidence of HIV infection. If acute HIV infection is suspected, consider testing for HIV-1 RNA. Hep C Abon 34-29-6973Gmx C AbNon-ReactiveNoOhioHealth Shelby HospitalComment on above:Result Comment: The hepatitis C procedure used in [...] is recommended by ordering HCV RNA by PCR.Performed By: #### HIVCMB, AHCV, SHAUNA #### [employer] [facility] [place] [address] Cloth Washer Back Tender: Faizan Pereira C Antibodyon [id number] Ab IA Ql Non-ReactiveNONREACTIVEBON SECOn-Ramp Wireless HEALTHComment on above: The hepatitis C procedure used [...] recommended by ordering HCV RNA by PCR. [employer] HEALTHNo Panel Informationon [id number] SECOn-Ramp Wireless HEALTHPRENATAL PROFILE Ion 01-00-2120Kurazzzlt (Bld) [#/Vol]BON SECOn-Ramp Wireless HEALTHBasophils/100 WBC (Bld)0 %0 - 2 %BON SECOn-Ramp Wireless HEALTHEosinophils (Bld) [#/Vol]0.13 10*3/uLBON SECOn-Ramp Wireless HEALTHEosinophils/100 WBC (Bld)2 %1 - 4 % [employer] SECOn-Ramp Wireless HEALTHErythrocyte distribution width (RBC) [Ratio]13.5 %11.8 - 14.4 %BON HadaptHBV surface Ag IA QlNon-ReactiveNONREACTIVEBON SECOn-Ramp Wireless HEALTHHematocrit (Bld) [Volume fraction]36.4 %36.3 - 47.1 %BON SECOn-Ramp Wireless HEALTHHemoglobin (Bld) [Mass/Vol]11.9 g/dL11.9 - 15.1 g/dLBON SECAdjudicaImmature granulocytes (Bld) [#/Vol]BON SECOn-Ramp Wireless HEALTH Immature granulocytes/100 WBC (Bld)0 %0BON SECOn-Ramp Wireless HEALTHInterpretation and review of laboratory resultsAbnormalBON SECOURS LifeIMAGEY HEALTHLymphocytes/100 WBC (Bld)23 %Low24 - 43 %BON SECSemba BiosciencesY HEALTHLymphocytes/100 WBC (Bld)1.74 % [facility]OSPITALH (RBC) [Entitic mass]31.2 pg25.2 - 33.5 pgSENTARA OBICI HOSPITALHC (RBC) [Mass/Vol]32.7 g/dL28.4 - 34.8 g/dLBON OUR LAD[facility] MERCY HOSPITALV (RBC) [Entitic vol]95.5 fL82.6 - 102.9 fLVIRGINIA HOSPITAL CENTER Monocytes/100 WBC (Bld)7 %3 - 12 %[facility] CENTERMonocytes/100 WBC (Bld)0.54 %[facility]OS[facility]ITAL CENTERNeutrophils/100 WBC (Bld)68 %High36 - 65 %[facility]OSPITAL CENTERNucleated RBC/100 WBC (Bld) [Ratio]0.0 %0.0 per 100 WBCVIRGINIA HOSPITAL CENTERPlatelet mean volume (Bld) [Entitic vol]10.2 fL8.1 - 13.5 fL V[facility]OSPITAL CENTERPlatelets (Bld) [#/Vol]155 10*3/uLVIRGINIA HOSPITAL CENTERRBC (Bld) [#/Vol]3.81 10*6/uLLow3.95 - 5.11 m/uLVIRGINIA HOSPITAL CENTER Rubella virus IgG IA Ql118.2IU/mLVIRGINIA HOSPITAL CENTERComment on above: REFERENCE RANGE: <5.0 NON-REACTIVE (non-immune) 5.0 TO 9.9 EQUIVOCAL >=10.0 REACTIVE (immune) Segmented neutrophils/100 WBC (Bld)5.11 %[facility] HOSPITAL CENTERT. pallidum Ab IA Ql (S)Non-ReactiveNONREACTIVEVIRGINIA HOSPITAL CENTERComment on above: T. pallidum antibodies are not detected. There is no serological evidence of infection with T. pallidum (early primary syphilis cannot be excluded). Retest in 2-4 weeks if syphilis is clinically suspect. WBC other (Bld) [#/Vol]7.6BON MARY RUTAN HOSPITALPrenatal Profileon 07-30-2023 T.pallidum Ab ScreenNon-ReactiveNormalNRMerFremont Memorial HospitalComment on above:Result Comment: T. pallidum antibodies are not detected. There is no serological evidence of infection with T. pallidum (early primary syphilis cannot be excluded). Retest in 2-4 weeks if syphilis is clinically suspect.Performed By: #### HIVHARITHA MONTES DE OCA, PRENAT #### [facility] [address] [place] [address] Cloth Washer Back Tender: Mandeep Pereira AgNon-ReactiveNoOhioHealth Shelby HospitalComment on above:Performed By: #### HIVCMHARITHA Yap, PRENAT #### [facility] [employer] [address] [place] [address] Cloth Washer Back Tender: Sofiya Pereira, PeT327.2 IU/mLNormalSelect Medical Trihealth Rehabilitation HospitalComment on above:Result Comment: REFERENCE RANGE: <5.0 NON-REACTIVE (non-immune) 5.0 TO 9.9 EQUIVOCAL >=10.0 REACTIVE (immune)Performed By: #### HIVHARITHA MONTES DE OCA, PRENAT #### [facility] [employer] [address] [place] [address] Cloth Washer Back Tender: MDAbs. Randall Basophil<0.21Xbjlxb7.00-0.20[facility] HospitalComment on above:Performed By: #### HARITHA LANDRY, PRENAT #### [facility] [employer] [address] [place] [address] Cloth Washer Back Tender: MDAbs. RandallImm.Granulocyte<0.15Uizmqp7.00-0.30[facility] HospitalComment on above:Performed By: #### HIVHARITHA MONTES DE OCA, PRENAT #### [facility] [employer] [address] [place] [address] Cloth Washer Back Tender: MDAbs. RandallNeutrophil (Seg)5.11 k/uLNormal1.50-8.10 [facility] HospitalComment on above:Performed By: #### HIVHARITHA MONTES DE OCA, PRENAT #### [facility] [place] [address] Cloth Washer Back Tender: Philip Schulte MDBasophils/100 WBC (Bld)0 %Normal0-2MAnaheim General HospitalComment on above:Performed By: #### HARITHA LANDRY, PRENAT #### [facility] [address] [place] [address] Cloth Washer Back Tender: Philip Schulte MDEosinophils (Bld) [#/Vol]0.13 10*3/uLNormal 0.00-0.44[facility] HospitalComment on above:Performed By: #### HARITHA LANDRY, PRENAT #### [facility] [address] [place] [address] Cloth Washer Back Tender: RASHIDA Pereiraosinophils/100 WBC (Bld)2 %Normal1-4[facility] HospitalComment on above:Performed By: #### HARITHA LANDRY, PRENAT #### [facility] [address] [place] [address] Cloth Washer Back Tender: Philip Schulte MDErythrocyte distribution width (RBC) [Ratio]13.5 %Frnext63.8-14.4[facility] HospitalComment on above:Performed By: #### HARITHA LANDRY, PRENAT #### [facility] [address] [place] [address] Cloth Washer Back Tender: Philip Schulte MDHematocrit (Bld) [Volume fraction]36.4 %Normal 36.3-47.1MAnaheim General HospitalComment on above:Performed By: #### RUBEN LANDRYCV, PRENAT #### [facility] [address] [place] [address] Cloth Washer Back Tender: Philip Schulte MDHemoglobin (Bld) [Mass/Vol]11.9 g/dLNormal 11.9-15.1MAnaheim General HospitalComment on above:Performed By: #### HIVCMB, AHCV, PRENAT #### [facility] [address] [place] [address] Cloth Washer Back Tender: Natalya Pereira granulocytes/100 WBC (Bld)0 %Normal0 [facility] HospitalComment on above:Performed By: #### HIVCMB, AHCV, PRENAT #### [facility] [address] [place] [address] Cloth Washer Back Tender: Philip Schulte MDLymphocytes (Bld) [#/Vol]1.74 10*3/uLNormal 1.10-3.70[facility] HospitalComment on above:Performed By: #### HIVCMFracisco, AHCV, PRENAT #### [facility] [employer] [address] [place] [address] Cloth Washer Back Tender: Daina Pereiramphocytes/100 WBC (Bld)23 %Tcb41-66ZqujmSelect Medical Trihealth Rehabilitation HospitalComment on above:Performed By: #### HIVCMFracisco, AHCV, PRENAT #### [facility] [employer] [address] [place] [address] Cloth Washer Back Tender: SASHA PereiraCH (RBC) [Entitic mass]31.2 ceMwmpnw00.2-33.5 [facility] HospitalComment on above:Performed By: #### HIVCMB, AHCV, PRENAT #### [facility] [employer] [address] [place] [address] Cloth Washer Back Tender: SASHA PereiraCHC (RBC) [Mass/Vol]32.7 g/lUOtstkx33.4-34.8 [facility] HospitalComment on above:Performed By: #### HIVCMB, AHCV, PRENAT #### [facility] [employer] [address] [place] [address] Cloth Washer Back Tender: SASHA PereiraCV (RBC) [Entitic vol]95.5 jWBoewer75.6-102.9 [facility] HospitalComment on above:Performed By: #### HIVCMFracisco, AHCV, PRENAT #### [address] [address] Cloth Washer Back Tender: SASHA Pereiraonocytes (Bld) [#/Vol]0.54 10*3/uLNormal 0.10-1.20[facility] HospitalComment on above:Performed By: #### HIVCMB, AHCV, PRENAT #### [place] [address] Cloth Washer Back Tender: SASHA Pereiraonocytes/100 WBC (Bld)7 %Normal3-12[facility] HospitalComment on above:Performed By: #### HIVFALGUNI, AHCV, PRENAT #### [place] [address] Cloth Washer Back Tender: Dunia Pereirautrophil (Seg)68 %Gyth96-06ZmwcvSelect Medical Trihealth Rehabilitation HospitalComment on above:Performed By: #### HIVCMB, AHCV, PRENAT #### [address] [address] Cloth Washer Back Tender: Philip Schulte MDNRBC Automated0.0 per 100 WBCNormal0.0[facility] HospitalComment on above:Performed By: #### HIVCMB, AHCV, PRENAT #### [address] [address] Cloth Washer Back Tender: EMELYN Pereiralatelet mean volume (Bld) [Entitic vol]10.2 fL Normal8.1-13.5[facility] HospitalComment on above:Performed By: #### HIVCMB, AHCV, PRENAT #### [facility] [employer] [address] [place] [address] Cloth Washer Back Tender: Roseanna Pereiratelets (Bld) [#/Vol]155 10*3/hJUyxbhs730-699 [facility] HospitalComment on above:Performed By: #### HIVCMB, AHCV, PRENAT #### [facility] [address] [place] [address] Cloth Washer Back Tender: LUDMILA PereiraBC (Bld) [#/Vol]3.81 10*6/uLLow3.95-5.11[facility] HospitalComment on above:Performed By: #### HIVCMB, AHCV, PRENAT #### [facility] [address] [place] [address] Cloth Washer Back Tender: GERTRUDE Pereira (Bld) [#/Vol]7.6 10*3/uLNormal3.5-11.3MAnaheim General HospitalComment on above:Performed By: #### HIVCMB, AHCV, PRENAT #### [facility] [employer] [address] [place] [address] Cloth Washer Back Tender: Philip Schulte MDTYPE AND SCREENon 40-33-4382JRV and Rh group Nom (Bld)Blood group A Rh(D) positiveVIRGINIA HOSPITAL CENTERArm Band NumberBE [id number] Norfolk General Hospitalood Bank Sample Plrsgqyudd41/06/2024,2359BON H[facility] Community Hospitalood group antibodies identified NomNegativeLEWISGALE HOSPITAL PULASKIType + Screenon [id number] + Screen Sample Expiration 08/02/2023,2358 Arm Band Number BE [id number] ABO/Rh(D) A POSITIVE Antibody Screen NEGATIVENormalSelect Medical Trihealth Rehabilitation HospitalComment on above: Performed By: #### TYS #### [facility] [employer] [address] [place] [address] [phone] Cloth Washer Back Tender: Philip Schulte MDType + ScreenSample Expiration 07/29/2023,2359 Arm Band Number BE [id number] ABO/Rh(D) A POSITIVE Antibody Screen NEGATIVE Blood Bank Comment Band removedNormalSelect Medical Trihealth Rehabilitation HospitalComment on above:Performed By: #### TYS #### [facility] [address] [place] [address] Cloth Washer Back Tender: PAULA Pereira w/Reflex Cultureon 04-52-2155Dumgjrzlr, SemiQt,UrNegativeNoAshtabula County Medical CenterComment on above: Performed By: #### UAX #### [facility] [address] [place] [address] Cloth Washer Back Tender: Abiodun Pereira, UrineNegativeCleveland Clinic Children's Hospital for RehabilitationComment on above:Performed By: #### UAX #### [facility] [address] [address] Cloth Washer Back Tender: MARYAM Pereiralarity (U)ClearNormalCLEARSelect Medical Trihealth Rehabilitation HospitalComment on above:Performed By: #### UAX #### [facility] [address] [address] Cloth Washer Back Tender: MARYAM Pereiraolor (U)Dark YellowAbnormalYELMerFremont Memorial HospitalComment on above:Performed By: #### UAX #### [address] [address] Cloth Washer Back Tender: MARYAM PereiraomlashaunMicroscopic exam not performed based on chemical results unless requested inNormalSelect Medical Trihealth Rehabilitation Hospital Comment on above:Result Comment: original order.Performed By: #### UAX #### [facility] [address] [address] Cloth Washer Back Tender: Carlos Pereiraose Ql (U)NegativeBates County Memorial HospitalalNEGSelect Medical Trihealth Rehabilitation HospitalComment on above:Performed By: #### UAX #### [facility] [address] [address] Cloth Washer Back Tender: Philip Schulte MDKetones Ql (U)NegativeNormalNEGSelect Medical Trihealth Rehabilitation HospitalComment on above:Performed By: #### UAX #### [facility] [address] [place] [address] Cloth Washer Back Tender: Philip Schulte MDLeukocyte esterase Test strip Ql (U)Negative NormalNEGSelect Medical Trihealth Rehabilitation HospitalComment on above:Performed By: #### UAX #### [facility] [address] [place] [address] Cloth Washer Back Tender: Jose A Pereiraite,UrNegativeNormalNEGSelect Medical Trihealth Rehabilitation HospitalComment on above:Performed By: #### UAX #### [address] [address] Cloth Washer Back Tender: EMELYN Pereira,Ur5.3Xdjobw2.0-8.0[facility] HospitalComment on above:Performed By: #### UAX #### [address] [address] Cloth Washer Back Tender: Geovanni Pereira Ql (U)NegativeNormalNEGSelect Medical Trihealth Rehabilitation HospitalComment on above:Performed By: #### UAX #### [address] [address] Cloth Washer Back Tender: MELISSA Pereirapec. Hewitt,Ur1.705Qlzu3.005-1.030[facility] HospitalComment on above:Performed By: #### UAX #### [address] [address] Cloth Washer Back Tender: Nemesio Pereirabilinogen,UrNormalNormal0.0-1.0[facility] HospitalComment on above:Performed By: #### UAX #### [facility] [address] [address] Cloth Washer Back Tender: Philip Schulte MDUS OB 14 PLUS WEEKS SINGLE OR FIRST GESTATIONon [id number] OB 14 PLUS WEEKS SINGLE OR FIRST GESTATIONEXAMINATION: TRANSABDOMINAL SECOND/THIRD TRIMESTER OBSTETRIC PELVIC ULTRASOUND WITH [...] Signed by: Fadumo Vergara MD 07/30/23 Final resultNormalMercy San Francisco Chinese HospitalUrinalysis with Reflex to Cultureon 51-79-7784Scefrempj Ql (U)NegativeNEGATIVEBON Hadapt Clarity (U)ClearClearBON [facility]ERRA TUCSONOn-Ramp Wireless [facility] LIMAColor (U)Dark YellowAbnormalYellow BON [facility] Maktoob [facility] LIMACommentMicroscopic exam not performed based on chemical results unless requested in original order.BON HadaptGlucose Test strip (U) [Mass/Vol]NegativeNEGATIVE mg/dLBON HadaptHemoglobin Auto test strip Ql (U)NegativeNEGATIVEBON [facility] MERCY HEALTHInterpretation and review of laboratory resultsAbnormalBON SIERRA TUCSONMARTY MERCER COUNTY COMMUNITY HOSPITALSilvestre HEALTHKetones (U) [Mass/Vol]NegativeNEGATIVE mg/dLBON MARY RUTAN HOSPITALLeukocyte esterase Test strip Ql (U)NegativeNEGATIVEBON SIERRA TUCSONMARTY [facility] HEALTHNitrite Ql (U)Negative NEGATIVEBON SIERRA TUCSONMARTY MERC[facility] COMMUNITY HOSPITALSilvestre HEALTHpH (U)5.5 [pH]5.0 - 8.0[facility] Protein (U) [Mass/Vol]NegativeNEGATIVE mg/dLBON SIERRA TUCSONMARTY MERCER COUNTY COMMUNITY HOSPITALSilvestre HEALTHSpecific gravity (U) [Rel density]1.440Hpes4.005 - 1.030B[facility] Urobilinogen Qn (U)Normal0.0 - 1.0 EU/dLBON SECMARTY MERCER COUNTY COMMUNITY HOSPITALSilvestre [facility] LIMABON [facility] HEALTHXR SHOULDER LEFT (MIN 2 VIEWS)on 71-79-9941ZD SHOULDER LEFT (MIN 2 VIEWS)EXAMINATION: 4 XRAY VIEWS OF THE LEFT SHOULDER [...] Signed by: Fadumo Vergara MD 07/30/23 Final resultNoOhioHealth Doctors HospitalPap IG,rfx Aptima HPV all pth on 02-03-2022..NormalThe [facility] Va Medical CenterComment on above:Performed By: #### [id number] #### [facility] [address] [address] [address] Mack MarcialDIAGNOSIS:CommentAbMercy Health Lorain HospitalComment on above: Result Comment: EPITHELIAL CELL ABNORMALITY. LOW GRADE SQUAMOUS INTRAEPITHELIAL LESION (LSIL). PREDOMINANCE OF COCCOBACILLI CONSISTENT WITH SHIFT IN VAGINAL DAHLIA IS PRESENT.Performed By: #### [id number] #### [facility] [address] [address] [address] Giron ChangElectronically signed by:CommentPomerene Hospital Comment on above:Result Comment: Stephanie Mendoza MD, PathologistPerformed By: #### [id number] #### [facility] [address] [place] [address] Dr. Mack MarcialHPApolinar AptimaPositiveAbnormalNegativeThe [facility] Medical CenterComsouthwest regional rehabilitation center on above:Result Comment: This nucleic acid amplification test detects fourteen high-risk HPV types (16,18,31,33,35,39,45,51,52,56,58,59,66,68) without differentiation.Performed By: #### [id number] #### [facility] [address] [place] [address] Dr. Mack MarcialMethodology:CommentNoBellevue Hospital on above: Result Comment: This liquid based ThinPrep(R) pap test was screened with the use of an image guided system.Performed By: #### [id number] #### [facility] [address] [place] [address] Dr. Mack MarcialNote:CommentNoBellevue Hospital on above:Result Comment: The Pap smear is a screening test designed to aid in the detection of premalignant and malignant conditions of the uterine cervix. It is not a diagnostic procedure and should not be used as the sole means of detecting cervical cancer. Both false-positive and false-negative reports do occur. .Performed By: #### [id number] #### [facility] [address] [place] [address] Dr. Mack MarcialPathologist Provided GPV27GjjcmrcMzqbwnGqwDoctors Hospital Comment on above:Result Comment: R87.612, R87.5Performed By: #### [id number] #### [facility] [address] [place] [address] Dr. Mack MarcialPerformed by:CommentBucyrus Community Hospital on above: Result Comment: Johnnie Albrecht, Special Needs Nanny (ASCP)Performed By: #### [id number] #### [facility] [address] [place] [address] Dr. Mack MarcialReflex Criteria:CommentNormalThe Marlene HospitalComment on above:Result Comment: See below for HPV testing results. .Performed By: #### [id number] #### [facility] [address] [place] [address] Dr. Mack Fernandez adequacy:CommentNormalThCleveland Clinic Hillcrest HospitalComment on above:Result Comment: Satisfactory for evaluation. Endocervical and/or squamous metaplastic cells (endocervical component) are present.Performed By: #### [id number] #### [facility] [address] [place] [address] Dr. Mack García AUTO DIFFon [id number] #0.0 103/ulNormal0.0-0.1Kindred Hospital DaytonComment on above:Performed By: #### [id number] #### [facility] [address] [place] [address] Dr. Mack MarcialBasophils/100 WBC (Bld)0.2 %Normal0.2-2.0[facility] Comment on above:Performed By: #### [id number] #### [facility] [address] [place] [address] Dr. Mack Mercado #0.1 103/ulNormal0.0-0.7The [facility] Medical CenterComment on above: Performed By: #### [id number] #### [facility] [address] [place] [address] Dr. Mack Thibodeauxosinophils/100 WBC (Bld)0.5 %Critically low0.9-7.0The [facility] Medical CenterComment on above:Performed By: #### [id number] #### [facility] [address] [place] [address] Dr. Mack Thibodeauxrythrocyte distribution width (RBC) [Ratio]16.2 %Critically high 11.0-15.0[facility]red Hospital DaytonComment on above:Performed By: #### [id number] #### [facility] [address] [place] [address] Dr. Mack MarcialHematocrit (Bld) [Volume fraction]25.6 %Critically low36.0-48.0 The [facility] Medical CenterComment on above:Performed By: #### [id number] #### [facility] [address] [place] [address] Dr. Mack MarcialHemoglobin (Bld) [Mass/Vol]7.9 g/dLCritically low12.0-16.0The [facility] Medical CenterComment on above:Result Comment: post birthPerformed By: #### [id number] #### [facility] [address] [place] [address] Dr. Mack Cherry #0.07 10e3/ulCritically high0.00-0.03[facility] Comment on above:Performed By: #### [id number] #### [facility] [address] [place] [address] Dr. Mack Cherry %0.5 %Normal0.0-0.5The [facility] Medical CenterComment on above: Performed By: #### [id number] #### [facility] [address] [place] [address] Dr. Mack Morlilo #2.2 103/ulNormal1.2-3.8The [facility] Va Medical CenterComment on above:Performed By: #### [id number] #### [facility] [address] [place] [address] Dr. Mack Mccartyhocytes/100 WBC (Bld)16.9 %Critically low20.5-60.0Kindred Hospital DaytonComment on above:Performed By: #### [id number] #### [facility] [address] [place] [address] Dr. Mack CallesUAL DIFF REQNONormalThe Hall HospitalComment on above: Performed By: #### [id number] #### [facility] [address] [place] [address] Dr. Mack Lyle (RBC) [Entitic mass]24.8 pgCritically low26.7-34.0The [facility] Medical CenterComment on above:Performed By: #### [id number] #### [facility] [address] [place] [address] Dr. Mack East (RBC) [Mass/Vol]30.9 g/sVBsfaqg98.9-35.2[facility] Hospital DaytonComment on above:Performed By: #### [id number] #### [facility] [address] [place] [address] Dr. Mack Noyola (RBC) [Entitic vol]80.5 fLCritically low81.0-99.0The [facility] CenterComment on above:Performed By: #### [id number] #### [facility] [address] [place] [address] Dr. Mack Devine #1.2 103/ulCritically high0.3-0.8[facility] Comment on above:Performed By: #### [id number] #### [facility] [address] [place] [address] Dr. Mack Loyolaocytes/100 WBC (Bld)9.2 %Normal1.7-12.0[facility] Comment on above:Performed By: #### [id number] #### [facility] [address] [place] [address] Dr. Mack Bowen #9.4 103/ulCritically high1.4-6.5ThC[facility] Comment on above:Performed By: #### [id number] #### [facility] [address] [place] [address] Dr. Mack Hillutrophils/100 WBC (Bld)72.7 %Jurusv96.0-75.0The [facility] CenterComment on above:Performed By: #### [id number] #### [facility] [address] [place] [address] Dr. Mack Mcleodlet mean volume (Bld) [Entitic vol]10.1 fLNormal9.5-13.5ThCleveland Clinic Hillcrest HospitalComment on above:Performed By: #### [id number] #### [facility] [address] [place] [address] Dr. Mack MarcialPLT159 103/loYrgonr327-529Fjf [facility] CenterComment on above: Performed By: #### [id number] #### [facility] [address] [place] [address] Dr. Mack MarcialRBC3.18 106/ulCritically low4.20-5.40The [facility] CenterComment on above:Performed By: #### [id number] #### [facility] [address] [place] [address] Dr. Mack MarcialWBC13.0 103/ulCritically high4.0-11.0The [facility] CenterComment on above:Performed By: #### [id number] #### [facility] [address] [place] [address] Dr. Mack García AUTO DIFFon 96-25-5006INYI #0.0 103/ulNormal0.0-0.1The [facility] Medical CenterComment on above:Performed By: #### [id number] #### [facility] [address] [place] [address] Dr. Mack MarcialBasophils/100 WBC (Bld)0.3 %Normal0.2-2.0[facility] Comment on above:Performed By: #### [id number] #### [facility] [address] [place] [address] Dr. Mack Mercado #0.1 103/ulNormal0.0-0.7The [facility] Medical CenterComment on above: Performed By: #### [id number] #### [facility] [address] [place] [address] Dr. Mack Thibodeauxosinophils/100 WBC (Bld)1.0 %Normal0.9-7.0[facility] Comment on above:Performed By: #### [id number] #### [facility] [address] [place] [address] Dr. Mack Thibodeauxrythrocyte distribution width (RBC) [Ratio]16.4 %Critically high 11.0-15.0The [facility] Medical CenterComment on above:Performed By: #### [id number] #### [facility] [address] [place] [address] Dr. Mack MarcialHematocrit (Bld) [Volume fraction]33.4 %Critically low36.0-48.0 The [facility] Medical CenterComment on above:Performed By: #### [id number] #### [facility] [address] [address] [address] Mack MarcialHemoglobin (Bld) [Mass/Vol]10.4 g/dLCritically low12.0-16.0The [facility] CenterComment on above:Performed By: #### [id number] #### [facility] [address] [address] [address] Mack Cherry #0.06 10e3/ulCritically high0.00-0.03[facility] Comment on above:Performed By: #### [id number] #### [facility] [address] [address] [address] Mack Cherry %0.6 %Critically high0.0-0.5The [facility] Medical CenterComment on above:Performed By: #### [id number] #### [facility] [address] [place] [address] Dr. Mack Morillo #2.4 103/ulNormal1.2-3.8The [facility] Medical CenterComment on above:Performed By: #### [id number] #### [facility] [address] [place] [address] Dr. Mack Mccartyhocytes/100 WBC (Bld)25.2 %Wtgpnu31.5-60.0The [facility] Medical CenterComment on above:Performed By: #### [id number] #### [facility] [address] [address] [address] Mack CallesUAL DIFF REQNONormalThe [facility] Medical CenterComment on above: Performed By: #### [id number] #### [facility] [address] [address] [address] Mack Lyle (RBC) [Entitic mass]24.4 pgCritically low26.7-34.0The [facility] CenterComment on above:Performed By: #### [id number] #### [facility] [address] [place] [address] Dr. Mack East (RBC) [Mass/Vol]31.1 g/aCIcgywe91.9-35.2The [facility] Medical CenterComment on above:Performed By: #### [id number] #### [facility] [address] [place] [address] Dr. Mack Noyola (RBC) [Entitic vol]78.2 fLCritically low81.0-99.0The [facility] CenterComment on above:Performed By: #### [id number] #### [facility] [address] [place] [address] Dr. Mack Devine #0.8 103/ulNormal0.3-0.8The [facility] Medical CenterComment on above:Performed By: #### [id number] #### [facility] [address] [place] [address] Dr. Mack Loyolaocytes/100 WBC (Bld)8.8 %Normal1.7-12.0[facility] Comment on above:Performed By: #### [id number] #### [facility] [address] [place] [address] Dr. Mack Bowen #6.1 103/ulNormal1.4-6.5The [facility] Medical CenterComment on above:Performed By: #### [id number] #### [facility] [address] [place] [address] Dr. Mack Hillutrophils/100 WBC (Bld)64.1 %Yssaql82.0-75.0The [facility] Medical CenterComment on above:Performed By: #### [id number] #### [facility] [address] [place] [address] Dr. Mack Mejia mean volume (Bld) [Entitic vol]10.4 fLNormal9.5-13.5The [facility] Medical CenterComment on above:Performed By: #### [id number] #### [facility] [address] [place] [address] Dr. Mack MarcialPLT191 103/ryNbcmtv759-317Dyl [facility] Medical CenterComment on above: Performed By: #### [id number] #### [facility] [address] [place] [address] Dr. Mack MarcialRBC4.27 106/ulNormal4.20-5.40The [facility] Medical CenterComment on above:Performed By: #### [id number] #### [facility] [address] [place] [address] Dr. Mack MarcialWBC9.6 103/ulNormal4.0-11.0The [facility] Medical CenterComment on above: Performed By: #### [id number] #### [facility] [address] [place] [address] Dr. Mack MarcialCovid-19 PCR ([facility])on 48-06-4684FQPI-CoV-2 (COVID-19) RNA CHUCK+probe Ql (Unsp spec)Not detectedNormalNOT DETECTEDThe [facility] Comment on above:Result Comment: When diagnostic testing is negative, the [...] for this test is supported by the [employer] of Health and Human Service's declaration that circumstances exist to justify the emergency use of in vitro diagnostics for the detection and/or diagnosis of the virus that causes COVID-19. This EUA will remain in effect for the duration of the COVID-19 declaration justifying emergency of IVDs, unless it is terminated or revoked by the FDA (after which the test may no longer be used).Performed By: #### [id number] #### [facility] [address] [place] [address] Dr. Mack MarcialDRUG SCREEN RAPID (URINE)on [id number]D The [facility] CenterComment on above:Performed By: #### [id number] #### [facility] [address] [place] [address] Dr. Mack MarcialBARNegativeNormalNEGATIVEThe [facility] Medical CenterComment on above: Performed By: #### [id number] #### [facility] [address] [place] [address] Dr. Mack JacintoPNegativeNormalNEGATIVEKindred Hospital DaytonComment on above: Performed By: #### [id number] #### [facility] [address] [place] [address] Dr. Mack MarcialBZONegativeNormalNEGATIVEKindred Hospital DaytonComment on above: Performed By: #### [id number] #### [facility] [address] [place] [address] Dr. Mack MarcialCOCNegativeNormalNEGATIVEKindred Hospital DaytonComment on above: Performed By: #### [id number] #### [facility] [address] [place] [address] Dr. Mack ReeceTSelect Medical Specialty Hospital - CincinnatiComment on above: Result Comment: AMP (Amphetamine): 500ng/mL, BAR (Barbituates): 200 ng/mL, BZO (Benzodiazepines): 150 ng/mL, BUP (Buprenorphine): 10 ng/mL, ANDREA (Cocaine): 150 ng/mL, mAMP (Methamphetamine): 500 ng/mL, MTD (Methadone): 200 ng/mL, OPI (Opiates): 100 ng/mL, OXY (Oxycodone): 100 ng/mL, PCP (Phencyclidine): 25 ng/mL, PPX (Propoxyphene): 300 ng/mL, THC (Cannabinoids): 50 ng/mL, TCA (Trycyclic Antidepressants): 300 ng/mLPerformed By: #### [id number] #### [facility] [address] [place] [address] Dr. Mack MarcialDRUG CUT HEADERDRUG CLASS TEST SYSTEM CUT-OFF CONCENTRATIONS ARE FOLLOWS:NormalThe [facility] Va Medical CenterComment on above:Performed By: #### [id number] #### [facility] [address] [place] [address] Dr. Mack MarcialmAMPNegativeNormalNEGATIVEKindred Hospital DaytonComment on above: Performed By: #### [id number] #### [facility] [address] [address] [address] Mack MarcialMTDNegativeNormalNEGATIVEKindred Hospital DaytonComment on above: Performed By: #### [id number] #### [facility] [address] [address] [address] Mack MarcialOPINegativeNormalNEGATIVEKindred Hospital DaytonComment on above: Performed By: #### [id number] #### [facility] [address] [place] [address] Dr. Mack MarcialOXYNegativeNormalNEGATIVEKindred Hospital DaytonComment on above: Performed By: #### [id number] #### [facility] [address] [address] [address] Mack MarcialPCPNegativeNormalNEGParkview Health Bryan HospitalComment on above: Performed By: #### [id number] #### [facility] [address] [place] [address] Dr. Mack MarcialPPXNegativeNormalNEGParkview Health Bryan HospitalComment on above: Performed By: #### HIV12 #### [facility] [address] [place] [address] Dr. Mack MarcialTCANegativeNormalNEGATIVEKindred Hospital DaytonComment on above: Performed By: #### HIV12 #### [facility] [address] [place] [address] Dr. Mack MarcialTHCNegativeNormalNEGParkview Health Bryan HospitalComment on above: Performed By: #### [id number] #### [facility] [address] [place] [address] Dr. Mack Hardy AND SCREENon 26-69-5081RWHL AND SCREENNegativeNormalThe [facility] CenterComment on above:Performed By: #### [id number] #### [facility] [address] [place] [address] Dr. Mack Saleh PREG GROWTHon 72-30-8645VG PREG GROWTHEXAMINATION: US PREG GROWTH HISTORY: Large for gestation [...] by ultrasound, 88% by expected EDC FL/AC: 0.501834 FL/BPD: 0.370992 HC/AC: 0.172706, slightly low normal 0.9-1.05 GESTATIONAL AGE: Age by EDC: 37 weeks 6 days JORI by EDC: 09/11/2021 Age by US: 38 weeks 1 day JORI by US: 09/09/2021 IMPRESSION: Slightly low head circumference to abdominal circumference ratio Otherwise normal interval growth with estimated weight 88% by expected EDC Electronically authenticated by: FADUMO NEGRON Date: 2021-08-27 17:10Pome[facility] HospitalGROUP B STREP CULTUREon 08-11-2021. agalactiae Ag Ql (Unsp spec)Culture Observations: NEGATIVE FOR GROUP B STREPTOCOCCUS.NormalThe [facility] Va Medical CenterComment on above: Performed By: #### GBSCX #### [facility] [address] [place] [address] Dr. Mack Brady B SURFACE ANTIGEN SCREENon 71-59-1030OGwNd ScreenNegative NormalNegativeThe [facility] Medical CenterComment on above:Performed By: #### HBSANS #### [facility] [address] [place] [address] Dr. Mack MarcialHEPATITIS C VIRUS AB W/ REFLEX QUANTon 13-95-4197HAB AB<0.1Normal 0.0-0.9The [facility] CenterComment on above:Performed By: #### [id number] #### [facility] [address] [place] [address] Dr. Mack MarcialInterpretation:CommentPomerene HospitalComment on above:Result Comment: Negative Not infected with HCV, unless recent infection is suspected or other evidence exists to indicate HCV infection.Performed By: #### HIV12 #### [facility] [address] [place] [address] Dr. Mack AlvaradoV 1 AND 2 WITH REFLEXon 55-27-8332MMV Screen 4th Generation wRfxNon-ReactiveNormalNon ReactiveThe [facility] on above:Result Comment: HIV Negative HIV-1/HIV-2 antibodies and HIV-1 p24 antigen were NOT detected. There is no laboratory evidence of HIV infection.Performed By: #### HIV12 #### [facility] [address] [place] [address] Dr. Mack MarcialRPR QUANTon 30-80-0120Mkfjn Plasma Reagin, QuantNon-Reactive NormalNonRea<1:1The [facility] on above:Performed By: #### RPRQ #### [facility] [address] [place] [address] Dr. Mack Medley AB IGGon 72-17-3577Almbbvj Antibodies, IgG1.38 index NormalImmune >0.99The [facility] on above:Result Comment: Non- immune <0.90 Equivocal 0.90 - 0.99 Immune >0.99Performed By: #### RUBIGG #### [facility] [address] [place] [address] Dr. Mack MarcialVARICELLA IGG ABon 64-76-0887Kawcllsqg Zoster QoX4622 indexNormal Immune >165The [facility] on above:Result Comment: Negative <135 Equivocal 135 - 165 Positive >165 A positive result generally indicates exposure to the pathogen or administration of specific immunoglobulins, but it is not indication of active infection or stage of disease.Performed By: #### [id number] #### [facility] [address] [place] [address] Dr. Mack MarcialCBAdam AUTO DIFFon 84-20-3982RSQL #0.0 103/ulNormal0.0-0.1The [facility] on above:Performed By: #### HIV12 #### [facility] [address] [place] [address] Dr. Mack MarcialBasophils/100 WBC (Bld)0.3 %Normal0.2-2.0[facility] Comment on above:Performed By: #### HIV12 #### [facility] [address] [place] [address] Dr. Mcak Mercado #0.1 103/ulNormal0.0-0.7The [facility] CenterComment on above: Performed By: #### HIV12 #### [facility] [address] [place] [address] Dr. Mack Thibodeauxosinophils/100 WBC (Bld)1.1 %Normal0.9-7.0[facility] Comment on above:Performed By: #### HIV12 #### [facility] [address] [place] [address] Dr. Mack Thibodeauxrythrocyte distribution width (RBC) [Ratio]14.0 %Csdylr91.0-15.0 [facility] DaytonComment on above:Performed By: #### HIV12 #### [facility] [address] [place] [address] Dr. Mack MarcialHematocrit (Bld) [Volume fraction]31.9 %Critically low36.0-48.0 [facility] DaytonComment on above:Performed By: #### HIV12 #### [facility] [address] [place] [address] Dr. Mack MarcialHemoglobin (Bld) [Mass/Vol]10.3 g/dLCritically low12.0-16.0[facility] DaytonComment on above:Performed By: #### HIV12 #### [facility] [address] [place] [address] Dr. Mack Cherry #0.05 10e3/ulCritically high0.00-0.03[facility] Comment on above:Performed By: #### HIV12 #### [facility] [address] [place] [address] Dr. Mack Cherry %0.6 %Critically high0.0-0.5ThCleveland Clinic Hillcrest HospitalComment on above:Performed By: #### HIV12 #### [facility] [address] [place] [address] Dr. Mack Morillo #1.7 103/ulNormal1.2-3.8The [facility] CenterComment on above:Performed By: #### HIV12 #### [facility] [address] [place] [address] Dr. Mack Cavanaughmphocytes/100 WBC (Bld)21.4 %Jrjzqe02.5-60.0The [facility] CenterComment on above:Performed By: #### HIV12 #### [facility] [address] [place] [address] Dr. Mack Pruitt DIFF REQNONormalThe [facility] CenterComment on above: Performed By: #### HIV12 #### [facility] [address] [place] [address] Dr. Mack East (RBC) [Entitic mass]27.0 tlQtghaf04.7-34.0The [facility] CenterComment on above:Performed By: #### HIV12 #### [facility] [address] [place] [address] Dr. Mack East (RBC) [Mass/Vol]32.3 g/vQAciecf89.9-35.2The [facility] CenterComment on above:Performed By: #### HIV12 #### [facility] [address] [place] [address] Dr. Mack East (RBC) [Entitic vol]83.5 uDFizeap69.0-99.0The [facility] CenterComment on above:Performed By: #### HIV12 #### [facility] [address] [place] [address] Dr. Mack Devine #0.5 103/ulNormal0.3-0.8The [facility] CenterComment on above:Performed By: #### HIV12 #### [facility] [address] [place] [address] Dr. Mack Loyolaocytes/100 WBC (Bld)6.2 %Normal1.7-12.0[facility] Comment on above:Performed By: #### HIV12 #### [facility] [address] [address] [address] Mack Bowen #5.5 103/ulNormal1.4-6.5The [facility] on above:Performed By: #### HIV12 #### [facility] [address] [place] [address] Dr. Mack Hillutrophils/100 WBC (Bld)70.4 %Ijxzkp72.0-75.0The [facility] CenterComsouthwest regional rehabilitation center on above:Performed By: #### HIV12 #### [facility] [address] [place] [address] Dr. Mack MarcialPlatelet mean volume (Bld) [Entitic vol]10.4 fLNormal9.5-13.5The [facility] CenterComsouthwest regional rehabilitation center on above:Performed By: #### HIV12 #### [facility] [address] [place] [address] Dr. Mack MarcialPLT185 103/ccGdtjkd467-865Yyj [facility] on above: Performed By: #### HIV12 #### [facility] [address] [place] [address] Dr. Mack MarcialRBC3.82 106/ulCritically low4.20-5.40The [facility] on above:Performed By: #### HIV12 #### [facility] [address] [place] [address] Dr. Mack MarcialWBC7.9 103/ulNormal4.0-11.0The [facility] CenterComsouthwest regional rehabilitation center on above: Performed By: #### HIV12 #### [facility] [address] [place] [address] Dr. Mack MarcialGLUCOSE - 1HRon 86-54-9906Iksvbau [Mass/Vol]121 mg/dLCritically jjvc82-187Sak [facility] on above:Performed By: #### GLU1HR #### [facility] [address] [place] [address] Dr. Mack MarcialGLYCOHEMOGLOBIN A1Con 92-13-3597UPU RECOMMENDATIONADA THERAPEUTIC TARGET 6.0 - 7.0 ACTION SUGGESTED > 7.0NormalThe Hall HospitalComment on above:Performed By: #### A1C #### [facility] [address] [place], [place] [address] Dr. Mack MarcialGlucose [Mass/Vol]105 mg/dLNoDoctors HospitalComment on above:Performed By: #### A1C #### [facility] [address] [place], [place] [address] Dr. Mack MarcialHbA1c (Bld) [Mass fraction]5.3 %Normal<=6.0[facility] Comment on above:Performed By: #### A1C #### [facility] [address] [place], [place] [address] Dr. Mack MarcialTYPE AND SCREENon 20-34-1642ZTMF AND SCREENNegativeNoDoctors HospitalComment on above:Performed By: #### TNS #### [facility] [address] [address] [address] Mack MarcialUS PREG ANATOMY SINGLEon 50-79-8460IE PREG ANATOMY SINGLE EXAMINATION: US PREG ANATOMY SINGLE HISTORY: screening COMPARISON: No relevant [...] Electronically authenticated by: LUDMILA EGAN Date: 2021-07-07 16:55[facility] HealthOG PANEL 3: 21 to 29on 04-02-2021..NormalThe [facility] CenterComment on above:Result Comment: Performed at: WBPerformed By: #### [id number] #### [facility] [address] [place] [address] Dr. Mack Box Gdln ACOG Flcvyzc16-11JvocnyNllDoctors HospitalComment on above:Performed By: #### [id number] #### [facility] [address] [place] [address] Dr. Mack Jacques, Nuc. Acid AmpNegativeNormalNegativeKindred Hospital DaytonComment on above:Result Comment: Performed at: =GPerformed By: #### [id number] #### [facility] [address] [place] [address] Dr. Mack MarcialDIAGNOSIS:CommentAbMercy Health Lorain HospitalComment on above: Result Comment: EPITHELIAL CELL ABNORMALITY. LOW GRADE SQUAMOUS INTRAEPITHELIAL LESION (LSIL). Performed at: WBPerformed By: #### [id number] #### [facility] [address] [place] [address] Dr. Giron ChangElectronically signed by:CommentPomerene Hospital Comment on above:Result Comment: Stephanie Mendoza MD, Pathologist Performed at: WBPerformed By: #### [id number] #### [facility] [address] [place] [address] Dr. Mack Jovel, Nuc. Acid AmpNegativeNormalNegativeKindred Hospital DaytonComment on above:Result Comment: Performed at: =GPerformed By: #### [id number] #### [facility] [address] [place] [address] Dr. Mack MarcialMethodology:CommentBucyrus Community Hospital on above: Result Comment: This liquid based ThinPrep(R) pap test was screened with the use of an image guided system. Performed at: WBPerformed By: #### [id number] #### [facility] [address] [place] [address] Dr. Mack MarcialNote:CommentBucyrus Community Hospital on above:Result Comment: The Pap smear is a screening test designed to aid in the detection of premalignant and malignant conditions of the uterine cervix. It is not a diagnostic procedure and should not be used as the sole means of detecting cervical cancer. Both false-positive and false-negative reports do occur. . Performed at: WBPerformed By: #### [id number] #### [facility] [address] [place] [address] Dr. Mack MarcialPathologist Provided WUS47ZqvqsigBmvymdYtxFostoria City Hospital Comment on above:Result Comment: [id number] Performed at: WBPerformed By: #### [id number] #### [facility] [address] [place] [address] Dr. Mack MarcialPerformed by:CommentBucyrus Community Hospital on above: Result Comment: Malika Winslow, Special Needs Nanny (ASCP) Performed at: WBPerformed By: #### [id number] #### [facility] [address] [place] [address] Dr. Mack MarcialReflex Criteria:CommentBucyrus Community Hospital on above:Result Comment: The HPV DNA reflex criteria were not met with this specimen result therefore, no HPV testing was performed. . Performed at: WBPerformed By: #### [id number] #### [facility] [address] [place] [address] Dr. Mack MarcialSpecimen adequacy:CommentBucyrus Community Hospital on above:Result Comment: Satisfactory for evaluation. No endocervical component is identified. Performed at: WBPerformed By: #### [id number] #### [facility] [address] [address] [address] Mack Berry URINEon [id number] URINECulture Observations: HEAVY GROWTH OF MIXED GENITAL DAHLIA. NO POTENTIAL PATHOGENS SEEN.NormalKindred Hospital DaytonComment on above:Performed By: #### [id number] #### [facility] [address] [address] [address] Mack Villavicencio RANDOM W/MICROSCOPICon [id number]QUWL SEENKindred Hospital DaytonComment on above:Performed By: #### [id number] #### [facility] [address] [place] [address] Dr. Mack Keane Ql (U)NegativeNormalNEGATIVEThe [facility] Comment on above:Performed By: #### [id number] #### [facility] [address] [place] [address] Dr. Mack MarcialCASTNONJimy SEENNormalNONE SEENKindred Hospital DaytonComment on above:Performed By: #### [id number] #### [facility] [address] [place] [address] Dr. Mack Guillermo (U)SL CLOUDYAbnormalCLEARThCleveland Clinic Hillcrest HospitalComment on above:Performed By: #### [id number] #### [facility] [address] [place] [address] Dr. Mack Lares (U)LT. YELLOWNormalYELLOWKindred Hospital DaytonComment on above:Performed By: #### [id number] #### [facility] [address] [address] [address] Mack MarcialCrystals LM Nom (Urine sed)NONE SEENNormalNONE SEENKindred Hospital DaytonComment on above:Performed By: #### [id number] #### [facility] [address] [place] [address] Dr. Giron ChangEpithelial cells LM Ql (Urine sed)MODERATEAbnormalNONE SEEN /RARE The [facility] CenterComment on above:Performed By: #### [id number] #### [facility] [address] [place] [address] Dr. Yilan ChangGlucose Ql (U)NegativeNormalNEGATIVESt. Mary'S [facility] Campus HospitalComment on above:Performed By: #### [id number] #### [facility] [address] [address] [address] Mack MarcialHemoglobin Ql (U)TRACE-INTACTAbnormalNEGATIVEKindred Hospital DaytonComment on above:Performed By: #### [id number] #### [facility] [address] [address] [address] Mack MarcialKetones Ql (U)NegativeNormalNEGATIVESt. Mary'S [facility] Campus HospitalComment on above:Performed By: #### [id number] #### [facility] [address] [address] [address] Mack MarcialLEUKOCYTESMODERATEAbnormalNEGATIVEKindred Hospital DaytonComment on above:Performed By: #### [id number] #### [facility] [address] [place] [address] Dr. Mack MarcialMUCOUSNONE SEENNormalNONE SEENKindred Hospital DaytonComment on above:Performed By: #### [id number] #### [facility] [address] [place] [address] Dr. Mack MarcialNitrite Ql (U)NegativeNormalNEGATIVEKindred Hospital DaytonComment on above:Performed By: #### [id number] #### [facility] [address] [place] [address] Dr. Mack MarcialpH (U)5.5 [pH]Normal5-9The [facility] CenterComment on above: Performed By: #### [id number] #### [facility] [address] [address] [address] Mack MarcialScbfySQD1-3Tizrtkpj7-8Hjy [facility] CenterComment on above:Performed By: #### [id number] #### [facility] [address] [place] [address] Dr. Mack MarcialSPEC GRAVITY>=1.675Hxgmczac2.005-<=1.025The [facility] on above:Performed By: #### [id number] #### [facility] [address] [address] [address] Mack Villavicencio PROTEINNegativeNormalNEGATIVE/ TRACEThe [facility] Comment on above:Performed By: #### [id number] #### [facility] [address] [place] [address] Dr. Mack Gallegosbilino Qn (U)0.2 {Saul'U}/dLNormal0.2 - 1.0The [facility] Medical CenterComment on above:Performed By: #### [id number] #### [facility] [address] [place] [address] Dr. Mack MarcialNryjjVZQ11-078BmxtlzufSLSN SEENThe [facility] Medical CenterComment on above: Performed By: #### [id number] #### [facility] [address] [place] [address] Dr. Mack Saleh PREG TVon [id number] PREG TV Begin Addendum #1 Adjacent to [...] ortez intrauterine gestation measuring 10 weeks 3 daysNormalThe Hall HospitalURINALYSIS WITH MICROSCOPICOrdered By: Henry Heller on 01-21-2021[facility] [employer] Work Phone: amorphous, UANOT REPORTEDReunion Rehabilitation Hospital Phoenix [employer] Work Phone: bacteria, UAFEWAbnormalNoneMercy Health Work Phone: bilirubin UrineNegativeNEGATIVEMercy Health Work Phone: casts UA5 TO 10 HYALINE Reference range defined for non-centrifuged specimen.[facility] Work Phone: Color, UADARK YELLOWAbnormalYELLOWMercy Health Work Phone: Brystals, UANOT REPORTEDNone /HPFMercy Health Work Phone: Fpithelial Cells UA5 TO 10[facility] Work Phone: Glucose, UrNegativeNEGATIVEAultman [facility] Work Phone: Interpretation and review of laboratory results AbnormalMercy Health Work Phone: Ketones Ql (U)NegativeNEGATIVEAultman Orrville [facility] Work Phone: leukocyte esterase Test strip Ql (U)NegativeNEGATIVE [facility] [employer] Work Phone: Mucus, UANOT REPORTEDNoneMeuniversity hospitals beachwood [facility] Health Work Phone: Nitrite, UrineNegativeNEGATIVEAultman Orrville Hospital [facility] Work Phone: Other Observations UANOT REPORTEDNOT REQ.[facility] [employer] Work Phone: tH, UA5.0[facility] Work Phone: Wrotein, UANegativeNEGATIVEMercy Health Work Phone: NBC, UA5 TO 10[facility] Work Phone: comment on above:Reference range defined for non- centrifuged specimen.Renal Epithelial, UANOT REPORTED0 /HPFMercy Health Work Phone: Upecific Hewitt, UA1.037HighMercy Health Work Phone: Trichomonas, UANOT REPORTEDNoneMercy Health Work Phone: Turbidity UACLEARCLEARMercy Health Work Phone: Urine HgbNegativeNEGATIVEMercy Health Work Phone: Urobilinogen, UrineNormalNormalMercy Health Work Phone: WBC, UA5 TO 10[facility] Work Phone: Yeast, UANOT REPORTEDNoneMercy Health Work Phone: [facility] Work Phone: HCG, ,Urineon [id number] HCG ( test) Ql (U)NegativeNEGATIVECleveland Clinic Children'S Hospital For Rehabilitationcy Health- [place], [place]Comment on above:Specimens with hCG levels near the threshold of the test (25 mIU/mL) may give a negative or indeterminate result. In such cases, another test should be performed with a new specimen in 48-72 hours. If early is suspected clinically in this setting, correlation with quantitative serum b-hCG level is suggested. Microscopic Urinalysison [id number], UANOT REPORTEDNoneMercy Health- [place], [place]Bacteria, UAFEWAbnormalNoneMer[facility]- [place], KYCasts UANOT REPORTED/LPF [facility]- [place], [place]Crystals UANOT REPORTEDNone /[facility]ITALMer[facility]- [place] Epithelial Cells UA5 TO 10/[facility]ITALMer[facility]- [place], [place]Interpretation and review of laboratory resultsAbnormalMercy Health- [place], KYMucus, UANOT REPORTEDNoneMer[facility]- [place], [place]Other Observations UANOT REPORTEDNOT REQ.[facility]- [place], KYRBC (U) [#/Vol]0 TO 2/HPFMercy Health- [place], KYRenal Epithelial, UrineNOT REPORTED0 /HPFMercy Health- [place], KYTrichomonas, UANOT REPORTEDNoneMer[facility] Health- [place], KYWBC, UA2 TO 5/HPFMercy Health- [place], KYYeast, UANOT REPORTEDNoneMercy Health- [place], [place]- [facility]- [place], [place]Otheron [id number] ExamNegativeMercy Health- [place], [place] Urinalysis Reflex to Cultureon [id number] UrineNegativeNEGATIVEMercy Health- [place], KYColor, UAYELLOWYELLOWMercy Health- [place], KYGlucose, UrNegative NEGATIVEMercy Health- [place], [place]Interpretation and review of laboratory results AbnormalMercy Health- [place], KYKetones Ql (U)NegativeNEGATIVEMercy Health- [place] Leukocyte esterase Test strip Ql (U)MODAbnormalNEGATIVEMercy Health- [place] Nitrite, UrineNegativeNEGATIVEMercy Health- [place], KYpH, UA5.0[facility]- [place] Protein (U) [Mass/Vol]NegativeNEGATIVEMercy Health- [place], KYSpecific [place], UA 1.027[facility]- [place], KYTurbidity UACLOUDYAbnormalCLEARMercy Health- [place] Urinalysis CommentsNOT REPORTEDMercy Health- [place], KYUrine HgbNegativeNEGATIVE [facility]- [place], KYUrobilinogen, UrineNormalNormalMercy Health- [place], KYVaginitis DNA Probeon [id number] ExamPositiveAbnormalMer Health- [place], KYDirect ExamMethod of testing is a DNA probe intended for detection and identification of Matthew species, Gardnerella vaginalis, and Trichomonas vaginalis nucleic acid in vaginal fluid specimens from patients with symptoms of vaginitis/vaginosis.[facility]- [place], KYInterpretation and review of laboratory resultsAbnormalMercy Health- [place], KYSpecial RequestsNOT REPORTEDMer Health- [place], KYSpecimen Description.VAGINAMercy Health- [place], KYMicroscopic Urinalysison [id number], UA1+AbnormalNoneMer[facility] Health Work Phone: bacteria, UAFEWAbnormalNoneMer[facility] Work Phone: casts UANOT REPORTED/LPFMercy Health Work Phone: crystals UANOT REPORTEDNone /HPFMercy Health Work Phone: epithelial Cells UA2 TO 5/HPFMercy Health Work Phone: Interpretation and review of laboratory results AbnormalMercy Health Work Phone: Mucus, UANOT REPORTEDNoneMer[facility] Health Work Phone: Other Observations UANOT REPORTEDNOT REQ.[facility] Work Phone: rBC (U) [#/Vol]2 TO 5/[facility]ITALMer[facility] Work Phone: renal Epithelial, UrineNOT REPORTED0 /[facility]OSPITALMer[facility] Health Work Phone: Trichomonas, UANOT REPORTEDNoneMercy Health Work Phone: WBC, UA5 TO 10/[facility]ITALMer[facility] Work Phone: Yeast, UANOT REPORTEDNoneMey Health Work Phone: -[facility] [employer] Work Phone: pOCT HCG, Prenancy, Uron 19-25-1857Dcyz HCG ( test) Ql (U)NegativeNEGATIVEMer Health Work Phone: comment on above: HCG screen is sensitive to 25 mIU/mL. However this test may picker and sorter load and unload lower levels of HCG. If further evaluation is needed please request quantitative HCG. -NOT REPORTEDMercy Health Work Phone: pOCT urine pregnancyon [id number] and review of laboratory resultsNormalMercy Health Work Phone: preg Test, UrNegativeMercy Health Work Phone: QC OK?yesMercy Health Work Phone: Urinalysis Reflex to Cultureon [id number] UrineNegativeNEGATIVEMercy Health Work Phone: color, UAYELLOWYELLOWMercy Health Work Phone: Glucose, UrNegativeNEGATIVEMercy Health Work Phone: Interpretation and review of laboratory results AbnormalMercy Health Work Phone: Ketones Ql (U)NegativeNEGATIVEMercy Health Work Phone: leukocyte esterase Test strip Ql (U)MODAbnormal NEGATIVEMercy Health Work Phone: Nitrite, UrineNegativeNEGATIVEMercy Health Work Phone: pH, UA6.0[facility] Work Phone: protein (U) [Mass/Vol]NegativeNEGATIVEMercy Health Work Phone: specific Hewitt, UA1.025[facility] Work Phone: Turbidity UACLOUDYAbnormalCLEARMercy Health Work Phone: Urinalysis CommentsNOT REPORTEDMerJoySports Health Work Phone: Urine HgbNegativeNEGATIVEMerJoySports Health Work Phone: Urobilinogen, UrineNormalNormalMercy Health Work Phone: cT Head WO ContrastOrdered By: Fran Rodriguez on 16-11-0919Jp acute intracranial abnormality.[employer] Phone: eXAMINATION: CT OF THE HEAD WITHOUT CONTRAST 07/07/2019 [...] mass effect or midline shift. No abnormal extra- axial fluid collection. The wright-white differentiation is maintained without evidence of an acute infarct. There is no evidence of hydrocephalus. ORBITS: The visualized portion of the orbits demonstrate no acute abnormality.SINUSES: The visualized paranasal sinuses and mastoid air cells demonstrate no acute abnormality. SOFT TISSUES/SKULL: No acute abnormality of the visualized skull or soft tissues.[employer] Phone: edi, [facility] Incoming Radiant Results From [employer] - 07/07/2019 3:30 PM EST EXAMINATION: CT [...] soft tissues. IMPRESSION: No acute intracranial abnormality. [employer] Work Phone: HCG, ,Urineon 01-19-1152Djug HCG ( test) Ql (U)NegativeNEGATIVEMercy Health- [place], [place]Comment on above:Specimens with hCG levels near the threshold of the test (25 mIU/mL) may give a negative or indeterminate result. In such cases, another test should be performed with a new specimen in 48-72 hours. If early is suspected clinically in this setting, correlation with quantitative serum b-hCG level is suggested. Urinalysis Reflex to Cultureon [id number] UrineNegativeNEGATIVEMercy Health- [place], KYColor, UAYELLOWYELLOWMercy Health- [place], KYGlucose, UrNegative NEGATIVEMercy Health- [place], KYInterpretation and review of laboratory results AbnormalMercy Health- [place], KYKetones Ql (U)NegativeNEGATIVEMercy Health- [place], [place] Leukocyte esterase Test strip Ql (U)LARGEAbnormalNEGATIVEMercy Health- [place], [place] Nitrite, UrineNegativeNEGATIVEMercy Health- [place], KYpH, UA7.5[facility]- [place] Protein (U) [Mass/Vol]1+AbnormalNEGATIVEMercy Health- [place], KYSpecific [place], UA 1.014[facility]- [place], KYTurbidity UACLOUDYAbnormalCLEARMercy Health- [place], [place] Urinalysis CommentsNOT REPORTEDMercy Health- [place], KYUrine HgbLARGEAbnormal NEGATIVEMercy Health- [place], KYUrobilinogen, UrineNormalNormalMercy Health- [place], [place] HCG, ,Urineon [id number] HCG ( test) Ql (U)Negative NEGATIVEMercy Health- [place], KYComment on above:Specimens with hCG levels near the threshold of the test (25 mIU/mL) may give a negative or indeterminate result. In such cases, another test should be performed with a new specimen in 48-72 hours. If early is suspected clinically in this setting, correlation with quantitative serum b-hCG level is suggested. Microscopic Urinalysison 75-26-0425Zdkrhwtwc, UANOT REPORTEDNoneMercy Health- [place], KYBacteria, UAMODERATEAbnormalNoneMey Health- [place], KYCasts UANOT REPORTED /LPFMercy Health- [place], KYCrystals UANOT REPORTEDNone /HPFMercy Health- [place], [place] Epithelial Cells UA0 TO 2/HPFMercy Health- [place], KYInterpretation and review of laboratory resultsAbnormalMercy Health- [place], KYMucus, UA2+AbnormalNoneMer[facility]- [place], [place]Other Observations UANOT REPORTEDNOT REQ.[facility]- [place], KYRBC (U) [#/Vol]0 TO 2/HPFMercy Health- [place], KYRenal Epithelial, UrineNOT REPORTED0 /HPFMercy Health- [place], KYTrichomonas, UANOT REPORTEDNoneMer[facility] Health- [place], KYWBC, UA20 TO 50/HPFMercy Health- [place], [place]YYeast, UANOT REPORTEDNoneMer[facility]- [place], [place]- [facility]- [place], KYUrinalysis Reflex to Cultureon [id number] Urine NegativeNEGATIVEMercy Health- [place], KYColor, UAYELLOWYELLOWMercy [facility]- [place] Glucose, UrNegativeNEGATIVEMer[facility]- [place], KYInterpretation and review of laboratory resultsAbnormalMercy Health- [place], KYKetones Ql (U)NegativeNEGATIVE [facility] [place], KYLeukocyte esterase Test strip Ql (U)MODAbnormalNEGATIVEMercy Health- [place], KYNitrite, UrineNegativeNEGATIVEMercy [facility]- [place], KYpH, UA7.5[facility]- [place], KYProtein (U) [Mass/Vol]1+AbnormalNEGATIVEMercy Health- [place], [place] Specific [place], UA1.019[facility]- [place], KYTurbidity UATURBIDAbnormalCLEAR [facility]- [place], KYUrinalysis CommentsNOT REPORTEDMercy Health- [place], KYUrine Hgb TRACEAbnormalNEGATIVEMercy Health- [place], KYUrobilinogen, UrineNormalNormalMercy Health- [place], KYHCG, ,Urineon 68-19-6227Kpvt HCG ( test) Ql (U) NegativeNEGATIVEMercy Health- [place], KYComment on above:Specimens with hCG levels near the threshold of the test (25 mIU/mL) may give a negative or indeterminate result. In such cases, another test should be performed with a new specimen in 48-72 hours. If early is suspected clinically in this setting, correlation with quantitative serum b-hCG level is suggested. Microscopic Urinalysison 07-08-4931Nztihwzhb, UANOT REPORTEDNoneMer[facility] Health- [place], KYBacteria, UAFEWAbnormalNoneMer[facility]- [place], KYCasts UANOT REPORTED/LPF [facility]- [place], KYCrystals UANOT REPORTEDNone /HPFMercy Health- [place], [place] Epithelial Cells UA10 TO 20/HPFMercy Health- [place], KYInterpretation and review of laboratory resultsAbnormalMercy Health- [place], [place]YMucus, UA1+AbnormalNoneMer[facility]- [place], [place]Other Observations UANOT REPORTEDNOT REQ.[facility]- [place], KYRBC (U) [#/Vol]0 TO 2/HPFMercy Health- [place], KYRenal Epithelial, UrineNOT REPORTED0 /HPFMercy Health- [place], KYTrichomonas, UANOT REPORTEDNoneMer[facility]- [place], KYWBC, UA5 TO 10/HPFMercy Health- [place], KYYeast, UANOT REPORTEDNoneMer[facility]- [place], [place]- [facility]- [place], KYOtheron [id number] ExamNegativeMercy Health- [place], [place] Urinalysis Reflex to Cultureon [id number] UrinePresumptive positive. Unable to confirm due to unavailability of reagent.AbnormalNEGATIVEMercy Health- [place], KYColor, UADARK YELLOWAbnormalYELLOWMercy Health- [place], KYGlucose, UrNegative NEGATIVEMer Health- [place], KYInterpretation and review of laboratory results AbnormalMercy Health- [place], KYKetones Ql (U)NegativeNEGATIVEMer[facility]- [place], [place] Leukocyte esterase Test strip Ql (U)SMALLAbnormalNEGATIVEMercy Health- [place], [place] Nitrite, UrineNegativeNEGATIVEM[facility]- [place], KYpH, UA5.0[facility]- [place] Protein (U) [Mass/Vol]TRACEAbnormalNEGATIVEMercy Health- [place], [place]YSpecific Hew[place], UA1.036HighMercy Health- [place], KYTurbidity UACLOUDYAbnormalCLEARMercy Health- [place], KYUrinalysis CommentsNOT REPORTEDMer Health- [place], KYUrine HgbNegativeNEGATIVE [facility]- [place], KYUrobilinogen, UrineNormalNormalMercy Health- [place], KYVaginitis DNA Probeon [id number] ExamMethod of testing is a DNA probe intended for detection and identification of Matthew species, Gardnerella vaginalis, and Trichomonas vaginalis nucleic acid in vaginal fluid specimens from patients with symptoms of vaginitis/vaginosis.[facility]- [place], [place]YSpecial RequestsNOT REPORTEDAultman [facility]- [place], KYSpecimen Description.VAGINAAultman Orrville Hospital [facility]- [place], [place] Vital Signs Date TimeVital SignValuePerforming DffwqluxlDddycdcv35-98-2859 13:29-0400Body oozesz259 cmAmy Rosalva LEE Work Phone: [facility] HospitalEbbtaqfhbf38-69-4722 13:29-0400Body mass index (BMI) [Ratio]31.93 kg/m2Olivia LEE Work Phone: [place] [facility] HospitalHretewjotf84-86-9101 13:29-0400Body yetodw20.76 kgOlivia LEE Work Phone: [place] [facility] HospitalFkxfdaovxr06-46-9487 13:29-0400Diastolic blood lzqbyiks25 mm[Hg]Olivia Saint Lucas PA Work Phone: [facility] HospitalCwdfsejdtp14-14-9162 13:Systolic blood bhznirhz354 mm[Hg]Olivia Blackwell PA Work Phone: [facility] HospitalJaebcfmqdq24-12-6251 13:19-0400Body mass index (BMI) [Ratio]32.77 kg/p5Upjgtn Shehorn PA-C Work Phone: [facility]09-10-2025 13:-040Body vddbharcxzw57.49 [degF]Racquel Shehorn PA-C Work Phone: [facility]09-10-2025 13:-040Body tisikx24.92 kgKelsie Shehorn PA-C Work Phone: [facility]09-10-2025 13:Diastolic blood lvlhkgxa56 mm[Hg]Racquel Shehorn PA-C Work Phone: [facility]09-10-2025 13:-0400Heart rate 87 /minKelsie Shehorn PA-C Work Phone: [facility]09-10-2025 13:-0400 Respiratory rate16 /minKelsie Shehorn PA-C Work Phone: [facility]09-10-2025 13:0660MtT5% (BldA) [Mass fraction]100 %Racquel Shehorn PA-C Work Phone: [facility]09-10-2025 13:Systolic blood fumjcldd923 mm[Hg]Racquel Shehorn PA-C Work Phone: [facility]08-09-2025 13:19-0400Body mass index (BMI) [Ratio]33.48 kg/f3ZmoerFaby Diaz APRN-JOS Work Phone: [facility]08-09-2025 13:Body kqwcwmnyenn71.9 [degF]Faby Diaz GLASS TECHNOLOGIST-CHIEF OF SURGERY Work Phone: [facility]08-09-2025 13:19-399Body .73 kgFaby Diaz GLASS TECHNOLOGIST-CHIEF OF SURGERY Work Phone: [facility]08-09-2025 13:19-399Diastolic blood mm[Hg]Faby Diaz GLASS TECHNOLOGIST-CHIEF OF SURGERY Work Phone: [facility]08-09-2025 13:Heart rate 78 /minMarin Diaz GLASS TECHNOLOGIST-CHIEF OF SURGERY Work Phone: [facility]08-09-2025 13:040 Respiratory rate18 /minMarin Diaz GLASS TECHNOLOGIST-CHIEF OF SURGERY Work Phone: [facility]08-09-2025 13:0694LhB8% (BldA) [Mass fraction]100 %Faby Diaz GLASS TECHNOLOGIST-CHIEF OF SURGERY Work Phone: [facility]08-09-2025 13:19-399Systolic blood afhuszvv974 mm[Hg]Faby Diaz GLASS TECHNOLOGIST-CHIEF OF SURGERY Work Phone: [facility]07-23-2025 14:40-0400Body mass index (BMI) [Ratio]32.66 kg/m2Olivia LEE Work Phone: [facility] HospitalApapvjtbje35-40-2755 14:40-0400Body gpimlw66.64 kgOlivia LEE Work Phone: [facility] HospitalZpvcbrtsuo44-07-0401 14:40-0400Diastolic blood mwrveose67 mm[Hg]Olivia LEE Work Phone: [facility] HospitalZvwjmjsnyi76-26-4850 14:40-0400Systolic blood iddhotzj823 mm[Hg]Olivia LEE Work Phone: [facility] HospitalDgmfpfhkzh30-12-3129 08:27-0400Body mass index (BMI) [Ratio]33.48 kg/m2Olivia Rush GLASS TECHNOLOGIST-CHIEF OF SURGERY Work Phone: [facility]07-10-2025 08:27-0400Body wrlxkofhqdv92.59 [degF]Olivia Rush GLASS TECHNOLOGIST-CHIEF OF SURGERY Work Phone: [facility]07-10-2025 08:27-0400Body xwjdla86.73 kgOlivia Rush GLASS TECHNOLOGIST-CHIEF OF SURGERY Work Phone: [facility]07-10-2025 08:27-0400Diastolic blood cdugvvrs26 mm[Hg]Olivia Rush GLASS TECHNOLOGIST-CHIEF OF SURGERY Work Phone: [facility]07-10-2025 08:27-0400Heart rate 74 /minOlivia Rush GLASS TECHNOLOGIST-CHIEF OF SURGERY Work Phone: [facility]07-10-2025 08:27-0400 Respiratory rate18 /minOlivia Rush GLASS TECHNOLOGIST-CHIEF OF SURGERY Work Phone: [facility]07-10-2025 08:27-8444CsW8% (BldA) [Mass fraction]99 %Olivia Rush GLASS TECHNOLOGIST-CHIEF OF SURGERY Work Phone: [facility]07-10-2025 08:27-0400Systolic blood ebowpgaw296 mm[Hg]Olivia Rush GLASS TECHNOLOGIST-CHIEF OF SURGERY Work Phone: [facility]06-25-2025 14:04-0400Body mass index (BMI) [Ratio]33.98 kg/m2Olivia LEE Work Phone: [facility] HospitalPuvhjnwtid22-84-1780 14:04-0400Body qoyhud12 kg Olivia LEE Work Phone: [facility] HospitalTihzwlnqrb00-86-0801 14:04-0400Diastolic blood anfmqmys16 mm[Hg]Olivia LEE Work Phone: [facility] HospitalAhnhxcaqam54-93-3180 14:04-0400Systolic blood lyittsmo451 mm[Hg]Olivia LEE Work Phone: [facility] HospitalOuelvwqung73-36-5316 14:44-0400Body wisaqs605 cm Olivia Blackwell PA Work Phone: [facility] HospitalRccvlwvodz76-44-6853 14:44-0400Body mass index (BMI) [Ratio]35.22 kg/m2Olivia Blackwell PA Work Phone: [facility] HospitalDkifiihsfl97-85-5356 14:44-0400Body ripcbv23.17 kgOlivia Blackwell PA Work Phone: [facility] HospitalSakumylvbv82-47-0878 14:44-0400Diastolic blood tosfbgbf47 mm[Hg]Olivia Blackwell PA Work Phone: [facility] HospitalAzjarcidyq37-72-3467 14:44-0400Systolic blood cwwfnyrq308 mm[Hg]Olivia Blackwell PA Work Phone: [facility] HospitalYhjhjtipvv62-85-0408 17:09-0400Body cm Calvin Hicks MD Work Phone: [facility]04-15-2025 17:09-0400Body mass index (BMI) [Ratio]35.43 kg/n3XknehCalvin Hicks MD Work Phone: [place] [address]-15-2025 17:09-0400Body nuuwdyfxaxv11.6 [degF]Calvin Hicks MD Work Phone: [place] [address]-15-2025 17:09-0400Body fajvlp52.72 kgCalvin Hicks MD Work Phone: [place] [address]-15-2025 17:09-0400Diastolic blood eshjppcc86 mm[Hg]Calvin Hicks MD Work Phone: [place] [address]-15-2025 17:09-0400Heart rate70 /minCalvin Hicks MD Work Phone: Bon [place] [address]-15-2025 17:09-0400 Respiratory rate16 /minCalvin Hicks MD Work Phone: Bon Dr [employer] [facility] CenterPhsmvw93-62-7756 17:09-0410TyO4% (BldA) [Mass fraction]97 %Calvin Hicks MD Work Phone: bon [facility]04-15-2025 17:09-0400Systolic blood layfrafn407 mm[Hg]Calvin Hicks MD Work Phone: Bon [facility]01-23-2025 15:30-0500 Respiratory rate16 /minFaustino Knight MD Work Phone: Bon [facility]01-23-2025 14:02-0500Body cmWenatalie Knight MD Work Phone: Bon [facility]01-23-2025 14:02-0500Body mass index (BMI) [Ratio]35.43 kg/t2KojpfmFaustino Knight MD Work Phone: Bon [facility]01-23-2025 14:02-0500Body zxtpcnhugcb59.2 [degF]Faustino nKight MD Work Phone: bon [facility] CampusChannelEyes [facility] CenterGmmyrc70-75-6324 14:02-0500Body amrrfu40.72 kgFaustino Knight MD Work Phone: Bon [facility]01-23-2025 14:02-0500Diastolic blood zyzwwhef35 mm[Hg]Faustino Knight MD Work Phone: Bon [facility] CampusChannelEyes [facility] CenterUpukhv68-71-5019 14:02-0500Heart rate91 /minFaustino Knight MD Work Phone: Bon [facility] CampusChannelEyes [facility] CenterNuakpc00-98-2639 14:02-4291MiX3% (BldA) [Mass fraction]98 %Faustino Knight MD Work Phone: Bon [facility] CampusChannelEyes [facility] CenterNxqwdi68-89-5852 14:02-0500Systolic blood ecwlcadt415 mm[Hg]Faustino Knight MD Work Phone: Bon Dr [employer] [facility]Quant the NewsYqczsy22-58-0276 14:28-0500Body rggkuo36 kgOlivia Blackwell JESUS Work Phone: [facility] HospitalYzivcmgqmw01-87-7946 14:28-0500Diastolic blood lbbuqapz85 mm[Hg]Olivia Peacemarnie LEE Work Phone: NOSelect [facility]ty HospitalVobvkijfqa33-98-3021 14:28-0500Systolic blood avwfpqif981 mm[Hg]Olivia Peacemarnie LEE Work Phone: [facility] HospitalObpfbykmkn22-28-0765 16:36-0500Body lltazq361 cm Leighton Echeverriaoud DO Work Phone: Bon Dr [facility] [employer] [facility]Quant the NewsQtyejs43-29-3232 16:36-0500Body mass index (BMI) [Ratio]30.11 kg/m2Sawillie Mary Ellen DO Work Phone: Bon [employer]12-07-2024 16:36-0500Body yxjzvixqgsu11.3 [degF]Leighton Wongd DO Work Phone: Bon [employer]12-07-2024 16:36-0500Body .11 kgLeighton Echeverriaoud DO Work Phone: Bon [employer]12-07-2024 16:36-0500Diastolic blood mm[Hg]Leighton Echeverriaoud DO Work Phone: Bon [employer]12-07-2024 16:36-0500Heart rate72 /Ivana Wongd DO Work Phone: Bon [employer]12-07-2024 16:36-0500 Respiratory rate18 /minSami Mary Ellen DO Work Phone: Bon [employer]12-07-2024 16:36-9863EmT3% (BldA) [Mass fraction]99 %Leighton Echeverriaoud DO Work Phone: Bon [employer]12-07-2024 16:36-0500Systolic blood dwhshysa696 mm[Hg]Leighton Hyde DO Work Phone: bon [employer]10-08-2024 13:59-0400Body mass index (BMI) [Ratio]34.37 kg/h5Yrhpfw Shehorn PA-C Work Phone: [facility] [employer]10-08-2024 13:59-0400Body smcbhvkfzir80.59 [degF]Racquel Shehorn PA-C Work Phone: [facility]10-08-2024 13:59-0400Body cxjeaw79 kgKelsie Shehorn PA-C Work Phone: [facility]10-08-2024 13:59-0400Diastolic blood mm[Hg]Racquel Shehorn PA-C Work Phone: [facility]10-08-2024 13:59-0400Heart rate 83 /minKelsalliee Shehorn PA-C Work Phone: [facility]Advanced [facility]10-08-2024 13:59-0400 Respiratory rate20 /minKelsie Shehorn PA-C Work Phone: [facility]10-08-2024 13:59-0448TdH8% (BldA) [Mass fraction]100 %Racquel Shehorn PA-C Work Phone: [facility]10-08-2024 13:59-0400Systolic blood fzpjksym134 mm[Hg]Racquel Nelahorn PA-C Work Phone: [facility]Advanced [facility]08-26-2024 16:47-0400Body xzanil446 cmShant Shant Malone, DO Work Phone: bon [employer]08-26-2024 16:47-0400Body mass index (BMI) [Ratio]30.11 kg/p3Amkqckq Shant Malone, DO Work Phone: bon [employer]08-26-2024 16:47-0400Body yxlvggwdlpz65.1 [degF]Shant Bran I, DO Work Phone: [facility]ALSilvestre VYTJXW80-95-1857 16:47-0400Body .11 kgShant Bran I, DO Work Phone: [facility]ITALSNHBBW24-50-7203 16:47-0400Diastolic blood qkxoqyqk68 mm[Hg]Shant Bran I, DO Work Phone: [facility]ALSilvestre GOHRLK68-21-1988 16:47-0400Heart rate71 /minShant Bran I, DO Work Phone: [facility]PITALGVWMKD44-09-3111 16:47-0400 Respiratory rate18 /minShant Bran I, DO Work Phone: [facility]OSPITALQPFHQC53-74-6089 16:47-1901CkR5% (BldA) [Mass fraction]99 %Shant Bran I, DO Work Phone: [facility]OSPITALWHTPKW48-07-8322 16:47-0400Systolic blood mm[Hg]Shant Bran I, DO Work Phone: [facility]PITALTTDPJP82-41-8508 08:49-0500Body ultdowpazck89.29 [degF]Aria Chowdary MD Work Phone: BON [employer] [facility] HOSPITALZORWWX86-13-3013 08:49-0500Diastolic blood qbqocfpz45 mm[Hg]Aria Chowdary MD Work Phone: BON [employer]02-04-2024 08:49-0500Heart rate66 /Nellie Chowdary MD Work Phone: BON [employer] [facility] HOSPITALNiti Surgical SolutionsGOICRN20-38-4700 08:49-0500 Respiratory rate18 /Nellie Chowdary MD Work Phone: BON [employer] [facility] HOSPITALNiti Surgical SolutionsDOLBNM71-63-6739 08:49-5035FwQ1% (BldA) [Mass fraction]99 %Aria Chowdary MD Work Phone: bon [employer]02-04-2024 08:49-0500Systolic blood rppdlzgy156 mm[Hg]Aria Chowdary MD Work Phone: BON [employer]07-27-2021 22:05-0400Body cmAaron Orqvist [employer] Work Phone: 1(129) 103-503807-27-2021 22:05-0400Body mass index (BMI) [Ratio] 30.11 kg/w0Rujdh Orqvist [employer] Work Phone: 1(341) 269-267807-27-2021 22:05-0400Body cqsmdvnhwky33.1 [degF]Henry Orqvist [employer] Work Phone: 1(954) 268-753607-27-2021 22:05-0400Body mytiax18.11 kgAaron Orqvist [employer] Work Phone: 1(465) 151-665107-27-2021 22:05-0400Diastolic blood lfykfjoe58 mm[Hg] Henry Orqvist [employer] Work Phone: 1(671) 382-381107-27-2021 22:05-0400Heart rate98 /minAaron Orqvisjeff [place] [employer] Work Phone: 1(857) 725-408807-27-2021 22:05-0400Respiratory rate16 /minAaron Orqvist [employer] Work Phone: 1(870) 336-842607-27-2021 22:05-4403EtQ2% (BldA) [Mass fraction]100 % Henry Orqvist [employer] Work Phone: 1(491) 206-479607-27-2021 22:05-0400Systolic blood czuakyhy354 mm[Hg] Henry Orqvist [employer] Work Phone: 1(519) 856-601702-23-2020 13:39-0500BMI (Body Mass Index)26.57 kg/m2 [facility], OW36-67-0045 13:39-0500Body Swsrcffqdix99.1 [degF]Calvin [facility] [place], WQ13-38-4155 13:39-0500Body weight 68.04 kgCalvin [facility] [place], OC91-38-1281 13:39-0500BP Diastolic 76 mm[Hg]Calvin [facility] [place], LH46-48-7271 13:39-0500BP Systolic 123 mm[Hg]Calvin [facility] [place], CQ24-00-8995 13:39-4912Rrjvwo075 zoebarry [facility] [place], PZ88-48-9342 13:39-0500Pulse (Heart Rate) 87 /minMont[facility], GB49-37-2095 13:39-0500Pulse Oximetry 98 %Calvin [facility] [place], ZW70-65-0423 13:39-0500Respiratory Rate 16 /minCalvin [facility] [place], ZJ99-97-2385 14:22-0500BMI (Body Mass Index)26.57 kg/o2NcqxvWestfields [facility] [employer] Work Phone: 1(882)627-029190-559992-54834167-13-2964 14:22-0500Body Wmjmrqcjcos11.71 [degF]Vini [facility] [employer] Work Phone: 1(351) 705-547002-09-2020 14:22-0500Body beinng25.04 kgVini ImaxioHazard [facility] [employer] Work Phone: 1(417) 716-121102-09-2020 14:22-0500BP Bdjawbxje73 mm[Hg]Vini [facility] [employer] Work Phone: 1(409) 368-884502-09-2020 14:22-0500BP Fqlhrbsj541 mm[Hg][facility] [employer] Phone: 1(214) 290-883102-09-2020 14:22-5470Pwrkpd117 cmEC[facility] Health [facility] [employer] Phone: 1(462) 707-160702-09-2020 14:22-0500Pulse (Heart Rate)59 /minVini Portillo [employer] Work Phone: 1(614) 824-727702-09-2020 14:22-0500Pulse Vugbixfe69 %Vini Leahy [employer] Work Phone: 1(484) 954-373002-09-2020 14:22-0500Respiratory Rate16 /Royce Portillo [employer] Work Phone: 1(678) 312-587701-25-2020 10:44-0500Body cmVini ImaxionellyCredit Coach Work Phone: [facility] [employer] Work Phone: 1(724) 614-514101-25-2020 10:44-0500Body mass index (BMI) [Ratio] 26.57 kg/z7Mokte ImaxionellyCredit Coach Work Phone: [facility] [employer] Phone: 1(963) 172-825801-25-2020 10:44-0500Body tktwuxfrqle04.29 [degF]Vini Ritchie [employer] Work Phone: [facility] [employer] Work Phone: 1(538) 159-953301-25-2020 10:44-0500Body vdwsak29.04 kgVini Glyde Work Phone: [facility] [employer] Phone: 1(555) 203-312701-25-2020 10:44-0500Diastolic blood mm[Hg] Vini Ritchie [employer] Work Phone: [facility] [employer] Work Phone: 1(195) 847-135101-25-2020 10:44-0500Heart rate70 /Royce SueroCredit Coach Work Phone: [facility] [employer] Work Phone: 1(127) 306-657001-25-2020 10:44-0500Respiratory rate15 /Royce SueroCredit Coach Work Phone: [facility] [employer] Phone: 1(338) 605-237001-25-2020 10:44-9482XjB2% (BldA) [Mass fraction]99 % Vini Ritchie [employer] Work Phone: [facility] RehabilitationMaeglin Software Phone: 1(264) 794-358101-25-2020 10:44-0500Systolic blood clfaejlk607 mm[Hg] Vini Ritchie DO Work Phone: [facility] [employer] Work Phone: 1(185) 602-301101-11-2020 14:30-0500Body cmMavance Rodriguez MD Work Phone: [facility] [employer] Work Phone: 1(362) 128-887601-11-2020 14:30-0500Body mass index (BMI) [Ratio] 26.57 kg/v4QjrpniwFran Rodriguez MD Work Phone: [facility] [employer] Work Phone: 1(918) 166-910301-11-2020 14:30-0500Body gxobrurcyxb11.2 [degF] Fran Rodriguez MD Work Phone: [facility] [employer] Work Phone: 1(930) 664-983001-11-2020 14:30-0500Body uslmsm32.04 kgMavance Rodriguez MD Work Phone: [facility] [employer] Work Phone: 1(542) 508-607401-11-2020 14:30-0500Diastolic blood wcxicqry07 mm[Hg] Fran Rodriguez MD Work Phone: [facility] [employer] Work Phone: 1(510) 166-547101-11-2020 14:30-0500Heart rate99 /Citlali Rodriguez MD Work Phone: [facility] [employer] Work Phone: 1(628) 487-173801-11-2020 14:30-0500Respiratory rate18 /minFran Rodriguez MD Work Phone: [facility] [employer] Work Phone: 1(563) 519-351901-11-2020 14:30-0390HjE7% (BldA) [Mass fraction]100 % Fran Rodriguez MD Work Phone: [facility] [employer] Work Phone: 1(857) 378-124101-11-2020 14:30-0500Systolic blood wynkssas930 mm[Hg] Fran Rodriguez MD Work Phone: [facility] Work Phone: 1(436) 311-610810-08-2019 17:20-0400BMI (Body Mass Index)27.28 kg/m2 [facility], VT69-02-8093 17:20-0400Body Szjzbdmsjxj27.4 [degF][facility], WL03-44-9484 17:20-0400Body .85 [facility] [place], TV07-43-2657 17:20-0400BP Ujoxurfzc80 mm[Hg][facility], OO79-42-1520 17:20-0400BP Uqybyhwm907 mm[Hg][facility], ZA53-21-6867 17:20-7458Yzmmvg458 cm [facility], DN29-66-9312 17:20-0400Pulse (Heart Rate)69 /minFranc[facility] [place], NS39-57-6673 17:20-0400Pulse Uzpllhcl44 % [facility], ZG28-06-0332 17:20-0400Respiratory Rate18 /[facility] [place], SN01-62-4429 17:35-0400BMI (Body Mass Index)27.28 kg/t2ZfmqmhFirelands [facility], NF56-52-3265 17:35-0400Body Sarkluwcixo44.4 [degF][facility], HS10-06-6709 17:35-0400Body xywkwv77.85 kgFirelands [facility], VU21-28-6870 17:35-0400BP Diastolic 57 mm[Hg][facility], OC34-39-0455 17:35-0400BP Bknvatam483 mm[Hg][facility], BD20-48-2645 17:35-9375Rszmnn124 cmFirelands Regional Medical [facility], EV23-00-3035 17:35-0400Pulse (Heart Rate)66 /Rosamaria Zelaya [facility], SO61-22-9228 17:35-0400Pulse Zmivzafx52 %Drake Leahy [facility], XS28-74-0844 17:35-0400Respiratory Rate16 /Rosamaria Corcoran [facility], FB68-49-0954 11:22-0400BMI (Body Mass Index)28.34 kg/m2 [facility], RM51-42-2768 11:22-0400Body Fuyqrbhuywn55.01 [degF][facility], ZR13-94-7547 11:22-0400Body byfrat71.58 kg [facility], PG08-42-3917 11:22-0400BP Dmbuikgle00 mm[Hg] [facility], JI50-45-5120 11:22-0400BP Pbcgouih415 mm[Hg] [facility], EE07-26-5637 11:22-7842Ndxwls986 cmCoursusana [facility], YK86-75-4452 11:22-0400Pulse (Heart Rate)69 /Shraddha [facility], PK58-68-2875 11:22-0400Pulse Liwbpwxf86 %Елена [facility], LX65-78-7843 11:22-0400Respiratory Rate14 /[facility] [place] Encounters Encounter DateEncounter TypeCare ProviderFacilityStart: 04-10-2025 End: 86-13-3084Ajfcxw Wally LEE Work Phone: NORE Marlene OBGYNStart: 04-10-2025 End: 84-31-7582Brxtse Wally LEE Work Phone: noms Marlene OBGYNStart: 04-10-2025 End: 74-48-6573Dmnovq outpatient visit 5 minutesOlivia LEE Work Phone: noms Marlene OBGYNComment on above:Encounter for weight managementStart: 04-10-2025 End: 04-78-2029jnjwvpsdxnZGA RAMEYNot AvailableStart: 03-07-2025 End: 89-09-7773Trmjqo-up encounterCabess Roman GLASS TECHNOLOGIST-CHIEF OF SURGERY Work Phone: [facility] OregonComment on above:Vaginitis Panel PCR, Chlamydia/GC by PCR Jolynn Swab, Herpes Simplex and Varicella Zoster by PCR, LesionStart: 03-07-2025 End: 63-51-4309Hgbrbcnvq encounterRacheprimitivo Flores [facility] HospitalComment on above:ResultsStart: 03-06-2025 End: 97-58-8815Aoyxum outpatient visit 25 minutesRacquel Smith PA-C Work Phone: [facility] OregonComment on above:Acute vaginitis (Primary Dx); RashStart: 03-06-2025 End: 19-59-9376xwmqacdmhzXN PCP NO [facility]ITALProW[facility] Hospitalca [facility] Ambulatory PPGStart: 03-06-2025 End: 19-62-1181Olpeffyeo department patient visitNO PCP NO PCPProMedica Lima HospitalStart: 03-02-2025 End: 06-26-0829Krbthjzoe department patient visitNO PCP NO PCPProMedica Lima HospitalStart: 02-03-2025 End: 49-42-0067Ukvpzj OnlyFaby Diaz GLASS TECHNOLOGIST-CHIEF OF SURGERY Work Phone: [facility] OregonComment on above:Bacterial vaginosis (Primary Dx)Vaginitis Panel PCR, Chlamydia/GC by PCR Jolynn SwabStart: 02-02-2025 End: 32-04-3235ukkrufcaezJY PCP NO PCPProWvumedicine Barnesville Hospitalca Hospital Ambulatory PPGStart: 02-02-2025 End: 91-27-6347Wbksar outpatient visit 15 minutesFaby Diaz GLASS TECHNOLOGIST-CHIEF OF SURGERY Work Phone: [facility] CenterComment on above:Vaginal discharge (Primary Dx)Start: 01-16-2025 End: 31-91-6166Nhriig outpatient visit 15 minutesOlivia LEE Work Phone: NOMS BCP OBComment on above:Encounter for weight managementStart: 01-16-2025 End: 68-12-4745ledpjaaiobZGP RAMEYNot AvailableStart: 01-16-2025 End: 00-64-0486Vduhkm Wally LEE Work Phone: NOMS BCP OBStart: 01-16-2025 End: 64-83-3364Higuxx Wally LEE Work Phone: NOMS BCP OBStart: 01-04-2025 End: 30-49-1453Jeaqph TinoFaby Perez Lula GLASS TECHNOLOGIST-CHIEF OF SURGERY Work Phone: [facility] OregonComment on above:Bacterial vaginosis (Primary Dx); Trichomonas vaginitis; Vaginal yeast infectionChlamydia/GC by PCR Jolynn SwabStart: 01-03-2025 End: 43-88-6218Pahwkg outpatient visit 25 minutesAmy Jose Rush GLASS TECHNOLOGIST-CHIEF OF SURGERY Work Phone: [facility] OregonComment on above:Vaginal discharge (Primary Dx); Herpes simplex infection of perianal skinStart: 01-03-2025 End: 33-38-6113ggwrdobjflTV PCP NO [facility]ITALProW[facility] Hospitalca Hospital Ambulatory PPGStart: 12-19-2024 End: 65-78-7894Nvydse Wally LEE Work Phone: noMS BCP OBStart: 12-19-2024 End: 85-55-7444Gyelgy Wally LEE Work Phone: NOMS BCP OBStart: 12-19-2024 End: 53-82-0356rbibmckenmRSF RAMEYNot AvailableStart: 12-19-2024 End: 41-58-3515Umymco outpatient visit 5 minutesOlivia LEE Work Phone: NOM[facility] OBComment on above:Encounter for weight managementStart: 11-21-2024 End: 31-16-4698ioapsvwvqnBYF RAMEYNot AvailableStart: 11-21-2024 End: 84-42-8539Rwtfzr outpatient visit 15 minutesOlivia LEE Work Phone: noMS [facility] OBComment on above:Encounter for weight loss counseling; Encounter for weight managementStart: 11-21-2024 End: 71-15-6425Xptckt Wally LEE Work Phone: NOM[facility] OBStart: 11-21-2024 End: 89-50-9421Mvdwrr Wally LEE Work Phone: noms [facility] OBStart: 10-09-2024 End: 74-68-8814Nzmksikbr department patient visitCalvin Hicks MD Work Phone: [facility] Emergency DepartmentComment on above: Insect bite of other part of neck, initial encounter (Primary Dx)Start: 07-19-2024 End: 18-21-9186Zgwugqbop department patient visitFaustino Knight MD Work Phone: [facility] Emergency DepartmentComment on above: Possible exposure to STI (Primary Dx)Start: 07-04-2024 End: 30-05-2270Bbffet Wally LEE Work Phone: noms [facility] OBStart: 07-04-2024 End: 17-25-7922Tpicrd Wally LEE Work Phone: noms [facility] OBStart: 07-04-2024 End: 17-54-7701Ozmkwgkip Result EncounterOlivia LEE Work Phone: noms External Department UnsolicitedStart: 07-04-2024 End: 60-96-1181Ndhcuez encounter procedureOlivia LEE Work Phone: noMS HealthcareStart: 07-04-2024 End: 58-44-6154Asuiqeab preventive med est patient 18-39 yrsOlivia LEE Work Phone: noMS [facility] OBComment on above:Well woman exam with routine gynecological examStart: 07-04-2024 End: 20-39-5079nxkzzmpesdFHQ RAMEYNot AvailableStart: 06-02-2024 End: 52-83-7166Nyboqnvtp department patient visitSami Mary Ellen DO Work Phone: [facility] Emergency DepartmentComment on above: Vaginal yeast infection (Primary Dx); STD (female)Start: 05-28-2024 End: 56-01-7382Qwptvgwbb department patient visitNO PCP NO PCPProWvumedicine [facility] Hospitalca [facility] HospitalStart: 04-03-2024 End: 43-50-7753fzzuixsvlxBESGGC R [facility] HospitalStart: 04-03-2024 End: 65-49-2029kpzzdwnlqoBJ PCP NO PCPMetroHealth [facility] Ambulatory PPGStart: 04-03-2024 End: 61-13-7398Ttdiuq outpatient new 30 minutesKelsie Den Smith PA-C Work Phone: [facility] OregonComment on above:Urinary frequency (Primary Dx); Screening examination for STD (sexually transmitted disease)Start: 02-20-2024 End: 23-33-2808Gdigrtvlm department patient visitMansook Bran DO Work Phone: [facility] EDComment on above:Bacterial vaginosis (Primary Dx)Start: 11-07-2023 End: 66-76-0700Rwosmqcih Result EncounterCorey Melissa DO Work Phone: noms External Department UnsolicitedStart: 11-07-2023 End: 94-25-9539Truzlbpow Result EncounterCorey Melissa DO Work Phone: noms External Department UnsolicitedStart: 10-21-2023 End: 66-03-6876Xzxnwkgic Result EncounterCorey Melissa DO Work Phone: noms External Department UnsolicitedStart: 10-21-2023 End: 99-58-6769Bhbkcorgk Result EncounterCorey Melissa DO Work Phone: noms External Department UnsolicitedStart: 10-19-2023 End: 76-78-2102Syguikatl Result EncounterValerie Rohit BOOGIEM Work Phone: noms External Department UnsolicitedStart: 10-19-2023 End: 13-43-0108Ympvrryui Result EncounterValerijimy Cooney CNM Work Phone: noms External Department UnsolicitedStart: 08-04-2023 End: 74-80-7680mzhyqrvglcPQLXJChillicothe VA Medical Centertart: 08-04-2023 End: 99-55-2621Zfkpkqzoqp hospital visit by Florencio Delgado CNP Work Phone: stvz [facility] Lab DrawComment on above:High-risk in second trimesterStart: 07-30-2023 End: 55-69-7344hhqbdhsykaEOCVZThe Bellevue Hospitaltart: 07-30-2023 End: 71-33-4375Tmusuyspub hospital visit by Wolfgang Chowdary MD Work Phone: stvz 7A Labor & DeliveryStart: 07-30-2023 End: 19-83-7699Jnhpcqnme department patient visitBANNER REHABILITATION HOSPITAL WESTTT Sheltering Arms Hospitaltart: 44-58-3736Onawkbors for cervical smear to confirm findings of recent normal smear following initial abnormal smearDR CONNOR SOURAVKettering Health – Soin Medical Centertart: 01-28-2022 End: 74-35-1616ptsioopnoqWN CONNOR FAOFacility:F1Scgoj: 01-28-2022 End: 40-11-3188Ifyfzcosh for cervical smear to confirm findings of recent normal smear following initial abnormal smearDR CONNOR MOULTONOFacility:R8Nieof: 49-26-9696rydpnmnlmfSV ZARA CONNELLFacility:Z3Nztji: 09-05-2021 End: 02-52-9482Zyoxkolvxm and management of inpatientDR ZARA CONNELL Facility:O1Tqvym: 08-27-2021 End: 11-88-1090qoxyolnnkmDX ZARA CONNELLFacility:T1Iwzhr: 08-11-2021 End: 52-92-7489fqkdtnndefBQ ZARA CONNELLFacility:G0Seglh: 07-07-2021 End: 18-11-1987qqwmpjhibfXC ZARA CONNELLFacility:K4Qqsmf: 07-07-2021 End: 38-19-3500rvrioxdbltYY ZARA CONNELLFacility:N7Nclwg: 03-31-2021 End: 32-40-6120wvyrfdzdmsUVHQVA TEFacility:J8Aqrhp: 02-16-2021 End: 61-69-4730orjrzidknySQXAOS MOOREFacility:I3Jobso: 01-20-2021 End: 43-53-0918Zfkuyfbwe department patient visitHenry Heller [facility] EDComment on above:Urinary tract infection in mother during first trimester of (Primary Dx); Non-intractable vomiting with nausea, unspecified vomiting typeStart: 08-19-2019 End: 90-80-8859Dunngzqjo department patient visitCalvin Hicks Work Phone: [employer] EDComment on above:BV (bacterial vaginosis) (Primary Dx); RashStart: 08-05-2019 End: 67-01-2432Mmapsbdto department patient visitVini Ritchie Work Phone: [employer] EDComment on above:Acute cystitis without hematuria (Primary Dx)Start: 2019 End: 59-74-0178Hajqjtxuh department patient visitVini Ritchie DO Work Phone: [employer] EDComment on above:Visit for suture removal (Primary Dx)Start: 07-07-2019 End: 45-86-0866Mjloizskg department patient visitFran Rodriguez MD Work Phone: [employer] EDComment on above:Facial laceration, initial encounter (Primary Dx); Injury of head, initial encounterStart: 04-03-2019 End: 57-29-6803Iothjduek department patient visitJean Claude Fisher Work Phone: [employer] EDComment on above:Acute cystitis with hematuria (Primary Dx)Start: 03-15-2019 End: 75-32-8747Klsiakftf department patient visitDrake CorcoranSan Ramon Regional Medical Center EDComment on above:Urinary tract infection without hematuria, site unspecified (Primary Dx)Start: 02-15-2019 End: 39-35-7394Jalzurwpt department patient visitConaheed Olivera Work Phone: [facility] EDComment on above:Dysuria (Primary Dx); Vaginal discharge Procedures DateProcedureProcedure DetailPerforming ClinicianStart: [id number] PANEL PCRKelsie R Shehorn PA-C Work Phone: Start: 07-89-7244Mcfam metabolic panel calcium total Ludmila Arron Revenew Work Phone: Start: 70-24-7735Qsicg matthew species direct probe tq Ludmila Heller Revenew Work Phone: Start: 04-24-4945Qdmpy dip stick/tablet rgnt auto w/o microscopyStevolivia D Revenew Work Phone: Start: 18-52-9517MKN,APTIMA HPV,AGE GDLNAmy Rosalva PA Work Phone: Start: 06-02-2024 End: 30-55-0380Bivju matthew species direct probe tqSami Mary Ellen DO Work Phone: Start: 36-40-0743Kvkuu test visual color cmprsn methsSami Mary Ellen DO Work Phone: Start: 49-98-6829Ovrda dip stick/tablet rgnt auto w/o microscopyKelsie R Shehorn PA-C Work Phone: Start: 33-82-6876Gmctm matthew species direct probe tq Harvey Sarah MD Work Phone: Start: 16-32-9844Mizqe test visual color cmprsn Dimitrios Sarah MD Work Phone: Start: 51-18-4722CO OB INCOMPLETE ANATOMYCorey Melissa DO Work Phone: Start: 67-62-5773EY OB ANATOMYCorey Melissa DO Work Phone: Start: 14-14-6347CV OB CERVICAL LENGTHCorey Melissa DO Work Phone: Start: 90-04-3819FV OB CERVICAL LENGTHValerie L Floro CNM Work Phone: Start: 69-64-2952CZ OB BPP W NON-STRESSValerie L Floro CNM Work Phone: Start: 37-37-1080OU OB GROWTHValerie L Floro CNM Work Phone: Start: 84-36-8016WU OB PLACENTAValerie L Floro CNM Work Phone: Start: 46-14-9890UZY RUBELLA IGG ABValerie L Camilleo CNM Work Phone: Start: 08-94-3264KSZMV SCREENValerie L Camilleo CNM Work Phone: Start: 30-05-0009HKI ANTIBODY RFX TO QUANT PCRValerie L Camilleo CNM Work Phone: Start: 87-96-6853BZI AB/P24 AG WITH REFLEXValerie L Floro CNM Work Phone: Start: 31-69-1742DXQPY PLASMA REAGIN, QUANTValerie L Camilleo CNM Work Phone: Start: 47-43-8900Zpxoj matthew species direct probe tq Karis Palma DO Work Phone: Start: 99-66-2408Kxymvhxkmwk observation [Identifier] in Cervix by Cyto stainShant Bran I DO Work Phone: Start: 84-94-7212Vmpns dip stick/tablet rgnt auto w/o microscopyRaymond Jordan [place] Work Phone: Start: 07-30-2023 End: 63-87-2579Yexqj typing serologic Sal Ortega MD Work Phone: Start: 91-13-4464Ohhbxdqy of Products of Conception, External ApproachDR ZARA MCNEILLtart: 52-35-5212Alijawpi of Amniotic Fluid, Therapeutic from Products of Conception, Via Natural or Artificial OpeningDR ZARA MCNEILLtart: 66-77-1825Jwmtnxwrhntx of Other Hormone into Peripheral Vein, Percutaneous ApproachDR ZARA MCNEILLtart: 29-51-0947Rwvty dip stick/tablet reagent auto microscopyAaron M Orqvist MDStart: 55-09-4230Ifbov matthew species direct probe tqAdrienne C Lowjimy Work Phone: Start: 16-64-9521Ecbtzneeel microscopic onlyAdrienne C Lowe Work Phone: Start: 91-00-0235Zvkuv test visual color cmprsn methsAdrienne C Lowe Work Phone: Start: 46-12-7397Uuyur dip stick/tablet rgnt auto w/o microscopyAdrienne C Lowe Work Phone: Start: 08-05-2019 End: 74-34-6902Tjvww test visual color cmprsn methsSteven D [facility] Work Phone: Start: 27-30-6776Vqrkqczqom microscopic onlySteven D [facility] Work Phone: Start: 46-11-5774Iflgi dip stick/tablet rgnt auto w/o microscopySteven D [facility] Work Phone: Start: 81-09-9197Ti head/brain w/o contrast material Fran Rodriguez MD Work Phone: Start: 07-71-4309Liuga test visual color cmprsn methsAdrienne C Lowe Work Phone: Start: 60-30-0242Eebrw dip stick/tablet rgnt auto w/o microscopyAdrienne C Lowe Work Phone: Start: 79-06-5584Rrqgrqtiay microscopic onlyJeromy R LewisStart: 33-66-1656Ecbix test visual color cmprsn methsJeromy R LewisStart: 83-56-1702Fcfdx dip stick/tablet rgnt auto w/o microscopyJeromy R NiloStart: 98-48-3951Lpwzq matthew species direct probe tqAdrienne Adam Del Rosario Work Phone: Start: 33-37-4017Ujwtxmycuc microscopic onlyAdrienne C Carin Work Phone: Start: 20-31-1748Jztow test visual color cmprsn methsAdrienne C Carin Work Phone: Start: 58-09-8693Conqf dip stick/tablet rgnt auto w/o microscopyAdrienne C Carin Work Phone: Plan of Treatment DateCare ActivityDetailAuthorStart: 46-90-2877Seiozjdt Vaccine (1 of 2)Shingles Vaccine (1 of 2)[facility] Work Phone: start: 25-81-0834JFiS,Tdap and Td Vaccines (11 - Td or Tdap)DTaP,Tdap and Td Vaccines (11 - Td or Tdap)[facility]: 01-44-1267JSeB/Tdap/Td vaccine (11 - Td or Tdap)DTaP/Tdap/Td vaccine (11 - Td or Tdap)[facility]: 81-05-8675NLfJ/Tdap/Td vaccine (5 - Td or Tdap)DTaP/Tdap/Td vaccine (5 - Td or Tdap)[facility]: 26-37-0146ZYnP/Tdap/Td vaccine (9 - Td or Tdap)DTaP/Tdap/Td vaccine (9 - Td or Tdap)[facility]: 90-89-4583KWnF/Tdap/Td vaccine (9 - Td) DTaP/Tdap/Td vaccine (9 - Td)[facility] Phone: start: 12-25-1752Tvyrgrjfq for malignant neoplasm of cervixPap smearBON [facility]: 12-26-3167Zwsly BMI ScreeningAdult BMI ScreeningProWvumedicine Barnesville Hospitalca Health SystemStart: 84-23-5530Qwyrnrx ScreeningTobacco ScreeningMetroHealth Main Campus Medical Centerca Health SystemStart: 12-84-0593Qsemv BMI ScreeningAdult BMI ScreeningProWvumedicine Barnesville Hospitalca [facility] SystemStart: 63-66-5895Ttnaklv ScreeningTobacco ScreeningMetroHealth Main Campus Medical Centerca Health SystemStart: 33-87-9686Afmzm BMI ScreeningAdult BMI ScreeningProWvumedicine Barnesville Hospitalca [facility] SystemStart: 68-96-6195Dkzhoek ScreeningTobacco ScreeningMetroHealth Main Campus Medical Centerca [facility] SystemStart: 07-09-2025 End: 94-43-0723Intwrro encounter procedureNOMS BCP OBStart: 07-03-2025 End: 50-61-7005Bntvwfo encounter ojqaunbim63/07/2026 3:30 PM EST Office Visit NOMYaneth CADENA [address] [place] [address] Olivia Blackwell, PA [address] [place] [address] NOMYaneth Rosario OBGYNStart: 04-10-2025 End: 88-65-5909Sjouxnz encounter ufsjvrwnv26/15/2025 1:30 PM EDT Office Visit NOMYaneth CADENA [address] [place] [id number] Olivia Blackwell PA [address] [place] [address] ArrivedNOMS Rosario OBGYNComment on above:ArrivedStart: 66-03-6907Sldrg BMI ScreeningAdult BMI ScreeningMetroHealth Main Campus Medical Centerca [facility] SystemStart: 46-11-6186Nrubnwj ScreeningTobacco ScreeningPremier Health [facility]rium Medical Center SystemStart: 06-15-8551Xhwpltyeu vaccinationInfluenza VaccinePremier Health Atrium Medical Center SystemStart: 22-96-9572Mjetcvcyx vaccinationFlu vaccine (Season Ended)[facility] HospitalStart: 01-16-2025 End: 74-18-5493Hkekttj encounter iqhumsmyj51/23/2025 2:30 PM EDT Office Visit NOMS BCP OB [address] [place] [phone] Olivia Blackwell PA [address] [place] [address] [place] [address] ArrivedNOMS BCP OBComment on above:ArrivedStart: 12-19-2024 End: 74-68-3164Ujujeeg encounter bjkqxktzy12/25/2025 1:30 PM EDT Office Visit NOMS BCP OB [address] [place] [phone] Olivia Blackwell, PA [address] [place] [address] NOMS BCP OBStart: 07-04-2024 End: 16-75-4045Kjujsbo encounter pltyysxws27/08/2025 2:00 PM EST Office Visit NOMS BCP OB [address] [place] [phone] Olivia Blackwell, PA [address] [place], [facility] ArrivedNOMS BCP OBComment on above:ArrivedStart: 02-26-2024 COVID-19 Vaccine ( season)COVID-19 Vaccine ( season)[facility]art: 58-52-0769UTVPR-19 Vaccine ( season)COVID- 19 Vaccine ( season)[facility] Healthcareart: 02-26-2024 Influenza vaccinationInfluenza VaccinePremier Health Atrium Medical Center SystemStart: 01-26-2024 Influenza vaccinationFlu vaccine (#1)[facility]art: 09-02-2023 End: 80-61-7991Eddrfbh encounter uzyxsatxs11/08/2024 8:15 AM EST Routine [facility] [employer] [address] [place] [address] Sharla Bravo MD [facility] TRAIN DIRECTOR, [address] [facility] [place], [place] [id number] [facility] [employer] Ice Maker FranklinComment on above:ROBStart: 08-11-2023 End: 96-50-7269Mluxseb encounter kcijjjkqd96/15/2024 9:00 AM EST Routine [facility] [place] [facility] [address] [place] [phone] [facility]ATOMYSpecialty [facility] Maternal MedComment on above:ANATOMYStart: 08-04-2023 End: 10-79-4030Nadipdv encounter twwghcnuh06/08/2024 1:00 PM EST Office Visit [facility] [employer] [place] [address] [facility] [address] [place] [phone] Karis Palma DO [address] [facility] [place], [place] [address] [place] [address] [place] [address] [employer] R[employer] Ice Maker RosemeadComment on above:Pt will come at 1430Start: 02-25-2023 COVID-19 Vaccine ( season)COVID-19 Vaccine ( season)[facility] CENTERStfrankfort: 50-52-1282Sxjzitlsh vaccinationFlu vaccine (#1)[facility]ENTERStart: 84-85-7352Xefvbfyuv vaccinationFlu vaccine (#1)[facility] [employer] Work Phone: start: 51-54-9089Thphlrniq for Chlamydia trachomatis Chlamydia screenMercy Health Work Phone: start: 12-36-6518Ghlruiknb screenChlamydia screenMercy Health Work Phone: start: 77-21-5798Svxxlltsg vaccinationFlu vaccine (#1) [place], KYStfrankfort: 45-35-8763Psfulzws cancer screenCervical cancer screenAultman Orrville Hospital [employer] Phone: start: 23-35-5769Wfyxnmxkc for malignant neoplasm of cervixBAYSTATE WING HOSPITALOn-Ramp Wireless [facility] LIMAStart: 50-24-5186Qxdsb BMI Follow Up PlanAdult BMI Follow Up PlanAtrium Healthtart: 69-45-0780LOS screenHIV screenAultman Orrville Hospital [employer] Work Phone: start: 86-59-6976BGQ screeningHIV screenAultman Orrville Hospital [employer] Work Phone: start: 60-70-8472HJBKH-19 Vaccine (1)COVID-19 Vaccine (1)[facility] [employer] Phone: start: 88-85-1354Smxauglqmn ScreenDepression ScreenBON [facility] HOSPITALStart: 04-12-8082Egtslzzbsk ScreeningDepression Screening [facility] [employer] [facility] Centertart: 77-54-8580FWKVQ-19 Vaccine (#1)COVID-19 Vaccine (#1)[facility]ENTERStart: 16-55-7268Uqverqzfp B vaccine (2 of 3 - 3- dose series)Hepatitis B vaccine (2 of 3 - 3-dose series)[facility] [employer] Start: 20-85-0608Hhrfjwjzu C screeningHepatitis C screenAultman Orrville Hospital [employer] Phone: End: 25-90-5870Pxuudjcq identified in Urine by CultureUrine culture (clean catch) Microbiology Routine Urinary frequency 1 Occurrences starting 04/03/2024 until 04/03/2025[facility] CenterComment on above:1 Occurrences starting 04/03/2024 until 5Bacteria identified in Urine by CultureUrine culture (clean catch) Microbiology Routine Urinary frequency 04/03/2024 6:37 PM EDT [facility] End: 08-19-2019C.trachomatis N.gonorrhoeae DNAC.trachomatis N.gonorrhoeae DNA Microbiology Routine One Time for 1 Occurrences starting 08/19/2019until 08/19/2019[facility], [place]Comment on above:One Time for 1 Occurrences starting 08/19/2019 until 08/19/2019C.trachomatis N.gonorrhoeae DNAMercy Health- [place], [place] End: 02-15-2019C.trachomatis N.gonorrhoeae DNAC.trachomatis N.gonorrhoeae DNA Microbiology Routine One Time for 1 Occurrences starting 02/15/2019until 02/15/2019[place], KYComment on above:One Time for 1 Occurrences starting 02/15/2019 until 02/15/2019C.trachomatis N.gonorrhoeae DNAC.trachomatis N.gonorrhoeae DNA Microbiology Routine High-risk in second trimester 08/04/2023 7:20 AM ESTBON RetailTower HEALTHC.trachomatis N.gonorrhoeae DNA C.trachomatis N.gonorrhoeae DNA Microbiology Stat [employer] Label print 06/02/2024 6:18 PM ESTBon Vivolux HealthC.trachomatis N.gonorrhoeae DNA C.trachomatis N.gonorrhoeae DNA Microbiology Stat [employer] Label print 07/19/2024 2:23 PM ESTBon Vivolux HealthC.trachomatis N.gonorrhoeae DNA (Cervical or Vaginal Swab)C.trachomatis N.gonorrhoeae DNA (Cervical or Vaginal Swab) Microbiology Stat [employer] Label print 02/20/2024 5:35 PM EDTBON HadaptChlamydia trachomatis DNA [Presence] in Unspecified specimen by CHUCK with probe detectionChlamydia/GC by PCR Jolynn Swab Microbiology Routine Vaginal discharge 01/03/2025 8:57 AM [facility] GeorgiaJoust [facility] Caro RegionChlamydia trachomatis DNA [Presence] in Unspecified specimen by CHUCK with probe detectionChlamydia/GC by PCR Jolynn Swab Microbiology Routine Vaginal discharge Ordered: 02/02/2025 [facility] SystemComment on above:Ordered: 5Chlamydia trachomatis DNA [Presence] in Unspecified specimen by CHUCK with probe detectionChlamydia/GC by PCR Jolynn Swab Microbiology Routine Acute vaginitis 03/06/2025 1:[address] [facility] Work Phone: End: 75-61-0637Avhquwnvw/GC by PCR Jolynn SwabChlamydia/GC by PCR Jolynn Swab Microbiology Routine Screening examination for STD (sexually transmitted disease) 1 Occurrences starting 04/03/2024 until 04/03/2025[facility]Fost[facility] City [facility] SystemComment on above:1 Occurrences starting 04/03/2024 until 04/03/2025 Chlamydia/GC by PCR Jolynn SwabChlamydia/GC by PCR Jolynn Swab Microbiology Routine Screening examination for STD (sexually transmitted disease) 04/03/2024 6:[address] [facility] End: 71-85-8222Hdkempo, HSVCulture, HSV Microbiology Routine Once for 1 Occurrences starting 08/19/2019 until 08/19/2019[facility], KYComment on above:Once for 1 Occurrences starting 08/19/2019 until 08/19/2019Culture, HSV Culture, HSV Microbiology Routine 08/19/2019 2:20 PM [facility], [place] End: 59-20-1076Zutjpte, UrineCulture, Urine Microbiology Routine Once for 1 Occurrences starting 08/19/2019 until 08/19/2019[facility], KYComment on above:Once for 1 Occurrences starting 08/19/2019 until 08/19/2019Culture, Urine [facility], [place] End: 04-85-2543Cnmfwdp, UrineCulture, Urine Microbiology STAT One Time for 1 Occurrences starting 01/20/2021 until 01/20/2021[facility] [employer] Work Phone: comment on above:One Time for 1 Occurrences starting 01/20/2021 until 01/20/2021 End: 42-22-4061Nyepjyf, UrineBON SECOURS [facility] Medical Centerment on above:One Time for 1 Occurrences starting 07/30/2023 until 07/30/2023 End: 46-87-2366Manydan, WoundCulture, Wound Microbiology Routine One Time for 1 Occurrences starting 08/19/2019 until 08/19/2019[facility], KYComment on above:One Time for 1 Occurrences starting 08/19/2019 until 08/19/2019Cytology Cervical or vaginal smear or scraping studyPap Smear Pathology and Cytology Routine Well woman exam with routine gynecological exam Ordered: 07/04/2024[facility] [employer] Work Phone: comment on above:Ordered: 07/04/2024 End: 45-99-2765KEX CytologyGYN Cytology Lab Routine Once for 1 Occurrences starting 08/04/2023 until 08/04/2023[facility]ITALComment on above: Once for 1 Occurrences starting 08/04/2023 until 08/04/2023Herpes Simplex and Varicella Zoster by PCR, LesionHerpes Simplex and Varicella Zoster by PCR, Lesion Lab Routine Rash 03/06/2025 1:[address] [facility] End: 34-18-8337Xywlcvezvee urinalysisMicroscopic Urinalysis Lab Routine Once for 1 Occurrences starting 04/03/2019 until 04/03/2019[facility], KYComment on above:Once for 1 Occurrences starting 04/03/2019 until 04/03/2019Microscopic urinalysisMicroscopic Urinalysis Lab Routine 04/03/2019 5:28 PM [facility], KYNonrebreather mask oxygenNonrebreather mask oxygen Respiratory Care Routine As Needed until discontinued starting 07/30/2023[facility] Comment on above:As Needed until discontinued starting 07/30/2023 End: 43-05-0502Xrffv culture clean catchUrine culture clean catch Microbiology Routine Once for 1 Occurrences starting 02/15/2019 until 02/15/2019[facility], KYComment on above:Once for 1 Occurrences starting 02/15/2019 until 02/15/2019Urine culture clean catchTuscarawas Hospital, [place] End: 22-68-3160Qilcx culture clean catchUrine culture clean catch Microbiology Routine Once for 1 Occurrences starting 08/05/2019 until 08/05/2019[facility] Work Phone: comment on above:Once for 1 Occurrences starting 08/05/2019 until 08/05/2019 End: 24-19-7252Ehmcj culture clean catchUrine culture clean catch Microbiology Routine Once for 1 Occurrences starting 03/15/2019 until 03/15/2019[facility], LORENAComment on above:Once for 1 Occurrences starting 03/15/2019 until 03/15/2019 End: 48-33-7574Rjzjebnfn Panel PCRVaginitis Panel PCR Microbiology Routine Screening examination for STD (sexually transmitted disease) 1 Occurrences starting 04/03/2024 until 04/03/2025[facility] Work Phone: Comment on above:1 Occurrences starting 04/03/2024 until 04/03/2025Vaginitis Panel PCRVaginitis Panel PCR Microbiology Routine Screening examination for STD (sexually transmitted disease) 04/03/2024 6:38 PM [facility]WESTSportPursuit SystemVaginitis Panel PCRVaginitis Panel PCR Microbiology Routine Vaginal discharge 01/03/2025 8:57 AM [facility]THWESTdatapine Work Phone: Vaginitis Panel PCRVaginitis Panel PCR Microbiology Routine Vaginal discharge Ordered: 02/02/2025[facility] Work Phone: Comment on above:Ordered: 02/02/2025 Immunizations Immunization DateImmunizationNotesCare QfuizbbxSnxpqfki47-73-9435twmeutj toxoid, reduced diphtheria toxoid, and acellular pertussis vaccine, adsorbedShant Malone DO Work Phone: bon [facility] LHDTTA48-52-8327qzjnyfkyzd, tetanus toxoids and acellular pertussis vaccine, unspecified formulationFran Rodriguez MD Work Phone: [facility] Work Phone: [phone] toxoid, reduced diphtheria toxoid, and acellular pertussis vaccine, adsorbedFran Rodriguez MD Work Phone: [facility]09-09-2019tetanus toxoid, reduced diphtheria toxoid, and acellular pertussis vaccine, adsorbedAria Chowdary MD Work Phone: bon [facility]OSPITALNWXCYO18-98-9434jsedlsnwd virus vaccine, unspecified formulationAria Chowdary MD Work Phone: bon [facility]OSPITALRELIRM13-02-0801lwxabdsng virus vaccine, unspecified formulationAria Chowdary MD Work Phone: bon [facility]OSPITALGZROHI08-71-7409pcngnzabb A vaccine, pediatric/adolescent dosage, 2 dose schedulerAia Chowdary MD Work Phone: bon [facility] YXWRFW57-54-4409lukdriohrycgc polysaccharide (groups A, C, Y and W-135) diphtheria toxoid conjugate vaccine (MCV4P)Aria Chowdary MD Work Phone: [facility] CENTERSXANNG62-86-3199bufkxvfom, injectable, quadrivalent, preservative freeAria Chowdary MD Work Phone: [facility] CENTERSPLUUM71-19-7483nclcgkoha virus vaccine, unspecified formulationAria Chowdary MD Work Phone: [facility] CENTERIMXOPR10-34-3016ycxdekhxj virus vaccine, unspecified formulationAria Chowdary MD Work Phone: [facility] CENTERCGYXAS68-89-3152ozcgmtejt virus vaccine, unspecified formulationAria Chowdary MD Work Phone: [facility] CENTERTILHUH23-64-3370rtqptoohy virus vaccine, unspecified formulationAria Chowdary MD Work Phone: [facility]07-30-2009human papilloma virus vaccine, quadrivalentAria Chowdary MD Work Phone: [facility] CENTERYRUDJV63-51-9009bgzggkfnr A vaccine, pediatric/adolescent dosage, 2 dose scheduleAria Chowdary MD Work Phone: [phone]03-27-2009human papilloma virus vaccine, quadrivalentAria Chowdary MD Work Phone: [facility]01-30-2009human papilloma virus vaccine, quadrivalentAria Chowdary MD Work Phone: [phone]ENTERWDZIVG01-83-7391bifutjxagbtpn polysaccharide (groups A, C, Y and W-135) diphtheria toxoid conjugate vaccine (MCV4P)Aria Chowdary MD Work Phone: [facility]01-30-2009tetanus toxoid, reduced diphtheria toxoid, and acellular pertussis vaccine, adsorbedAria Chowdary MD Work Phone: [facility] CENTERVFNZUD76-27-7073ioiusarqj virus vaccineAria Chowdary MD Work Phone: [facility] CENTERFEIPRM31-39-5124vgsojdcxb virus vaccine, unspecified formulationAria Chowdary MD Work Phone: [facility]ITALPrismic Pharmaceuticals [facility]PITALHTJFRV31-25-2205zalrxqlsz virus vaccine, unspecified formulationAria Chowdary MD Work Phone: [facility]ONPr[facility] Pharm[facility]OSPITALJELPJC03-59-7914yfigwlleao, tetanus toxoids and acellular pertussis vaccine, unspecified formulationAria Chowdary MD Work Phone: [facility] HOSPITALXNSZXZ65-01-7676yftbllu, mumps and rubella virus vaccineAria Chowdary MD Work Phone: [facility] HOSPITALUGAVGG58-53-9442ljfqyxdprw vaccine, inactivatedAria Chowdary MD Work Phone: [facility]OSPITALWMSDMP70-27-1942icialjcdb virus vaccineAria Chowdary MD Work Phone: [facility] HOSPITALZTPBVE44-66-3110nhpscrqjzr, tetanus toxoids and acellular pertussis vaccine, unspecified formulationAria Chowdary MD Work Phone: [facility]ONPr[facility] Pharmaceuticals [facility]OSPITALITRYCA77-41-7502lzzywsfqrly influenzae type b vaccine, conjugate unspecified formulationAria Chowdary MD Work Phone: [facility]ONPr[facility] Pharmaceuticals [facility]PITALWXMYDT70-24-0608kphxauz, mumps and rubella virus vaccineAria Chowadry MD Work Phone: [facility]OSPITALPNVUTB16-83-1540yjpkedrlbx, tetanus toxoids and acellular pertussis vaccine, unspecified formulationAria Chowdary MD Work Phone: [facility]ONPr[facility] Pharmaceuticals [facility]OSPITALRJTWEH78-93-6219uvtuiyzgqww influenzae type b vaccine, conjugate unspecified formulationAria Chowdary MD Work Phone: [facility]ONPr[facility] Pharmaceuticals [facility]ITALVSJAQC84-62-8227tbbghzhrd B vaccine, pediatric or pediatric/adolescent dosageAria Chowdary MD Work Phone: [facility]CSONPrismic Pharmaceuticals [facility]PITALISBRBR80-31-4495hbzaxbgeiz vaccine, unspecified formulationAria Chowdary MD Work Phone: [facility] CENTERVHPBHM04-98-8477mripeafhsb, tetanus toxoids and acellular pertussis vaccine, unspecified formulationAria Chowdary MD Work Phone: [facility] CENTERAZFBZS19-66-0636ivfctgzryzb influenzae type b vaccine, conjugate unspecified formulationAria Chowdary MD Work Phone: [facility] CENTERIURTUQ90-87-2236sheeboykiu vaccine, unspecified formulationAria Chowdary MD Work Phone: [facility] CENTERQRELJW22-77-2804wyitvixred, tetanus toxoids and acellular pertussis vaccine, unspecified formulationAria Chowdary MD Work Phone: [facility]ENTERWTOMPY11-75-7167lblbccmnfab influenzae type b vaccine, conjugate unspecified formulationAria Chowdary MD Work Phone: [facility] CENTERBNDZOK13-84-0820fqbdbjcbxr vaccine, unspecified formulationAria Chowdary MD Work Phone: [facility] CENTERHSKAKH87-92-1338lotrvkpvg B vaccine, pediatric or pediatric/adolescent dosageAria Chowdary MD Work Phone: [facility] CENTERKTSZQN75-38-1049oflvqnotw B vaccine, pediatric or pediatric/adolescent dosageAria Chowdary MD Work Phone: [facility] Payers DatePayer CategoryPayerPolicy [id number] (Managed Care)[facility] [employer] Member Subscriber Plan / Payer (Effective 2023-Present) Name: Jessica Smalls Relation to Subscriber: Self Name: Jessica Smalls Payer ID: Not on file Group ID: Not on file Type: Not on file Address: [address] [place] [id number] [facility] xxxxxxxxxxxx 2017-Present [phone] [place] [id number] [id number] 2003Medicaid [id number] 2003Medicaid [facility] MEDICAID [id number] 2.1.341654.3.57[id number] .1.584240.3.57[id number] .1.537028.3.57[id number] .1.537269.3.57[id number] .1.928215.3.57[id number] .1.212379.3.57[id number] 2.16840.1.972300.3.57[id number] 2.16840.1.294551.3.57[id number] 2.16840.1.954118.3.57[id number] 2.840.1.906190.3.57[id number] 2.0.1.755440.3.57[id number] 2.0.1.014144.3.57[id number] 2..1.833024.3.57[id number] 2.0.1.910556.3.57[id number] 2..1.727692.3.57[id number] 2..1.897049.3.57[id number] 2.0.1.123177.3.57[id number] 2.0.1.755657.3.57[id number] 2.0.1.735790.3.57[id number] 2.840.1.232371.3.57[id number] 2.16.840.1.308636.3.57[id number] 2.16.840.1.925089.3.57[id number] 2.16.840.1.267544.3.57[id number] 2.16.840.1.391588.3.57[id number] 2.16.840.1.771908.3.57[id number] 2.16.840.1.824031.3.57[id number] 2.16.840.1.498615.3.57[id number] 2.16.840.1.844670.3.57[id number] 1.2.840.601819.1.13.239.2.7.3.566733.315 Social History DateTypeDetailFacilityStart: 04-03-2019 End: 58-49-8620Ahywvgs smoking status NHISNever smokerBAYSTATE WING HOSPITALSemba Biosciences [employer] Start: 04-03-2019 End: 47-39-1247Rahoqak intakeNoBAYSTATE WING HOSPITALPrismic Pharmaceuticals [facility]ITALStart: 21-59-1858Etu Assigned At BirthNot on [facility], [place]Start: 08-19-2019 End: 88-68-0412Wvooaql intakeCurrent non-drinker of alcohol (finding)[employer] Work Phone: start: 01-20-2021 End: 79-63-3001Jkilzoo use and exposureNever [facility] CenterStart: 08-06-2020 End: 86-82-3398Mmwbjmq of Social functionBON SIERRA TUCSONPrismic Pharmaceuticals [facility]PITALHow often to you have a drink containing alcohol?NeverBON [employer] [facility]ALTHStart: 88-57-0143Vhi many standard drinks containing alcohol do you have on a typical day?Patient does not drinkBON MARY RUTAN HOSPITALStart: 65-81-3162SlciyuvmiLLIVIRGINIA HOSPITAL CENTERStart: 02-20-2024 End: 60-19-5869Ahkfwqsgl beverage intakeLifetime non-drinker (finding)[facility] CENTERTobacco smoking status NHISTobacco smoking consumption unknownCedar County Memorial HospitalStart: 85-14-2968Kci assigned at birthFeCumberland HospitalStart: 08-06-2012 End: 31-90-1803LaaLlqwmv (finding)[facility] Clinical Notes 07-31-2023 to 04-10-2025 Note Date & QqqdDhpoZwubjose31-33-6063 History of Present illness Narrative* Katie Garcia MA - 04/10/2025 1:30 PM EDT Reason for Appointment: Patient ID: Jessica Smalls is a 29 y.o. female who presents for Weight Management Patient presents today for a weight management consultation. Patient has been prescribed Adipex andshe is here for her 3rd prescription. Today's Vitals: Estimated body mass index is 31.93 kg/m as calculated from the following: Height as of this encounter: 5' 3 . Weight as of this encounter: 180 lb 4 oz. Previous Weight/BMI: Wt Readings from Last 3 Encounters: 04/10/25 180 lb 4 oz 01/16/25 184 lb 6.4 oz 12/19/24 191 lb 12.8 oz BMI Readings from Last 3 Encounters: 04/10/25 31.93 kg/m 01/16/25 32.66 kg/m 12/19/24 33.98 kg/m Allergies as of 04/10/2025 (No Known Allergies) Medical History[1] Surgical History[2] Review of Systems: Review of Systems Constitutional: Negative. HENT: Negative. Eyes: Negative. Respiratory: Negative. Cardiovascular: Negative. Gastrointestinal: Negative. Genitourinary: Negative. Musculoskeletal: Negative. Skin: Negative. Neurological: Negative. All other systems reviewed and are negative. Hematological: Negative. Endocrine: Negative. Allergic/Immunologic: Negative. Objective Physical Exam Constitutional: Appearance: Normal appearance. She is well-developed. Cardiovascular: Rate and Rhythm: Normal rate and regular rhythm. Pulmonary: Effort: Pulmonary effort is normal. Breath sounds: Normal breath sounds. Abdominal: General: Bowel sounds are normal. There is no distension. Palpations: Abdomen is soft. Tenderness: There is no abdominal tenderness. There is no guarding or rebound. Musculoskeletal: General: No swelling. Normal range of motion. Right lower leg: No edema. Left lower leg: No edema. Neurological: Mental Status: She is alert and oriented to person, place, and time. Skin: General: Skin is warm and dry. Psychiatric: Mood and Affect: Mood normal. Behavior: Behavior normal. Vitals and nursing note reviewed. Exam conducted with a fire patroller present. Assessment/Plan Encounter Diagnosis Name Primary? Encounter for weight management Adipex: Patient presents today for 6th Adipex prescription. Weight and blood pressure has been captured Gilda have discussed/reiterated the importance of keeping a food journal, proper nutrition/diet, and exercise regimen. Patient verbalized understanding. Patient has lost more than 5% of her initial body weight Follow Up: Patient is to return to the office in 3 months for further evaluation to assess patient progress. Weight and blood pressure will need to be obtained in order for patient to receive 9th Adipex prescription. Documented by: Katie Garcia MA on behalf of JESUS Bell [1] No past medical history on file. [2] No past surgical history on file. documented in this encounterCedar County Memorial HospitalEerymtartt08-60-7455 Miscellaneous Notes* Telephone Encounter - CECELIA Macias - 03/07/2025 1:29 PM EDT Patient called regarding a missed call. Verified name and . Informed patient that she is positive for BV and negative for gonorrhea, chlamydia, HSV and Trichomonas. Informed patient that Flagyl was sent to the [facility] on [address]. documented [facility]Tr[facility] Telephone encounter Note* Telephone Encounter - CECELIA Macias - 03/07/2025 1:29 PM EDT Patient called regarding a missed call. Verified name and . Informed patient that she is positive for BV and negative for gonorrhea, chlamydia, HSV and Trichomonas. Informed patient that Flagyl was sent to the [facility] on [address]. [facility]09-10-[facility] History of Present illness Narrative* Racquel Smith PA-C - 03/06/2025 1:00 PM EDT Images from the original note were not included. Subjective: Patient ID: Jessica Smalls is a 29 y.o. female. Chief Complaint Patient presents with Rash Rash on butt and to be checked for STD. Vaginal odor. Patient presents to urgent care for evaluation. 1.) She has vaginal odor that started several days ago. No known specific STD exposure. She reportsshe was with new sexual partner over the past weekend - and he does not have any known STIs. No newsoaps/detergents. LMP 02/26/25. She is not using control. 2.) She has a rash to left buttock that started yesterday. She reports it is itchy and not painful.She has a known history of HSV of buttock, but reports this feels different as it is itchy. No known allergen/exposure. She was seen in the ER for this rash today, and prescribed a Medrol Dosepak which she has not picked up nor taken. The following portions of the patient's history were reviewed and updated as appropriate: allergies, current medications, past family history, past medical history, past social history, past surgicalhistory and problem list. Review of Systems Constitutional: Negative for chills and fever. Respiratory: Negative for shortness of breath. Cardiovascular: Negative for chest pain. Gastrointestinal: Negative for abdominal pain and vomiting. Genitourinary: Negative for dysuria, frequency, genital sores, hematuria, urgency, vaginal bleedingand vaginal discharge. Past Medical History: Diagnosis Date [...] MOUTH IN THE MORNING TAKE BEFORE MEALS magnesium oxide (MAGOX) 400 mg tablet Take 1 tablet (400 mg total) by mouth in the morning for 14 days. (Patient not taking: Reported on 03/06/2025) 14 tablet 0 methylPREDNISolone (MEDROL, DAILY,) 4 mg tablet follow package directions (Patient not taking: Reported on 03/06/2025) 21 tablet 0 ondansetron ODT (ZOFRAN-ODT) 4 mg disintegrating tablet Dissolve 4 mg on tongue every 8 (eight) hours as needed for nausea or vomiting. (Patient not taking: Reported on 03/06/2025) valACYclovir (VALTREX) 500 mg tablet Take 1 tablet (500 mg total) by mouth in the morning and 1 tablet (500 mg total) before bedtime. (Patient not taking: Reported on 03/06/2025) 6 tablet 0 No current facility-administered medications on file prior to visit. Objective: Vitals: 03/06/25 1319 BP: 112/58 Pulse: 87 Resp: 16 Temp: 36.9 C (98.5 F) TempSrc: Temporal SpO2: 100% Weight: 83.9 kg (185 lb) Patient's last menstrual period was 03/01/2025 (exact date). The patient is not currently . Body mass index is 32.77 kg/m . Facility age limit for growth %sindy is 20 years. Physical Exam Exam conducted with a fire patroller present (KATHY Ayala). Constitutional: General: She is not in acute distress. Appearance: She is not toxic-appearing. Cardiovascular: Rate and Rhythm: Normal rate and regular rhythm. Pulmonary: Effort: Pulmonary effort is normal. No respiratory distress. Breath sounds: Normal breath sounds. Abdominal: General: There is no distension. Palpations: Abdomen is soft. Tenderness: There is abdominal tenderness in the suprapubic area. There is no right CVA tenderness,left CVA tenderness, guarding or rebound. Genitourinary: Exam position: Lithotomy position. Vagina: No foreign body. No vaginal discharge or bleeding. Comments: Patient self swabbed for vaginitis and gonorrhea chlamydia prior to vaginal exam by provider. Patient declines repeat cultures by provider. Assessment/Plan: Jessica was seen today for rash. Diagnoses and all orders for this visit: Acute vaginitis - Vaginitis Panel PCR - Chlamydia/GC by PCR Jolynn Swab - Ambulatory Referral to [facility] Primary Care Rash of buttock - Herpes Simplex and Varicella Zoster by PCR, Lesion - Ambulatory Referral to [facility] Primary Care - mupirocin (BACTROBAN) 2 % ointment; Apply 1 Application topically 3 (three) times a day for 7 days. Will start patient on Bactroban to cover for folliculitis, and swab for HSV/varicella. This note is dictated with the use of M*Modal.Please note that this dictation was completed with computer voice recognition software. Quite often unanticipated grammatical, syntax, homophones, and other interpretive errors are inadvertently transcribed by the computer software. Please disregard these errors. Please excuse any errors that have escaped final proofreading. Questions answered. Discussed that follow up care is usually required after a visit to the Urgent care. It is patient responsibility to contact primary care provider for follow up. If symptoms are not improving, worsening, or concerning symptoms of illness develop, follow up withyour primary care provider or go to the nearest Emergency Department for further care immediately. Racquel Smith PA-C 03/06/25 1345 documented in this encounterTr[facility]08-10-2025 History of Present illness Narrative* Faby Diaz, DELVIS-CHIEF OF SURGERY - 02/03/2025 11:28 AM EDT Positive bacterial vaginosis, flagyl will be sent [...] MISTY Peters 02/03/25 1129 documented in this encounterTrinity [facility]08-09-2025 History of Present illness Narrative* MISTY Peters - 02/02/2025 1:05 PM EDT Subjective: Patient ID: Jessica Smalls is a 29 y.o. female. Chief Complaint [...] include vaginal discharge. The patient's pertinent negatives includeno genital itching, genital lesions, genital odor, genital [...] vomiting. The vaginal discharge was green and tc dorous. There has been no bleeding. She has tried antibiotics for the symptoms. The treatment provided mild relief. She is sexually active. It is unknown whether or not her partner has an STD. The following portions of the patient's history were reviewed and updated as appropriate: allergies, current medications, past family history, past medical history, past social history, past surgicalhistory and problem list. Review of Systems Constitutional: [...] may change as more information becomes available toyour private physician. If you develop any new, [...] morning before breakfast. TAKE 1 TABLET (37.5 MG)BY MOUTH IN THE MORNING TAKE BEFORE MEALS [...] concerning symptoms of illness develop, follow up withyour primary care provider or go to the nearest Emergency Department for further care immediately. MISTY Peters 02/02/25 1333 documented in this encounterTrinity [facility]07-23-2025 History of Present illness Narrative* JESUS Bell - 01/16/2025 2:30 PM EDT Reason for Appointment: Patient ID: Jessica Smalls is a 29 y.o. female who presents [...] keeping a food journal, proper nutrition/diet, and exerciseregimen. Patient verbalized understanding. Patient has lost more than 5% of her initial body weight Follow Up: Patient will follow up in 3 months, she is doing well and continues to lose weight. Patient states she is feeling good Documented by JESUS Bell on behalf of: JESUS Bell documented in this encounterCedar County Memorial HospitalSpavrodsaq84-92-2541 History of Present illness Narrative* Faby Diaz, GLASS TECHNOLOGIST-CHIEF OF SURGERY - 01/04/2025 8:08 AM EDT Vaginitis panel was positive for bacterial vaginosis, Trichomonas and yeast. Patient will be placedon metronidazole for both Trichomonas and bacterial vaginosis. [...] MISTY Peters 01/04/25 0810 documented in this encounterTr[facility]07-10-2025 History of Present illness Narrative* Olivia Rush, MISTY - 01/03/2025 8:25 AM EDT Subjective: Patient ID: Jessica Smalls is a 29 y.o. female. Chief Complaint [...] past medical history, past social history, past surgicalhistory and problem list. Review of Systems Constitutional: [...] sexually abstinent until all testing and/or treatment ascomplete Labs for this visit: Jessica was seen [...] morning before breakfast. TAKE 1 TABLET (37.5 MG)BY MOUTH IN THE MORNING TAKE BEFORE MEALS [...] concerning symptoms of illness develop, follow up withyour primary care provider or go to the nearest Emergency Department for further care immediately. MISTY Manriquez 01/03/25 0851 documented in this encounterTrinity Health [facility]07-10-2025 Instructions* Patient Instructions* MISTY Manriquez - 01/03/2025 8:25 AM EDT Monitor your MyChart for results and communication; remain sexually abstinent until all testing and/or treatment as complete * Attachments The following attachments cannot be sent through Care Everywhere. * Genital herpes (Faroese) * Vaginal discharge (Faroese) documented in this encounterTrinity Health [facility]06-25-2025 History of Present illness Narrative* Juju Connolly LPN - 12/19/2024 1:30 PM EDT Reason for Appointment: Patient ID: Jessica Smalls is a 29 y.o. female who presents for Weight Management Patient presents today for a weight management consultation. Patient has been prescribed Adipex andshe is here for her 2nd prescription. Today's [...] behalf of JESUS Bell documented in this encounterCedar County Memorial HospitalShflxhrwqs18-24-3025 History of Present illness Narrative* JESUS Bell - 11/21/2024 2:30 PM EDT Reason for Appointment: Patient ID: Jessica Smalls is a 29 y.o. female who presents [...] behalf of: JESUS Bell documented in this encounterCedar County Memorial HospitalMwubuschbk08-76-7333 Hospital Discharge instructions* Discharge Instructions* Ludmila Morales PA-C - 10/09/2024 5:26 PM EDT You can use warm or cool compress presses which ever is desired You can use Tylenol for pain if needed Benadryl for redness and itching Take antibiotics as directed Follow-up with your doctor for recheck in 1 to 2 days * Attachments The following attachments cannot be sent through Care Everywhere. * Insect Stings and Bites (Faroese) documented in this encounterSent[facility] Hospital Discharge instructions* Discharge Instructions* Ludmila Morales PA-C - 07/19/2024 3:16 PM EST Condoms are an effective way to prevent sexually transmitted infections No sexual activity until test results are known Make sure you follow-up with your doctor in 1 to 2 days for recheck * Attachments The following attachments cannot be sent through Care Everywhere. * STI (Faroese) documented in this encounterSentara [facility]01-08-2025 History of Present illness Narrative* JESUS Bell - 07/04/2024 2:00 PM EST Reason for Appointment: Patient ID: Jessica Smalls is a 28 y.o. female who presents [...] nursing note reviewed. Exam conducted with a fire patroller present. Vitals: There is no height or [...] behalf of: JESUS Bell documented in this encounterCedar County Memorial HospitalMcfixfroax13-04-0657 History of Present illness Narrative* JESUS Powers-Adam - 04/03/2024 1:20 PM EDT Subjective: Patient ID: Jessica Smalls is a 28 y.o. female. Chief Complaint [...] 7 days. There has been no fever. Sheis Sexually active. Associated symptoms include frequency. Pertinent [...] past medical history, past social history, past surgicalhistory and problem list. Review of Systems Constitutional: [...] 2 (two) times a day. (Patient not taking:Reported on 04/03/2024) No current facility-administered medications on [...] concerning symptoms of illness develop, follow up withyour primary care provider or go to the nearest Emergency Department for further care immediately. Racquel Smith PA-C 04/03/24 1501 documented in this encounterTrinity [facility]08-26-2024 Hospital Discharge instructions* Discharge Instructions* Harvey Sarah MD - 02/20/2024 6:41 PM [...] testing will be available to view in [employer] in the next 24-48 hours. If you do not have access to [employer] a provider will call you if positive result. documented in this encounterVIRGINIA HOS[facility]ENTER04-26-2024 Miscellaneous Notes* Result Encounter Note - Juju Connolly LPN - 10/21/2023 12:59 PM EDT Detailed voicemail left for pt. Pt actually comes in today for appointment. documented in this [facility]04-26-[facility] Progress note* Result Encounter Note - Juju Cnonolly LPN - 10/21/2023 12:59 PM EDT Detailed voicemail left for pt. Pt actually comes in today for appointment. [facility] Work Phone: 1(527) 799-680902-04-2024 Hospital Discharge instructions* Discharge Instructions* Ericka Vogt RN - 07/31/2023 10:37 AM [...] rest on left side. documented in this encounterVIRGINIA HOSPITAL CENTER02-04-2024 History of Present illness Narrative* 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 MD - 07/31/2023 6:43 AM EST TRAIN DIRECTOR PROGRESS NOTE Jessica Smalls is a 28 y.o. female at 22w1d, [...] indicated Pelvic Exam: not indicated Assessment/Plan: Jessica Smalls is a 28 y.o. female at 22w1d [...] admission and completed - Message sent to [facility] to coordinate care and schedule initial appointment Patient Active Problem List Diagnosis Date Noted 21 weeks gestation of 07/30/[address] Farris. 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 07/31/2023, 6:43 AM documented in [facility] encounterB[facility] [employer] [facility]* Diagnosis Urinary tract infection in mother during first trimester of - Primary Non-intractable vomiting with nausea, unspecified vomiting type documented in this encounter [employer] Phone: evaluation note* Diagnosis Facial laceration, initial encounter- Primary Injury of head, initial encounter documented in this encounter [facility] Phone: evaluation note* Diagnosis Visit for suture removal- Primary Encounter for removal of sutures documented in this encounter [employer] Phone: evaldsdarx note* Diagnosis 21 weeks gestation of - Primary state, incidental Abdominal trauma in Other injury of abdomen 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
[2025-06-03 11:34] LABS: Hematocrit 39.5 % (36.0-48.0); Hemoglobin 13.5 g/dL (12.0-16.0); Immature Granulocytes Abs Auto 0.02 10^3/uL (0.00-0.03); Immature Granulocytes Pct Auto 0.3 % (0.0-0.5); Lymphocytes Absolute Auto 1.2 10^3/uL (1.2-3.8); Mean Corpuscular HGB Conc 34.2 g/dL (29.9-35.2); Mean Corpuscular Hemoglobin 30.0 pg (26.7-34.0); Mean Corpuscular Volume 87.8 fL (81.0-99.0); Platelet Count 194 10^3/uL (150-450); Red Blood Count 4.50 10^6/uL (4.20-5.40); White Blood Count 5.9 10^3/uL (4.0-11.0)
[2025-06-03 11:49] LABS: Cannabinoid Screen Urine NEGATIVE (NEGATIVE); Methamphetamines Screen Urine NEGATIVE (NEGATIVE); Tricyclic Antidepressant Urine NEGATIVE (NEGATIVE)
[2025-06-04 08:09] LABS: Rubella Antibodies, IgG 3.92 index (Immune >0.99)
[2025-06-04 14:09] LABS: Rapid Plasma Reagin, Quant Non Reactive titer (NonRea<1:1)
== END 2025-06-03 10:59 | disposition home or self-care (01) ==
LOC: LAB 10:59
PROVIDERS: Visit Provider Obstetrics & Gynecology
DX: Z34.01 Encounter for supervision of normal first pregnancy, first trimester (principal); N92.6 Irregular menstruation, unspecified
CPT/HCPCS: 36415; 80307; 83036; 85025; 86592; 86762; 86803; 86850; 86900; 86901; 87086; 87340; 87389